=== PATIENT | female | born 1955 | race Two or more races ===

== ENCOUNTER 2020-03-19 09:50 | Outpatient (REF) | payer MEDICAID, SELFPAY ==
[2020-03-19 11:03] LABS: MANUAL DIFF FLAG NO
[2020-03-19 11:08] LABS: Basophils Percent Auto 0.7 % (0-2); Eosinophils Absolute Auto 0.1 X10*3/uL (0.0-0.4); Eosinophils Percent Auto 1.3 % (0-4); Hematocrit 45.9 % (37-47); Hemoglobin 14.6 g/dl (12.0-16.0); Imm Gran Abs Auto 0.02 X10*3/uL (0.00-0.03); Imm Gran Pct Auto 0.3 % (0.0-0.4); Lymphocytes Absolute Auto 1.3 X10*3/uL (1.2-4.9); Lymphocytes Percent Auto 21.2 % (20-40); Mean Corpuscular HGB Conc 31.8 g/dl (31.0-35.0); Mean Corpuscular Hemoglobin 28.6 pg (27.0-33.0); Mean Corpuscular Volume 89.8 fL (80-98); Mean Platelet Volume 10.1 fL (9.4-12.3); Monocytes Absolute Auto 0.4 X10*3/uL (0.1-1.2); Monocytes Percent Auto 6.5 % (2-11); Neutrophils Absolute Auto 4.2 X10*3/uL (2.0-8.3); Platelet Count 269 X10*3/uL (160-400); Red Blood Count 5.11 X10*6/uL (4.20-5.50); Red Cell Distribution Width 13.7 % (11.0-16.0)
[2020-03-19 11:14] LABS: Glucose Urine UA NEG (NEG); Leukocyte Esterase Urine NEG (NEG); Nitrite Urine NEG (NEG); Urine Blood NEG (NEG); Urine Ketones NEG (NEG); Urine Protein NEG (NEG-TRACE)
[2020-03-19 11:20] LABS: Appearance Urine CLEAR; Color Urine YELLOW
[2020-03-19 11:25] LABS: RBC Urine 0 /HPF (0); Squamous Epithelial Cell Urine 2+ /LPF; WBC Urine 0 /HPF (0-4)
[2020-03-19 11:26] LABS: Mucus Urine 2+ /LPF
[2020-03-19 12:35] LABS: Alanine Aminotransferase 30 U/L (0-31); Albumin Level 4.1 g/dL (3.5-5.0); Alkaline Phosphatase 124 U/L (39-117); Anion Gap 10 (12-20); Aspartate Amino Transferase 22 U/L (5-31); Bilirubin Total 0.3 mg/dL (0.0-1.0); Blood Urea Nitrogen 17 mg/dL (9-16); Carbon Dioxide 32 mmol/L (22-29); Chloride 105 mmol/L (96-108); Cholesterol 171 mg/dL; Estimated Glomerular Filt Rate > 60; Glucose Fasting 104 mg/dL (60-99); HDL Cholesterol 45 mg/dL; LDL Cholesterol Calculated 103 mg/dl; Potassium 4.6 mmol/l (3.3-5.1); Sodium 142 mmol/L (135-145); Total Protein 7.1 g/dL (6.5-8.0); Triglycerides 116 mg/dL
[2020-03-19 12:55] LABS: TSH reflex Free T4 2.23 mIU/mL (0.32-4.0); Vitamin D 25-OH Total 16.6 ng/mL (>30)
== END 2020-03-19 09:51 | disposition home or self-care (01) ==
LOC: HO.LAB 09:50
PROVIDERS: PCP Internal Medicine; Visit Provider Internal Medicine
DX: Z00.00 Encounter for general adult medical examination without abnormal findings (principal); I10 Essential (primary) hypertension; K21.9 Gastro-esophageal reflux disease without esophagitis; E66.9 Obesity, unspecified; E55.9 Vitamin D deficiency, unspecified
CPT/HCPCS: 36415; 80053; 80061; 81001; 82306; 84443; 85025

== ENCOUNTER 2020-07-17 08:36 | Day surgery (SDC) | payer MEDICAID, SELFPAY ==
[2020-07-13 09:20] VITALS: BMI 40.4
--- NOTE | 2020-07-16 07:54 | HO.ANESPROP2 ---
Documented by User: Yennifer Martins 07/16/20 07:55 HPI - Anesthesia Eval Consult details Narrative: 64yo F for Upper Endoscopy and Colonoscopy [facility] Active Problems Active Problems: All Active Problems (Updated 07/13/20 @ 09:20 by Chasity Gomez) Impaired glucose tolerance (Acute) Bipolar disorder (Acute) GERD (gastroesophageal reflux disease) (Acute) Tobacco abuse (Acute) Colon cancer screening (Acute) Tendon cysts (Acute) Lumbar degenerative disc disease (Acute) Hypertension (Acute) Vitamin D deficiency (Acute) Past Medical History Medical History Back pain Bipolar disorder GERD (gastroesophageal reflux disease) History of diverticulitis Hypertension Impaired glucose tolerance Lumbar degenerative disc disease Vitamin D deficiency Family History Family History (Updated 04/01/20 @ 10:49 by Naima Lange Pat) Father No problems noted. Mother No problems noted. Surgical History Surgical History H/O colonoscopy History of cholecystectomy History of esophagogastroduodenoscopy (EGD) History of tubal ligation Hx of cataract surgery Social History Social History Smoking Status: Current every day smoker Use of substances other than those prescribed or required for medical reasons: No Advance Directives: No Advance Directives Information Provided: Yes Meds Allergies Allergy/AdvReac Type Severity Reaction Status Date / Time No Known Allergies Allergy Verified 07/17/20 08:49 [No Known Allergies*] Home Medications Medication Instructions Recorded Confirmed Last Taken Type amlodipine 5 mg tablet 5 mg PO DAILY 04/27/20 07/13/20 07/17/20 08:00 History clonazepam 2 mg tablet 2 mg PO BEDTIME 04/27/20 07/13/20 Unknown History omeprazole 20 mg capsule,delayed 20 mg PO BID cap 04/27/20 07/13/20 Unknown History release trazodone 50 mg tablet 50 mg PO DAILY 04/27/20 07/13/20 Unknown History Exam Exam Date and Time: July 16, 2020 0754 Height,Weight and Vital Signs: Height 5 ft 1 in Weight 97.069 kg Assessment and Plan Assessment Anesthesia Assessment: Chart Reviewed Documented by User: Maliha Omalley 07/17/20 09:54 PMFSH Past Medical History Medical History Back pain Bipolar disorder GERD (gastroesophageal reflux disease) History of diverticulitis Hypertension Impaired glucose tolerance Lumbar degenerative disc disease Vitamin D deficiency Family History Family History (Updated 04/01/20 @ 10:49 by Naima Lange Pat) Father No problems noted. Mother No problems noted. Surgical History Surgical History H/O colonoscopy History of cholecystectomy History of esophagogastroduodenoscopy (EGD) History of tubal ligation Hx of cataract surgery Social History Social History Smoking Status: Current every day smoker Use of substances other than those prescribed or required for medical reasons: No Advance Directives: No Advance Directives Information Provided: Yes Meds Allergies Allergy/AdvReac Type Severity Reaction Status Date / Time No Known Allergies Allergy Verified 07/17/20 08:49 [No Known Allergies*] Home Medications Medication Instructions Recorded Confirmed Last Taken Type amlodipine 5 mg tablet 5 mg PO DAILY 04/27/20 07/13/20 07/17/20 08:00 History clonazepam 2 mg tablet 2 mg PO BEDTIME 04/27/20 07/13/20 Unknown History omeprazole 20 mg capsule,delayed 20 mg PO BID cap 04/27/20 07/13/20 Unknown History release trazodone 50 mg tablet 50 mg PO DAILY 04/27/20 07/13/20 Unknown History Exam Airway Mallampati Class: II TM Dist: >3cm Denture: Upper Loose/Missing/Broken Teeth: No Heart: RRR Lungs: CTA Assessment and Plan Final Anesthetic Review NPO: Yes ASA Class: II Final Preanesthetic Review: Meds/Allgs Chart Reviewed, Consent Obtained/Reviewed and Anes Risks/Benef Reviewed Patient Risk: Intermediate Procedure Risk: Intermediate Anesthetic Plan Anesthetic Plan: MAC: Disposition: Standard PACU
[2020-07-17 09:11] VITALS: BP 149/81; PULSE 78; RESP 18; TEMP 36.7; O2SAT 96
[2020-07-17] MEDS: Lactated Ringers 1,000 ML 100 ML IVCONT (09:39)
[2020-07-17 11:05] VITALS: BP 100/63; PULSE 84; RESP 18; TEMP 36.2; O2SAT 99
--- NOTE | 2020-07-17 11:06 | PM.OP ---
Brief Operative Note Date of Service: 07/17/20 Pre-op diagnosis: GERD, Screening Post-op diagnosis: other (Hiatal hernia, Gastritis, Diverticulosis) Procedure: EGD with biopsies, Colonoscopy to the cecum Surgeon: Schuyler Coker Anesthesia: MAC Estimated blood loss (mL): 4.0 Pathology: other (A. Gastric antrum B. EG Junction at 36cm) Condition: stable Disposition: PACU
[2020-07-17 11:20] VITALS: BP 108/70; PULSE 77; RESP 20; TEMP 36.2; O2SAT 99
--- NOTE | 2020-07-17 11:32 | OP_ITS ---
SURGEON: Schuyler Coker MD INDICATIONS: The patient presents for evaluation of gastroesophageal reflux, colorectal cancer screening, and family history of colon cancer. Full consent has been obtained from her for this, including risks of bleeding and perforation. PREOPERATIVE DIAGNOSIS: POSTOPERATIVE DIAGNOSIS: PROCEDURE PERFORMED: Esophagogastroduodenoscopy with biopsies, and colonoscopy to cecum. ESTIMATED BLOOD LOSS: COMPLICATIONS: ANESTHESIA: Monitored anesthesia care. ASSISTANTS: SPECIMENS: PREOPERATIVE DIAGNOSES: Gastroesophageal reflux, family history of colon cancer, colorectal cancer screening. POSTOPERATIVE DIAGNOSES: Gastroesophageal reflux, family history of colon cancer, colorectal cancer screening, small hiatal hernia, gastritis, diverticulosis, and internal hemorrhoids. DESCRIPTION OF PROCEDURE: The patient was placed in the left lateral decubitus position. The Olympus video gastroscope was passed in the posterior oropharynx and upper esophagus under direct vision. The scope was passed slowly into the distal esophagus. The gastroesophageal junction appeared at 36 cm. There was a very minimal irregularity consistent with reflux, but no evidence of any esophagitis nor Padilla's esophagus. The scope entered into the stomach. There was a small hiatal hernia. The scope was advanced to the pylorus and duodenum was cannulated to the descending portion. The duodenum including the bulb appeared normal without mass or ulceration. The scope was withdrawn back into the stomach. The gastric antrum and body had changes with a chronic gastritis with some edema and erythema, but no erosions or ulceration. There was good peristalsis. The scope was retroflexed visualizing the proximal stomach carefully, which appeared normal, without any sign of mass or ulceration. Scope was straightened. Biopsies were obtained from the gastric antrum. The scope was withdrawn back into the esophagus. Biopsies were obtained at the EG junction at 36 cm. Proximal to that, the esophageal mucosa appeared normal. The scope was withdrawn from the patient. She was turned around for colonoscopy. The digital rectal exam revealed no abnormalities. The Olympus video pediatric colonoscope was entered into the rectum and advanced easily to the cecum. Once in the cecum, I did identify normal-appearing cecal pouch with appendiceal orifice and a normal appearing ileocecal valve. The entire cecum and ileocecal valve appeared normal. The scope was slowly withdrawn assessing all mucosal surfaces carefully. Preparation was good throughout the colon, although there were some areas of liquid stool, which were difficult to remove. I did not visualize any sign of polyps, colitis, nor angiodysplasia. There was a moderate amount of sigmoid diverticulosis. In the rectum, scope was retroflexed visualizing internal hemorrhoids, but no other pathology. The rectal mucosa appeared normal. The scope was straightened out and withdrawn from the patient. She tolerated both procedures well and was returned to the recovery area in stable condition. IMPRESSION: 1. Small hiatal hernia, gastroesophageal reflux. 2. Gastritis. 3. Diverticulosis. 4. Internal hemorrhoids. PLAN: The results of the biopsy will be checked. I would recommend a repeat colonoscopy in 5 years for further screening given her family history of her father having of advanced colon cancer at age 70. She was advised to continue her current regimen of the omeprazole for her symptomatic reflux. If things are stable, she will see me on a p.r.n. basis. If Helicobacter pylori is present in the gastric biopsies, I would not necessarily treat that given no history of ulcer disease. MD ALISE Ordoñez/JENNIFER / [phone]
--- NOTE | 2020-07-17 11:58 | PC.NURSE ---
OK TO LEAVE PATIENT IN LOBBY WITH DAUGHTER WHILE AWAITING TRANSPORT PER [facility]. PT REQUESTED TO WAIT IN LOBBY
== END 2020-07-17 11:56 | disposition home or self-care (01) ==
PROVIDERS: PCP Internal Medicine; Visit Provider Internal Medicine
PROC: (CPT 45378; principal; 2020-07-17 09:50)
DX: Z12.11 Encounter for screening for malignant neoplasm of colon (principal); Z80.0 Family history of malignant neoplasm of digestive organs; K57.30 Diverticulosis of large intestine without perforation or abscess without bleeding; K64.8 Other hemorrhoids; K21.9 Gastro-esophageal reflux disease without esophagitis; K29.50 Unspecified chronic gastritis without bleeding; I10 Essential (primary) hypertension; R73.02 Impaired glucose tolerance (oral)
CPT/HCPCS: 45378; 43239; 88305; 88342

== ENCOUNTER → 2020-11-19 09:54 | Outpatient (REF) | payer MEDICAID, SELFPAY ==
--- NOTE | 2020-11-19 10:14 | ECG_ITS ---
Test Reason : PREOP Blood Pressure : / mmHG Vent. Rate : 079 BPM Atrial Rate : 079 BPM P-R Int : 156 ms QRS Dur : 078 ms QT Int : 376 ms P-R-T Axes : 054 008 084 degrees QTc Int : 431 ms Normal sinus rhythm Nonspecific T wave abnormality Abnormal ECG No previous ECGs available Referred By: Melisa Valerio Electronically Signed By:CLAIR BARCENAS MD
[2020-11-19 10:37] LABS: MANUAL DIFF FLAG NO
[2020-11-19 10:49] LABS: Basophils Percent Auto 0.7 % (0-2); Eosinophils Absolute Auto 0.1 X10*3/uL (0.0-0.4); Eosinophils Percent Auto 1.2 % (0-4); Hematocrit 45.8 % (37-47); Hemoglobin 15.1 g/dl (12.0-16.0); Imm Gran Abs Auto 0.01 X10*3/uL (0.00-0.03); Imm Gran Pct Auto 0.2 % (0.0-0.4); Lymphocytes Absolute Auto 1.4 X10*3/uL (1.2-4.9); Lymphocytes Percent Auto 24.4 % (20-40); Mean Corpuscular Hemoglobin 29.1 pg (27.0-33.0); Mean Corpuscular Volume 88.2 fL (80-98); Mean Platelet Volume 10.2 fL (9.4-12.3); Monocytes Absolute Auto 0.4 X10*3/uL (0.1-1.2); Monocytes Percent Auto 6.8 % (2-11); Neutrophils Absolute Auto 3.9 X10*3/uL (2.0-8.3); Neutrophils Percent Auto 66.7 % (45-73); Platelet Count 261 X10*3/uL (160-400); Red Blood Count 5.19 X10*6/uL (4.20-5.50); Red Cell Distribution Width 14.4 % (11.0-16.0); White Blood Count 5.9 X10*3/uL (4.8-10.8)
[2020-11-19 10:59] LABS: Anion Gap 12 (12-20); Blood Urea Nitrogen 14 mg/dL (9-16); Calcium 9.2 mg/dL (8.4-10.2); Carbon Dioxide 29 mmol/L (22-29); Chloride 106 mmol/L (96-108); Estimated Average Glucose 117 mg/dL; Estimated Glomerular Filt Rate > 60; Glucose Fasting 103 mg/dL (60-99); Hemoglobin A1c % 5.7 %; Potassium 4.5 mmol/L (3.3-5.1); Sodium 142 mmol/L (135-145)
== END ==
LOC: HO.CARD 09:54
PROVIDERS: PCP Internal Medicine; Visit Provider Internal Medicine
DX: Z01.818 Encounter for other preprocedural examination (principal)
CPT/HCPCS: 36415; 80048; 83036; 85025; 93005

== ENCOUNTER 2021-10-05 14:30 | Outpatient (REF) | payer MEDICARE, MEDICAID, SELFPAY ==
--- NOTE | ~2021-10-05 | XR_ITS ---
EXAMINATION: XR ANKLE, RIGHT CLINICAL INFORMATION: Pain. COMPARISON: None TECHNIQUE: AP, lateral, and mortise views of the right ankle. FINDINGS: No acute fracture or malalignment. The ankle mortise is maintained. Moderate multifocal degenerative osteoarthritis manifested by marginal osteophytes and joint space narrowing. No erosions. Calcaneus dorsal and plantar spurs. Nonspecific diffuse soft tissue swelling. XR/XR ankle RT min 3V IMPRESSION: No acute fracture or malalignment. Moderate multifocal degenerative osteoarthritis. Nonspecific diffuse soft tissue swelling.
== END 2021-10-05 14:31 | disposition home or self-care (01) ==
LOC: HO.XRAY 14:30
PROVIDERS: PCP Internal Medicine; Visit Provider Internal Medicine
DX: M25.571 Pain in right ankle and joints of right foot (principal)
CPT/HCPCS: 73610

== ENCOUNTER → 2021-12-30 10:04 | Outpatient (REF) | payer MEDICARE, MEDICAID, SELFPAY ==
--- NOTE | 2021-12-30 10:11 | ECG_ITS ---
Test Reason : PREPROC EXAM Blood Pressure : / mmHG Vent. Rate : 072 BPM Atrial Rate : 072 BPM P-R Int : 166 ms QRS Dur : 078 ms QT Int : 378 ms P-R-T Axes : 064 018 076 degrees QTc Int : 413 ms Normal sinus rhythm Low voltage QRS Nonspecific T wave abnormality Abnormal ECG When compared with ECG of 19-NOV-2020 10:18, No significant change was found Referred By: Jenifer Jarrett Electronically Signed By:TIRSO VALLEJO
[2021-12-30 10:38] LABS: INTERNATIONAL NORM RATIO 0.9 (0.9-1.1); Prothrombin Time 9.9 SEC (10.0-13.1)
[2021-12-30 10:46] LABS: Estimated Average Glucose 108 mg/dL; Hemoglobin A1c % 5.4 %
[2021-12-30 10:48] LABS: Hematocrit 46.1 % (37.0-47.0); Hemoglobin 15.1 g/dl (12.0-16.0); Mean Corpuscular HGB Conc 32.8 g/dl (31.0-35.0); Mean Corpuscular Hemoglobin 29.1 pg (27.0-33.0); Mean Corpuscular Volume 88.8 fL (80.0-98.0); Mean Platelet Volume 9.6 fL (9.4-12.3); Platelet Count 279 X10*3/uL (160-400); Red Blood Count 5.19 X10*6/uL (4.20-5.50); Red Cell Distribution Width 13.6 % (11.0-16.0); White Blood Count 6.7 X10*3/uL (4.8-10.8)
[2021-12-30 11:12] LABS: Alanine Aminotransferase 20 U/L (0-31); Albumin Level 4.1 g/dL (3.5-5.0); Alkaline Phosphatase 127 U/L (39-117); Anion Gap 13 (12-20); Aspartate Amino Transferase 16 U/L (5-31); Bilirubin Total 0.3 mg/dL (0.0-1.0); Blood Urea Nitrogen 12 mg/dL (9-16); Calcium 9.2 mg/dL (8.4-10.2); Carbon Dioxide 31 mmol/L (22-29); Chloride 105 mmol/L (96-108); Estimated Glomerular Filt Rate > 60; Glucose Random 114 mg/dL (60-115); Potassium 4.2 mmol/L (3.3-5.1); Sodium 145 mmol/L (135-145); Total Protein 7.2 g/dL (6.5-8.0)
[2021-12-30 11:23] LABS: TSH reflex Free T4 5.19 uIU/mL (0.32-4.0)
[2021-12-30 11:57] LABS: Free T4 (Free Thyroxine) 0.96 ng/dL (0.71-1.85)
== END ==
LOC: HO.CARD 10:04
PROVIDERS: PCP Internal Medicine; Visit Provider Nurse Practitioner Family
DX: Z01.818 Encounter for other preprocedural examination (principal)
CPT/HCPCS: 36415; 80053; 83036; 84439; 84443; 85027; 85610; 93005

== ENCOUNTER 2022-04-19 15:17 | Outpatient (REF) | payer MEDICARE, MEDICAID, SELFPAY ==
--- NOTE | ~2022-04-19 | US_ITS ---
EXAMINATION: US VENOUS ULTRASOUND WITH DOPPLER LOWER EXTREMITY, LEFT CLINICAL INFORMATION: Left lower leg pain. COMPARISON: None TECHNIQUE: Ultrasound of the deep veins is performed from the hip to the calf with compression sonography and color and pulse Doppler assessment. Spectral analysis with color-flow imaging is performed. FINDINGS: There is normal venous compression and respiratory variation and augmented flow. The visualized common femoral vein, superficial femoral vein, profunda femoral vein, popliteal vein, and the trifurcation region shows no evidence of deep venous thrombosis. Left popliteal cyst measuring 6.2 x 1.3 x 3.4 cm. Color Doppler showed no abnormal vascular flow. US/US venous duplex LE LT IMPRESSION: No evidence for deep venous thrombosis in the visualized veins of the left lower extremity. Left popliteal cyst as detailed above.
[2022-04-19 16:34] LABS: MANUAL DIFF FLAG NO
[2022-04-19 17:31] LABS: Basophils Absolute Auto 0.1 X10*3/uL (0.0-0.2); Basophils Percent Auto 0.7 % (0-2); Eosinophils Absolute Auto 0.1 X10*3/uL (0.0-0.4); Eosinophils Percent Auto 0.7 % (0-4); Hematocrit 46.2 % (37.0-47.0); Imm Gran Abs Auto 0.02 X10*3/uL (0.00-0.03); Imm Gran Pct Auto 0.2 % (0.0-0.4); Lymphocytes Absolute Auto 1.6 X10*3/uL (1.2-4.9); Lymphocytes Percent Auto 18.2 % (20-40); Mean Corpuscular HGB Conc 32.5 g/dl (31.0-35.0); Mean Corpuscular Hemoglobin 28.8 pg (27.0-33.0); Mean Corpuscular Volume 88.8 fL (80.0-98.0); Monocytes Absolute Auto 0.6 X10*3/uL (0.1-1.2); Monocytes Percent Auto 6.7 % (2-11); Neutrophils Absolute Auto 6.6 x10*3/uL (2.0-8.3); Neutrophils Percent Auto 73.5 % (45-73); Platelet Count 316 X10*3/uL (160-400); Red Cell Distribution Width 13.7 % (11.0-16.0)
[2022-04-19 18:07] LABS: Alanine Aminotransferase 35 U/L (0-31); Albumin Level 4.2 g/dL (3.5-5.0); Alkaline Phosphatase 149 U/L (39-117); Anion Gap 10 (12-20); Aspartate Amino Transferase 20 U/L (5-31); Bilirubin Total 0.3 mg/dL (0.0-1.0); Blood Urea Nitrogen 17 mg/dL (9-16); C Reactive Protein 0.71 mg/dL (< or = 0.50); Calcium 9.5 mg/dL (8.4-10.2); Carbon Dioxide 32 mmol/L (22-29); Chloride 107 mmol/L (96-108); Estimated Glomerular Filt Rate > 60; Glucose Random 102 mg/dL (60-115); Potassium 4.4 mmol/L (3.3-5.1); Sodium 145 mmol/L (135-145); Uric Acid 2.5 mg/dL (2.4-5.7)
[2022-04-19 18:12] LABS: Erythrocyte Sedimentation Rate 12 MM/HR (0-20)
== END 2022-04-19 15:18 | disposition home or self-care (01) ==
LOC: HO.US 15:17
PROVIDERS: PCP Internal Medicine; Visit Provider Internal Medicine
DX: M25.462 Effusion, left knee (principal); M25.562 Pain in left knee; M79.662 Pain in left lower leg; M79.89 Other specified soft tissue disorders
CPT/HCPCS: 36415; 73562; 80053; 84550; 85025; 85652; 86140; 93971

== ENCOUNTER → 2022-05-12 13:41 | Outpatient (BNVA) | payer MEDICARE, MEDICAID, SELFPAY | PROVIDERS: PCP Internal Medicine; Visit Provider Orthopaedic Surgery | DX: M17.12 Unilateral primary osteoarthritis, left knee (principal) | CPT/HCPCS: 20610; 99202; J1100 ==

== ENCOUNTER 2022-07-01 14:00 | Outpatient (RCR) | payer MEDICARE, MEDICAID, SELFPAY ==
--- NOTE | 2022-05-30 14:40 | MHC.PT.EP ---
[facility] [place] Office [place] Office [place] Office [address] [place] [address] [phone] F: [phone] F: [phone] F: [phone] F: [phone] Physical Therapy Plan of Care Date of Evaluation: Date of Surgery: Diagnosis: OA OF LEFT KNEE Assessment: 66 YO FEMALE REF TO PT FOR LEFT KNEE OA, SHE NOTES (+) LEFT KNEE AGARWAL'S CYST- SHE RESIDES ALONE IN A 2ND FLOOR APT, CURRENTLY AMB W/O ASST DEVICES- SHE IS LEGALLY BLIND. Pt HAS DECR AROM/PROM IN Lt KNEE (LACKS TERMINAL EXT); DECR STRENGTH IN LUMBOPELVIC/ PROX LEs, DECR SLS ANIA, (+) GENU VALGUS AND TIGHT LATERAL PATELLAE. FUNCTIONALLY, Pt HAS DIFFIC W DESC STAIRS-> ECCENTRIC , STANDING, INCR WALKING, SQUATTING, AND TRANSITIONAL MVMTS. Pt IS A GOOD PT CANDIDATE TO GUIDE HER IN ADDRESSING THE ABOVE FINDINGS, PAIN MGMT, AND MAXIMIZING FUNCTIONAL INDEPENDENCE. Frequency and Duration: The patient will be seen 2 x WK x 5 WKS Short Term Goals: *DECR Lt KNEE PAIN TO 2-3/10 *IMPROVE Lt KNEE AROM AND Lt PATELLAR MOBILITY *INITIATE CORE STAB PROGR/ PROX LEs EXER Improvement Coordinator Goals: *Pt DEMON IMPROVED STRENGTH , ESPEC ECCENTRIC IN LEFT LE/ LUMBOPELVIC-> EFFICIENT MECHANICS W STAIR MGMT, GAIT *Pt IMPROVE AROM Lt KNEE 0* EXTENSION *Pt INDEP W PROGRESSIVE HEP *INCR FLEXIB IN PSOAS/ CALF MM TO IMPROVE EFFICIENCY OF GAIT ON LEVEL AND STAIRS Treatment Plan: Modalities to reduce pain, spasms and effusion. Manual therapy to restore motion and function. Therapeutic exercise to improve strength and flexibility. Neuromuscular re-education for posture and balance. Therapeutic activities to return to functional activities of daily living. Electronically signed by: MARTÍN RUBIOPT Please sign and return to therapist. Thank you for your referral.
--- NOTE | 2022-07-22 10:21 | MHC.PT.DC ---
[facility] [place] Office [place] Office [place] Office [address] [place] [address] [facility] [phone] F: [phone] F: [phone] F: [phone] F: [phone] Physical Therapy Discharge Report Diagnosis: OA OF LEFT KNEE Date of Surgery: Date of Evaluation: 05/30/22 Date of Discharge: 07/22/22 Treatments to Date: 7 Cancellations to Date: 0 No Shows to Date: 4 Discharge Status: Improved Function Visit Non-compliance Discharge Summary: Pt DID ATTEND 7 APPTS IN WHICH TIME WE DEV A HEP AND ADDRESSED PAIN MGMT STRATEGIES WELL IMPROVE EFFICIENCY OF HER FUNCTIONAL MOBILITY. THE Pt DID NOT ATTEND THE LAST 4 SCHED APPTS AND, THEREFORE, A FINAL RE-ASSESSMENT WAS NOT ABLE TO BE COMPLETED. Electronically signed by: MARTÍN RUBIO,PT Please sign and return to therapist. Thank you for your referral.
== END 2022-07-22 10:22 | disposition home or self-care (01) ==
LOC: HO.PT 14:00
PROVIDERS: PCP Internal Medicine; Visit Provider Orthopaedic Surgery
DX: M17.12 Unilateral primary osteoarthritis, left knee (principal)
CPT/HCPCS: 97110; 97140; 97162

== ENCOUNTER 2022-12-02 13:01 | Outpatient (AMB) | payer MEDICARE, MEDICAID, SELFPAY ==
[2022-12-02 13:07] VITALS: BP 124/80; PULSE 93; O2SAT 98; BMI 41.0
--- NOTE | 2022-12-02 13:07 | MHC.PC.OV ---
Vital Signs 12/02/22 13:07 Height 5 ft 1 in Weight 217 lb BMI 41.0 BP 124/80 Blood Pressure Location Lt brachial Position Sitting Pulse 93 Pulse Source Pulse Oximeter Temp Source Skin Pulse Oximetry (%) 98 Oxygen Delivery Method Room Air Intake Visit Reasons: 11/27 not being able to speak correctly Intake Note: Patient is here to follow-up after a visit the emergency department at [facility] on 11/27/22 Follow Up Manager Required: No Allergies No Known Allergies [No Known Allergies*] Allergy (Verified 12/02/22 13:26) Medication List - Last Reconciled 12/02/22 by JANINE Zavala amlodipine 10 mg PO DAILY blood pressure test kit-large As directed cholecalciferol (vitamin D3) 1,250 mcg PO QWEEK clonazepam (Klonopin) 2 mg PO BEDTIME 90 days fluticasone propionate 50 mcg/actuation 2 sprays intranasal DAILY PRN 30 days gabapentin 800 mg PO TID loratadine 10 mg PO DAILY 90 days losartan 100 mg PO DAILY omeprazole 20 mg PO BID 90 days tizanidine 4 mg PO Q8H PRN tramadol 50 mg PO Q8H 90 days trazodone 100 mg (2 x 50 mg) PO DAILY 90 days Tobacco use date assessed: 12/02/22 Fall risk assessment: No Falls in past year Last assessed Fall Risk: 12/02/22 Dental Screening Dental Screen Date: 12/02/22 Did you have a dental visit in the last 12 months?: Yes Did you have a dental problem in the last 6 months where you did not have access to dental care?: No HPI [place] 11/27 not being able to speak correctly HPI Details Patient is a 67-year-old female who presents today to follow-up after [facility] Emergency Department visit 11/27/2022 due to difficulty speaking and headache. Patient of Dr. Orozco. Discharge diagnosis: Complicated migraine. 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 Presented for evaluation of acute onset headache as well as numbness of the left side of her posterior tongue/throat. Patient stated that headache is slightly worse than usual a but she does frequently have headaches which are attributed to that mass. Patient denies any recent falls. Denies any numbness or tingling of the upper/lower extremities. Stated that the left side of her face feels slightly at. Denies any weakness. Daughter stated that her face will not simply droop and does look slightly different than usual. Patient did have CT CTA imaging. Patient was treated with Reglan. CTA and CT head with no acute findings. Case was discussed with Neurology. Neurology stated that deficit are quiet mild and given some certainly over the diagnosis of acute CVA do not recommend tPA. Neurology stated this could be a complex migraine and recommend treatment. If patient gets better this state that she can be discharged home with Neurology follow-up, however if deficits remain day would recommend admission for MRI to further elucidate the cause of the headache and to evaluate for possible infarction. Labs were reassuring. Patient started feeling better her numbness have resolved. Speech improved, headache improving as well. Patient was discharged home and recommended to follow up with PCP and also to have MRI of the brain. Today, patient reports intermittent left-sided headache since 09/2022, she reports that she feels better in a dark room, denies sensitivity to light. Patient has an upcoming eye exam 03/2023. Denies any numbness or tingling, denies any speech changes. Reports that ache surgery is not helping with headache. She also did use ibuprofen with no much improvement. Reports left-sided headache, frontal lobe, behind her eye, left temporal area proximal to eye. Denies extremity weakness. In addition, patient reports right arm soft lump for the past 1 year which is an increase in in size, nontender - wants evaluation for this. Patient is a Liberian-speaking and Marlen was helping with interpretation. [facility] Medical History Allergic rhinitis Back pain Benign essential hypertension Bipolar affective disorder Bipolar disorder Generalized anxiety disorder GERD (gastroesophageal reflux disease) GERD without esophagitis History of diverticulitis Hypertension Impacted cerumen of both ears Impaired glucose tolerance Insomnia Lumbar degenerative disc disease Nasal congestion Obesity (BMI 30-39.9) Right lumbar radiculopathy Smoker Vitamin D deficiency Surgical History H/O colonoscopy History of cholecystectomy History of esophagogastroduodenoscopy (EGD) History of tubal ligation Hx of cataract surgery Family History Father Colon cancer Mother Primary cancer of bone marrow Sister Leukemia Social History Housing: Apartment Alcohol intake: never Patient Tobacco Use Status: Current everyday Tobacco user Tobacco use type: Cigarette Cigarettes Per Day: 7 e-Cigarette/Vaping Use: Never Used Second Hand Smoke Exposure: Yes service: No Current occupational status: unemployed Cognitive needs: No Hearing needs: No Vision needs: No Questionnaire Thrive Questionnaire Date Thrive assessed: 06/28/22 AUDIT C Alcohol Use Questionnaire (AUDIT-C) 1. How often do you have a drink containing alcohol?: Never 3. How often do you have six or more drinks on one occasion?: Never Total Score: 0 Score Reviewed/Action Taken: No ALEXANDER-7 AMB Questionnaire ALEXANDER-7 Date ALEXANDER - 7 assessed: 06/28/22 Source: Developed by Drs. Schuyler Abbott, Elena Villeda, Eric Espinal and colleagues, with an educational lm from [employer]. Review of Systems Const Denies body aches, Denies chills, Denies fever(s) and Reports headache(s) (Intermittent for the past 2 months) Eyes Denies change in vision ENT Denies dizziness, Denies otalgia, Reports headache(s) (Intermittent for the past 2 months), Denies nasal discharge, Denies sinus pain and Denies sore throat Card Denies chest pain, Denies edema, Denies lightheadedness and Denies dyspnea Resp Denies cough, Denies dyspnea and Denies wheezing GI Denies constipation, Denies diarrhea, Denies nausea and Denies vomiting Denies dysuria Musc Denies myalgias, Denies numbness and Denies tingling Skin/Breast Reports as per HPI, Denies lesions and Denies rash Neuro Denies dizziness, Reports headache(s) (Intermittent for the past 2 months), Denies numbness and Denies tingling Aller/Immun Denies wheezing Physical exam (Primary Care) Vital Signs: Last Vital Signs Pulse 93 12/02/22 13:07 BP 124/80 12/02/22 13:07 Pulse Ox 98 12/02/22 13:07 Oxygen Delivery Method Room Air 12/02/22 13:07 BMI result Body Mass Index 41.0 Tobacco/Smoking Status: Tobacco use Status Tobacco use date assessed 12/02/22 12/02/22 13:10 Patient Tobacco Use Status Current everyday Tobacco 12/02/22 13:10 Tobacco use type Cigarette 12/02/22 13:10 e-Cigarette/Vaping Use Never Used 12/02/22 13:10 Thrive Assessment: Date of Thrive Assessment Date Thrive assessed 06/28/22 12/02/22 13:10 Const General: cooperative and no acute distress Orientation/consciousness: patient oriented x3 HENMT Other: Left forehead with bulging area, nontender, skin is intact Head: Yes normocephalic and Yes atraumatic Ears: TM's normal bilaterally Face and sinus: Yes sinuses nontender Mouth: oropharynx normal and moist mucous membranes Throat: Yes posterior oropharynx normal Eyes Other: Right eye prosthesis; left eye with strabismus, able to focus, denies visual changes Neck Neck: Yes normal visual inspection, Yes full ROM and Yes no lymphadenopathy Resp Effort & Inspection: normal respiratory effort and able to speak in complete sentences Auscultation: clear to auscultation bilaterally, no crackles, no rales, no rhonchi and no wheezes Cardio Rate: regular rate Rhythm: regular rhythm Heart sounds: S1 normal heart sound present and S2 normal heart sound present GI Auscultation: normal bowel sounds Skin Full body images: 1. Right arm with slightly raised palpable soft area about 3-4cm, nontender, skin is intact Neuro Other: Shoulder shrugs normal Smile equal General: patient oriented x3 Gait exam (Neuro): Normal gait present Motor exam (neuro): 5/5 motor strength present throughout Extrem General: Yes full ROM and No edema Assessment and Plan Assessment & Plan (1) Skin lump of arm: Code(s): R22.30 - Localized swelling, mass and lump, unspecified upper limb Plan: Right arm with slightly raised palpable soft area about 3-4cm, nontender, skin is intact Will obtain ultrasound of this area, questioning possible lipoma (2) Complicated migraine: Code(s): G43.109 - Migraine with aura, not intractable, without status migrainosus Plan: Urgent referral to Neurology for an evaluation and treatment Will obtain head/brain MRI Trial sumatriptan p.r.n. Patient also can try [id number] Tylenol 650 mg every 6 hours as needed Signs and symptoms reviewed when to notify provider or go to the emergency department Keep appointment with PCP as scheduled or follow-up sooner as needed Orders: Orders MR head/brain wo con Today G43.109 - Migraine with aura, not intractable, without status migrainosus US extremity nonvascular tom Today R22.30 - Localized swelling, mass and lump, unspecified upper limb Referrals Neurology Referral G43.109 - Migraine with aura, not intractable, without status migrainosus Medications: New sumatriptan succinate take 1 tab at onset of headache; if no relief may repeat 1 tab after at least 2 hrs; max = 4 tabs/24 hr PO 9 tabs 0RF G43.109 - Migraine with aura, not intractable, without status migrainosus Coding Level of Care Code Est Pt Level 4 (89537) Diagnoses Skin lump of arm R22.30 Complicated migraine G43.109
== END 2022-12-02 13:54 | disposition home or self-care (01) ==
PROVIDERS: PCP Internal Medicine; Visit Provider Nurse Practitioner Family
DX: R22.30 Localized swelling, mass and lump, unspecified upper limb (principal); G43.109 Migraine with aura, not intractable, without status migrainosus
CPT/HCPCS: 99214

== ENCOUNTER 2022-12-12 13:53 | Outpatient (REF) | payer MEDICARE, MEDICAID, SELFPAY ==
--- NOTE | ~2022-12-12 | US_ITS ---
ULTRASOUND SOFT TISSUES DISTAL RIGHT FOREARM CLINICAL: Palpable lump of the distal right forearm. COMPARISON: None. TECHNIQUE: Using a linear transducer grayscale and color modalities, ultrasound examination is performed of the aortic concern in the lateral aspect of the distal right forearm. FINDINGS: The cutaneous, subcutaneous, muscular and fascial planes are unremarkable. No mass or fluid collection is seen. There is no lymphadenopathy. No foreign body is seen. US/US extremity nonvascular tom IMPRESSION: Unremarkable examination.
== END 2022-12-12 13:54 | disposition home or self-care (01) ==
LOC: HO.US 13:53
PROVIDERS: PCP Internal Medicine; Visit Provider Nurse Practitioner Family
DX: R22.30 Localized swelling, mass and lump, unspecified upper limb (principal)
CPT/HCPCS: 76882

== ENCOUNTER 2022-12-30 10:35 | Outpatient (AMB) | payer MEDICARE, MEDICAID, SELFPAY ==
--- NOTE | 2022-12-30 10:46 | MHC.OFFVIS ---
Intake Vital Signs 12/30/22 10:48 Height 5 ft 1 in Weight 218 lb BMI 41.2 BP 128/82 Blood Pressure Location Rt brachial Position Sitting Pulse 89 Pulse Source Pulse Oximeter Pulse Oximetry (%) 98 Oxygen Delivery Method Room Air Intake Visit Reasons: INP Migraine - Confirmed Intake Note: Patient presents for migraine headaches. Patient states I have a headache everyday Allergies No Known Allergies [No Known Allergies*] Allergy (Verified 12/30/22 10:49) Medication List - Last Reconciled 12/30/22 by JANINE Morgan amlodipine 10 mg PO DAILY blood pressure test kit-large As directed cholecalciferol (vitamin D3) 1,250 mcg PO QWEEK clonazepam (Klonopin) 2 mg PO BEDTIME 90 days fluticasone propionate 50 mcg/actuation 2 sprays intranasal DAILY PRN 30 days gabapentin 800 mg PO TID loratadine 10 mg PO DAILY 90 days losartan 100 mg PO DAILY omeprazole 20 mg PO BID 90 days sumatriptan succinate take 1 tab at onset of headache; if no relief may repeat 1 tab after at least 2 hrs; max = 4 tabs/24 hr PO tramadol 50 mg PO Q8H 90 days trazodone 100 mg (2 x 50 mg) PO DAILY 90 days HPI HPI Comments History of Present Illness Details Right- 67-yr-old female presents for new pt evaluation of headache. Pt has a PMH significant for right eye prosthetic, left eye congenital nystagmus, arthritis, depression, bipolar d/o, GERD, HTN, sleep difficulties- KEMAL not on PAP, Pt reports she has had migraine for about 35 years. She describes her migraine as right frontal/temporal sided pulsating pain. This is a/w seeing lights (before and during the attack), photophobia, phonophobia, nausea. She has not had an attack in the last 2 yrs. Then in August of 2022, she started having a new headache type. The new headache is in the left frontal, eye, ear and left head. It is a constant pain , with varying intensity mild-severe, always at night. This is a/w phonophobia, allodynia. Denies photophobia, vision changes, N/V, parethesias, usual focal weakness. One time- when headache was severe- she had difficulty speaking, her left tongue felt numb and droopy, left facial numbness, but she was thinking clearly. For this, she went to [facility] ER- head CT was normal, per pt. She was advised to stay for further testing, but declined. Takes ibuprofen- but does not help. She tried Sumatriptan 50mg x's 1- which helped. In the past she has tried Amitriptyline, nortriptyline, lamictal, cymbalta, depakote, nortriptyline. Of these cymbalta and amitriptyline were helpful- but she is not atking these as she is taking trazodone which helps her sleep. She also is concerned that her balance is poor- tends to list side to side and needs to take frequent rests, which she attributes to her chronic neckback pain, SOB, weakness. [facility] Medical History (Updated 12/30/22 @ 18:38 by JANINE Morgan) Allergic rhinitis Back pain Benign essential hypertension Bipolar affective disorder Bipolar disorder Generalized anxiety disorder GERD (gastroesophageal reflux disease) GERD without esophagitis History of diverticulitis Hypertension Impacted cerumen of both ears Impaired glucose tolerance Insomnia Lumbar degenerative disc disease Nasal congestion Obesity (BMI 30-39.9) Right lumbar radiculopathy Smoker Vitamin D deficiency Surgical History (Updated 12/30/22 @ 10:55 by FANTA Queen) H/O colonoscopy History of cholecystectomy History of esophagogastroduodenoscopy (EGD) History of eye removal History of tubal ligation Hx of cataract surgery Family History Father Colon cancer Mother Primary cancer of bone marrow Sister Leukemia Social History Housing: Apartment Alcohol intake: never Patient Tobacco Use Status: Current everyday Tobacco user Tobacco use type: Cigarette Cigarettes Per Day: 7 e-Cigarette/Vaping Use: Never Used Second Hand Smoke Exposure: Yes service: No Current occupational status: unemployed Cognitive needs: No Hearing needs: No Vision needs: No Review of Systems Const All systems reviewed & are unremarkable except as noted in HPI and below Physical Exam Vital Signs: Last Vital Signs Pulse 89 12/30/22 10:48 BP 128/82 12/30/22 10:48 Pulse Ox 98 12/30/22 10:48 Oxygen Delivery Method Room Air 12/30/22 10:48 BMI result Body Mass Index 41.2 Const General: cooperative and no acute distress Orientation/consciousness: oriented to person, oriented to place and oriented to time HEENT Other: left forehead- quarter size soft mass, tender to touch Resp Effort & Inspection: normal respiratory effort and able to speak in complete sentences Cardio Rate: regular rate Rhythm: regular rhythm Back/Spine/Pelvis Other: Bilateral posterior cervical tightness. Cervical ROM: limited Left Spurling: normal Right Spurling: normal. Neuro Other: Right eye prosthetic. Left eye- EOM intact, nystagmus, impaired vision. Mild left lower facial droop. Left lower facial decreased sensation compared to right. Tongue at midline Speech clear. MS 5/5 Slightly unsteady during turns. General: oriented to person, oriented to place and oriented to time Deep tendon reflexes (DTR's): Right triceps reflex intensity grade: 2+, Left triceps reflex intensity grade: 2+, Rt Biceps (C5, C6): 2+, Left biceps reflex intensity grade: 2+, Right brachioradialis reflex intensity grade: 2+, Left brachioradialis reflex intensity grade: 2+, Right patellar reflex intensity grade: 2+ and Left patellar reflex intensity grade: 2+ Coordination: [id number] test normal Romberg Test: Negative Psych Mental Status: mental status grossly normal Speech and movement: Clear speech present Affect: normal affect Attitude: cooperative Thought process: Normal thought process present Assessment & Plan Assessment & Plan (1) Migraine: Code(s): G43.909 - Migraine, unspecified, not intractable, without status migrainosus (2) Gait difficulty: Code(s): R26.9 - Unspecified abnormalities of gait and mobility (3) Risk for falls: Code(s): Z91.81 - History of falling Plan Pt is advised to undergo brain MRI to assess for central process d/t onset of new left sided headache, left lower facial weakness/hypoesthesia/speech changes. For acute migraine tx: Pt may continue prn Sumatriptan 50-100mg for now. For migraine prevention tx: Trial Nurtec ODT 75mg qod. Previous tx trials- Amitriptyline, nortriptyline, lamictal, cymbalta, depakote, nortriptyline. Tx contraindications: CGRP MaBs d/t severe decreased visual acuity, would avoid BBs as pt is already on Losartan 100mg and amlodipine 10mg qd. Would not resume TCA at this point as pt has good body pain control on Gabapentin 800mg tid and sleeps well on Trazodone 100mg qhs. Will initiate order for 4-wheeled seated rolling walker as pt is at risk for falling d/t gait imbalance, impaired visual acuity, decreased strength and endurance d/t arthritis, HTN, back pain, vertigo. Follow-up in 3 months or sooner prn. Medications: New walker Adult folding 4-wheeled rolling seated walker- use when walking 1 ea 0RF M25.50 - Pain in unspecified joint, M25.571 - Pain in right ankle and joints of right foot, M54.9 - Dorsalgia, unspecified, R26.9 - Unspecified abnormalities of gait and mobility, Z91.81 - History of falling sumatriptan succinate (0.5 - 1 x 100 mg) 50 - 100 mg orally at onset of headache, (may take with Ibuprofen) 30 days 12 tabs 6RF migraine headache walker Adult folding 4-wheeled rolling seated walker- use when walking 1 ea 0RF M25.50 - Pain in unspecified joint, M25.571 - Pain in right ankle and joints of right foot, M54.9 - Dorsalgia, unspecified, R26.9 - Unspecified abnormalities of gait and mobility, Z91.81 - History of falling rimegepant (Nurtec ODT) 75 mg PO Q OTHER DAY 30 days PRN 16 tabs 6RF migraine headache H26.9 - Unspecified cataract Discontinued sumatriptan succinate Discontinued Reason: Doctor's Order take 1 tab at onset of headache; if no relief may repeat 1 tab after at least 2 hrs; max = 4 tabs/24 hr PO 9 tabs 0RF G43.109 - Migraine with aura, not intractable, without status migrainosus Coding Level of Care Code New Pt Level 4 (86663) Diagnoses Migraine G43.909 Gait difficulty R26.9 Risk for falls Z91.81
[2022-12-30 10:48] VITALS: BP 128/82; PULSE 89; O2SAT 98; BMI 41.2
== END 2022-12-30 12:04 | disposition home or self-care (01) ==
PROVIDERS: PCP Internal Medicine; Visit Provider Nurse Practitioner Family
DX: G43.909 Migraine, unspecified, not intractable, without status migrainosus (principal); R26.9 Unspecified abnormalities of gait and mobility; Z91.81 History of falling
CPT/HCPCS: 99204

== ENCOUNTER → 2022-12-30 10:35 | Outpatient (BNVA) | payer MEDICARE, MEDICAID, SELFPAY | PROVIDERS: PCP Internal Medicine; Visit Provider Nurse Practitioner Family | DX: G43.909 Migraine, unspecified, not intractable, without status migrainosus (principal); R26.9 Unspecified abnormalities of gait and mobility; Z91.81 History of falling | CPT/HCPCS: 99202 ==

== ENCOUNTER 2023-01-13 10:14 | Outpatient (REF) | payer MEDICARE, MEDICAID, SELFPAY ==
[2023-01-13 10:32] LABS: MANUAL DIFF FLAG NO
[2023-01-13 11:04] LABS: Basophils Percent Auto 0.6 % (0-2); Eosinophils Absolute Auto 0.1 X10*3/uL (0.0-0.4); Eosinophils Percent Auto 2.1 % (0-4); Hemoglobin 15.1 g/dl (12.0-16.0); Imm Gran Abs Auto 0.01 X10*3/uL (0.00-0.03); Imm Gran Pct Auto 0.2 % (0.0-0.4); Lymphocytes Absolute Auto 1.4 X10*3/uL (1.2-4.9); Lymphocytes Percent Auto 21.2 % (20-40); Mean Corpuscular HGB Conc 32.8 g/dl (31.0-35.0); Mean Corpuscular Hemoglobin 29.6 pg (27.0-33.0); Mean Corpuscular Volume 90.2 fL (80.0-98.0); Mean Platelet Volume 10.3 fL (9.4-12.3); Monocytes Absolute Auto 0.5 X10*3/uL (0.1-1.2); Monocytes Percent Auto 7.4 % (2-11); Neutrophils Absolute Auto 4.5 x10*3/uL (2.0-8.3); Neutrophils Percent Auto 68.5 % (45-73); Platelet Count 276 X10*3/uL (160-400); Red Cell Distribution Width 14.3 % (11.0-16.0); White Blood Count 6.5 X10*3/uL (4.8-10.8)
[2023-01-13 11:53] LABS: Appearance Urine Clear; Color Urine Yellow; Glucose Urine UA Negative (Negative); Leukocyte Esterase Urine Negative (Negative); Nitrite Urine Negative (Negative); PH 7.5 (5.0-9.0); Urine Blood Negative (Negative); Urine Ketones Negative (Negative); Urine Protein Negative (Neg-Trace)
[2023-01-13 13:56] LABS: Alanine Aminotransferase 19 U/L (0-31); Alkaline Phosphatase 123 U/L (39-117); Anion Gap 10 (12-20); Aspartate Amino Transferase 15 U/L (5-31); Bilirubin Total 0.4 mg/dL (0.0-1.0); Blood Urea Nitrogen 11 mg/dL (9-16); Calcium 9.3 mg/dL (8.4-10.2); Carbon Dioxide 32 mmol/L (22-29); Chloride 107 mmol/L (96-108); Cholesterol 200 mg/dL (<200); Estimated Glomerular Filt Rate > 60; Glucose Fasting 102 mg/dL (60-99); HDL Cholesterol 50 mg/dL (>40); LDL Cholesterol Calculated 126 mg/dL (<100); Potassium 4.1 mmol/L (3.3-5.1); Sodium 145 mmol/L (135-145); Triglycerides 121 mg/dL (<150)
[2023-01-13 14:16] LABS: TSH reflex Free T4 3.79 uIU/mL (0.32-4.0); Vitamin D 25-OH Total 24.4 ng/mL (>30)
== END 2023-01-13 10:15 | disposition home or self-care (01) ==
LOC: HO.LAB 10:14
PROVIDERS: PCP Internal Medicine; Visit Provider Internal Medicine
DX: E78.00 Pure hypercholesterolemia, unspecified (principal); R30.0 Dysuria; E55.9 Vitamin D deficiency, unspecified; I10 Essential (primary) hypertension
CPT/HCPCS: 36415; 80053; 80061; 81003; 82306; 84443; 85025

== ENCOUNTER 2023-01-16 14:35 | Outpatient (AMB) | payer MEDICARE, MEDICAID, SELFPAY ==
--- NOTE | 2023-01-16 14:37 | MHC.PC.OV ---
Vital Signs 01/16/23 14:38 Height 5 ft 1 in Weight 221 lb 8 oz BMI 41.8 BP 124/82 Blood Pressure Location Lt brachial Position Sitting Pulse 93 Pulse Source Pulse Oximeter Pulse Oximetry (%) 95 Oxygen Delivery Method Room Air Intake Visit Reasons: HTN, GERD, lumbar DDD, OA, bipolar depression Irrigation Manager Required: No Accompanied by: Self / Same As Patient Allergies No Known Allergies [No Known Allergies*] Allergy (Verified 01/16/23 17:38) Medication List - Last Reconciled 01/16/23 by Ronal Orozco MD amlodipine 10 mg PO DAILY blood pressure test kit-large As directed cholecalciferol (vitamin D3) 1,250 mcg PO QWEEK clonazepam (Klonopin) 2 mg PO BEDTIME 90 days fluticasone propionate 50 mcg/actuation 2 sprays intranasal DAILY PRN 30 days gabapentin 800 mg PO TID loratadine 10 mg PO DAILY 90 days losartan 100 mg PO DAILY omeprazole 20 mg PO BID 90 days rimegepant (Nurtec ODT) 75 mg PO Q OTHER DAY PRN 30 days sumatriptan succinate 50 - 100 mg orally at onset of headache, (may take with Ibuprofen) 30 days tramadol 50 mg PO Q8H 90 days trazodone 100 mg (2 x 50 mg) PO DAILY 90 days walker Adult folding 4-wheeled rolling seated walker- use when walking Tobacco use date assessed: 01/16/23 Fall risk assessment: 2 + Falls in past year Last assessed Fall Risk: 01/16/23 Dental Screening Dental Screen Date: 01/16/23 Did you have a dental visit in the last 12 months?: Yes Did you have a dental problem in the last 6 months where you did not have access to dental care?: No Was dental information given to patient?: Patient has dentist HPI HTN, GERD, lumbar DDD, OA, bipolar depression HPI Details Patient comes in today for her follow up visit Recalls that she went to the ER at [facility] back at the end of October 2022 for increasing headaches and numbness of the left side of her tongue and throat area States that she went to the ER at the time due to concerns that she may be having a stroke based on her symptoms States that work ups done in the ER, including labs, head CT and a CT angiogram of the head and neck, all came out negative and CVA was ruled out Neurology was consulted as well and after observation and deliberation, it was determined that patient's symptoms are likely due to complex migraine and inconsistent with a CVA She has been advised to follow up with her PCP and with neurology KRISTA on an outpatient basis for further evaluation Patient was seen by neurology for consultation of her frequent headaches a couple of weeks ago - was started on Sumatriptan PRN for acute headaches and on Nurtec ODT 75 mg QOD for preventive Tx She was advised at the time to undergo a brain MRI for further evaluation and she is now scheduled to get the MRI done later this month on 01/27/2023 States that she continues to experience recurrent headaches She denies any chest pains, no increased SOB No nausea/vomiting, no abdominal pain No change in bowel habits noted Needs her Amlodipine Rx refilled She had some follow up labs done a few days ago - to discuss her results States that she would also like to get a referral to weight management but does not wish to have bariatric surgery done ON LICENSE OF [facility] Medical History (Updated 01/16/23 @ 18:17 by Ronal Orozco MD) Hyperlipidemia Morbid obesity with BMI of 40.0-44.9, adult Allergic rhinitis Insomnia Smoker Bipolar affective disorder Generalized anxiety disorder Right lumbar radiculopathy GERD without esophagitis Benign essential hypertension Impacted cerumen of both ears Nasal congestion Obesity (BMI 30-39.9) Impaired glucose tolerance History of diverticulitis Back pain Lumbar degenerative disc disease Hypertension GERD (gastroesophageal reflux disease) Bipolar disorder Vitamin D deficiency Surgical History History of eye removal Hx of cataract surgery H/O colonoscopy History of esophagogastroduodenoscopy (EGD) History of tubal ligation History of cholecystectomy Family History Father Colon cancer Mother Primary cancer of bone marrow Sister Leukemia Social History Housing: Apartment Alcohol intake: never Patient Tobacco Use Status: Current everyday Tobacco user Tobacco use type: Cigarette Cigarettes Per Day: 7 e-Cigarette/Vaping Use: Never Used Second Hand Smoke Exposure: Yes service: No Current occupational status: unemployed Cognitive needs: No Hearing needs: No Vision needs: No Questionnaire PHQ-9 Over the last 2 weeks, how often have you been bothered by any of the following problems? 1. Little interest or pleasure in doing things: not at all 2. Feeling down, depressed, or hopeless: not at all 3. Trouble falling or staying asleep, or sleeping too much: not at all 4. Feeling tired or having little energy: not at all 5. Poor appetite or overeating: more than half the days 6. Feeling bad about yourself - or that you are a failure or have let yourself or your family down: not at all 7. Trouble concentrating on things, such as reading the newspaper or watching television: not at all 8. Moving or speaking so slowly that other people could have noticed. Or the opposite - being so fidgety or restless that you have been moving around a lot more than usual: not at all 9. Thoughts that you would be better off or of hurting yourself in some way: not at all Total score: 2 Depression Screening Interpretation: Positive Depression Screening Follow-up: Declines treatment 19309 - PHQ-9 Billing: Yes Source: Developed by Drs. Schuyler Abbott, Elena Villeda, Eric Espinal and colleagues, with an educational lm from [employer]. Thrive Questionnaire Date Thrive assessed: 01/16/23 I am a: Patient What is your living situation today?: I have a steady place to live Within the past 12 months, did the food you bought not last and you didn't have the money to get more?: Never true Within the past 12 months, did you worry whether your food would run out before you got money to buy more?: Never true Do you have trouble paying for medicines?: No Do you have trouble getting transportation to medical appointments?: No Do you have trouble paying your heating and electricity bill?: No Do you have trouble taking care of your child, family member or friend?: No Do you have trouble with day-to-day activities such as bathing, preparing meals, shopping, managing finances, etc.?: No Are you currently unemployed and looking for a job?: No Are you interested in more education?: No Please select the resources that you would like help with: None Currently or been in a relationship where the following occur: no concerns reported AUDIT C Alcohol Use Questionnaire (AUDIT-C) 1. How often do you have a drink containing alcohol?: Never 3. How often do you have six or more drinks on one occasion?: Never Total Score: 0 Score Reviewed/Action Taken: Yes ALEXANDER-7 AMB Questionnaire ALEXANDER-7 Date ALEXANDER - 7 assessed: 01/16/23 Feeling nervous, anxious, or on edge: 0 = Not at all Not being able to stop or control worryin = Not at all Worrying too much about different things: 0 = Not at all Trouble relaxin = Not at all Being so restless that it is hard to sit still: 0 = Not at all Becoming easily annoyed or irritable: 0 = Not at all Feeling afraid as if something awful might happen: 0 = Not at all Total ALEXANDER-7 score (0-4 normal; 5-9 mild; 10-14 moderate; 15-21 severe): 0 Source: Developed by Drs. Schuyler Abbott, Elena Villeda, Eric Espinal and colleagues, with an educational lm from [employer]. Review of Systems Const Denies chills, Reports fatigue, Denies fever(s) and Reports headache(s) (recurrent/frequent) ENT Denies dysphagia, Denies dizziness, Denies otalgia, Reports headache(s) (recurrent/frequent), Denies neck pain, Denies odynophagia and Denies sore throat Card Denies chest pain, Denies rapid heart rate, Denies irregular heart rhythm, Denies palpitations and Denies dyspnea Resp Denies chest congestion, Reports cough (recurrent, mostly at night; coughs up thick whitish phlegm at times), Denies pain with cough, Denies dyspnea and Denies wheezing GI Denies abdominal pain, Denies change in bowel habits, Denies constipation, Denies dysphagia, Denies heartburn, Denies diarrhea, Denies nausea, Denies odynophagia and Denies vomiting Denies urinary frequency, Denies dysuria and Denies urinary urgency Musc Reports back pain (over the lower back - chronic), Reports arthralgias (multiple joints, including the left knee lately), Denies joint swelling and Denies neck pain Neuro Denies dizziness, Reports headache(s) (recurrent/frequent) and Denies paresthesias Psych Denies anxiety Endo Reports fatigue and Denies palpitations Pietro/Lymph Details: (+) swelling of the left leg Aller/Immun Reports seasonal rhinorrhea (increased lately) and Denies wheezing Physical exam (Primary Care) Vital Signs: Last Vital Signs Pulse 93 01/16/23 14:38 BP 124/82 01/16/23 14:38 Pulse Ox 95 01/16/23 14:38 Oxygen Delivery Method Room Air 01/16/23 14:38 BMI result Body Mass Index 41.8 Tobacco/Smoking Status: Tobacco use Status Tobacco use date assessed 01/16/23 01/16/23 14:47 Patient Tobacco Use Status Current everyday Tobacco 01/16/23 14:47 Tobacco use type Cigarette 01/16/23 14:47 e-Cigarette/Vaping Use Never Used 01/16/23 14:47 PHQ-9: PHQ-9 Score PHQ-9: Total score 2 01/16/23 15:31 Depression Screening Interpretation: Positive Depression Screening Follow-up: Declines treatment Thrive Assessment: Date of Thrive Assessment Date Thrive assessed 01/16/23 01/16/23 14:47 Currently or been in a relationship where the following occur: no concerns reported Const General: no acute distress and alert HENMT Ears: TM's normal bilaterally and EAC's normal Throat: Yes posterior oropharynx normal and Yes tonsils normal (no TP congestion) Neck Neck: Yes no lymphadenopathy and Yes supple Resp Auscultation: no rales, rhonchi (occasional) throughout, no wheezes and diminished lung sounds (slightly) bilateral Cardio Rate: regular rate Rhythm: regular rhythm Heart sounds: no murmurs GI Palpation (GI): Soft to palpation and nontender Auscultation: normal bowel sounds Back/Spine/Pelvis Thoracic/Lumbar Spine: lumbar spinal tenderness (chronic) Skin Rashes: no rashes Extrem General: Yes no clubbing, cyanosis or edema Left lower extremity: knee Details: tenderness Location: of the popliteal fossa, of the lateral joint line and of the pre-patellar area Results Reviewed Results Reviewed: Laboratory Tests 12/30/21 01/13/23 01/13/23 10:20 10:30 11:14 WBC 6.7 6.5 Hgb 15.1 15.1 Hct 46.1 46.0 Plt Count 279 276 Sodium 145 145 Potassium 4.2 4.1 Creatinine 0.71 0.73 Estimated GFR > 60 > 60 Random Glucose 114 Fasting Glucose 102 H Hemoglobin A1c % 5.4 Calcium 9.2 9.3 AST 16 15 ALT 20 19 Triglycerides 121 Cholesterol 200 H LDL Cholesterol, Calc 126 H HDL Cholesterol 50 25-OH Vitamin D Total 24.4 TSH 5.19 H 3.79 Free T4 0.96 Ur Specific Marshall 1.020 Urine Protein Negative Urine Glucose (UA) Negative Urine Blood Negative Assessment and Plan Assessment & Plan (1) Migraine: Code(s): G43.909 - Migraine, unspecified, not intractable, without status migrainosus Qualifiers: Migraine type: unspecified Status migrainosus presence: without status migrainosus Intractability: not intractable Qualified Code(s): G43.909 - Migraine, unspecified, not intractable, without status migrainosus Plan: Continue Sumatriptan 50 mg 1 to 2 tablets PRN and Nurtec ODT 75 mg QOD for headache prevention She is currently scheduled for a brain MRI on 01/27/2023 for further evaluation Follow up with neurology as scheduled (2) Benign essential hypertension: Code(s): I10 - Essential (primary) hypertension Plan: Reinforced low sodium diet - goal is systolic BP of at least 120 to 130 mm or less Continue Losartan 100 mg QD and Amlodipine 10 mg QD (3) Hyperlipidemia: Code(s): E78.5 - Hyperlipidemia, unspecified Qualifiers: Hyperlipidemia type: unspecified Qualified Code(s): E78.5 - Hyperlipidemia, unspecified Plan: Results of her labs done a few days ago reviewed and discussed with patient - cautioned that her cholesterol levels, especially her LDL cholesterol, have increased from a year ago Her total cholesterol is now at 200 mg/dl and LDL cholesterol is at 126 mg/dl Reinforced low cholesterol diet Will have her recheck her labs and fasting lipids in 4 months for follow up (4) Pain and swelling of left knee: Code(s): M25.562 - Pain in left knee; M25.462 - Effusion, left knee Plan: X-rays of the left knee done a few months ago revealed mild tricompartmental degenerative osteoarthritis changes States that her knee pain has been slowly improving with physical therapy Follow up with orthopedics as scheduled (5) Lumbar degenerative disc disease: Code(s): M51.36 - Other intervertebral disc degeneration, lumbar region Plan: Reinforced activity and weight lifting restrictions Continue Tramadol 50 mg TID PRN and Tizanidine 4 mg TID PRN (6) Osteoarthritis of right ankle: Code(s): M19.071 - Primary osteoarthritis, right ankle and foot Qualifiers: Osteoarthritis type: primary Qualified Code(s): M19.071 - Primary osteoarthritis, right ankle and foot Plan: X-rays of the right ankle done last year (09/2021) revealed (+) moderate multifocal degenerative osteoarthritis Suggest that she see podiatry if her ankle continues to bother her - patient will call for referral as needed (7) Allergic rhinitis: Code(s): J30.9 - Allergic rhinitis, unspecified Qualifiers: Allergic rhinitis seasonality: unspecified Allergic rhinitis trigger: unspecified Qualified Code(s): J30.9 - Allergic rhinitis, unspecified Plan: Continue Loratadine 10 mg QD PRN; will add Fluticasone 50 mcg nasal spray 2 sprays into each nostril QD PRN (8) GERD without esophagitis: Code(s): K21.9 - Gastro-esophageal reflux disease without esophagitis Plan: Dietary restrictions reinforced UGI series done in July 2018 revealed (+) mild esophageal dysmotility with mild reflux disease EGD in August 2018 revealed mild reflux disease with gastritis - recommend continue PPI Rx Continue Omeprazole 20 mg 2 capsules QD - patient reports (+) symptomatic relief with Omeprazole only when she takes 2 capsules QD and no improvement on the lower 20 mg daily dose Follow up with GI as scheduled (9) Insomnia: Code(s): G47.00 - Insomnia, unspecified Qualifiers: Insomnia type: unspecified Qualified Code(s): G47.00 - Insomnia, unspecified Plan: Sleep hygiene reinforced Continue Trazodone 100 mg Q HS PRN (10) Generalized anxiety disorder: Code(s): F41.1 - Generalized anxiety disorder Plan: Continue Clonazepam 2 mg Q HS PRN (11) Bipolar affective disorder: Code(s): F31.9 - Bipolar disorder, unspecified Qualifiers: Active/Remission status: currently active Current bipolar episode type: mixed Current episode severity: unspecified Qualified Code(s): F31.60 - Bipolar disorder, current episode mixed, unspecified Plan: Was on Perphenazine-Amitriptyline 4-25 mg QD in the past but Rx has been discontinued Follow up with psychiatry as scheduled (12) Smoker: Code(s): F17.200 - Nicotine dependence, unspecified, uncomplicated Plan: Counseled again on smoking cessation (13) Morbid obesity with BMI of 40.0-44.9, adult: Code(s): E66.01 - Morbid (severe) obesity due to excess calories; Z68.41 - Body mass index [BMI] 40.0-44.9, adult Plan: Reinforced diet/exercise as tolerated/lose weight Per request, will refer to weight management Plan Follow up in 4 months Orders: Orders Comprehensive [place]. Panel Fast 4 Months E78.00 - Pure hypercholesterolemia, unspecified Lipid Panel 4 Months E78.00 - Pure hypercholesterolemia, unspecified UA CC w/rflx Micro + Cult 4 Months R30.0 - Dysuria Complete Blood Count Auto Diff 4 Months I10 - Essential (primary) hypertension TSH reflex Free T4 4 Months E78.00 - Pure hypercholesterolemia, unspecified Vitamin D 25-OH Total 4 Months E55.9 - Vitamin D deficiency, unspecified Referrals Medical Weight Management Referral E66.9 - Obesity, unspecified Medications: Refilled amlodipine 10 mg PO DAILY 90 tabs 1RF I10 - Essential (primary) hypertension Coding Level of Care Code Est Pt Level 4 (91774) Diagnoses Migraine without status migrainosus, not intractable, unspecified migraine type G43.909 Migraine type: unspecified Status migrainosus presence: without status migrainosus Intractability: not intractable Benign essential hypertension I10 Hyperlipidemia, unspecified hyperlipidemia type E78.5 Hyperlipidemia type: unspecified Pain and swelling of left knee M25.562; M25.462 Lumbar degenerative disc disease M51.36 Primary osteoarthritis of right ankle M19.071 Osteoarthritis type: primary Allergic rhinitis, unspecified seasonality, unspecified trigger J30.9 Allergic rhinitis seasonality: unspecified Allergic rhinitis trigger: unspecified GERD without esophagitis K21.9 Insomnia, unspecified type G47.00 Insomnia type: unspecified Generalized anxiety disorder F41.1 Bipolar affective disorder, current episode mixed, current episode severity unspecified F31.60 Active/Remission status: currently active Current bipolar episode type: mixed Current episode severity: unspecified Smoker F17.200 Morbid obesity with BMI of 40.0-44.9, adult E66.01; Z68.41
[2023-01-16 14:38] VITALS: BP 124/82; PULSE 93; O2SAT 95; BMI 41.8
== END 2023-01-16 15:34 | disposition home or self-care (01) ==
PROVIDERS: PCP Internal Medicine; Visit Provider Internal Medicine
DX: I10 Essential (primary) hypertension (principal); E78.5 Hyperlipidemia, unspecified; M51.36 Other intervertebral disc degeneration, lumbar region; K21.9 Gastro-esophageal reflux disease without esophagitis; M19.071 Primary osteoarthritis, right ankle and foot; J30.9 Allergic rhinitis, unspecified; G47.00 Insomnia, unspecified; F41.1 Generalized anxiety disorder
CPT/HCPCS: 99214

== ENCOUNTER 2023-01-27 14:17 | Outpatient (REF) | payer MEDICARE, MEDICAID, SELFPAY ==
--- NOTE | ~2023-01-27 | MR_ITS ---
EXAMINATION: MR BRAIN WITHOUT CONTRAST CLINICAL INFORMATION: Migraine COMPARISON: None TECHNIQUE: Multiplanar multisequence MR imaging of the brain was obtained without intravenous contrast. FINDINGS: There is no acute infarct on diffusion-weighted imaging. There is no intracranial hemorrhage on iron-sensitive imaging. No extra-axial collection or mass effect/herniation. There are several scattered foci of nonspecific supratentorial white matter T2/FLAIR signal abnormality. No hydrocephalus. The ventricles are normal in morphology and size. The major flow voids at the skull base are preserved. The midline structures are normal. The cerebellar tonsils are normally positioned. The craniocervical junction is normal. Marrow signal is within normal limits. Small left frontal subgaleal scalp lipoma. Right globe prosthesis. No signal abnormality within the paranasal sinuses or within the mastoid air cells. MR/MR head/brain wo con IMPRESSION: 1. Several scattered foci of supratentorial white matter T2/FLAIR signal abnormality are nonspecific but can be seen in the setting of migraine and/or chronic microvascular ischemia. 2. Otherwise unremarkable noncontrast MRI of the brain.
== END 2023-01-27 14:18 | disposition home or self-care (01) ==
LOC: HO.MRI 14:17
PROVIDERS: PCP Internal Medicine; Visit Provider Nurse Practitioner Family
DX: G43.109 Migraine with aura, not intractable, without status migrainosus (principal)
CPT/HCPCS: 70551

== ENCOUNTER 2023-04-18 13:15 | Outpatient (AMB) | payer MEDICARE, MEDICAID, SELFPAY ==
[2023-04-18 13:16] VITALS: BP 132/78; PULSE 83; O2SAT 96; BMI 41.4
--- NOTE | 2023-04-18 13:16 | MHC.OFFVIS ---
Intake Vital Signs 04/18/23 13:16 Height 5 ft 1 in Weight 219 lb 4 oz BMI 41.4 BP 132/78 Blood Pressure Location Rt brachial Position Sitting Pulse 83 Pulse Source Pulse Oximeter Pulse Oximetry (%) 96 Oxygen Delivery Method Room Air Intake Visit Reasons: 4MMigraine - Confirmed Intake Note: Pt presents to the office today for a 4 month follow up for migraines. Pt states her migraines are still happening but she states the medication is helping a little. Allergies No Known Allergies [No Known Allergies*] Allergy (Verified 04/18/23 13:22) Medication List - Last Reconciled 04/18/23 by JANINE Morgan amlodipine 10 mg PO DAILY blood pressure test kit-large As directed cholecalciferol (vitamin D3) 1,250 mcg PO QWEEK clonazepam (Klonopin) 2 mg PO BEDTIME 90 days fluticasone propionate 50 mcg/actuation 2 sprays intranasal DAILY PRN 30 days gabapentin 800 mg PO TID loratadine 10 mg PO DAILY 90 days losartan 100 mg PO DAILY omeprazole 20 mg PO BID 90 days rimegepant (Nurtec ODT) 75 mg PO Q OTHER DAY PRN 30 days sumatriptan succinate 50 - 100 mg orally at onset of headache, (may take with Ibuprofen) 30 days trazodone 100 mg (2 x 50 mg) PO DAILY 90 days walker Adult folding 4-wheeled rolling seated walker- use when walking HPI HPI Comments History of Present Illness Details 67-yr-old female presents for f/u visit. Pt denies any significant interval medical changes. Pt reports she can still have frequent migraines, 3 days at a time, then a day or two w/o headache, then another 3 days. In Jan, she rarely had a headache. She has been taking Nurtec just as needed- has effect. She has been having neck pain and tightness. She has rec'd the walker- which is helping her walk better. 01/27/23, MR/MR head/brain wo con IMPRESSION: 1. Several scattered foci of supratentorial white matter T2/FLAIR signal abnormality are nonspecific but can be seen in the setting of migraine and/or chronic microvascular ischemia. 2. Otherwise unremarkable noncontrast MRI of the brain. PENDING SALE TO [facility] Medical History Hyperlipidemia Morbid obesity with BMI of 40.0-44.9, adult Allergic rhinitis Insomnia Smoker Bipolar affective disorder Generalized anxiety disorder Right lumbar radiculopathy GERD without esophagitis Benign essential hypertension Impacted cerumen of both ears Nasal congestion Obesity (BMI 30-39.9) Impaired glucose tolerance History of diverticulitis Back pain Lumbar degenerative disc disease Hypertension GERD (gastroesophageal reflux disease) Bipolar disorder Vitamin D deficiency Surgical History History of eye removal Hx of cataract surgery H/O colonoscopy History of esophagogastroduodenoscopy (EGD) History of tubal ligation History of cholecystectomy Family History Father Colon cancer Mother Primary cancer of bone marrow Sister Leukemia Social History (Updated 04/18/23 @ 13:24 by Cheryl Telles MA) Housing: Apartment Alcohol intake: never Patient Tobacco Use Status: Current everyday Tobacco user Tobacco use type: Cigarette Cigarettes Per Day: 8 e-Cigarette/Vaping Use: Never Used Second Hand Smoke Exposure: Yes service: No Current occupational status: unemployed Cognitive needs: No Hearing needs: No Vision needs: No Review of Systems Const All systems reviewed & are unremarkable except as noted in HPI and below Physical Exam Vital Signs: Last Vital Signs Pulse 83 04/18/23 13:16 BP 132/78 04/18/23 13:16 Pulse Ox 96 04/18/23 13:16 Oxygen Delivery Method Room Air 04/18/23 13:16 BMI result Body Mass Index 41.4 Const General: cooperative and no acute distress Orientation/consciousness: patient oriented x3 HEENT Head: Yes normocephalic Resp Effort & Inspection: normal respiratory effort and able to speak in complete sentences Neuro Other: Posterior cervical tightness and tenderness Steady gait w/ walker. General: patient oriented x3 and CN's II-XI intact bilaterally Cognition (Neuro): normal cognition Motor exam (neuro): 5/5 motor strength present throughout Psych Appearance: grossly normal Mental Status: mental status grossly normal Speech and movement: Normal speech and movement present Affect: normal affect Attitude: cooperative Thought process: Normal thought process present Thought content: Normal thought content present Insight: Good insight present (Psych) Judgement: Good judgement present (Psych) Assessment & Plan Assessment & Plan (1) Migraine: Code(s): G43.909 - Migraine, unspecified, not intractable, without status migrainosus Qualifiers: Migraine type: unspecified Status migrainosus presence: without status migrainosus Intractability: not intractable Qualified Code(s): G43.909 - Migraine, unspecified, not intractable, without status migrainosus (2) Cervicalgia: Code(s): M54.2 - Cervicalgia Plan Reviewed brain MRI report and images w/ pt and dtr- mild nonspecific scattered foci of supratentorial white matter T2/FLAIR signal abnormality. Discussed etiologies of these tiny foci of white matter changes- including HTN, smoking, and migraine. Pt states she plans to start quitting smoking- was given nicotine patches. Will check c-spine XR. ? For acute migraine tx: Pt may continue prn Sumatriptan 50-100mg for now. ? For migraine prevention tx: Try taking Nurtec ODT 75mg qod rather than prn- in hopes this is more effective. Previous tx trials- Amitriptyline, nortriptyline, lamictal, cymbalta, depakote, nortriptyline. Tx contraindications: CGRP MaBs d/t severe decreased visual acuity, would avoid BBs as pt is already on Losartan 100mg and amlodipine 10mg qd. Would not resume TCA at this point as pt has good body pain control on Gabapentin 800mg tid and sleeps well on Trazodone 100mg qhs. ? Continue to use 4-wheeled seated rolling walker as pt is at risk for falling d/t gait imbalance. ? Follow-up in 3 months or sooner prn. Orders: Orders XR cervical spine 4V 04/18/23 M54.2 - Cervicalgia XR cervical spine w flex/ext 04/18/23 M54.2 - Cervicalgia Coding Level of Care Code Est Pt Level 4 (55177) Diagnoses Migraine without status migrainosus, not intractable, unspecified migraine type G43.909 Migraine type: unspecified Status migrainosus presence: without status migrainosus Intractability: not intractable Cervicalgia M54.2
== END 2023-04-18 14:27 | disposition home or self-care (01) ==
PROVIDERS: PCP Internal Medicine; Visit Provider Nurse Practitioner Family
DX: G43.909 Migraine, unspecified, not intractable, without status migrainosus (principal); M54.2 Cervicalgia; R90.89 Other abnormal findings on diagnostic imaging of central nervous system; Z91.81 History of falling
CPT/HCPCS: 99214

== ENCOUNTER → 2023-04-18 13:15 | Outpatient (BNVA) | payer MEDICARE, MEDICAID, SELFPAY | PROVIDERS: PCP Internal Medicine; Visit Provider Nurse Practitioner Family | DX: G43.909 Migraine, unspecified, not intractable, without status migrainosus (principal); M54.2 Cervicalgia | CPT/HCPCS: 99212 ==

== ENCOUNTER 2023-08-02 12:26 | Outpatient (AMB) | payer MEDICARE, MEDICAID, SELFPAY ==
--- NOTE | 2023-08-02 12:48 | A.OFFPC_ITS ---
Vital Signs 08/02/23 12:49 Height 5 ft 1 in Weight 217 lb 4 oz BMI 41.0 BP 124/74 Blood Pressure Location Lt brachial Position Sitting Pulse 103 H Pulse Source Pulse Oximeter Pulse Oximetry (%) 93 Oxygen Delivery Method Room Air Intake Visit Reasons: PE Intake Note: Patient is here today for a physical. Operations Lead Required: No Administrative Job Titles: Not Required per policy Accompanied by: Self / Same As Patient Allergies No Known Allergies [No Known Allergies*] Allergy (Verified 10/27/23 14:32) Medication List - Last Reconciled 08/02/23 by Ronal Orozco MD amlodipine 10 mg PO DAILY blood pressure test kit-large As directed cholecalciferol (vitamin D3) 1,250 mcg PO QWEEK clonazepam (Klonopin) 2 mg PO BEDTIME 90 days fluticasone propionate 50 mcg/actuation 2 sprays intranasal DAILY PRN 30 days gabapentin 800 mg PO TID loratadine 10 mg PO DAILY 90 days losartan 100 mg PO DAILY pantoprazole 40 mg PO DAILY rimegepant (Nurtec ODT) 75 mg PO Q OTHER DAY PRN 30 days sumatriptan succinate 50 - 100 mg orally at onset of headache, (may take with Ibuprofen) 30 days trazodone 100 mg (2 x 50 mg) PO DAILY 90 days walker Adult folding 4-wheeled rolling seated walker- use when walking Tobacco use date assessed: 08/02/23 Fall risk assessment: No Falls in past year Last assessed Fall Risk: 08/02/23 Dental Screening Dental Screen Date: 08/02/23 Did you have a dental visit in the last 12 months?: Yes Did you have a dental problem in the last 6 months where you did not have access to dental care?: No Was dental information given to patient?: Patient has dentist HPI PE HPI Details Patient comes in today for her annual physical examination States that she presently feels okay She denies any headaches or dizziness Denies any chest pains, no SOB No nausea/vomiting, no abdominal pain No change in bowel habits noted Denies any acute urinary symptoms She has not been able to get her previously ordered follow up labs done yet She had her last colonoscopy done with Dr. Coker on 07/17/2020 - was advised to get a repeat colonoscopy in 5 years given her family history She has not had gynecology exam and pap smear done in years and now agrees to get this done Has not had a mammogram done in years and continues to decline getting one [facility] Medical History Hyperlipidemia Morbid obesity with BMI of 40.0-44.9, adult Allergic rhinitis Insomnia Smoker Bipolar affective disorder Generalized anxiety disorder Right lumbar radiculopathy GERD without esophagitis Benign essential hypertension Impacted cerumen of both ears Nasal congestion Obesity (BMI 30-39.9) Impaired glucose tolerance History of diverticulitis Back pain Lumbar degenerative disc disease Hypertension GERD (gastroesophageal reflux disease) Bipolar disorder Vitamin D deficiency Surgical History History of eye removal Hx of cataract surgery H/O colonoscopy History of esophagogastroduodenoscopy (EGD) History of tubal ligation History of cholecystectomy Family History Father Colon cancer Mother Primary cancer of bone marrow Sister Leukemia Social History Housing: Apartment Alcohol intake: never Patient Tobacco Use Status: Current everyday Tobacco user Tobacco use type: Cigarette Cigarette Packs Per Day: 0.5 Cigarettes Per Day: 10 e-Cigarette/Vaping Use: Never Used Second Hand Smoke Exposure: Yes service: No Current occupational status: unemployed Cognitive needs: No Hearing needs: No Vision needs: No Questionnaire PHQ-9 Over the last 2 weeks, how often have you been bothered by any of the following problems? 1. Little interest or pleasure in doing things: not at all 2. Feeling down, depressed, or hopeless: not at all 3. Trouble falling or staying asleep, or sleeping too much: not at all 4. Feeling tired or having little energy: not at all 5. Poor appetite or overeating: not at all 6. Feeling bad about yourself - or that you are a failure or have let yourself or your family down: not at all 7. Trouble concentrating on things, such as reading the newspaper or watching television: not at all 8. Moving or speaking so slowly that other people could have noticed. Or the opposite - being so fidgety or restless that you have been moving around a lot more than usual: not at all 9. Thoughts that you would be better off or of hurting yourself in some way: not at all Total score: 0 Depression Screening Interpretation: Negative Depression Screening Done: Yes [id number] - PHQ-9 Billing: Yes Source: Developed by Drs. Schuyler Abbott, Elena Villeda, Eric Espinal and colleagues, with an educational lm from [employer]. Thrive Questionnaire Date Thrive assessed: 08/02/23 I am a: Patient What is your living situation today?: I have a steady place to live Within the past 12 months, did the food you bought not last and you didn't have the money to get more?: Never true Within the past 12 months, did you worry whether your food would run out before you got money to buy more?: Never true Do you have trouble paying for medicines?: No Do you have trouble getting transportation to medical appointments?: No Do you have trouble paying your heating and electricity bill?: No Do you have trouble taking care of your child, family member or friend?: No Do you have trouble with day-to-day activities such as bathing, preparing meals, shopping, managing finances, etc.?: No Are you currently unemployed and looking for a job?: No Are you interested in more education?: No Currently or been in a relationship where the following occur: no concerns reported THRIVE Score: 0 AUDIT C Alcohol Use Questionnaire (AUDIT-C) 1. How often do you have a drink containing alcohol?: Never 3. How often do you have six or more drinks on one occasion?: Never Total Score: 0 Score Reviewed/Action Taken: Yes ALEXANDER-7 AMB Questionnaire ALEXANDER-7 Date ALEXANDER - 7 assessed: 08/02/23 Feeling nervous, anxious, or on edge: 0 = Not at all Not being able to stop or control worryin = Not at all Worrying too much about different things: 0 = Not at all Trouble relaxin = Not at all Being so restless that it is hard to sit still: 0 = Not at all Becoming easily annoyed or irritable: 0 = Not at all Feeling afraid as if something awful might happen: 0 = Not at all Total ALEXANDER-7 score (0-4 normal; 5-9 mild; 10-14 moderate; 15-21 severe): 0 Source: Developed by Drs. Schuyler Abbott, Elena Villeda, Eric Espinal and colleagues, with an educational lm from [employer]. Review of Systems Const Denies chills, Denies fatigue, Denies fever(s), Denies headache(s) and Denies malaise Eyes Denies blurry vision, Denies change in vision, Denies irritation and Denies itchy eyes ENT Denies dysphagia, Denies dizziness, Denies otalgia, Denies headache(s), Denies nasal congestion, Denies neck pain, Denies odynophagia, Denies sinus pain and Denies sore throat Card Denies chest pain, Denies rapid heart rate, Denies irregular heart rhythm, Denies palpitations and Denies dyspnea Resp Denies chest congestion, Denies cough, Denies dyspnea and Denies wheezing GI Denies abdominal pain, Denies bloating, Denies constipation, Denies dysphagia, Denies heartburn, Denies diarrhea, Denies nausea, Denies odynophagia and Denies vomiting Denies hematuria, Denies urinary frequency, Denies dysuria, Denies urinary incontinence and Denies urinary urgency Musc Denies back pain, Denies arthralgias, Denies joint swelling, Denies muscle weakness and Denies neck pain Skin/Breast Denies breast pain, Denies breast mass, Denies change in pigmentation, Denies lesions, Denies rash and Denies unusual bruising Neuro Denies dizziness, Denies headache(s) and Denies paresthesias Psych Denies anxiety and Denies depression Endo Denies fatigue and Denies palpitations Pietro/Lymph Denies easy bruising Aller/Immun Denies itchy eyes and Denies wheezing Physical exam (Primary Care) Vital Signs: Last Vital Signs Pulse 103 H 08/02/23 12:49 BP 124/74 08/02/23 12:49 Pulse Ox 93 08/02/23 12:49 Oxygen Delivery Method Room Air 08/02/23 12:49 BMI result Body Mass Index 41.0 Tobacco/Smoking Status: Tobacco use Status Tobacco use date assessed 08/02/23 08/02/23 12:59 Patient Tobacco Use Status Current everyday Tobacco 08/02/23 12:59 Tobacco use type Cigarette 08/02/23 12:59 e-Cigarette/Vaping Use Never Used 08/02/23 12:59 PHQ-9: PHQ-9 Score PHQ-9: Total score 0 08/02/23 13:35 Depression Screening Interpretation: Negative Thrive Assessment: Date of Thrive Assessment Date Thrive assessed 08/02/23 08/02/23 12:59 Currently or been in a relationship where the following occur: no concerns reported Const General: no acute distress, alert and awake Orientation/consciousness: patient oriented x3 HENMT Head: Yes normocephalic and Yes atraumatic Ears: external ears normal, TM's normal bilaterally and EAC's normal General nose exam: No nasal discharge present Face and sinus: Yes normal facial exam and Yes sinuses nontender Teeth and gingiva: dentition normal Throat: Yes posterior oropharynx normal and Yes tonsils normal (no TP congestion) Eyes Eyelids: Yes eyelids normal Conjunctivae: conjunctivae normal Pupils: Equal, round and reactive pupils present EOM: EOMs intact bilaterally Neck Neck: Yes no lymphadenopathy and Yes supple Thyroid: Thyroid normal Resp Auscultation: clear to auscultation bilaterally, no rales and no wheezes Cardio Rate: regular rate Rhythm: regular rhythm Heart sounds: no murmurs GI Palpation (GI): Soft to palpation, nontender and No hepatosplenomegaly present Auscultation: normal bowel sounds General: Yes no CVA tenderness Back/Spine/Pelvis Back: no CVA tenderness Thoracic/Lumbar Spine: thoracic and lumbar spine normal to inspection Skin Lesions: no lesions Rashes: no rashes Neuro General: patient oriented x3, moves all extremities, no focal motor deficits and CN's II-XI intact bilaterally Cranial nerves: Yes Equal, round and reactive pupils present Cognition (Neuro): normal cognition Gait exam (Neuro): Normal gait present Extrem General: Yes no clubbing, cyanosis or edema Results AMB Hemoglobin A1c AMB Hemoglobin A1c 5.7 % Last Edit by FANTA Sherman on 08/02/23 13:01 Results Reviewed Results Reviewed: Laboratory Last Values Hgb A1c (Clinic) 5.7 % (4.0-6.0) 08/02/23 13:00 Assessment and Plan Assessment & Plan (1) Annual physical exam: Code(s): Z00.00 - Encounter for general adult medical examination without abnormal findings Plan: Check labs KRISTA - previous lab orders have been updated and printed out for patient (2) Migraine: Code(s): G43.909 - Migraine, unspecified, not intractable, without status migrainosus Qualifiers: Intractability: not intractable Migraine type: unspecified Status migrainosus presence: without status migrainosus Qualified Code(s): G43.909 - Migraine, unspecified, not intractable, without status migrainosus Plan: Continue Sumatriptan 50 mg 1 to 2 tablets PRN and Nurtec ODT 75 mg QOD for headache prevention She had a brain MRI done on 01/27/2023, which came out mostly unremarkable - (+) several scattered foci of supratentorial white matter T2/FLAIR signal abnormality are nonspecific but can be seen in the setting of migraine and/or chronic microvascular ischemia. Otherwise, is an unremarkable noncontrast MRI of the brain. Follow up with neurology as scheduled (3) Benign essential hypertension: Code(s): I10 - Essential (primary) hypertension Plan: Reinforced low sodium diet - goal is systolic BP of at least 120 to 130 mm or less Continue Losartan 100 mg QD and Amlodipine 10 mg QD (4) Hyperlipidemia: Code(s): E78.5 - Hyperlipidemia, unspecified Qualifiers: Hyperlipidemia type: unspecified Qualified Code(s): E78.5 - Hyperlipidemia, unspecified Plan: She was not able to get her follow up labs done yet - will try to get them done KRISTA Reinforced low cholesterol diet (5) Impaired glucose tolerance: Code(s): R73.02 - Impaired glucose tolerance (oral) Plan: Her in-office HgbA1c done today is at 5.7% Reinforced low calorie/low carb diet; exercise as tolerated (6) Pain and swelling of left knee: Code(s): M25.562 - Pain in left knee; M25.462 - Effusion, left knee Plan: X-rays of the left knee done back in March 2022 revealed mild tricompartmental degenerative osteoarthritis changes States that her knee pain has improved with physical therapy last year Follow up with orthopedics as scheduled (7) Lumbar degenerative disc disease: Code(s): M51.36 - Other intervertebral disc degeneration, lumbar region Plan: Reinforced activity and weight lifting restrictions Continue Tramadol 50 mg TID PRN and Tizanidine 4 mg TID PRN (8) Osteoarthritis of right ankle: Code(s): M19.071 - Primary osteoarthritis, right ankle and foot Qualifiers: Osteoarthritis type: primary Qualified Code(s): M19.071 - Primary osteoarthritis, right ankle and foot Plan: X-rays of the right ankle done back in 09/2021 revealed (+) moderate multifocal degenerative osteoarthritis Have suggested that she see podiatry if her ankle continues to bother her - patient will call for referral when needed (9) Left elbow pain: Code(s): M25.522 - Pain in left elbow Plan: Will send her for x-rays of the left elbow for further evaluation Will also refer her to Orthopedics for further evaluation and management of her left elbow and wrist pain (10) Left wrist pain: Code(s): M25.532 - Pain in left wrist Plan: Will send her for left wrist x-rays for further evaluation (11) Allergic rhinitis: Code(s): J30.9 - Allergic rhinitis, unspecified Qualifiers: Allergic rhinitis seasonality: unspecified Allergic rhinitis trigger: unspecified Qualified Code(s): J30.9 - Allergic rhinitis, unspecified Plan: Continue Loratadine 10 mg QD PRN and Fluticasone 50 mcg nasal spray 2 sprays into each nostril QD PRN (12) GERD without esophagitis: Code(s): K21.9 - Gastro-esophageal reflux disease without esophagitis Plan: Dietary restrictions reinforced UGI series done in July 2018 revealed (+) mild esophageal dysmotility with mild reflux disease EGD in August 2018 revealed mild reflux disease with gastritis - recommend continue PPI Rx REPEAT EGD on 07/17/2020 revealed similar results - (+) small hiatal hernia with GERD and findings of gastritis Continue Pantoprazole 40 mg QD Follow up with GI as scheduled (13) Insomnia: Code(s): G47.00 - Insomnia, unspecified Qualifiers: Insomnia type: unspecified Qualified Code(s): G47.00 - Insomnia, unspecified Plan: Sleep hygiene reinforced Continue Trazodone 100 mg Q HS PRN (14) Generalized anxiety disorder: Code(s): F41.1 - Generalized anxiety disorder Plan: Continue Clonazepam 2 mg Q HS PRN (15) Bipolar affective disorder: Code(s): F31.9 - Bipolar disorder, unspecified Qualifiers: Active/Remission status: currently active Current bipolar episode type: mixed Current episode severity: unspecified Qualified Code(s): F31.60 - Bipolar disorder, current episode mixed, unspecified Plan: Was on Perphenazine-Amitriptyline 4-25 mg QD in the past but Rx has been discontinued Follow up with psychiatry as scheduled (16) Smoker: Code(s): F17.200 - Nicotine dependence, unspecified, uncomplicated Plan: Counseled again on smoking cessation (17) Morbid obesity with BMI of 40.0-44.9, adult: Code(s): E66.01 - Morbid (severe) obesity due to excess calories; Z68.41 - Body mass index [BMI] 40.0-44.9, adult Plan: Reinforced diet/exercise as tolerated/lose weight Per request, she has been referred to weight management at her last visit (18) Cervical cancer screening: Code(s): Z12.4 - Encounter for screening for malignant neoplasm of cervix Plan: Will refer her to gynecology for her annual pap smear and gynecology exam Plan Follow up in 4 months Orders: Orders AMB Hemoglobin A1c 08/02/23 R73.02 - Impaired glucose tolerance (oral) XR elbow LT min 3V 08/02/23 M25.522 - Pain in left elbow XR wrist LT 2V 08/02/23 M25.532 - Pain in left wrist Referrals SOLUTION ADVISOR Referral Z12.4 - Encounter for screening for malignant neoplasm of cervix Orthopedics Referral M25.522 - Pain in left elbow, M25.532 - Pain in left wrist Review Patient declined Mammogram: 08/02/23 Coding Level of Care Code Est Pt Prev Care >65y(41753) Diagnoses Annual physical exam Z00.00 Migraine without status migrainosus, not intractable, unspecified migraine type G43.909 Intractability: not intractable Migraine type: unspecified Status migrainosus presence: without status migrainosus Benign essential hypertension I10 Hyperlipidemia, unspecified hyperlipidemia type E78.5 Hyperlipidemia type: unspecified Impaired glucose tolerance R73.02 Pain and swelling of left knee M25.562; M25.462 Lumbar degenerative disc disease M51.36 Primary osteoarthritis of right ankle M19.071 Osteoarthritis type: primary Left elbow pain M25.522 Left wrist pain M25.532 Allergic rhinitis, unspecified seasonality, unspecified trigger J30.9 Allergic rhinitis seasonality: unspecified Allergic rhinitis trigger: unspecified GERD without esophagitis K21.9 Insomnia, unspecified type G47.00 Insomnia type: unspecified Generalized anxiety disorder F41.1 Bipolar affective disorder, current episode mixed, current episode severity unspecified F31.60 Active/Remission status: currently active Current bipolar episode type: mixed Current episode severity: unspecified Smoker F17.200 Morbid obesity with BMI of 40.0-44.9, adult E66.01; Z68.41 Cervical cancer screening Z12.4
[2023-08-02 12:49] VITALS: BP 124/74; PULSE 103; O2SAT 93; BMI 41.0
== END 2023-08-02 13:41 | disposition home or self-care (01) ==
PROVIDERS: PCP Internal Medicine; Visit Provider Internal Medicine
DX: R73.02 Impaired glucose tolerance (oral) (principal)
CPT/HCPCS: 83036; 99397

== ENCOUNTER 2023-08-29 09:01 | Outpatient (REF) | payer MEDICARE, SELFPAY ==
--- NOTE | ~2023-08-29 | XR_ITS ---
EXAMINATION: XR ELBOW, LEFT CLINICAL INFORMATION: Pain in unspecified elbow. COMPARISON: None available. TECHNIQUE: AP, lateral, and oblique views of the left elbow. FINDINGS: No significant joint effusion. Advanced degenerative changes with abundant hypertrophic spurring at the elbow joint. Small calcification in the soft tissues along the dorsal aspect of the distal shaft of the humerus of indeterminate age and etiology. XR/XR elbow LT min 3V IMPRESSION: 1. Advanced degenerative changes with abundant hypertrophic spurring at the elbow joint. 2. Small calcification in the soft tissues along the dorsal aspect of the distal shaft of the humerus of indeterminate age and etiology. Recommend follow-up imaging in 10-14 days if fracture is suspected.
== END 2023-08-29 09:02 | disposition home or self-care (01) ==
LOC: HO.HOSX 09:01
PROVIDERS: Visit Provider Physician Assistant
DX: M77.12 Lateral epicondylitis, left elbow (principal)
CPT/HCPCS: 73080; 99212

== ENCOUNTER 2023-08-29 12:41 | Outpatient (AMB) | payer MEDICARE, MEDICAID, SELFPAY ==
--- NOTE | 2023-08-29 12:51 | MHC.OFFVIS ---
Vital Signs 08/29/23 13:15 Height 5 ft 1 in Weight 215 lb BMI 40.6 Intake Visit Reasons: New problem left elbow Intake Note: Paty is a 67 year old left hand dominant female who presents today for a evaluation of her left elbow pain. Patient reports pulling sensation for about 2 months, pain is usually 4 on 1-10 pain scale. Patient shares that her left shoulder pain has improved but the right shoulder is of most concern. Digital Strategy Specialist Required: Yes Digital Strategy Specialist Language: Senior Statistician Name: Janel [id number] Information Interpreted: clinical only Accompanied by: Self / Same As Patient Allergies No Known Allergies [No Known Allergies*] Allergy (Verified 08/29/23 12:51) HPI HPI New problem left elbow : Details: 67-year-old female, who is Turkmen speaking, presents in the office today for an evaluation of left elbow pain. Patient reports slightly improved pain in the left elbow for the past 4 days. While in the office today the patient reports a pulling sensation for the past 2 months. She reports her pain as a 4/10. She states she has difficulty with ROM when trying to extend the elbow straight out. Patient reports left shoulder pain that has improved. Patient report right shoulder pain that is her biggest concern. Patient report erythema on the left hand. [facility] Medical History Hyperlipidemia Morbid obesity with BMI of 40.0-44.9, adult Allergic rhinitis Insomnia Smoker Bipolar affective disorder Generalized anxiety disorder Right lumbar radiculopathy GERD without esophagitis Benign essential hypertension Impacted cerumen of both ears Nasal congestion Obesity (BMI 30-39.9) Impaired glucose tolerance History of diverticulitis Back pain Lumbar degenerative disc disease Hypertension GERD (gastroesophageal reflux disease) Bipolar disorder Vitamin D deficiency Surgical History History of eye removal Hx of cataract surgery H/O colonoscopy History of esophagogastroduodenoscopy (EGD) History of tubal ligation History of cholecystectomy Family History Father Colon cancer Mother Primary cancer of bone marrow Sister Leukemia Social History Housing: Apartment Alcohol intake: never Patient Tobacco Use Status: Current everyday Tobacco user Tobacco use type: Cigarette Cigarette Packs Per Day: 0.5 Cigarettes Per Day: 10 e-Cigarette/Vaping Use: Never Used Second Hand Smoke Exposure: Yes service: No Current occupational status: unemployed Cognitive needs: No Hearing needs: No Vision needs: No Review of Systems Const All systems reviewed & are unremarkable except as noted in HPI and below Physical Exam Vital Signs: BMI result Body Mass Index 40.6 Const General: cooperative and no acute distress Orientation/consciousness: patient oriented x3 Resp Effort & Inspection: normal respiratory effort and able to speak in complete sentences Cardio Peripheral pulses: Peripheral pulses 2+ throughout Skin General skin exam: no rashes or lesions noted Neuro General: patient oriented x3 Extrem Other: Left elbow: Normal to inspection. No ecchymosis, erythema, or edema. No tenderness to palpation over the olecranon. No tenderness to the medial epicondyle. Tenderness to palpation lateral epicondyle. Positive pain on the lateral epicondyle with resisted wrist extension. NVI. Left hand: Noted erythema. Assessment & Plan Assessment & Plan (1) Left tennis elbow: Code(s): M77.12 - Lateral epicondylitis, left elbow Category: Medical Plan Ms. Madi Greene is a 67-year-old female, who is Turkmen speaking, presents in the office today for an evaluation of left elbow pain. Patient reports slightly improved pain in the left elbow for the past 4 days. While in the office today the patient reports a pulling sensation for the past 2 months. She reports her pain as a 4/10. She states she has difficulty with ROM when trying to extend the elbow straight out. Patient reports left shoulder pain that has improved. Patient report right shoulder pain that is her biggest concern. Patient report erythema on the left hand. Discussed the use of a tennis elbow brace. Information was given to the patient today for her to purchase OTC. Offered the patient occupational therapy, she would like to defer at this time. Follow up for the left elbow will be PRN, or sooner if needed. The office will look at the schedule about getting her September appointment moved sooner for her to be evaluated for bilateral shoulder pain. X-rays of the left elbow which were obtained while in the office today and were reviewed by me, Zena Crouch PA-C, revealed no acute fracture or dislocation. Orders: Orders XR elbow LT min 3V Today M25.529 - Pain in unspecified elbow Patient Instructions: Scribed by Jessica Mason medical records coder, for Zena Crouch PA-C on 08/29/2023 at 12:42 pm, EST. Coding Level of Care Code Est Pt Level 3 (96653) Diagnoses Left tennis elbow M77.12
[2023-08-29 13:15] VITALS: BMI 40.6
== END 2023-08-29 13:56 | disposition home or self-care (01) ==
PROVIDERS: PCP Internal Medicine; Visit Provider Physician Assistant
DX: M77.12 Lateral epicondylitis, left elbow (principal)
CPT/HCPCS: 99213

== ENCOUNTER 2023-09-12 12:39 | Emergency (ER) | payer MEDICARE, OTHER, SELFPAY ==
--- NOTE | ~2023-09-12 | XR_ITS ---
EXAMINATION: XR SHOULDER, RIGHT CLINICAL INFORMATION: Right shoulder. COMPARISON: None available. TECHNIQUE: Three views of the right shoulder. FINDINGS: There is moderate to severe acromioclavicular osteoarthritis. Mild glenohumeral osteoarthritis. No fracture. Alignment is anatomic. Soft tissues are normal with no abnormal calcifications. Degenerative disc disease present in the thoracic spine. XR/XR shoulder RT min 2V IMPRESSION: Moderate to severe acromioclavicular and mild glenohumeral osteoarthritis.
--- NOTE | ~2023-09-12 | XR_ITS ---
EXAMINATION: XR HAND/WRIST, RIGHT CLINICAL INFORMATION: Hand pain COMPARISON: None TECHNIQUE: PA, lateral, oblique, and scaphoid views of the right hand and wrist. FINDINGS: Bones are osteopenic. No acute fracture or malalignment identified. There is mild osteoarthritis at the first CMC joint with a prominent osteophyte at the palmar margin of the first metacarpal base. Additional mild osteoarthritis of the radiocarpal joint. Mild multifocal osteoarthritis is noted in the interphalangeal joints with marginal osteophytes. No erosions. XR/XR hand wrist RT IMPRESSION: 1. No acute fracture or malalignment. 2. Mild multifocal osteoarthritis in the right hand and wrist.
--- NOTE | ~2023-09-12 | US_ITS ---
EXAMINATION: US VENOUS ULTRASOUND WITH DOPPLER LOWER EXTREMITY, LEFT CLINICAL INFORMATION: Pain and swelling. COMPARISON: None available. TECHNIQUE: Ultrasound of the deep veins is performed from the hip to the calf with compression sonography and color and pulse Doppler assessment. Spectral analysis with color-flow imaging is performed. FINDINGS: There is normal venous compression and respiratory variation and augmented flow. The visualized common femoral vein, superficial femoral vein, profunda femoral vein, popliteal vein, and the trifurcation region shows no evidence of deep venous thrombosis. There is a 3.4 x 1.5 x 1.5 cm left popliteal cyst If the patient's symptoms persist, followup ultrasound in 5 days 7 days might be of value to exclude proximal propagation from a non-visualized calf vein. US/US venous duplex LE IMPRESSION: No DVT demonstrated in the left lower extremity. There is a 3.4 x 1.5 x 1.5 cm left popliteal cyst.
[2023-09-12 13:21] VITALS: BP 140/95; PULSE 97; RESP 18; TEMP 36.6; O2SAT 98; BMI 39.9
--- NOTE | 2023-09-12 13:28 | ED_ITS ---
HPI - Extremity Problem General Chief complaint: Extremity Injury, Upper Stated complaint: L Arm Hand Pain No Injury Time Seen by Provider: 09/12/23 16:24 Related Data Previous Rx's ?Medication ?Instructions ?Recorded cholecalciferol (vitamin D3) 1,250 1,250 mcg PO QWEEK #4 caps 04/27/20 mcg (50,000 unit) capsule trazodone 50 mg tablet 100 mg (2 x 50 mg) PO DAILY 90 03/16/21 days #180 tabs blood pressure test kit-large #1 ea 05/19/21 clonazepam 2 mg tablet (Klonopin) 2 mg PO BEDTIME 90 days #90 tabs 10/15/21 fluticasone propionate 50 2 spray intranasal DAILY PRN 04/19/22 mcg/actuation nasal allergy symptoms 30 days #16 grams spray,suspension loratadine 10 mg tablet 10 mg PO DAILY 90 days #90 tabs 10/11/22 sumatriptan succinate 100 mg tablet 50 - 100 mg (0.5 - 1 x 100 mg) PO 12/30/22 .COMPLEX PRN migraine headache 30 days #12 tabs walker #1 ea 12/30/22 rimegepant 75 mg disintegrating 75 mg PO Q OTHER DAY PRN migraine 01/04/23 tablet (Nurtec ODT) headache 30 days #16 tabs losartan 100 mg tablet 100 mg PO DAILY #90 tabs 01/10/23 amlodipine 10 mg tablet 10 mg PO DAILY #90 tabs 07/04/23 pantoprazole 40 mg tablet,delayed 40 mg PO DAILY #30 tabs 07/07/23 release gabapentin 800 mg tablet 800 mg PO TID #270 tabs 08/31/23 naproxen 375 mg tablet 375 mg PO BID PRN pain #14 tabs 09/12/23 Allergies Allergy/AdvReac Type Severity Reaction Status Date / Time No Known Allergies Allergy Verified 09/12/23 13:27 [No Known Allergies*] FORMERLY [facility], [facility] Past Medical History Medical History Hyperlipidemia Morbid obesity with BMI of 40.0-44.9, adult Allergic rhinitis Insomnia Smoker Bipolar affective disorder Generalized anxiety disorder Right lumbar radiculopathy GERD without esophagitis Benign essential hypertension Impacted cerumen of both ears Nasal congestion Obesity (BMI 30-39.9) Impaired glucose tolerance History of diverticulitis Back pain Lumbar degenerative disc disease Hypertension GERD (gastroesophageal reflux disease) Bipolar disorder Vitamin D deficiency Surgical History History of eye removal Hx of cataract surgery H/O colonoscopy History of esophagogastroduodenoscopy (EGD) History of tubal ligation History of cholecystectomy Family History Family History Father Colon cancer Mother Primary cancer of bone marrow Sister Leukemia Social History Social History Housing: Apartment Alcohol intake: never Patient Tobacco Use Status: Current everyday Tobacco user Tobacco use type: Cigarette Cigarette Packs Per Day: 0.5 Cigarettes Per Day: 10 e-Cigarette/Vaping Use: Never Used Second Hand Smoke Exposure: Yes Advance Directives: No Advance Directives Information Provided: No Do you have a plan to hurt others: No Plan service: No Current occupational status: unemployed Cognitive needs: No Hearing needs: No Vision needs: No Physical Exam 2 Vital Signs: Vital Signs: Last Vital Signs Temp 98.3 F 09/12/23 19:05 Pulse 71 09/12/23 19:05 Resp 20 09/12/23 19:05 BP 118/77 09/12/23 19:05 Pulse Ox 95 09/12/23 19:05 O2 Del Method Room Air 09/12/23 19:05 BMI result Body Mass Index 39.9 Course Course Course Narrative: RME: 68-year-old female presents ED for right shoulder and right hand pain that is worse with movement. Patient denies any trauma. Patient states tingling from right shoulder going down right hand. Patient denies any swelling of extremity. Patient denies any neck pain. Triage done by DANAY Tucker Medical Decision Making Medical Decision Making MDM Narrative: -my interpretation of ultrasound of left lower extremity: No DVT -my interpretation of labs, BNP within normal limits, no obvious abnormality hematology and chemistry. -I discussed with the patient that she needs to follow-up with her primary care physician or go to Rheumatology as she may need more specific lab work done, patient likely has a rheumatologic process given the description of her symptoms. -at this time, patient has no erythema or warmth in her joints, septic joint is not suspected Differential Diagnosis Differential Diagnoses: The differential diagnosis associated with the presentation includes (Rheumatoid arthritis, SLE, pseudogout) Lab Data MDM Lab Attestation statement: I reviewed the patient's lab results. 09/12/23 18:04 09/12/23 18:04 Labs: Lab Results 09/12/23 Range/Units 18:04 WBC 6.1 (4.8-10.8) X10*3/uL RBC 5.16 (4.20-5.50) X10*6/uL Hgb 15.2 (12.0-16.0) g/dl Hct 45.3 (37.0-47.0) % MCV 87.8 (80.0-98.0) fL MCH 29.5 (27.0-33.0) pg MCHC 33.6 (31.0-35.0) g/dl RDW 13.9 (11.0-16.0) % Plt Count 253 (160-400) X10*3/uL MPV 9.8 (9.4-12.3) fL Immature Gran % (Auto) 0.2 (0.0-0.4) % Neut % (Auto) 67.6 (45-73) % Lymph % (Auto) 24.2 (20-40) % Crosby % (Auto) 6.0 (2-11) % Eos % (Auto) 1.5 (0-4) % Baso % (Auto) 0.5 (0-2) % Lymph # (Auto) 1.5 (1.2-4.9) X10*3/uL Crosby # (Auto) 0.4 (0.1-1.2) X10*3/uL Eos # (Auto) 0.1 (0.0-0.4) X10*3/uL Baso # (Auto) 0.0 (0.0-0.2) X10*3/uL Abs Immat Gran (auto) 0.01 (0.00-0.03) X10*3/uL Absolute Neuts (auto) 4.1 (2.0-8.3) x10*3/uL Absolute Nucleated RBC 0.000 (0.0-0.012) X10*3/uL Nucleated RBC % (auto) 0.0 (0.0-0.2) /100WBC Smear Tech's Comments VERIFIED ESR 9 (0-20) MM/HR Sodium 143 (135-145) mmol/L Potassium 3.8 (3.3-5.1) mmol/L Chloride 107 (96-108) mmol/L Carbon Dioxide 27 (22-29) mmol/L Anion Gap 13 (12-20) BUN 12 (9-16) mg/dL Creatinine 0.67 (0.5-1.4) mg/dL Estim Creat Clear Calc 89.6 Estimated GFR > 60 Random Glucose 147 H (60-115) mg/dL Calcium 9.3 (8.4-10.2) mg/dL Total Bilirubin 0.4 (0.0-1.0) mg/dL Direct Bilirubin 0.2 (0.0-0.5) mg/dL AST 16 (5-31) U/L ALT 20 (0-31) U/L Alkaline Phosphatase 122 H (39-117) U/L C-Reactive Protein 0.55 H (< or = 0.50) mg/dL B-Natriuretic Peptide < 10 (<100) pg/mL Total Protein 7.0 (6.5-8.0) g/dL Albumin 3.9 (3.5-5.0) g/dL Independent Interpretation I performed an independent interpretation of an: Plain X-Ray and Ultrasound Radiology Impression Discussion of test interpretation with radiology: I have reviewed the radiologist's reading. Radiologist Impression: FINDINGS: There is normal venous compression and respiratory variation and augmented flow. The visualized common femoral vein, superficial femoral vein, profunda femoral vein, popliteal vein, and the trifurcation region shows no evidence of deep venous thrombosis. There is a 3.4 x 1.5 x 1.5 cm left popliteal cyst If the patient's symptoms persist, followup ultrasound in 5 days 7 days might be of value to exclude proximal propagation from a non-visualized calf vein. US/US venous duplex LE LT IMPRESSION: No DVT demonstrated in the left lower extremity. There is a 3.4 x 1.5 x 1.5 cm left popliteal cyst. There is moderate to severe acromioclavicular osteoarthritis. Mild glenohumeral osteoarthritis. No fracture. Alignment is anatomic. Soft tissues are normal with no abnormal calcifications. Degenerative disc disease present in the thoracic spine. XR/XR shoulder RT min 2V IMPRESSION: Moderate to severe acromioclavicular and mild glenohumeral osteoarthritis. Discharge Plan Discharge Clinical Impression: Arthritis Patient Disposition: Home, Self-Care Instructions: Osteoarthritis (ED) Additional Instructions: Please follow-up with your primary care physician tomorrow. If you have any worsening or new symptoms, please return to the emergency room or call 911 Prescriptions: New naproxen 375 mg tablet 375 mg PO BID PRN (Reason: pain) Qty: 14 0RF No Action trazodone 50 mg tablet 100 mg PO DAILY 90 Days Qty: 180 1RF clonazepam [Klonopin] 2 mg tablet 2 mg PO BEDTIME 90 Days Qty: 90 0RF Rx Instructions: administer 30 minutes before bedtime loratadine 10 mg tablet 10 mg PO DAILY 90 Days Qty: 90 3RF Nurtec ODT 75 mg tablet,disintegrating 75 mg PO Q OTHER DAY PRN (Reason: migraine headache) 30 Days Qty: 16 6RF losartan 100 mg tablet 100 mg PO DAILY Qty: 90 2RF amlodipine 10 mg tablet 10 mg PO DAILY Qty: 90 0RF pantoprazole 40 mg tablet,delayed release (DR/EC) 40 mg PO DAILY Qty: 30 3RF Rx Instructions: stop Omeprazole gabapentin 800 mg tablet 800 mg PO TID Qty: 270 1RF cholecalciferol (vitamin D3) 1,250 mcg (50,000 unit) capsule 1,250 mcg PO QWEEK Qty: 4 5RF (DME) blood pressure test kit-large Kit See Rx Instructions .Route Qty: 1 0RF Rx Instructions: As directed fluticasone propionate 50 mcg/actuation spray,suspension 2 spray intranasal DAILY PRN (Reason: allergy symptoms) 30 Days Qty: 16 5RF Rx Instructions: administer into each nostril sumatriptan succinate 100 mg tablet 50 - 100 mg PO .COMPLEX PRN (Reason: migraine headache) 30 Days Qty: 12 6RF Rx Instructions: 50 - 100 mg orally at onset of headache, (may take with Ibuprofen) (DME) walker Misc See Rx Instructions .Route Qty: 1 0RF Rx Instructions: Adult folding 4-wheeled rolling seated walker- use when walking Referrals: Rock Lange MD [Physician] - 09/13/23 Interventions: ED Discharge Assessment Last Done: 09/12/23 19:05 Discharge Date/Time: 09/12/23 19:06 Print Language: Albanian
[2023-09-12 13:39] VITALS: BP 140/70; PULSE 70; O2SAT 95
--- NOTE | 2023-09-12 16:26 | ECG_ITS ---
Test Reason : r arm pain Blood Pressure : / mmHG Vent. Rate : 075 BPM Atrial Rate : 075 BPM P-R Int : 162 ms QRS Dur : 070 ms QT Int : 422 ms P-R-T Axes : 052 011 077 degrees QTc Int : 471 ms Normal sinus rhythm Low voltage QRS Nonspecific ST and T wave abnormality Abnormal ECG When compared with ECG of 30-DEC-2021 10:07, QT has lengthened Referred By: Ana Bustos Electronically Signed By:CLAIR BARCENAS MD
--- NOTE | 2023-09-12 16:49 | ED.EXTPRO ---
HPI - Extremity Problem General Chief complaint: Extremity Injury, Upper Stated complaint: L Arm Hand Pain No Injury Time Seen by Provider: 09/12/23 16:24 Source: patient Mode of arrival: ambulatory Limitations: no limitations History of Present Illness HPI Narrative: Patient comes to the emergency room complaining of intermittent right shoulder pain and right wrist pain. Patient states it hurts more with moving the arm. Patient denies any trauma. Also, patient states that when she given, she noticed that her left ankle was fine and now it hurts and it is swollen. Patient denies any chest pain or shortness of breath. Denies any trauma. Patient states that throughout the last few months, patient has had intermittent pain, swelling, warmth sensation of her joints, especially around the wrists and ankles.. Related Data Previous Rx's ?Medication ?Instructions ?Recorded cholecalciferol (vitamin D3) 1,250 1,250 mcg PO QWEEK #4 caps 04/27/20 mcg (50,000 unit) capsule trazodone 50 mg tablet 100 mg (2 x 50 mg) PO DAILY 90 03/16/21 days #180 tabs blood pressure test kit-large #1 ea 05/19/21 clonazepam 2 mg tablet (Klonopin) 2 mg PO BEDTIME 90 days #90 tabs 10/15/21 fluticasone propionate 50 2 spray intranasal DAILY PRN 04/19/22 mcg/actuation nasal allergy symptoms 30 days #16 grams spray,suspension loratadine 10 mg tablet 10 mg PO DAILY 90 days #90 tabs 10/11/22 sumatriptan succinate 100 mg tablet 50 - 100 mg (0.5 - 1 x 100 mg) PO 12/30/22 .COMPLEX PRN migraine headache 30 days #12 tabs walker #1 ea 12/30/22 rimegepant 75 mg disintegrating 75 mg PO Q OTHER DAY PRN migraine 01/04/23 tablet (Nurtec ODT) headache 30 days #16 tabs losartan 100 mg tablet 100 mg PO DAILY #90 tabs 01/10/23 amlodipine 10 mg tablet 10 mg PO DAILY #90 tabs 07/04/23 pantoprazole 40 mg tablet,delayed 40 mg PO DAILY #30 tabs 07/07/23 release gabapentin 800 mg tablet 800 mg PO TID #270 tabs 08/31/23 Allergies Allergy/AdvReac Type Severity Reaction Status Date / Time No Known Allergies Allergy Verified 09/12/23 13:27 [No Known Allergies*] Review of Systems Review of Systems: Constitutional : No Weight loss, No Fever, No Chills, No Night Sweats, No Fatigue, No Malaise ENT/Mouth : No Hearing loss, No Ear Pain, No Nasal Congestion, No Sinus Pain, No Hoarseness, No sore throat, No Rhinorrhea, No Swallowing Difficulty Eyes: No Eye Pain, No Swelling, No Redness, No Foreign Body, No Discharge, No Vision Changes Cardiovascular : No Chest Pain, No SOB, No Dyspnea on Exertion, No Orthopnea, No Edema, No Palpitations Respiratory : No Cough, No Sputum, No Wheezing, No Smoke Exposure, No Dyspnea Gastrointestinal : No Nausea, No Vomiting, No Diarrhea, No Constipation, No abdominal Pain, No Hematochezia, No Melena Genitourinary : no irregular bleeding, No Dysuria, No Urinary Frequency, No Hematuria, No Urinary Incontinence, No Urgency, No Flank Pain, No Urinary Flow Changes, No Hesitancy Musculoskeletal : Biting of multiple joint pain, swelling, intermittent pain calm, No Myalgias, No Joint Swelling Skin : No Skin Lesions, No rash Neuro : No Weakness, No Numbness, No Paresthesias, No Loss of Consciousness, No Dizziness, No Headache Psych : No Anxiety/Panic, No Depression, No SI/HI/AH/VH, No Social Issues, Heme/Lymph: No Bruising, No Bleeding,No Lymphadenopathy Endocrine : No Polyuria, No Polydipsia, No Temperature Intolerance PMFSH Past Medical History Medical History Hyperlipidemia Morbid obesity with BMI of 40.0-44.9, adult Allergic rhinitis Insomnia Smoker Bipolar affective disorder Generalized anxiety disorder Right lumbar radiculopathy GERD without esophagitis Benign essential hypertension Impacted cerumen of both ears Nasal congestion Obesity (BMI 30-39.9) Impaired glucose tolerance History of diverticulitis Back pain Lumbar degenerative disc disease Hypertension GERD (gastroesophageal reflux disease) Bipolar disorder Vitamin D deficiency Surgical History History of eye removal Hx of cataract surgery H/O colonoscopy History of esophagogastroduodenoscopy (EGD) History of tubal ligation History of cholecystectomy Family History Family History Father Colon cancer Mother Primary cancer of bone marrow Sister Leukemia Social History Social History Housing: Apartment Alcohol intake: never Patient Tobacco Use Status: Current everyday Tobacco user Tobacco use type: Cigarette Cigarette Packs Per Day: 0.5 Cigarettes Per Day: 10 e-Cigarette/Vaping Use: Never Used Second Hand Smoke Exposure: Yes service: No Current occupational status: unemployed Cognitive needs: No Hearing needs: No Vision needs: No Physical Exam Vital Signs: Vital Signs: Last Vital Signs Temp 98 F 09/12/23 13:21 Pulse 97 09/12/23 13:21 Resp 18 09/12/23 13:21 BP 140/95 H 09/12/23 13:21 Pulse Ox 98 09/12/23 13:21 O2 Del Method Room Air 09/12/23 13:21 BMI result Body Mass Index 39.9 Const: Other: Appearance: Alert. Oriented X3. No acute distress. Eyes: Pupils equal, round and reactive to light. ENT: Pharynx normal. Neck: Normal inspection. Neck supple. No lymph nodes noted. No crepitus CVS: Normal heart rate and rhythm. Pulses normal. Normal S1 and S2 Respiratory: No respiratory distress. Breath sounds normal. No Wheezing. No rales Abdomen: Soft and nontender. No rigidity. No distention. Skin: Skin warm and dry. Normal skin color. Normal skin turgor. Extremities: Ankle swelling in the left lower extremity. Patient able to flex extend and move with normal range of motion all joints. Neuro: Oriented X 3. No motor deficit. No sensory deficit. Moving all extremities. No slurred speech. CN 2 through 12 grossly intact Psych: calm, cooperative, normal affect Course Course Course Narrative: -all of patient's labs pending Medical Decision Making Medical Decision Making MDM Narrative: -my interpretation of the chest of the shoulder and the hand are within normal limits, normal alignment. -I discussed with the patient that given her symptoms for, patient should be evaluated by a assistant golf professional. Patient agrees with plan. -ultrasound of the left lower extremity pending Discharge Plan Discharge Prescriptions: No Action trazodone 50 mg tablet 100 mg PO DAILY 90 Days Qty: 180 1RF clonazepam [Klonopin] 2 mg tablet 2 mg PO BEDTIME 90 Days Qty: 90 0RF Rx Instructions: administer 30 minutes before bedtime loratadine 10 mg tablet 10 mg PO DAILY 90 Days Qty: 90 3RF Nurtec ODT 75 mg tablet,disintegrating 75 mg PO Q OTHER DAY PRN (Reason: migraine headache) 30 Days Qty: 16 6RF losartan 100 mg tablet 100 mg PO DAILY Qty: 90 2RF amlodipine 10 mg tablet 10 mg PO DAILY Qty: 90 0RF pantoprazole 40 mg tablet,delayed release (DR/EC) 40 mg PO DAILY Qty: 30 3RF Rx Instructions: stop Omeprazole gabapentin 800 mg tablet 800 mg PO TID Qty: 270 1RF cholecalciferol (vitamin D3) 1,250 mcg (50,000 unit) capsule 1,250 mcg PO QWEEK Qty: 4 5RF (DME) blood pressure test kit-large Kit See Rx Instructions .Route Qty: 1 0RF Rx Instructions: As directed fluticasone propionate 50 mcg/actuation spray,suspension 2 spray intranasal DAILY PRN (Reason: allergy symptoms) 30 Days Qty: 16 5RF Rx Instructions: administer into each nostril sumatriptan succinate 100 mg tablet 50 - 100 mg PO .COMPLEX PRN (Reason: migraine headache) 30 Days Qty: 12 6RF Rx Instructions: 50 - 100 mg orally at onset of headache, (may take with Ibuprofen) (DME) walker Misc See Rx Instructions .Route Qty: 1 0RF Rx Instructions: Adult folding 4-wheeled rolling seated walker- use when walking Print Language: Citizen Of [place]
[2023-09-12 18:21] LABS: Basophils Percent Auto 0.5 % (0-2); Eosinophils Absolute Auto 0.1 X10*3/uL (0.0-0.4); Eosinophils Percent Auto 1.5 % (0-4); Hematocrit 45.3 % (37.0-47.0); Hemoglobin 15.2 g/dl (12.0-16.0); Imm Gran Abs Auto 0.01 X10*3/uL (0.00-0.03); Imm Gran Pct Auto 0.2 % (0.0-0.4); Lymphocytes Absolute Auto 1.5 X10*3/uL (1.2-4.9); Lymphocytes Percent Auto 24.2 % (20-40); MANUAL DIFF FLAG SCAN; Mean Corpuscular HGB Conc 33.6 g/dl (31.0-35.0); Mean Corpuscular Hemoglobin 29.5 pg (27.0-33.0); Mean Corpuscular Volume 87.8 fL (80.0-98.0); Mean Platelet Volume 9.8 fL (9.4-12.3); Monocytes Absolute Auto 0.4 X10*3/uL (0.1-1.2); Neutrophils Absolute Auto 4.1 x10*3/uL (2.0-8.3); Neutrophils Percent Auto 67.6 % (45-73); PLT CLUMP 1; Red Blood Count 5.16 X10*6/uL (4.20-5.50); Red Cell Distribution Width 13.9 % (11.0-16.0); SCAN SMEAR FLAG 1
[2023-09-12 18:24] LABS: Alanine Aminotransferase 20 U/L (0-31); Albumin Level 3.9 g/dL (3.5-5.0); Alkaline Phosphatase 122 U/L (39-117); Anion Gap 13 (12-20); Aspartate Amino Transferase 16 U/L (5-31); Bilirubin Direct 0.2 mg/dL (0.0-0.5); Bilirubin Total 0.4 mg/dL (0.0-1.0); Blood Urea Nitrogen 12 mg/dL (9-16); C Reactive Protein 0.55 mg/dL (< or = 0.50); Calcium 9.3 mg/dL (8.4-10.2); Carbon Dioxide 27 mmol/L (22-29); Chloride 107 mmol/L (96-108); Creatinine Clr Calc Pharmacy 89.6; Estimated Glomerular Filt Rate > 60; Glucose Random 147 mg/dL (60-115); Potassium 3.8 mmol/L (3.3-5.1); Sodium 143 mmol/L (135-145)
[2023-09-12 18:30] LABS: B Type Natriuretic Peptide < 10 pg/mL (<100)
[2023-09-12 18:55] LABS: Platelet Count 253 X10*3/uL (160-400); SLIDE REVIEW VERIFIED; White Blood Count 6.1 X10*3/uL (4.8-10.8)
--- NOTE | 2023-09-12 19:03 | PC.NURSE ---
This RN was not primary nurse, this RN reviewed discharge paper work with pt, pt verbalized understanding. No sob or chest pain, pt given snacks at discharge per request no sign of distress.
[2023-09-12 19:05] VITALS: BP 118/77; PULSE 71; RESP 20; TEMP 36.8; O2SAT 95
[2023-09-12 19:09] LABS: Erythrocyte Sedimentation Rate 9 MM/HR (0-20)
== END 2023-09-12 19:06 | disposition home or self-care (01) ==
PROVIDERS: Emergency Provider Emergency Medicine; PCP Internal Medicine
DX: M19.90 Unspecified osteoarthritis, unspecified site (principal); M79.641 Pain in right hand; M79.662 Pain in left lower leg; M25.511 Pain in right shoulder; M25.531 Pain in right wrist; I10 Essential (primary) hypertension; Z79.899 Other long term (current) drug therapy
CPT/HCPCS: 36415; 73030; 73110; 73130; 80048; 80076; 83880; 85025; 85652; 86140; 93005; 93971; 99283; 99284

== ENCOUNTER → 2023-09-12 16:26 | Outpatient (BNV) | payer MEDICARE, SELFPAY | PROVIDERS: Emergency Provider Emergency Medicine; PCP Internal Medicine; Visit Provider Internal Medicine Cardiovascular Disease | DX: R94.31 Abnormal electrocardiogram [ECG] [EKG] (principal) | CPT/HCPCS: 93010 ==

== ENCOUNTER 2023-10-27 13:56 | Outpatient (AMB) | payer MEDICARE, SELFPAY ==
--- NOTE | 2023-10-27 14:03 | A.OFFVIS_ITS ---
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 She is doing well with no concerns. Attempting to eat a healthy diet, and stays active when possible due to back pain. Currently not sexually active. Denies any vaginal dryness or irritation. STI testing offered; she accepts. Last pap smear; age 46. Last mammogram; not up to dates, has declined. Colonoscopy is UTD. Denies any family history of breast, ovarian or colon cancer. [facility] Medical History Hyperlipidemia Morbid obesity with BMI of 40.0-44.9, adult Allergic rhinitis Insomnia Smoker Bipolar affective disorder Generalized anxiety disorder Right lumbar radiculopathy GERD without esophagitis Benign essential hypertension Impacted cerumen of both ears Nasal congestion Obesity (BMI 30-39.9) Impaired glucose tolerance History of diverticulitis Back pain Lumbar degenerative disc disease Hypertension GERD (gastroesophageal reflux disease) Bipolar disorder Vitamin D deficiency Surgical History History of eye removal Hx of cataract surgery H/O colonoscopy History of esophagogastroduodenoscopy (EGD) History of tubal ligation History of cholecystectomy Family History Father Colon cancer Mother Primary cancer of bone marrow Sister Leukemia Social History Housing: Apartment Alcohol intake: never Patient Tobacco Use Status: Current everyday Tobacco user Tobacco use type: Cigarette Cigarette Packs Per Day: 0.5 Cigarettes Per Day: 10 e-Cigarette/Vaping Use: Never Used Second Hand Smoke Exposure: Yes service: No Current occupational status: unemployed Cognitive needs: No Hearing needs: No Vision needs: No Review of Systems Const All systems reviewed & are unremarkable except as noted in HPI and below Reports as per HPI Eyes Reports no additional complaints ENT Reports no additional complaints Card Reports no additional complaints Resp Reports no additional complaints GI Reports as per HPI and Reports no additional complaints Reports as per HPI Musc Reports no additional complaints Skin/Breast Reports as per HPI Neuro Reports no additional complaints Psych Reports no additional complaints Endo Reports no additional complaints Pietro/Lymph Reports no additional complaints Aller/Immun Reports no additional complaints Physical Exam Vital Signs: Last Vital Signs BP 118/80 10/27/23 14:32 BMI result Body Mass Index 41.0 Const General: cooperative, healthy appearing, no acute distress, well developed and alert Orientation/consciousness: patient oriented x3 HEENT Head: Yes normal to inspection Eyes General: appearance normal, both eyes and all related structures Neck Neck: Yes normal visual inspection Thyroid: Thyroid normal Chest Chest palpation & inspection: normal inspection of the chest and other (no puckering, dimpling, peau de orange, retraction, discharge, masses) Breast/axilla inspection: normal inspection of the breasts Breast/axilla palpation: normal palpation of the breasts Resp Effort & Inspection: normal respiratory effort GI Inspection: Yes normal to inspection and Yes obesity Palpation (GI): Soft to palpation Rectal Exam - Female: deferred General: Yes bladder normal to palpation External Female Exam: normal external appearance and normal appearance of the urethra Speculum Exam - Vagina: normal appearance of the vagina, normal palpation, normal vaginal discharge and vagina atrophic Speculum Exam - Cervix: normal appearance of the cervix, normal palpation and Other cervical findings present (Atrophic bled very slightly with Pap) Bimanual exam- vagina & uterus: normal bimanual exam, normal palpation, uterine size normal, bladder normal to palpation, normal palpation and non-tender Bimanual Exam- Adnexa, other: no masses Skin General skin exam: no rashes or lesions noted Rashes: no rashes Neuro General: patient oriented x3 Cognition (Neuro): normal cognition Extrem General: Yes normal to inspection Psych Attitude: cooperative Thought process: Normal thought process present Assessment & Plan Assessment & Plan (1) Encounter for well woman exam with routine gynecological exam: Code(s): Z01.419 - Encounter for gynecological examination (general) (routine) without abnormal findings Category: Medical Plan: Discussed: Current recommendations for pap smears per ASCCP guidelines. Breast awareness, periodic self breast exams and yearly mammogram counseled regarding early detection with screening-declines. She reports she might think about it for next year. Maintain a healthy lifestyle, well balanced diet including Calcium 1,200 mg and Vitamin D 600 IU daily, and routine exercise. Contact the office with any postmenopausal bleeding. Patient verbalizes understanding and agrees to the plan of care. She was given opportunity to ask questions and all questions were answered to the best of my ability. 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 This note is constructed using voice recognition software. While every effort has been made to ensure accuracy, decision support analyst errors may have been included. Coding Level of Care Code New Pt Prev Care >65yr (06937) Diagnoses Encounter for well woman exam with routine gynecological exam Z01.419
[2023-10-27 14:32] VITALS: BP 118/80; BMI 41.0
== END 2023-10-27 15:42 | disposition home or self-care (01) ==
PROVIDERS: PCP Internal Medicine; Visit Provider Advanced Practice Midwife
DX: Z01.419 Encounter for gynecological examination (general) (routine) without abnormal findings (principal)
CPT/HCPCS: 99387; 99397

== ENCOUNTER 2023-10-27 13:56 | Outpatient (REF) | payer MEDICARE, OTHER, SELFPAY ==
[2023-10-27 17:49] LABS: Bacterial Vaginosis PCR NEGATIVE (Negative); Candida Group PCR NOT DETECTED (Not Detect); Candida glab krusei PCR NOT DETECTED (Not Detect); Trichomonas vaginalis PCR NOT DETECTED (Not Detect)
[2023-10-27 17:57] LABS: CT PCR NOT DETECTED (Not Detect.); NG PCR NOT DETECTED (Not Detect.)
[2023-10-30 23:04] LABS: HPV mRNA E6/E7 Not Detected (Not Detected)
== END 2023-10-27 13:57 | disposition home or self-care (01) ==
LOC: HO.LNP 13:56
PROVIDERS: PCP Internal Medicine; Visit Provider Advanced Practice Midwife
DX: Z01.419 Encounter for gynecological examination (general) (routine) without abnormal findings (principal); Z11.51 Encounter for screening for human papillomavirus (HPV); Z20.2 Contact with and (suspected) exposure to infections with a predominantly sexual mode of transmission
CPT/HCPCS: 0352U; 87491; 87591; 87624; 88175

== ENCOUNTER 2023-11-17 13:13 | Outpatient (AMB) | payer MEDICARE, MEDICAID, SELFPAY ==
[2023-11-17 13:15] VITALS: BP 124/82; PULSE 96; O2SAT 97; BMI 40.6
--- NOTE | 2023-11-17 13:15 | A.OFFVIS_ITS ---
Vital Signs 11/17/23 13:15 Height 5 ft 2 in Weight 222 lb BMI 40.6 BP 124/82 Blood Pressure Location Rt brachial Position Sitting Pulse 96 Pulse Source Pulse Oximeter Pulse Oximetry (%) 97 Oxygen Delivery Method Room Air Intake Visit Reasons: 3 mo f/u - Migraine-CONF Intake Note: Patient presents for 3 month follow up migraines.Patient presents for follow up doing rreally good since june. Allergies No Known Allergies [No Known Allergies*] Allergy (Verified 11/17/23 13:18) Medication List - Last Reconciled 11/17/23 by JANINE Morgan amlodipine 10 mg PO DAILY blood pressure test kit-large As directed cholecalciferol (vitamin D3) 1,250 mcg PO QWEEK clonazepam (Klonopin) 2 mg PO BEDTIME 90 days duloxetine 60 mg PO DAILY fluticasone propionate 50 mcg/actuation 2 sprays intranasal DAILY PRN 30 days gabapentin 800 mg PO TID loratadine 10 mg PO DAILY 90 days losartan 100 mg PO DAILY pantoprazole 40 mg PO DAILY rimegepant (Nurtec ODT) 75 mg PO Q OTHER DAY PRN 30 days sumatriptan succinate 50 - 100 mg orally at onset of headache, (may take with Ibuprofen) 30 days trazodone 100 mg (2 x 50 mg) PO DAILY 90 days walker Adult folding 4-wheeled rolling seated walker- use when walking HPI Comments Details: 68-yr-old female presents for f/u visit. Pt denies any significant interval medical changes. 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 Patient states she has not had any recent headaches. She does have Nurtec and sumatriptan, which she states does help when she needs to take them. Overall, her body pains are better on gabapentin. However she can have neck pain and shoulder pain. She thinks this may be due in part to heavy enlarged breasts. She forgot to do the C-spine x-ray after the last visit. She is concerned that she is not at sharp as before. Finds that she has to search for words more in both [place] and [place]. She does have a history of sleep apnea. She is not currently using any CPAP type device. She continues to have snoring, gasping, daytime sleepiness. [facility] Medical History Hyperlipidemia Morbid obesity with BMI of 40.0-44.9, adult Allergic rhinitis Insomnia Smoker Bipolar affective disorder Generalized anxiety disorder Right lumbar radiculopathy GERD without esophagitis Benign essential hypertension Impacted cerumen of both ears Nasal congestion Obesity (BMI 30-39.9) Impaired glucose tolerance History of diverticulitis Back pain Lumbar degenerative disc disease Hypertension GERD (gastroesophageal reflux disease) Bipolar disorder Vitamin D deficiency Surgical History History of eye removal Hx of cataract surgery H/O colonoscopy History of esophagogastroduodenoscopy (EGD) History of tubal ligation History of cholecystectomy Family History Father Colon cancer Mother Primary cancer of bone marrow Sister Leukemia Social History Housing: Apartment Alcohol intake: never Patient Tobacco Use Status: Current everyday Tobacco user Tobacco use type: Cigarette Cigarette Packs Per Day: 0.5 Cigarettes Per Day: 10 e-Cigarette/Vaping Use: Never Used Second Hand Smoke Exposure: Yes service: No Current occupational status: unemployed Cognitive needs: No Hearing needs: No Vision needs: No Physical Exam Vital Signs: Last Vital Signs Pulse 96 11/17/23 13:15 BP 124/82 11/17/23 13:15 Pulse Ox 97 11/17/23 13:15 Oxygen Delivery Method Room Air 11/17/23 13:15 BMI result Body Mass Index 40.6 Const General: cooperative and no acute distress Orientation/consciousness: patient oriented x3 Resp Effort & Inspection: normal respiratory effort and able to speak in complete sentences Neuro Other: Impaired vision. Dysconjugate gaze. Bilateral posterior cervical tightness and tenderness. General: patient oriented x3 Cognition (Neuro): normal cognition Gait exam (Neuro): Assistive device used (Walker) Psych Appearance: grossly normal Mental Status: mental status grossly normal Speech and movement: Normal speech and movement present Affect: normal affect Attitude: cooperative Assessment & Plan Assessment & Plan (1) KEMAL (obstructive sleep apnea): Code(s): G47.33 - Obstructive sleep apnea (adult) (pediatric) Category: Medical (2) Sleep difficulties: Code(s): G47.9 - Sleep disorder, unspecified Category: Medical Plan Check c-spine XR. In-lab sleep study to assess status of sleep apnea. ? For acute migraine tx: Pt may continue prn Sumatriptan 50-100mg for now. ? For migraine prevention tx: Nurtec ODT 75mg qod rather than prn- in hopes this is more effective. Previous tx trials- Amitriptyline, nortriptyline, lamictal, cymbalta, depakote, nortriptyline. Tx contraindications: CGRP MaBs d/t severe decreased visual acuity, would avoid BBs as pt is already on Losartan 100mg and amlodipine 10mg qd. Would not resume TCA at this point as pt has good body pain control on Gabapentin 800mg tid and sleeps well on Trazodone 100mg qhs. ? Continue to use 4-wheeled seated rolling walker as pt is at risk for falling d/t gait imbalance. ? Follow-up in 3-6 months or sooner prn. Orders: Orders RT PSG in-lab sleep study Today E66.01 - Morbid (severe) obesity due to excess calories, G47.33 - Obstructive sleep apnea (adult) (pediatric), G47.9 - Sleep disorder, unspecified, Z68.41 - Body mass index [BMI] 40.0-44.9, adult Coding Level of Care Code Est Pt Level 4 (74306) Diagnoses KEMAL (obstructive sleep apnea) G47.33 Sleep difficulties G47.9 [place] Sleepiness Scale Questions Sitting and reading: moderate chance of dozing Watching TV: moderate chance of dozing Sitting inactive in a theater, movie etc.: moderate chance of dozing As a passenger in a car for an hour without break: would never doze Lying down in the afternoon when circumstances permit: moderate chance of dozing Sitting and talking to someone: would never doze Sitting quietly after lunch without alcohol: moderate chance of dozing In a car, while stopped for a few minutes in the traffic: would never doze ESS < 10: normal, ESS > 12: pathologic: 10
== END 2023-11-17 14:11 | disposition home or self-care (01) ==
PROVIDERS: PCP Internal Medicine; Visit Provider Nurse Practitioner Family
DX: G47.33 Obstructive sleep apnea (adult) (pediatric) (principal); G47.9 Sleep disorder, unspecified
CPT/HCPCS: 99214

== ENCOUNTER → 2023-11-17 13:13 | Outpatient (BNVA) | payer MEDICARE, MEDICAID, SELFPAY | PROVIDERS: PCP Internal Medicine; Visit Provider Nurse Practitioner Family | DX: G47.33 Obstructive sleep apnea (adult) (pediatric) (principal); G47.9 Sleep disorder, unspecified | CPT/HCPCS: 99212 ==

== ENCOUNTER 2023-12-01 09:09 | Outpatient (REF) | payer MEDICARE, SELFPAY ==
[2023-12-01 09:35] LABS: MANUAL DIFF FLAG NO
[2023-12-01 10:01] LABS: Basophils Absolute Auto 0.1 X10*3/uL (0.0-0.2); Basophils Percent Auto 0.8 % (0-2); Eosinophils Absolute Auto 0.1 X10*3/uL (0.0-0.4); Eosinophils Percent Auto 1.7 % (0-4); Hematocrit 45.7 % (37.0-47.0); Hemoglobin 15.2 g/dl (12.0-16.0); Imm Gran Abs Auto 0.01 X10*3/uL (0.00-0.03); Imm Gran Pct Auto 0.2 % (0.0-0.4); Lymphocytes Absolute Auto 1.5 X10*3/uL (1.2-4.9); Lymphocytes Percent Auto 22.7 % (20-40); Mean Corpuscular HGB Conc 33.3 g/dl (31.0-35.0); Mean Corpuscular Hemoglobin 29.5 pg (27.0-33.0); Mean Corpuscular Volume 88.6 fL (80.0-98.0); Monocytes Absolute Auto 0.5 X10*3/uL (0.1-1.2); Monocytes Percent Auto 7.5 % (2-11); Neutrophils Absolute Auto 4.4 x10*3/uL (2.0-8.3); Neutrophils Percent Auto 67.1 % (45-73); Platelet Count 256 X10*3/uL (160-400); Red Blood Count 5.16 X10*6/uL (4.20-5.50); Red Cell Distribution Width 13.9 % (11.0-16.0); White Blood Count 6.6 X10*3/uL (4.8-10.8)
[2023-12-01 10:53] LABS: Alanine Aminotransferase 23 U/L (0-31); Alkaline Phosphatase 124 U/L (39-117); Anion Gap 10 (12-20); Aspartate Amino Transferase 17 U/L (5-31); Bilirubin Total 0.3 mg/dL (0.0-1.0); Blood Urea Nitrogen 15 mg/dL (9-16); Calcium 9.7 mg/dL (8.4-10.2); Carbon Dioxide 29 mmol/L (22-29); Chloride 108 mmol/L (96-108); Cholesterol 182 mg/dL (<200); Estimated Glomerular Filt Rate > 60; Glucose Fasting 114 mg/dL (60-99); HDL Cholesterol 50 mg/dL (>40); LDL Cholesterol Calculated 110 mg/dL (<100); Potassium 4.2 mmol/L (3.3-5.1); Sodium 143 mmol/L (135-145); TSH reflex Free T4 4.16 uIU/mL (0.32-4.0); Total Protein 7.2 g/dL (6.5-8.0); Triglycerides 112 mg/dL (<150); Vitamin D 25-OH Total 26.3 ng/mL (>30)
[2023-12-01 11:05] LABS: Appearance Urine Clear; Color Urine Yellow; Glucose Urine UA Negative (Negative); Leukocyte Esterase Urine Negative (Negative); Nitrite Urine Negative (Negative); Specific Gravity - Urine 1.025 (1.005-1.025); Urine Blood Negative (Negative); Urine Ketones Negative (Negative); Urine Protein Negative (Neg-Trace)
== END 2023-12-01 09:10 | disposition home or self-care (01) ==
LOC: HO.XRAY 09:09
PROVIDERS: Absent Provider Internal Medicine; PCP Internal Medicine; Visit Provider Nurse Practitioner Family
DX: I10 Essential (primary) hypertension (principal); E78.00 Pure hypercholesterolemia, unspecified; R30.0 Dysuria; E55.9 Vitamin D deficiency, unspecified
CPT/HCPCS: 36415; 80053; 80061; 81003; 82306; 84439; 84443; 85025

== ENCOUNTER 2023-12-06 12:51 | Outpatient (AMB) | payer MEDICARE, MEDICAID, SELFPAY ==
[2023-12-06 13:11] VITALS: BP 112/76; PULSE 96; O2SAT 92; BMI 40.2
--- NOTE | 2023-12-06 13:11 | A.OFFPC_ITS ---
Vital Signs 12/06/23 13:11 Height 5 ft 2 in Weight 220 lb BMI 40.2 BP 112/76 Blood Pressure Location Lt brachial Position Sitting Pulse 96 Pulse Source Pulse Oximeter Pulse Oximetry (%) 92 Oxygen Delivery Method Room Air Intake Visit Reasons: 4mof\u Allergies No Known Allergies [No Known Allergies*] Allergy (Verified 12/06/23 14:03) Medication List - Last Reconciled 12/06/23 by Ronal Orozco MD amlodipine 10 mg PO DAILY blood pressure test kit-large As directed cholecalciferol (vitamin D3) 1,250 mcg PO QWEEK clonazepam (Klonopin) 2 mg PO BEDTIME 90 days duloxetine 60 mg PO DAILY fluticasone propionate 50 mcg/actuation 2 sprays intranasal DAILY PRN 30 days gabapentin 800 mg PO TID loratadine 10 mg PO DAILY 90 days losartan 100 mg PO DAILY pantoprazole 40 mg PO DAILY rimegepant (Nurtec ODT) 75 mg PO Q OTHER DAY PRN 30 days sumatriptan succinate 50 - 100 mg orally at onset of headache, (may take with Ibuprofen) 30 days trazodone 100 mg (2 x 50 mg) PO DAILY 90 days walker Adult folding 4-wheeled rolling seated walker- use when walking Tobacco use date assessed: 08/02/23 Fall risk assessment: No Falls in past year Last assessed Fall Risk: 12/06/23 Dental Screening Dental Screen Date: 08/02/23 HPI 4mof\u HPI Details Patient comes in today for her follow-up visit States that she has been experiencing increased pain over the back of her neck lately Has also noticed a lump or swelling over the back of her neck were it feels sore and is wondering if this needs to be checked out and removed if possible Patient also continues to experience recurrent joint pains and is requesting for a referral to Rheumatology for management States that she feels okay otherwise She denies any headaches or dizziness Denies any chest pains, no increased shortness of breath No nausea/ vomiting, no abdominal pain No change in bowel habits noted adds that she recurrent dry skin over several fingers of her hands States that she has been using Cetaphil lotion on her hands regularly for a while now with no significant improvement of her symptoms Needs a gabapentin Rx refilled She had her follow-up labs done a few days ago - to discuss her results [facility] Medical History Hyperlipidemia Morbid obesity with BMI of 40.0-44.9, adult Allergic rhinitis Insomnia Smoker Bipolar affective disorder Generalized anxiety disorder Right lumbar radiculopathy GERD without esophagitis Benign essential hypertension Impacted cerumen of both ears Nasal congestion Obesity (BMI 30-39.9) Impaired glucose tolerance History of diverticulitis Back pain Lumbar degenerative disc disease Hypertension GERD (gastroesophageal reflux disease) Bipolar disorder Vitamin D deficiency Surgical History History of eye removal Hx of cataract surgery H/O colonoscopy History of esophagogastroduodenoscopy (EGD) History of tubal ligation History of cholecystectomy Family History Father Colon cancer Mother Primary cancer of bone marrow Sister Leukemia Social History Housing: Apartment Alcohol intake: never Patient Tobacco Use Status: Current everyday Tobacco user Tobacco use type: Cigarette Cigarette Packs Per Day: 0.5 Cigarettes Per Day: 10 e-Cigarette/Vaping Use: Never Used Second Hand Smoke Exposure: Yes service: No Current occupational status: unemployed Cognitive needs: No Hearing needs: No Vision needs: No Questionnaire PHQ-9 Over the last 2 weeks, how often have you been bothered by any of the following problems? 1. Little interest or pleasure in doing things: not at all 2. Feeling down, depressed, or hopeless: several days 3. Trouble falling or staying asleep, or sleeping too much: nearly every day 4. Feeling tired or having little energy: nearly every day 5. Poor appetite or overeating: several days 6. Feeling bad about yourself - or that you are a failure or have let yourself or your family down: not at all 7. Trouble concentrating on things, such as reading the newspaper or watching television: several days 8. Moving or speaking so slowly that other people could have noticed. Or the opposite - being so fidgety or restless that you have been moving around a lot more than usual: not at all 9. Thoughts that you would be better off or of hurting yourself in some way: not at all Total score: 9 Depression Screening Interpretation: Positive Depression Screening Follow-up: Existing condition and In treatment Depression Screening Done: Yes 25168 - PHQ-9 Billing: Yes Source: Developed by Drs. Schuyler Abbott, Elena Villeda, Eric Espinal and colleagues, with an educational lm from [employer]. Thrive Questionnaire Date Thrive assessed: 08/02/23 AUDIT C Alcohol Use Questionnaire (AUDIT-C) 1. How often do you have a drink containing alcohol?: Never 3. How often do you have six or more drinks on one occasion?: Never Total Score: 0 Score Reviewed/Action Taken: Yes ALEXANDER-7 AMB Questionnaire ALEXANDER-7 Date ALEXANDER - 7 assessed: 12/06/23 Feeling nervous, anxious, or on edge: 1 = Several days Not being able to stop or control worryin = Several days Worrying too much about different things: 1 = Several days Trouble relaxin = Several days Being so restless that it is hard to sit still: 0 = Not at all Becoming easily annoyed or irritable: 0 = Not at all Feeling afraid as if something awful might happen: 1 = Several days Total ALEXANDER-7 score (0-4 normal; 5-9 mild; 10-14 moderate; 15-21 severe): 5 Source: Developed by Drs. Schuyler Abbott, Elena Villeda, Eric Espinal and colleagues, with an educational lm from [employer]. Review of Systems Const Denies chills, Denies fatigue, Denies fever(s) and Denies headache(s) ENT Denies dysphagia, Denies dizziness, Denies otalgia, Denies headache(s), Reports neck pain, Denies odynophagia and Denies sore throat Card Denies chest pain, Denies irregular heart rhythm, Denies palpitations and Denies dyspnea Resp Denies chest congestion, Denies cough, Denies dyspnea and Denies wheezing GI Denies abdominal pain, Denies constipation, Denies dysphagia, Denies heartburn, Denies diarrhea, Denies nausea, Denies odynophagia and Denies vomiting Denies urinary frequency, Denies dysuria, Denies urinary incontinence and Denies urinary urgency Musc Reports back pain (recurrent), Denies arthralgias and Reports neck pain Skin/Breast Reports dry skin (mostly over a few fingers on both hands) and Denies rash Neuro Denies dizziness, Denies headache(s) and Denies paresthesias Psych Denies anxiety and Denies depression Endo Denies fatigue and Denies palpitations Pietro/Lymph Denies easy bruising Aller/Immun Denies wheezing Physical exam (Primary Care) Vital Signs: Last Vital Signs Pulse 96 12/06/23 13:11 BP 112/76 12/06/23 13:11 Pulse Ox 92 12/06/23 13:11 Oxygen Delivery Method Room Air 12/06/23 13:11 BMI result Body Mass Index 40.2 Tobacco/Smoking Status: Tobacco use Status Tobacco use date assessed 08/02/23 12/06/23 13:13 Patient Tobacco Use Status Current everyday Tobacco 12/06/23 13:13 Tobacco use type Cigarette 12/06/23 13:13 e-Cigarette/Vaping Use Never Used 12/06/23 13:13 PHQ-9: PHQ-9 Score PHQ-9: Total score 9 12/06/23 14:10 Depression Screening Interpretation: Positive Depression Screening Follow-up: Existing condition and In treatment Thrive Assessment: Date of Thrive Assessment Date Thrive assessed 08/02/23 12/06/23 13:13 Const General: no acute distress and alert HENMT Ears: TM's normal bilaterally and EAC's normal Throat: Yes posterior oropharynx normal and Yes tonsils normal (no TP congestion) Neck Neck: Yes no lymphadenopathy and Yes tender Thyroid: Thyroid normal Resp Auscultation: clear to auscultation bilaterally, no rales and no wheezes Cardio Rate: regular rate Rhythm: regular rhythm Heart sounds: no murmurs GI Palpation (GI): Soft to palpation and nontender Auscultation: normal bowel sounds General: Yes no CVA tenderness Back/Spine/Pelvis Back: no CVA tenderness Cervical Spine: Cervical spine tenderness (especially over the lower cervical spine, with a prominent bulge noted) Thoracic/Lumbar Spine: lumbar spinal tenderness Skin General skin exam: dry skin (noted over a few fingers on both hands) Rashes: no rashes Extrem General: Yes no clubbing, cyanosis or edema Results Reviewed Results Reviewed: Laboratory Tests 12/01/23 12/01/23 09:30 09:34 WBC 6.6 Hgb 15.2 Hct 45.7 Plt Count 256 Sodium 143 Potassium 4.2 Creatinine 0.70 Estimated GFR > 60 Fasting Glucose 114 H Calcium 9.7 AST 17 ALT 23 Triglycerides 112 Cholesterol 182 LDL Cholesterol, Calc 110 H HDL Cholesterol 50 25-OH Vitamin D Total 26.3 L TSH 4.16 H Free T4 0.90 Ur Specific Jerome 1.025 Urine Protein Negative Urine Glucose (UA) Negative Urine Blood Negative Urine Nitrite Negative Ur Leukocyte Esterase Negative Assessment and Plan Assessment & Plan (1) Cervicalgia: Code(s): M54.2 - Cervicalgia Plan: Will send patient for cervical spine and upper thoracic spine x-rays for further evaluation Will also refer her to Physical therapy for further evaluation and management (2) Migraine: Code(s): G43.909 - Migraine, unspecified, not intractable, without status migrainosus Qualifiers: Intractability: not intractable Migraine type: unspecified Status migrainosus presence: without status migrainosus Qualified Code(s): G43.909 - Migraine, unspecified, not intractable, without status migrainosus Plan: Continue Sumatriptan 50 mg 1 to 2 tablets PRN and Nurtec ODT 75 mg QOD for headache prevention She had a brain MRI done on 01/27/2023, which came out mostly unremarkable - (+) several scattered foci of supratentorial white matter T2/FLAIR signal abnormality are nonspecific but can be seen in the setting of migraine and/or chronic microvascular ischemia. Otherwise, is an unremarkable noncontrast MRI of the brain. Follow up with neurology as scheduled (3) Benign essential hypertension: Code(s): I10 - Essential (primary) hypertension Plan: Reinforced low sodium diet - goal is systolic BP of at least 120 to 130 mm or less Continue Losartan 100 mg QD and Amlodipine 10 mg QD (4) Hyperlipidemia: Code(s): E78.5 - Hyperlipidemia, unspecified Qualifiers: Hyperlipidemia type: unspecified Qualified Code(s): E78.5 - Hyperlipidemia, unspecified Plan: Results of her labs done a few days ago reviewed and discussed with patient Reinforced low cholesterol diet Will recheck her labs and fasting lipids in 4 months for follow-up (5) Impaired glucose tolerance: Code(s): R73.02 - Impaired glucose tolerance (oral) Plan: Her in-office HgbA1c was normal at 5.7% when previously checked Reinforced low calorie/low carb diet; exercise as tolerated (6) Lumbar degenerative disc disease: Code(s): M51.36 - Other intervertebral disc degeneration, lumbar region Plan: Reinforced activity and weight lifting restrictions Continue Tramadol 50 mg TID PRN and Tizanidine 4 mg TID PRN Continue Gabapentin 800 mg TID - Rx refilled Per request, will refer her to rheumatology for further evaluation and management of her arthralgias (7) Osteoarthritis of right ankle: Code(s): M19.071 - Primary osteoarthritis, right ankle and foot Qualifiers: Osteoarthritis type: primary Qualified Code(s): M19.071 - Primary osteoarthritis, right ankle and foot Plan: X-rays of the right ankle done back in 09/2021 revealed (+) moderate multifocal degenerative osteoarthritis Have suggested that she see podiatry if her ankle continues to bother her - patient will call for referral when needed (8) Allergic rhinitis: Code(s): J30.9 - Allergic rhinitis, unspecified Qualifiers: Allergic rhinitis seasonality: unspecified Allergic rhinitis trigger: unspecified Qualified Code(s): J30.9 - Allergic rhinitis, unspecified Plan: Continue Loratadine 10 mg QD PRN and Fluticasone 50 mcg nasal spray 2 sprays into each nostril QD PRN (9) GERD without esophagitis: Code(s): K21.9 - Gastro-esophageal reflux disease without esophagitis Plan: Dietary restrictions reinforced UGI series done in July 2018 revealed (+) mild esophageal dysmotility with mild reflux disease EGD in August 2018 revealed mild reflux disease with gastritis - recommend continue PPI Rx REPEAT EGD on 07/17/2020 revealed similar results - (+) small hiatal hernia with GERD and findings of gastritis Continue Pantoprazole 40 mg QD Follow up with GI as scheduled (10) Dry skin dermatitis: Code(s): L85.3 - Xerosis cutis Plan: Mostly involvingna few fingers on both hands She has been using OTC Cetaphil lotion unsuccessfully Will start her on Lac-Hydrin 12% cream BID PRN (11) Insomnia: Code(s): G47.00 - Insomnia, unspecified Qualifiers: Insomnia type: unspecified Qualified Code(s): G47.00 - Insomnia, unspecified Plan: Sleep hygiene reinforced Continue Trazodone 100 mg Q HS PRN (12) Generalized anxiety disorder: Code(s): F41.1 - Generalized anxiety disorder Plan: Continue Clonazepam 2 mg Q HS PRN (13) Bipolar affective disorder: Code(s): F31.9 - Bipolar disorder, unspecified Qualifiers: Active/Remission status: currently active Current bipolar episode type: mixed Current episode severity: unspecified Qualified Code(s): F31.60 - Bipolar disorder, current episode mixed, unspecified Plan: Was on Perphenazine-Amitriptyline 4-25 mg QD in the past but Rx has been discontinued Follow up with psychiatry as scheduled (14) Smoker: Code(s): F17.200 - Nicotine dependence, unspecified, uncomplicated Plan: Counseled again on smoking cessation (15) Morbid obesity with BMI of 40.0-44.9, adult: Code(s): E66.01 - Morbid (severe) obesity due to excess calories; Z68.41 - Body mass index [BMI] 40.0-44.9, adult Plan: Reinforced diet/exercise as tolerated/lose weight Per request, she has been referred to weight management at a previous visit Plan Follow up in 4 months Orders: Orders PT Evaluation and Treatment 12/06/23 M54.2 - Cervicalgia Complete Blood Count Auto Diff 4 Months D64.9 - Anemia, unspecified Lipid Panel 4 Months E78.00 - Pure hypercholesterolemia, unspecified TSH reflex Free T4 4 Months E78.00 - Pure hypercholesterolemia, unspecified XR cervical spine 3V 12/06/23 M54.2 - Cervicalgia XR thoracic spine 3V 12/06/23 M54.9 - Dorsalgia, unspecified Comprehensive [place]. Panel Fast 4 Months E78.00 - Pure hypercholesterolemia, unspecified UA CC w/rflx Micro + Cult 4 Months R30.0 - Dysuria Referrals Rheumatology Referral M25.50 - Pain in unspecified joint Medications: New ammonium lactate 12% 1 appl topical BID PRN 385 grams 0RF dry skin Refilled gabapentin 800 mg PO TID 270 tabs 1RF Coding Level of Care Code Est Pt Level 4 (41625) Complex EM visit Add On G2211 Diagnoses Cervicalgia M54.2 Migraine without status migrainosus, not intractable, unspecified migraine type G43.909 Intractability: not intractable Migraine type: unspecified Status migrainosus presence: without status migrainosus Benign essential hypertension I10 Hyperlipidemia, unspecified hyperlipidemia type E78.5 Hyperlipidemia type: unspecified Impaired glucose tolerance R73.02 Lumbar degenerative disc disease M51.36 Primary osteoarthritis of right ankle M19.071 Osteoarthritis type: primary Allergic rhinitis, unspecified seasonality, unspecified trigger J30.9 Allergic rhinitis seasonality: unspecified Allergic rhinitis trigger: unspecified GERD without esophagitis K21.9 Dry skin dermatitis L85.3 Insomnia, unspecified type G47.00 Insomnia type: unspecified Generalized anxiety disorder F41.1 Bipolar affective disorder, current episode mixed, current episode severity unspecified F31.60 Active/Remission status: currently active Current bipolar episode type: mixed Current episode severity: unspecified Smoker F17.200 Morbid obesity with BMI of 40.0-44.9, adult E66.01; Z68.41
== END 2023-12-06 14:14 | disposition home or self-care (01) ==
PROVIDERS: PCP Internal Medicine; Visit Provider Internal Medicine
DX: M54.2 Cervicalgia (principal); G43.909 Migraine, unspecified, not intractable, without status migrainosus; I10 Essential (primary) hypertension; E78.5 Hyperlipidemia, unspecified; R73.02 Impaired glucose tolerance (oral); M51.36 Other intervertebral disc degeneration, lumbar region; M19.071 Primary osteoarthritis, right ankle and foot; J30.9 Allergic rhinitis, unspecified; K21.9 Gastro-esophageal reflux disease without esophagitis; L85.3 Xerosis cutis; G47.00 Insomnia, unspecified; F41.1 Generalized anxiety disorder
CPT/HCPCS: 99214; G2211

== ENCOUNTER → 2023-12-14 03:50 | Outpatient (BNV) | payer MEDICARE, SELFPAY | PROVIDERS: Visit Provider Psychiatry & Neurology Neurology | DX: G47.33 Obstructive sleep apnea (adult) (pediatric) (principal); E66.01 Morbid (severe) obesity due to excess calories; Z68.41 Body mass index [BMI] 40.0-44.9, adult; G47.9 Sleep disorder, unspecified | CPT/HCPCS: 95810 ==

== ENCOUNTER → 2023-12-14 20:30 | Outpatient (REF) | payer MEDICARE, OTHER, SELFPAY | LOC: HO.SL 20:30 | PROVIDERS: Visit Provider Nurse Practitioner Family | DX: G47.33 Obstructive sleep apnea (adult) (pediatric) (principal); E66.01 Morbid (severe) obesity due to excess calories; Z68.41 Body mass index [BMI] 40.0-44.9, adult | CPT/HCPCS: 95810 ==

== ENCOUNTER 2024-04-10 08:57 | Outpatient (REF) | payer MEDICARE, OTHER, SELFPAY ==
[2024-04-10 09:21] LABS: MANUAL DIFF FLAG NO
[2024-04-10 10:09] LABS: Basophils Absolute Auto 0.1 X10*3/uL (0.0-0.2); Basophils Percent Auto 0.7 % (0-2); Eosinophils Absolute Auto 0.1 X10*3/uL (0.0-0.4); Eosinophils Percent Auto 1.7 % (0-4); Hematocrit 46.6 % (37.0-47.0); Hemoglobin 15.2 g/dl (12.0-16.0); Imm Gran Abs Auto 0.02 X10*3/uL (0.00-0.03); Imm Gran Pct Auto 0.3 % (0.0-0.4); Lymphocytes Absolute Auto 1.5 X10*3/uL (1.2-4.9); Mean Corpuscular HGB Conc 32.6 g/dl (31.0-35.0); Mean Corpuscular Hemoglobin 29.3 pg (27.0-33.0); Mean Corpuscular Volume 89.8 fL (80.0-98.0); Mean Platelet Volume 10.1 fL (9.4-12.3); Monocytes Absolute Auto 0.5 X10*3/uL (0.1-1.2); Monocytes Percent Auto 7.6 % (2-11); Neutrophils Absolute Auto 4.8 x10*3/uL (2.0-8.3); Neutrophils Percent Auto 68.7 % (45-73); Platelet Count 256 X10*3/uL (160-400); Red Blood Count 5.19 X10*6/uL (4.20-5.50); Red Cell Distribution Width 13.8 % (11.0-16.0)
[2024-04-10 10:16] LABS: Appearance Urine Clear; Color Urine Yellow; Glucose Urine UA Negative (Negative); Leukocyte Esterase Urine Small (1+) (Negative); Nitrite Urine Negative (Negative); PH 5.5 (5.0-9.0); Specific Gravity - Urine 1.025 (1.005-1.025); UMIC TRIGGER UACC YES; Urine Blood Negative (Negative); Urine Ketones Trace mg/dL (Negative); Urine Protein Negative (Neg-Trace)
[2024-04-10 10:19] LABS: Bacteria Urine Trace (None Seen); Hyaline Casts Urine 0-2 /LPF (0-2); RBC Urine 0-2 /HPF (0-2); UACC Culture Trigger YES
[2024-04-10 10:51] LABS: Alanine Aminotransferase 25 U/L (0-31); Alkaline Phosphatase 120 U/L (39-117); Anion Gap 11 (12-20); Aspartate Amino Transferase 20 U/L (5-31); Bilirubin Total 0.4 mg/dL (0.0-1.0); Blood Urea Nitrogen 12 mg/dL (9-16); Calcium 9.7 mg/dL (8.4-10.2); Carbon Dioxide 31 mmol/L (22-29); Chloride 107 mmol/L (96-108); Cholesterol 171 mg/dL (<200); Estimated Glomerular Filt Rate > 60; Glucose Fasting 108 mg/dL (60-99); HDL Cholesterol 48 mg/dL (>40); LDL Cholesterol Calculated 105 mg/dL (<100); Potassium 4.2 mmol/L (3.3-5.1); Sodium 145 mmol/L (135-145); Total Protein 7.3 g/dL (6.5-8.0); Triglycerides 93 mg/dL (<150)
[2024-04-10 11:08] LABS: TSH reflex Free T4 3.52 uIU/mL (0.32-4.0)
== END 2024-04-10 08:58 | disposition home or self-care (01) ==
LOC: HO.LAB 08:57
PROVIDERS: PCP Internal Medicine; Visit Provider Internal Medicine
DX: D64.9 Anemia, unspecified (principal); E78.00 Pure hypercholesterolemia, unspecified; R30.0 Dysuria
CPT/HCPCS: 36415; 80053; 80061; 81001; 84443; 85025; 87086

== ENCOUNTER 2024-04-26 12:15 | Outpatient (AMB) | payer MEDICARE, MEDICAID, SELFPAY ==
[2024-04-26 12:35] VITALS: BP 120/74; PULSE 92; TEMP 36.7; O2SAT 93; BMI 39.4
--- NOTE | 2024-04-26 12:35 | A.OFFPC_ITS ---
Vital Signs 04/26/24 12:35 Height 5 ft 2 in Weight 215 lb 6.266 oz BMI 39.4 BP 120/74 Blood Pressure Location Lt brachial Position Sitting Pulse 92 Pulse Source Pulse Oximeter Temp 98.1 F Temp Source Oral Pulse Oximetry (%) 93 Oxygen Delivery Method Room Air Intake Visit Reasons: 3 month f/u Sign Language Instructor Required: Yes Sign Language Instructor Name: Jesus:[id number] Accompanied by: Self / Same As Patient Allergies No Known Allergies [No Known Allergies*] Allergy (Verified 04/26/24 14:20) Medication List - Last Reconciled 04/26/24 by JESÚS Cardoso amlodipine 10 mg PO DAILY ammonium lactate 12% 1 appl topical BID PRN blood pressure test kit-large As directed capsaicin 0.1% (Arthritis Pain Relief (capsaicin)) 1 appl topical BID cholecalciferol (vitamin D3) 1,250 mcg PO QWEEK clonazepam (Klonopin) 2 mg PO BEDTIME 90 days duloxetine 60 mg PO DAILY fluticasone propionate 50 mcg/actuation 2 sprays intranasal DAILY PRN 30 days gabapentin 800 mg PO TID loratadine 10 mg PO DAILY 90 days losartan 100 mg PO DAILY meloxicam 7.5 mg PO DAILY mupirocin 2% 1 appl topical BID 14 days pantoprazole 40 mg PO DAILY rimegepant (Nurtec ODT) 75 mg PO Q OTHER DAY PRN 30 days sumatriptan succinate 50 - 100 mg orally at onset of headache, (may take with Ibuprofen) 30 days trazodone 100 mg (2 x 50 mg) PO DAILY 90 days walker Adult folding 4-wheeled rolling seated walker- use when walking Tobacco use date assessed: 04/26/24 Fall risk assessment: 2 + Falls in past year Last assessed Fall Risk: 04/26/24 Dental Screening Dental Screen Date: 04/26/24 Did you have a dental visit in the last 12 months?: No Did you have a dental problem in the last 6 months where you did not have access to dental care?: No Was dental information given to patient?: No HPI 3 month f/u HPI Details The patient is a 68-year-old female primarily Georgian-speaking, inte [employer] service used. She has significant past medical history of disc degeneration of the lumbar region, GERD, xerosis cutis, cervicalgia. The patient is presenting today for a follow-up appointment. She reports that her main concerns today is her right shoulder pain in her lower back pain. She denies any recent injuries that could be contributing. The patient verbalize that she has not had any migraine in a while so she stopped taking his Nurtec. Her neck also felt much better after doing PT. The patient verbalized that she would like PT for right shoulder but would not do PT for lower back because that is not going to work. She believes that her symptoms are too far gone for PT to help her lower back. She is requesting another MRI for lower back. She believes her condition has worsened. She verbalized pain radiating to both hips and anterior thighs. She denies numbness or tingling in her legs, denies changes in bowel and bladder. The patient report that her right shoulder pain keeps her up at night. She is able to raise both arms with pain as she rates at 7-8/10. [facility] Medical History Hyperlipidemia Morbid obesity with BMI of 40.0-44.9, adult Allergic rhinitis Insomnia Smoker Bipolar affective disorder Generalized anxiety disorder Right lumbar radiculopathy GERD without esophagitis Benign essential hypertension Impacted cerumen of both ears Nasal congestion Obesity (BMI 30-39.9) Impaired glucose tolerance History of diverticulitis Back pain Lumbar degenerative disc disease Hypertension GERD (gastroesophageal reflux disease) Bipolar disorder Vitamin D deficiency Surgical History History of eye removal Hx of cataract surgery H/O colonoscopy History of esophagogastroduodenoscopy (EGD) History of tubal ligation History of cholecystectomy Family History Father Colon cancer Mother Primary cancer of bone marrow Sister Leukemia Social History Housing: Apartment Alcohol intake: never Patient Tobacco Use Status: Current everyday Tobacco user Tobacco use type: Cigarette Cigarette Packs Per Day: 0.5 Cigarettes Per Day: 10 e-Cigarette/Vaping Use: Never Used Second Hand Smoke Exposure: Yes service: No Current occupational status: unemployed Cognitive needs: No Hearing needs: No Vision needs: No Questionnaire PHQ-9 Over the last 2 weeks, how often have you been bothered by any of the following problems? 1. Little interest or pleasure in doing things: not at all 2. Feeling down, depressed, or hopeless: several days 3. Trouble falling or staying asleep, or sleeping too much: nearly every day 4. Feeling tired or having little energy: nearly every day 5. Poor appetite or overeating: several days 6. Feeling bad about yourself - or that you are a failure or have let yourself or your family down: not at all 7. Trouble concentrating on things, such as reading the newspaper or watching television: several days 8. Moving or speaking so slowly that other people could have noticed. Or the opposite - being so fidgety or restless that you have been moving around a lot more than usual: not at all 9. Thoughts that you would be better off or of hurting yourself in some way: not at all Total score: 9 Depression Screening Interpretation: Positive Depression Screening Follow-up: Existing condition and In treatment Depression Screening Done: Yes 70057 - PHQ-9 Billing: Yes Source: Developed by Drs. Schuyler Abbott, Elena Villeda, Eric Espinal and colleagues, with an educational lm from [employer]. Thrive Questionnaire Date Thrive assessed: 04/26/24 I am a: Patient What is your living situation today?: I have a steady place to live Within the past 12 months, did the food you bought not last and you didn't have the money to get more?: Never true Within the past 12 months, did you worry whether your food would run out before you got money to buy more?: Never true Do you have trouble paying for medicines?: No Do you have trouble getting transportation to medical appointments?: No Do you have trouble paying your heating and electricity bill?: No Do you have trouble taking care of your child, family member or friend?: No Do you have trouble with day-to-day activities such as bathing, preparing meals, shopping, managing finances, etc.?: No Are you currently unemployed and looking for a job?: No Are you interested in more education?: No Please select the resources that you would like help with: None Currently or been in a relationship where the following occur: No concerns re ported THRIVE Score: 0 AUDIT C Alcohol Use Questionnaire (AUDIT-C) 1. How often do you have a drink containing alcohol?: Never 3. How often do you have six or more drinks on one occasion?: Never Total Score: 0 Score Reviewed/Action Taken: Yes ALEXANDER-7 AMB Questionnaire ALEXANDER-7 Date ALEXANDER - 7 assessed: 04/26/24 Feeling nervous, anxious, or on edge: 1 = Several days Not being able to stop or control worryin = Several days Worrying too much about different things: 1 = Several days Trouble relaxin = Several days Being so restless that it is hard to sit still: 0 = Not at all Becoming easily annoyed or irritable: 0 = Not at all Feeling afraid as if something awful might happen: 1 = Several days Total ALEXANDER-7 score (0-4 normal; 5-9 mild; 10-14 moderate; 15-21 severe): 5 Source: Developed by Drs. Schuyler Abbott, Elena Villeda, Eric Espinal and colleagues, with an educational lm from [employer]. ALEXANDER-7 Assessment Billing ALEXANDER-7 Assessment Tool: ALEXANDER-7 Assessment 76309 Review of Systems Const Details: Const Denies chills, Denies fatigue, Denies fever(s), Denies headache(s) and Denies weakness ENT Denies dizziness and Denies headache(s) Card Denies chest pain, Denies lightheadedness, Denies dyspnea and Denies other (Palpitations) Resp Denies cough, Denies dyspnea, Denies wheezing and Denies other ( shortness of breath) GI Denies abdominal pain, Denies melena, Denies hematochezia, Denies change in bowel habits, Denies dyspepsia and Denies nausea Denies hematuria and Denies dysuria Musc Denies abnormal gait, reports recurrent back pain radiating to hips and thighs affecting her walking-she uses a cane to balance. Reports ongoing right shoulder pain keeping her up at night, Denies numbness and Denies tingling, denies symptoms of cauda equina. Skin/Breast Reports cut to right thumb Neuro Denies abnormal gait, Denies dizziness, Denies headache(s), Denies memory loss, Denies numbness, Denies Sensory deficit (Neuro), Denies tingling and Denies weakness Psych reports anxiety, reports depression, Denies memory loss Endo Denies cold intolerance, Denies fatigue, Denies heat intolerance, Denies polydipsia and Denies polyuria Aller/Immun Denies wheezing Physical exam (Primary Care) Vital Signs: Last Vital Signs Temp 98.1 F 04/26/24 12:35 Pulse 92 04/26/24 12:35 BP 120/74 04/26/24 12:35 Pulse Ox 93 04/26/24 12:35 Oxygen Delivery Method Room Air 04/26/24 12:35 BMI result Body Mass Index 39.4 Tobacco/Smoking Status: Tobacco use Status Tobacco use date assessed 04/26/24 04/26/24 12:42 Patient Tobacco Use Status Current everyday Tobacco 04/26/24 12:42 Tobacco use type Cigarette 04/26/24 12:42 e-Cigarette/Vaping Use Never Used 04/26/24 12:42 PHQ-9: PHQ-9 Score PHQ-9: Total score 9 04/26/24 13:47 Depression Screening Interpretation: Positive Depression Screening Follow-up: Existing condition and In treatment Thrive Assessment: Date of Thrive Assessment Date Thrive assessed 04/26/24 04/26/24 12:42 Currently or been in a relationship where the following occur: No concerns reported Const Other: General: no acute distress and well developed Nutritional Appearance: well nourished Orientation/consciousness: patient oriented x3 HENMT Head: Yes normocephalic and Yes atraumatic Eyes General: appearance normal, both eyes and all related structures Pupils: Equal, round and reactive pupils present EOM: EOMs intact bilaterally Resp Effort & Inspection: normal respiratory effort Auscultation: clear to auscultation bilaterally Cardio Rate: regular rate Rhythm: regular rhythm Heart sounds: S1 normal heart sound present, S2 normal heart sound present, no gallops, no murmurs and no rubs GI Palpation (GI): No Abdominal aortic bruit present, Soft to palpation, nontender, No hepatosplenomegaly present and No Rebound tenderness present Auscultation: normal bowel sounds General: Yes no CVA tenderness Back/Spine/Pelvis Back: no CVA tenderness Cervical Spine: cervical ROM normal and No Cervical spine tenderness Right shoulder:positive cross body adduction test, mild pain with empty can test in right shoulder. Positive ROM in both arms, raised both arms to about 170 degrees with mild-moderate pain. no erythema, edema or crepitus noted to bilateral shoulders. Thoracic/Lumbar Spine:Stiffness/pain with thoraco-lumbar ROM, stiffness in bilateral lower back with leg raise to 30 Degrees (wouldn't raise legs higher) No thoracic spinal tenderness and No lumbar spinal tenderness, Lower back with pain with standing and sitting, pain feels better with laying. Extrem General: Yes normal to inspection, No edema and No calf tenderness Skin General: warm and dry. Normal skin color. Normal skin turgor Lesions: no lesions Rashes: no rashes Trauma: cut to right thumb volar pulp Nails: normal Neuro General: patient oriented x3, gait normal and no focal neuro deficit Cognition (Neuro): normal cognition Gait exam (Neuro): cane to balance Sensory Exam: No Sensory deficit (Neuro) Psych Appearance: grossly normal Affect: normal affect Attitude: cooperative Thought process: Normal thought process present Results Reviewed Results Reviewed: Laboratory Tests 04/10/24 09:20 WBC 7.0 RBC 5.19 Hgb 15.2 Hct 46.6 Plt Count 256 Sodium 145 Potassium 4.2 Chloride 107 BUN 12 Creatinine 0.73 Fasting Glucose 108 H Calcium 9.7 AST 20 ALT 25 Alkaline Phosphatase 120 H Triglycerides 93 Cholesterol 171 LDL Cholesterol, Calc 105 H HDL Cholesterol 48 TSH 3.52 Urine Color Yellow Urine Appearance Clear Urine pH 5.5 Urine Glucose (UA) Negative Urine Ketones Trace Urine Blood Negative Ur Leukocyte Esterase Small (1+) H Coding Level of Care Code Est Pt Level 4 (22229) Diagnoses Osteoarthritis of acromioclavicular joint M19.019 Cut of skin of right thumb S61.011A Migraine without status migrainosus, not intractable, unspecified migraine type G43.909 Intractability: not intractable Migraine type: unspecified Status migrainosus presence: without status migrainosus Benign essential hypertension I10 Vitamin D deficiency E55.9 Degeneration of intervertebral disc of lumbar region with discogenic back pain and lower extremity pain M51.362 Disc-related pain type: discogenic back pain and lower extremity pain Gastroesophageal reflux disease without esophagitis K21.9 Esophagitis presence: without esophagitis Hyperlipidemia, unspecified hyperlipidemia type E78.5 Hyperlipidemia type: unspecified Cervicalgia M54.2 Allergic rhinitis, unspecified seasonality, unspecified trigger J30.9 Allergic rhinitis seasonality: unspecified Allergic rhinitis trigger: unspecified Dry skin dermatitis L85.3 Insomnia, unspecified type G47.00 Insomnia type: unspecified Generalized anxiety disorder F41.1 Bipolar affective disorder, remission status unspecified F31.9 Active/Remission status: remission status unspecified Smoker F17.200 Morbid obesity with BMI of 40.0-44.9, adult E66.01; Z68.41 Additional Codes ALEXANDER-7 Assessment Billing - ALEXANDER-7 Assessment Tool: ALEXANDER-7 Assessment 92578 ([id number]) PHQ-9 - 36173 - PHQ-9 Billing: Yes ([id number]) Assessment & Plan Assessment & Plan (1) Osteoarthritis of acromioclavicular joint: Code(s): M19.019 - Primary osteoarthritis, unspecified shoulder Category: Medical Plan: The patient had right shoulder x-ray on 09/12/23: That showed [id number] acromioclavicular and mild glenohumeral osteoarthritis. Patient reports that pain is keeping her up at night. On exam positive cross- body adduction test, mild pain with the empty can test, no erythema or crepitus. Meloxicam 7.5 mg daily and capsaicin topical p.r.n. ordered Patient was referred to PT and orthopedics to see if she is a candidate for injections. (2) Cut of skin of right thumb: Code(s): S61.011A - Laceration without foreign body of right thumb without damage to nail, initial encounter Category: Medical Plan: Small cut to the volar region of right thumb Mupirocin ointment ordered Patient has a three-month follow-up for chronic condition but encouraged to follow-up sooner if the cut not healing or worsens. (3) Migraine: Code(s): G43.909 - Migraine, unspecified, not intractable, without status migrainosus Category: Medical Qualifiers: Intractability: not intractable Migraine type: unspecified Status migrainosus presence: without status migrainosus Qualified Code(s): G43.909 - Migraine, unspecified, not intractable, without status migrainosus Plan: She had a brain MRI done on 01/27/2023, which came out mostly unremarkable - (+) several scattered foci of supratentorial white matter T2/FLAIR signal abnormality are nonspecific but can be seen in the setting of migraine and/or chronic microvascular ischemia. Otherwise, is an unremarkable noncontrast MRI of the brain. Patient reports that this has been stable. She reports that she stopped taking her Nurtec and has been fine. Continue sumatriptan p.r.n. and follow-up neurology as scheduled (4) Benign essential hypertension: Code(s): I10 - Essential (primary) hypertension Category: Medical Plan: Blood pressure within goal in office. Continue losartan 100 mg q.d. and amlodipine 10 mg q.d. Reinforced DASH diet Follow up in 3 months (5) Vitamin D deficiency: Code(s): E55.9 - Vitamin D deficiency, unspecified Category: Medical Plan: Reports that she forgets to take her vitamin-D tab. Patient was reminded that her vitamin-D was low on her last lab values Reports that she is out of the medication. The medication was refilled and the patient was encouraged to start taking medication again. (6) Lumbar degenerative disc disease: Code(s): M51.36 - Other intervertebral disc degeneration, lumbar region Category: Medical Qualifiers: Disc-related pain type: discogenic back pain and lower extremity pain Qualified Code(s): M51.362 - Other intervertebral disc degeneration, lumbar region with discogenic back pain and lower extremity pain Plan: The patient is still complains of lower back pain. Reports that the pain radiates to her hips and anterior thighs. Reports that she had an MRI about 6 years ago and it showed that she had some degenerative changes in her lumbar spine. She feels that these changes are getting worse and would like a repeat MRI. MRI of the lumbar spine ordered Continue gabapentin 800 mg t.i.d. Follow-up in 3 months. (7) GERD (gastroesophageal reflux disease): Code(s): K21.9 - Gastro-esophageal reflux disease without esophagitis Category: Medical Qualifiers: Esophagitis presence: without esophagitis Qualified Code(s): K21.9 - Gastro-esophageal reflux disease without esophagitis Plan: Reinforced dietary restrictions Refilled pantoprazole 40 mg daily (8) Hyperlipidemia: Code(s): E78.5 - Hyperlipidemia, unspecified Category: Medical Qualifiers: Hyperlipidemia type: unspecified Qualified Code(s): E78.5 - Hyperlipidemia, unspecified Plan: LDL slightly elevated at 105 mg/dL Reinforced low-cholesterol diet/activity as tolerated (9) Cervicalgia: Code(s): M54.2 - Cervicalgia Category: Medical Plan: Patient reports that this has been stable after receiving PT (10) Allergic rhinitis: Code(s): J30.9 - Allergic rhinitis, unspecified Category: Medical Qualifiers: Allergic rhinitis seasonality: unspecified Allergic rhinitis trigger: unspecified Qualified Code(s): J30.9 - Allergic rhinitis, unspecified Plan: Continue fluticasone propionate 50 mcg/actuation 2 sprays intranasally Loratadine 10 mg refilled (11) Dry skin dermatitis: Code(s): L85.3 - Xerosis cutis Category: Medical Plan: Patient report that her Lac-Hydrin 12% cream works better in the summertime It is not as effective in the winter time but she does not want to change it at this time. The patient was educated that proper hydration and intermittently applying lotion can assist as well (12) Insomnia: Code(s): G47.00 - Insomnia, unspecified Category: Medical Qualifiers: Insomnia type: unspecified Qualified Code(s): G47.00 - Insomnia, unspecified Plan: Continue on Trazodone 100mg at HS Reinforced sleep hygiene (13) Generalized anxiety disorder: Code(s): F41.1 - Generalized anxiety disorder Category: Medical Plan: Continuing clonazepam 2 mg q.h.s. p.r.n. in follow up with Psychiatry as scheduled (14) Bipolar disorder: Code(s): F31.9 - Bipolar disorder, unspecified Category: Medical Qualifiers: Active/Remission status: remission status unspecified Qualified Code(s): F31.9 - Bipolar disorder, unspecified Plan: Reports that her mood is okay sometime up sometime down. Follow up with Psychiatry as scheduled (15) Smoker: Code(s): F17.200 - Nicotine dependence, unspecified, uncomplicated Category: Social Hx Plan: Smoking cessation encouraged (16) Morbid obesity with BMI of 40.0-44.9, adult: Code(s): E66.01 - Morbid (severe) obesity due to excess calories; Z68.41 - Body mass index [BMI] 40.0-44.9, adult Category: Medical Plan: Report to the patient that she has gained 5 pounds since her last visit. Diet/exercise discussed in detail Encouraged to exercise as tolerated Healthy eating discussed. Encouraged to eat fruits/vegetables, protein-fish /baked chicken, and to avoid salty/fried foods, sweets, caffeine and carbohydrates. Encouraged to increase water intake 6-8 glasses a day Plan Patient to follow up in 3 months or sooner for any concerns. Orders: Orders PT Evaluation and Treatment 04/26/24 M19.019 - Primary osteoarthritis, unspecified shoulder MR lumbar spine wo con 04/26/24 M51.36 - Other intervertebral disc degeneration, lumbar region Referrals Orthopedics Referral M19.019 - Primary osteoarthritis, unspecified shoulder Medications: New meloxicam 7.5 mg PO DAILY 30 tabs 3RF mupirocin 2% 1 appl topical BID 14 days 15 grams 0RF S61.011A - Laceration without foreign body of right thumb without damage to nail, initial encounter capsaicin 0.1% (Arthritis Pain Relief (capsaicin)) do not wash area for at least 30 min after application 1 appl topical BID 42.5 grams 3RF M19.019 - Primary osteoarthritis, unspecified shoulder Refilled amlodipine 10 mg PO DAILY 90 tabs 0RF I10 - Essential (primary) hypertension cholecalciferol (vitamin D3) 1,250 mcg PO QWEEK 4 caps 5RF E55.9 - Vitamin D deficiency, unspecified fluticasone propionate 50 mcg/actuation administer into each nostril 2 sprays intranasal DAILY 30 days PRN 16 grams 5RF allergy symptoms pantoprazole stop Omeprazole 40 mg PO DAILY 30 tabs 3RF loratadine 10 mg PO DAILY 90 days 90 tabs 3RF R09.81 - Nasal congestion
== END 2024-04-26 13:51 | disposition home or self-care (01) ==
PROVIDERS: PCP Internal Medicine
DX: M19.011 Primary osteoarthritis, right shoulder (principal); F31.9 Bipolar disorder, unspecified; E66.01 Morbid (severe) obesity due to excess calories; Z68.41 Body mass index [BMI] 40.0-44.9, adult; S61.011A Laceration without foreign body of right thumb without damage to nail, initial encounter; G43.909 Migraine, unspecified, not intractable, without status migrainosus; I10 Essential (primary) hypertension; E55.9 Vitamin D deficiency, unspecified; M51.362 Other intervertebral disc degeneration, lumbar region with discogenic back pain and lower extremity pain; K21.9 Gastro-esophageal reflux disease without esophagitis; E78.5 Hyperlipidemia, unspecified; M54.2 Cervicalgia

== ENCOUNTER → 2024-04-26 12:15 | Outpatient (BNVA) | payer MEDICARE, MEDICAID, SELFPAY | PROVIDERS: PCP Internal Medicine | DX: I10 Essential (primary) hypertension (principal); S61.011D Laceration without foreign body of right thumb without damage to nail, subsequent encounter; G43.909 Migraine, unspecified, not intractable, without status migrainosus; E55.9 Vitamin D deficiency, unspecified; M51.362 Other intervertebral disc degeneration, lumbar region with discogenic back pain and lower extremity pain; K21.9 Gastro-esophageal reflux disease without esophagitis; E78.5 Hyperlipidemia, unspecified; M54.2 Cervicalgia; J30.9 Allergic rhinitis, unspecified; L85.3 Xerosis cutis; F41.1 Generalized anxiety disorder; F31.9 Bipolar disorder, unspecified; E66.01 Morbid (severe) obesity due to excess calories; Z68.41 Body mass index [BMI] 40.0-44.9, adult; F17.200 Nicotine dependence, unspecified, uncomplicated; Z71.3 Dietary counseling and surveillance; Z71.6 Tobacco abuse counseling | CPT/HCPCS: 96127; 99212 ==

== ENCOUNTER → 2024-06-11 13:29 | Outpatient (BNV) | payer MEDICARE, MEDICAID, SELFPAY | PROVIDERS: PCP Internal Medicine; Visit Provider Radiology Diagnostic Radiology | DX: M47.816 Spondylosis without myelopathy or radiculopathy, lumbar region (principal); M48.07 Spinal stenosis, lumbosacral region | CPT/HCPCS: 72148 ==

== ENCOUNTER 2024-06-11 13:38 | Outpatient (REF) | payer MEDICARE, MEDICAID, SELFPAY | END 2024-06-11 13:39 | disposition home or self-care (01) | LOC: HO.MRI 13:38 | PROVIDERS: PCP Internal Medicine | DX: M51.360 Other intervertebral disc degeneration, lumbar region with discogenic back pain only (principal) | CPT/HCPCS: 72148 ==

== ENCOUNTER 2024-06-14 10:41 | Outpatient (AMB) | payer MEDICARE, MEDICAID, SELFPAY ==
--- NOTE | 2024-06-14 10:50 | MHC.OFFVIS ---
Vital Signs 06/14/24 10:59 Height 5 ft 2 in Weight 214 lb BMI 39.1 BP 130/100 H Blood Pressure Location Lt brachial Position Sitting Pulse 108 H Pulse Source Pulse Oximeter Pulse Oximetry (%) 96 Oxygen Delivery Method Room Air Intake Visit Reasons: Follow up Manager Lsw Required: No Accompanied by: Self / Same As Patient Allergies No Known Allergies [No Known Allergies*] Allergy (Verified 06/14/24 11:00) HPI Comments Details: 68-yr-old female presents for f/u visit of headache and follow-up of sleep study. Pt denies any significant interval medical changes. 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 Patient states she has not had any recent headaches. She does have Nurtec and sumatriptan, which she states does help when she needs to take them. Overall, her body pains are better on gabapentin. However she has been having neck and back pain. She states that if she is on the ground, she needs to now use her arms and legs to push herself up off ground. She recently underwent L-spine MRI which showed multilevel lumbar central canal stenosis and neuroforaminal stenosis. Her PCP has referred her for neurosurgical consult. In-lab sleep study was conducted as patient was concerned that she was not as cognitively sharp as before, whether she was speaking in Jamaican or Yi. 12/14/2023 in-lab PSG do not show any evidence of sleep apnea however did show nocturnal hypoxemia with AHI 3.5 per hour, no REM sleep was achieved, average SpO2 92 % with O2 nadeen 76% and SpO2 under 88% for 28 minutes of sleep study time, there was moderate to loud snoring, average heart rate 80.5 beats per minute with highest heart rate 103 beats per minute. Periodic limb movement of sleep 1.5 per hour with PLMS arousal index 0.3 per hour. Patient denies history of asthma or COPD or frequent bronchitis. She does endorse dyspnea/shortness of breath with walking, even with a walker. [facility] Medical History Hyperlipidemia Morbid obesity with BMI of 40.0-44.9, adult Allergic rhinitis Insomnia Smoker Bipolar affective disorder Generalized anxiety disorder Right lumbar radiculopathy GERD without esophagitis Benign essential hypertension Impacted cerumen of both ears Nasal congestion Obesity (BMI 30-39.9) Impaired glucose tolerance History of diverticulitis Back pain Lumbar degenerative disc disease Hypertension GERD (gastroesophageal reflux disease) Bipolar disorder Vitamin D deficiency Surgical History History of eye removal Hx of cataract surgery H/O colonoscopy History of esophagogastroduodenoscopy (EGD) History of tubal ligation History of cholecystectomy Family History Father Colon cancer Mother Primary cancer of bone marrow Sister Leukemia Social History Housing: Apartment Alcohol intake: never Patient Tobacco Use Status: Current everyday Tobacco user Tobacco use type: Cigarette Cigarette Packs Per Day: 0.5 Cigarettes Per Day: 10 e-Cigarette/Vaping Use: Never Used Second Hand Smoke Exposure: Yes service: No Current occupational status: unemployed Cognitive needs: No Hearing needs: No Vision needs: No Physical Exam Vital Signs: Last Vital Signs Pulse 108 H 06/14/24 10:59 BP 130/100 H 06/14/24 10:59 Pulse Ox 96 06/14/24 10:59 Oxygen Delivery Method Room Air 06/14/24 10:59 BMI result Body Mass Index 39.1 Const General: cooperative and no acute distress Orientation/consciousness: patient oriented x3 Resp Effort & Inspection: normal respiratory effort and able to speak in complete sentences Neuro Other: Right eye- resting in closed position Bilateral lower extremity hip flexion MS 5/5 Patient moves legs easily, crosses 1 leg over the other without difficulty. General: patient oriented x3 Cognition (Neuro): normal cognition Gait exam (Neuro): Assistive device used (Walker) Psych Appearance: grossly normal Mental Status: mental status grossly normal Speech and movement: Normal speech and movement present Affect: normal affect Attitude: cooperative Assessment & Plan Assessment & Plan (1) Nocturnal hypoxemia: Code(s): G47.34 - Idiopathic sleep related nonobstructive alveolar hypoventilation Category: Medical (2) KEMAL (obstructive sleep apnea): Code(s): G47.33 - Obstructive sleep apnea (adult) (pediatric) Category: Medical (3) Sleep difficulties: Code(s): G47.9 - Sleep disorder, unspecified Category: Medical Plan Patient never completed c-spine XR. Reviewed in-lab sleep study- no evidence of sleep apnea or periodic limb movements of sleep. However there is evidence for nocturnal hypoxemia. Patient does endorse shortness of breath on activity. Thus we will request Pulmonary consult. Reviewed recent lumbar spine MRI, patient declined to review images with provider. Patient advised to have neurosurgical consult as scheduled. Continue to use for the wheeled seated rolling walker. She would likely benefit from PT, however would defer to Neurosurgery at this point. ? For acute migraine tx: Pt may continue prn Sumatriptan 50-100mg for now. ? For migraine prevention tx: Patient may continue to hold Nurtec ODT 75mg qod rather than prn- in hopes this is more effective. Previous tx trials- Amitriptyline, nortriptyline, lamictal, cymbalta, depakote, nortriptyline. Tx contraindications: CGRP MaBs d/t severe decreased visual acuity, would avoid BBs as pt is already on Losartan 100mg and amlodipine 10mg qd. Would not resume TCA at this point as pt has good body pain control on Gabapentin 800mg tid and sleeps well on Trazodone 100mg qhs. ? Follow-up in 3-6 months or sooner prn. Orders: Referrals Pulmonology Referral G47.34 - Idiopathic sleep related nonobstructive alveolar hypoventilation Coding Level of Care Code Est Pt Level 4 (60956) Diagnoses Nocturnal hypoxemia G47.34 KEMAL (obstructive sleep apnea) G47.33 Sleep difficulties G47.9
[2024-06-14 10:59] VITALS: BP 130/100; PULSE 108; O2SAT 96; BMI 39.1
== END 2024-06-14 11:47 | disposition home or self-care (01) ==
PROVIDERS: PCP Internal Medicine; Visit Provider Nurse Practitioner Family
DX: G47.34 Idiopathic sleep related nonobstructive alveolar hypoventilation (principal); G47.33 Obstructive sleep apnea (adult) (pediatric); G47.9 Sleep disorder, unspecified
CPT/HCPCS: 99214

== ENCOUNTER → 2024-06-14 10:41 | Outpatient (BNVA) | payer MEDICARE, MEDICAID, SELFPAY | PROVIDERS: PCP Internal Medicine; Visit Provider Nurse Practitioner Family | DX: G47.34 Idiopathic sleep related nonobstructive alveolar hypoventilation (principal); G47.33 Obstructive sleep apnea (adult) (pediatric) | CPT/HCPCS: 99212 ==

== ENCOUNTER 2024-06-21 13:42 | Outpatient (AMB) | payer MEDICARE, MEDICAID, SELFPAY ==
--- OUTSIDE RECORDS SUMMARY | 2024-06-21 14:09 | XMS_ITS ---
Author Organization [facility] Address [address] [place] [address] Care Team Providers Care Equipment Monitor Phototypesetting Name Role Phone Ernesto BAILEY, Ronal Primary Care Provider Unava Schuyler Ruiz Unavailable [phone] REASON FOR VISIT Patient presents today for abdominal pain Encounters Encounter Location Date Provider Diagnosis [facility] [address] [place] [address] 06/06/2024 Schuyler Coker PLAN OF TREATMENT Next Appt Details Provider Name:Schuyler Coker , 10/02/2024 04:00:00 PM, [address], [address], [place], [address],
--- OUTSIDE RECORDS SUMMARY | 2024-06-21 14:09 | XMS_ITS | Patient Health Record ---
Author Organization [facility] Address [address] [place] [address] Care Team Providers Care Range Rider Name Role Phone Ronal Orozco MD Primary Care Provider Schuyler Molina [phone] REASON FOR REFERRAL No Information MEDICATIONS Medication SIG (Take, Route, Frequency, Duration) Notes Start Date End Date Status traMADol HCl 50 MG (Schedule IV Drug) T OME JALYN TABLETA POR V?A ORAL EMETERIO VECES AL D?A NEEDED FOR BACK PAIN Oral for 30 Active clonazePAM 2 MG (Schedule IV Drug) T OME JALYN TABLETA TODOS LOS D? AL ACOSTARSE Oral for 30 Active amLODIPine Besylate 5 MG TOME JALYN TABLET A TODOS LOS D? Oral for 90 Active Losartan Potassium 100 MG TOME JALYN TABLE TA TODOS LOS D? Oral for 30 Active Dicyclomine HCl 10 MG 1 or 2 capsules Or ally Every 6 hours for abdominal discomfort/cramps for 30 day(s) 07/16/2023 Active Omeprazole 20 MG 1 Orally Once a day for 30 days Active traZODone HCl 50 MG TAKE 1-2 TABLET BY M OUTH AT BEDTIME NEEDED FOR SLEEP Oral for 15 Active Escitalopram Oxalate 10 MG TOME JALYN TABL ETA TODOS LOS D? EN LA MA?KEITH Oral for 90 Active Seddaimgqf-NNAC-Pbuofvuv 50-325-40 MG TAKE 1 TABLET 2 TO 3 TIMES A DAY ONLY NEEDED FOR INCREASED HEADACHES Oral for 30 Active Gabapentin 800 MG TOME JALYN TABLETA LORE S VECES AL D?A Oral for 90 Active Montelukast Sodium 10 MG TOME JALYN TABLET A POR V?A ORAL TODOS LOS D? Oral for 15 Active Zolpidem Tartrate 10 MG (Schedule IV Raul g) TOME JALYN TABLETA POR V?A ORAL AL ACOSTARSE CUANDO SEA NECESARIO Oral for 30 Active IMMUNIZATIONS Vaccine Route Administration Date Status Comme nts Influenza Unknown 03/07/2018 Administered Influenza Unknown 06/26/2020 Refused SOCIAL HISTORY Tobacco Use: Social History Observation Description Date Details (start date - stop date) Current Smoker NA - NA Sex Assigned At : Social History Observation Description Sex Assigned At Unknown Tobacco Use/Smoking Question Answer Notes Patient is a current smoker How often do you smoke cigarettes? every day How many cigarettes a day do you smoke? 6-10 How soon after you wake up d o you smoke your first cigarette? 6-30 minutes Are you interested in quitting? Thinking about q uitting Alcohol Screen Question Answer Notes Did you have a drink containing alcohol in the p ast year? No Points 0 Interpretation Negative PROBLEMS Problem Type ICD Code Onset Dates Problem Status W/U Status Risk SNOMED Code Notes Problem Encounter for screening for malignant neoplasm of colon (Z12.11) Active confirmed 725153376 Problem Pre-procedural examination (Z01.818) Active confirmed [id number] Problem Gastroesophageal reflux disease, esophagitis presence not specified (K21.9) Active confirmed Gastroesop hageal reflux disease (887872765) Problem Family history of colon cancer in father (Z80.0) Active confirmed Family histor y of malignant neoplasm of gastrointestinal tract (298469861) Problem Epigastric abdominal pain (R10.13) Active confirmed Epigastric pain (73878200) Encounters Encounter Location Date Provider Diagnosis [facility] [address] [place] [address] 10/11/2023 Schuyler Coker [facility] [address] [place] [address] 02/07/2024 Schuyler Coker [facility] [address] [place] [address] 06/06/2024 Schuyler Coker [facility] [address] [place] [address] 07/03/2023 Schuyler Coker [facility] [address] [place] [address] 10/10/2023 Schuyler Coker [facility] [address] [place] [address] 02/07/2024 Schuyler Coker [facility] [address] [place] [address] 06/06/2024 Schuyler Coker PLAN OF TREATMENT Future Test Test Name Order Date UPPER GI ENDOSCOPY 07/25/2018 UPPER GI ENDOSCOPY 06/26/2020 COLONOSCOPY 06/26/2020 Next Appt Details Provider Name:Schuyler Coker , 10/02/2024 04:00:00 PM, [address], [address], [place], [address], Insurance Providers Payer Name Payer Address Payer Phone Subscriber Number Group Number Insured Name Patient Relationship to Insured Coverage Start Date Coverage End Date [employer] Medicare Advantage Plan [address] [address] [place] [address] [id number] KELLI LEWIS Self - patient is the insured MEDICAL (GENERAL) HISTORY Medical History History ICD Code Denies CT,DM,CVA,Lung disease,renal dise ase Legally blind Depression HTN Diverticulitis x 3 episodes. Describes a colonoscopy in [place] in approx. 2014 that showed diverticulosis, but was otherwise neg. for polyps Depression Back pain GERD--EGD 08/2018 with a smal l HH, mild gastritis, no H.pylori, no Padilla's nor esophagitis Surgical History Surgery Date(Month/Year) Eye surgery--congenital cataracts [facility] BTL
--- OUTSIDE RECORDS SUMMARY | 2024-06-21 14:09 | XMS_ITS ---
Author Organization [facility] Address [address] [place] [address] Care Team Providers Care Car Hostler Name Role Phone Ernesto BAILEY, Ronal Primary Care Provider Unava Schuyler Ruiz Unavailable [phone] REASON FOR VISIT cancel appt Encounters Encounter Location Date Provider Diagnosis [facility] [address] [place] [address] 06/06/2024 Schuyler Coker PLAN OF TREATMENT Next Appt Details Provider Name:Schuyler Coker , 10/02/2024 04:00:00 PM, [address], [address], [place], [address],
--- OUTSIDE RECORDS SUMMARY | 2024-06-21 14:09 | XMS_ITS ---
Author Organization [facility] Address [address] [place] [address] Care Team Providers Care Audio Visual Design Engineer Name Role Phone Ernesto BAILEY, Ronal Primary Care Provider Unava Schuyler Ruiz Unavailable [phone] REASON FOR VISIT Patient presents today for abdominal discomfort Encounters Encounter Location Date Provider Diagnosis [facility] [address] [place] [address] 02/07/2024 Schuyler Coker PLAN OF TREATMENT Next Appt Details Provider Name:Schuyler Coker , 10/02/2024 04:00:00 PM, [address], [address], [place], [address],
--- NOTE | 2024-06-21 14:37 | HO.SPINEOV ---
Vital Signs 06/21/24 15:00 Height 5 ft 2 in Weight 212 lb BMI 38.8 Intake Visit Reasons: spinal stenosis, lumbar region Intake Note: Ms. Madi Greene is here today c/o Neck and back pain that radiates down the legs. Funeral Home Manager Required: Yes Funeral Home Manager Name: Tablet Allergies No Known Allergies [No Known Allergies*] Allergy (Verified 06/21/24 15:00) Physical Exam Vital Signs: BMI result Body Mass Index 38.8 Assessment & Plan Assessment & Plan (1) Thoracic back pain: Code(s): M54.6 - Pain in thoracic spine Category: Medical Plan Dear Isaiah, Thank you for referring Mrs Barraza to our office today. This visit was done with the assistance of my director medical writing Graciela. This is a very nice 68-year-old woman who presents to the office today for evaluation of back pain. She has had longstanding issues with her low back and degenerative disc, but more recently she has developed over the last year more pain in the middle of her thoracic spine. Currently, she tells me that the pain is so bad that she can hardly stand and walk. It is also affecting her balance. She has had to start using a walker. Denies any shooting pains down the legs, tingling numbness or incontinence. The primary symptom has been mid back pain with walking. To this point, she has done no dedicated conservative treatment for the pain. Mostly she has been trying to do things like medications including Neurontin and duloxetine and occasional wnsn-dhf-xthzczk anti-inflammatories or Tylenol. The pain generally does not affect her at night. It is generally when she is up walking around. PMH: History of sleep apnea, hypertension, hiatal hernia, anxiety, depression, right eye prosthesis, wrist pain, elbow pain, high cholesterol osteoarthritis of the knees vertigo Social hx: She does not drink alcohol or use any recreational drugs but to she does smoke 8-10 cigarettes a day Medications: Amlodipine, potassium, pantoprazole, Neurontin, duloxetine, Klonopin, trazodone, meloxicam, losartan, loratadine, vitamin D3 Allergies: None Physical exam: She is slow to stand up, she does have tenderness to palpation in the midthoracic spine. She has a very hard time walking in the hallways without a walker to support her. She is very unsteady with tandem gait walking, Romberg is borderline positive. Strength is grossly full, reflexes normal no clonus Imaging review: There is a lumbar MRI showing degenerative disc disease with Modic type 3 endplate changes at L5-S1 with severe disc collapse [id number]. Impression: 68-year-old female presents with midthoracic pain of unknown etiology. She has had chronic low back pain through the years which I think would be explained by her L5-S1 degenerative disc but this pain does not localize to that area. It is more in the mid to upper thoracic area. She does have some unsteadiness with her gait and borderline positive Romberg test. I would like to order thoracic MRI to investigate this little further and I will see her back in the office once it is completed. Thank you for allowing us to care for your patient. The total time spent with this visit with this patient was 45 minutes reviewing history, physical exam, lumbar imaging review, and implementation of treatment plan or further diagnostic testing Adolfo Paul MD,PhD [facility] Orders: Orders MR thoracic spine wo con Today M54.6 - Pain in thoracic spine Coding Level of Care Code New Pt Level 4 (72203) Diagnoses Thoracic back pain M54.6
[2024-06-21 15:00] VITALS: BMI 38.8
== END 2024-06-21 16:06 | disposition home or self-care (01) ==
PROVIDERS: PCP Internal Medicine; Referring Provider Internal Medicine; Visit Provider Physician Assistant
DX: M54.6 Pain in thoracic spine (principal)
CPT/HCPCS: 99204

== ENCOUNTER → 2024-06-21 13:42 | Outpatient (BNVA) | payer MEDICARE, MEDICAID, SELFPAY | PROVIDERS: PCP Internal Medicine; Referring Provider Internal Medicine; Visit Provider Physician Assistant | DX: M54.6 Pain in thoracic spine (principal) | CPT/HCPCS: 99202 ==

== ENCOUNTER 2024-07-09 14:49 | Outpatient (AMB) | payer MEDICARE, MEDICAID, SELFPAY ==
[2024-07-09 15:20] VITALS: BP 128/74; PULSE 104; O2SAT 94; BMI 39.0
--- NOTE | 2024-07-09 15:20 | MHC.OFFVIS ---
Vital Signs 07/09/24 15:20 Height 5 ft 2 in Weight 213 lb BMI 39.0 BP 128/74 Blood Pressure Location Rt brachial Position Sitting Pulse 104 H Pulse Oximetry (%) 94 Oxygen Delivery Method Room Air Intake Visit Reasons: Abnormal Sleep Study Branch Specialist: Branch Specialist offered & declined Accompanied by: Self / Same As Patient Allergies No Known Allergies [No Known Allergies*] Allergy (Verified 07/09/24 15:27) Medication List - Last Reconciled 07/09/24 by Naz Machado LPN amlodipine 10 mg PO DAILY blood pressure test kit-large As directed cholecalciferol (vitamin D3) 1,250 mcg PO QWEEK clonazepam (Klonopin) 2 mg PO BEDTIME 90 days duloxetine 60 mg PO DAILY fluticasone propionate 50 mcg/actuation 2 sprays intranasal DAILY PRN 30 days gabapentin 800 mg PO TID loratadine 10 mg PO DAILY 90 days losartan 100 mg PO DAILY meloxicam 7.5 mg PO DAILY pantoprazole 40 mg PO DAILY trazodone 100 mg (2 x 50 mg) PO DAILY 90 days walker Adult folding 4-wheeled rolling seated walker- use when walking HPI HPI Abnormal Sleep Study: Details: Paty is a pleasant 68 year old female, current smoker with 25 pack year history with underlying GERD, HTN, Bipolar, and HLD. She was referred by sleep medicine after in lab PSG revealed nocturnal hypoxemia. There was no evidence of sleep apnea however did show nocturnal hypoxemia with AHI 3.5 per hour, no REM sleep was achieved, average SpO2 92 % with O2 nadeen 76% and SpO2 under 88% for 28 minutes of sleep study time. During the study 1L of supplemental oxygen was placed with resolution of hypoxemia. She denies prior h/o asthma/COPD. She smokes 1/2 ppd x 50+ years, not interested in smoking cessation at this time. She denies prior chest imaging. She endorses wheezing, mostly at night, dyspnea with exertion and dry cough which she attributes to post nasal drip. She endorses seasonal allergies, no recent allergy testing. She reports dyspnea and chest tightness can be triggered by exposures to chemicals, such as cleaning products. She denies occupational exposures. She reports daughter with asthma, otherwise no pertinent family history. [facility] Medical History Hyperlipidemia Morbid obesity with BMI of 40.0-44.9, adult Allergic rhinitis Insomnia Smoker Bipolar affective disorder Generalized anxiety disorder Right lumbar radiculopathy GERD without esophagitis Benign essential hypertension Impacted cerumen of both ears Nasal congestion Obesity (BMI 30-39.9) Impaired glucose tolerance History of diverticulitis Back pain Lumbar degenerative disc disease Hypertension GERD (gastroesophageal reflux disease) Bipolar disorder Vitamin D deficiency Surgical History History of eye removal Hx of cataract surgery H/O colonoscopy History of esophagogastroduodenoscopy (EGD) History of tubal ligation History of cholecystectomy Family History Father Colon cancer Mother Primary cancer of bone marrow Sister Leukemia Social History Housing: Apartment Alcohol intake: never Patient Tobacco Use Status: Current everyday Tobacco user Tobacco use type: Cigarette Cigarette Packs Per Day: 0.5 Cigarettes Per Day: 10 e-Cigarette/Vaping Use: Never Used Second Hand Smoke Exposure: Yes service: No Current occupational status: unemployed Cognitive needs: No Hearing needs: No Vision needs: No Review of Systems Const Denies chills, Denies excessive sweating, Denies fever(s), Denies headache(s) and Denies night sweats Eyes Denies dry eyes, Denies irritation and Denies itchy eyes ENT Reports Normal hearing present, Denies headache(s), Denies nasal congestion, Denies nasal discharge and Denies sore throat Card Denies chest pain, Denies chest pain at rest, Denies chest pain with activity, Denies claudication, Denies leg edema, Denies orthopnea and Denies paroxysmal nocturnal dyspnea Resp Denies chest congestion, Denies excessive phlegm production, Denies pain on inspiration, Denies pain with cough and Denies stridor Musc Denies myalgias Neuro Reports Normal hearing present and Denies headache(s) Endo Denies excessive sweating Pietro/Lymph Denies lymphadenopathy Aller/Immun Denies itchy eyes and Denies seasonal rhinorrhea Physical Exam Vital Signs: Last Vital Signs Pulse 104 H 07/09/24 15:20 BP 128/74 07/09/24 15:20 Pulse Ox 94 07/09/24 15:20 Oxygen Delivery Method Room Air 07/09/24 15:20 BMI result Body Mass Index 39.0 Const General: cooperative, healthy appearing, comfortable, no acute distress, well developed and alert Nutritional Appearance: obese Orientation/consciousness: patient oriented x3 Limitations: ambulation with walker HEENT Head: Yes normal to inspection, Yes normocephalic and Yes atraumatic Ears: hearing grossly normal bilaterally and external ears normal Eyes Eyelids: Yes eyelids normal Sclerae: sclerae normal EOM: Nystagmus present (left eye) Neck Neck: Yes normal visual inspection and Yes no lymphadenopathy Lymphatic: no lymphadenopathy noted Chest Chest palpation & inspection: normal inspection of the chest Resp Effort & Inspection: normal respiratory effort, able to speak in complete sentences, no audible wheezes, no cough, no stridor, not tachypneic, no tripod positioning and no use of accessory muscles Auscultation: diminished lung sounds Cardio Jugular venous distension: no JVD Rate: regular rate Rhythm: regular rhythm Skin Other: warm, dry General skin exam: no rashes or lesions noted Neuro General: patient oriented x3 Cranial nerves: Yes Normal hearing present and Yes Nystagmus present (left eye) Cognition (Neuro): normal cognition Gait exam (Neuro): Normal gait present Extrem General: Yes normal to inspection, Yes capillary refill normal, Yes no clubbing, cyanosis or edema and Yes no pedal edema Psych Appearance: grossly normal and well kempt Speech and movement: Normal speech and movement present and Clear speech present Affect: normal affect Attitude: cooperative Thought process: Normal thought process present Thought content: Normal thought content present Insight: Good insight present (Psych) Judgement: Good judgement present (Psych) Assessment & Plan Assessment & Plan (1) Nocturnal hypoxemia: Code(s): G47.34 - Idiopathic sleep related nonobstructive alveolar hypoventilation Category: Medical (2) Dyspnea on exertion: Code(s): R06.09 - Other forms of dyspnea Category: Medical (3) Environmental allergies: Code(s): Z91.09 - Other allergy status, other than to drugs and biological substances Category: Medical (4) Nicotine dependence, cigarettes, uncomplicated: Code(s): F17.210 - Nicotine dependence, cigarettes, uncomplicated Category: Medical Plan Paty presents for pulmonary evaluation after recent in lab PSG revealed mild nocturnal hypoxemia, requiring 1L supplemental oxygen. Discussed sending 1L supplemental oxygen for NOC however patient declined at this time. Will send for PFT to assess for obstructive or restrictive defect and RAST to assess for an allergic component. Will also send for chest CT given smoking history and new onset nocturnal hypoxemia. Smoking cessation reviewed, patient not interested at this time. All questions were answered and patient is in agreement of plan. Will follow up in 8-10 weeks to review results or sooner if needed. Orders: Orders Resp Allergy Profile Region I Today Z91.09 - Other allergy status, other than to drugs and biological substances PFT pulmonary function test Today R06.09 - Other forms of dyspnea CT chest wo IV con Today F17.210 - Nicotine dependence, cigarettes, uncomplicated, G47.34 - Idiopathic sleep related nonobstructive alveolar hypoventilation Immunoglobulin E Today Z91.09 - Other allergy status, other than to drugs and biological substances Complete Blood Count Auto Diff Today Z91.09 - Other allergy status, other than to drugs and biological substances Coding Level of Care Code New Pt Level 4 (07678) Diagnoses Nocturnal hypoxemia G47.34 Dyspnea on exertion R06.09 Environmental allergies Z91.09 Nicotine dependence, cigarettes, uncomplicated F17.210
--- OUTSIDE RECORDS SUMMARY | 2024-07-09 18:10 | XMS_ITS ---
Author Organization [facility] Address [address] [place] [address] Care Team Providers Care Feather Curling Machine Operator Name Role Phone Ernesto BAILEY, Ronal Primary Care Provider Schuyler Molina [phone] REASON FOR VISIT Patient presents today for abdominal discomfort Encounters Encounter Location Date Provider Diagnosis [facility] [address] [place] [address] 02/07/2024 Schuyler Coker Plan Of Treatment Next Appt Details Provider Name:Schuyler Coker , 10/02/2024 04:00:00 PM, [address], [address], [place], [address], Progress Notes * KELLI LEWIS GDOB:[birth year] (68 yo F)Acc No.[id number]:02/07/2024 Progress Notes Patient:?KELLI LEWIS Provider:?Schuyler Coker MD :1955???Age:68 Y???Sex:Female D ate:02/07/2024 Address:[address] [place] [address], , [facility] Pcp:Ronal Orozco MD Subjective: * Chief Complaints: * ???1. Patient presents today for abdominal discomfort. * Medical History:? Objective: * Vitals:? Assessment: Plan: * Treatment: * * The named appointment provid er may or may not be the originator of this progress note, and it is not deemed complete until electronically signed by the appointment provider. Sign off status: Pending * Provider:?Schuyler Coker MD Date:? 024 Generated for Tessa arreguin/Inocencio/Te on:?07/09/2024 06:10 PM EDT
--- OUTSIDE RECORDS SUMMARY | 2024-07-09 18:10 | XMS_ITS ---
Author Organization [facility] Address [address] [place] [address] Care Team Providers Care Certified Midwife Name Role Phone Ernesto BAILEY, Ronal Primary Care Provider Schuyler Molina [phone] REASON FOR VISIT Patient presents today for abdominal pain Encounters Encounter Location Date Provider Diagnosis [facility] [address] [facility] [address] [place] [address] 06/06/2024 Schuyler Coker Plan Of Treatment Next Appt Details Provider Name:Schuyler Coker , 10/02/2024 04:00:00 PM, [address], [address], [place], [address], Progress Notes * KELLI LEWIS GDOB:[birth year] (68 yo F)Acc No.[id number]:06/06/2024 Progress Notes Patient:?KELLI LEWIS Provider:?Schuyler Coker MD :1955???Age:68 Y???Sex:Female D ate:06/06/2024 Address:[address] [place] [address], , [facility] Pcp:Ronal Orozco MD Subjective: * Chief Complaints: * ???1. Patient presents today for abdominal pain. * Medical History:? Objective: * Vitals:? Assessment: Plan: * Treatment: * * The named appointment provid er may or may not be the originator of this progress note, and it is not deemed complete until electronically signed by the appointment provider. Sign off status: Pending * Provider:?Schuyler Coker MD Date:? 025 Generated for Tessa arreguin/Inocencio/Te on:?07/09/2024 06:10 PM EDT
--- OUTSIDE RECORDS SUMMARY | 2024-07-09 18:10 | XMS_ITS | Patient Health Record ---
Author Organization [facility] Address [address] [place] [address] Care Team Providers Care Jitterbug Operator Name Role Phone Ronal Orozco MD Primary Care Provider Schuyler Molina [phone] Reason For Referral No Information Medications Medication SIG (Take, Route, Frequency, Duration) Notes [...] EN LA MA?KEITH Oral for 90 Active Mtfnumeyzb-NJPQ-Anizlfec 50-325-40 MG TAKE 1 TABLET 2 TO [...] CUANDO SEA NECESARIO Oral for 30 Active Immunizations Vaccine Route Administration Date Status Comme nts Influenza Unknown 03/07/2018 Administered Influenza Unknown 06/26/2020 Refused Social History Tobacco Use: Social History Observation Description Date Details (start date - stop date) Current Smoker NA - NA Tobacco Use/Smoking Question Answer Notes Patient is [...] ast year? No Points 0 Interpretation Negative Section Notes: Nonsmoker; no sig alcohol Smoker approx 6 cigs QD; no sig alcohol Problems Problem Type SNOMED Code ICD Code Onset Dates Problem Status W/U Status Risk Notes Problem Epigastric pain (61391960) Epigastric abdominal pain (R10.13) Active confirmed Problem 828734561 Encounter for screening for malignant neoplasm of colon (Z12.11) Active confirmed Problem Gastroesophageal reflux disease (337595534) Gastroesophageal reflux disease, esophagitis presence not specified (K21.9) Active confirmed Problem 230213279071387 Pre-procedural examination (Z01.818) Active confirmed Problem Family history of malignant neoplasm of gastrointestinal tract (524507408) Family history of colon cancer in father (Z80.0) Active confirmed Encounters Encounter Location Date Provider Diagnosis [facility] [address] [place] [address] 10/10/2023 Schuyler Coker [facility] [address] [place] [address] 02/07/2024 Schuyler Coker [facility] [address] [place] [address] 06/06/2024 Schuyler Coker Plan Of Treatment Future Test Test Name Order Date UPPER GI ENDOSCOPY 07/25/2018 UPPER GI ENDOSCOPY 06/26/2020 COLONOSCOPY 06/26/2020 Next Appt Details Provider Name:Schuyler Coker , 10/02/2024 04:00:00 PM, [address] [facility], [address], [place], [address], Insurance Providers Payer Name Payer Address Payer Phone Subscriber Number Group Number Insured Name Patient Relationship to Insured Coverage Start Date Coverage End Date [facility] Medicare Advantage Plan [address] [address] [place] [address] [id number] KELLI LEWIS Self - patient is the insured Medical (General) History Medical History History ICD Code Denies [place],DM,CVA,Lung disease,renal dise ase Legally blind Depression HTN Diverticulitis x 3 episodes. Describes a colonoscopy in [place] in approx. 2014 that showed diverticulosis, but was otherwise neg. for polyps Depression Back pain GERD--EGD 08/2018 with a smal l HH, mild gastritis, no H.pylori, no Padilla's nor esophagitis Surgical History Surgery Date(Month/Year) Eye surgery--congenital cataracts [facility] BTL
--- OUTSIDE RECORDS SUMMARY | 2024-07-09 18:11 | XMS_ITS ---
Author Organization [facility] Address [address] [place] [address] Care Team Providers Care Frame Maker Name Role Phone Ernesto BAILEY, Ronal Primary Care Provider Schuyler Molina Unavailable [phone] REASON FOR VISIT cancel appt Encounters Encounter Location Date Provider Diagnosis [facility] [address] [place] [address] 06/06/2024 Schuyler Coker Plan Of Treatment Next Appt Details Provider Name:Schuyler Coker , 10/02/2024 04:00:00 PM, [address], [address], [place], [address], Progress Notes * KELLI LEWIS GDOB:[birth year] (68 yo F)Acc No.[id number]:06/06/2024 Patient:?KELLI LEWIS :1955???Age:68 Y???Sex:Female Address:[address] [place] [address], , [place], [address] * true * Date:? Generated for Printi ng/Faandrewg/eTransmitting on:?07/09/2024 06:10 PM EDT
== END 2024-07-09 15:49 | disposition home or self-care (01) ==
LOC: HO.HPSW 14:50
PROVIDERS: PCP Internal Medicine; Referring Provider Nurse Practitioner Family; Visit Provider Nurse Practitioner Family
DX: G47.34 Idiopathic sleep related nonobstructive alveolar hypoventilation (principal); R06.09 Other forms of dyspnea; Z91.09 Other allergy status, other than to drugs and biological substances; F17.210 Nicotine dependence, cigarettes, uncomplicated
CPT/HCPCS: 99204

== ENCOUNTER 2024-07-09 15:54 | Outpatient (REF) | payer MEDICARE, MEDICAID, SELFPAY ==
[2024-07-09 18:28] LABS: MANUAL DIFF FLAG NO
[2024-07-09 18:39] LABS: Basophils Absolute Auto 0.1 X10*3/uL (0.0-0.2); Basophils Percent Auto 0.9 % (0-2); Eosinophils Absolute Auto 0.1 X10*3/uL (0.0-0.4); Eosinophils Percent Auto 1.5 % (0-4); Hematocrit 45.3 % (37.0-47.0); Imm Gran Abs Auto 0.01 X10*3/uL (0.00-0.03); Imm Gran Pct Auto 0.2 % (0.0-0.4); Lymphocytes Absolute Auto 1.7 X10*3/uL (1.2-4.9); Lymphocytes Percent Auto 25.6 % (20-40); Mean Corpuscular HGB Conc 33.1 g/dl (31.0-35.0); Mean Corpuscular Hemoglobin 29.5 pg (27.0-33.0); Mean Platelet Volume 10.8 fL (9.4-12.3); Monocytes Absolute Auto 0.5 X10*3/uL (0.1-1.2); Monocytes Percent Auto 8.3 % (2-11); Neutrophils Absolute Auto 4.1 x10*3/uL (2.0-8.3); Neutrophils Percent Auto 63.5 % (45-73); Platelet Count 260 X10*3/uL (160-400); Red Blood Count 5.09 X10*6/uL (4.20-5.50); Red Cell Distribution Width 14.1 % (11.0-16.0); White Blood Count 6.5 X10*3/uL (4.8-10.8)
[2024-07-10 22:57] LABS: Class Alternaria alternata 0; Class Aspergillus fumigatus 0; Class Bermuda Grass 0; Class Birch 0; Class Cat Dander 0; Class Cladosporium herbarum 0; Class Cockroach 0; Class Common Ragweed 0; Class Cottonwood 0; Class Derm. pterony 0; Class Dermatophagoides farinae 0; Class Dog Dander 0; Class Elm 0; Class Maple Box Elder 0; Class Mountain Cedar 0; Class Mouse Urine Protein 0; Class Mugwort 0; Class Oak 0; Class Penicillium crysogenum 0; Class Rough Pigweed 0; Class Sheep Sorrel 0; Class Sycamore 0; Class Timothy Grass 0; Class Walnut Tree 0; Class White Ash 0; Class White Mulberry 0; D001 IgE D pteronyssinus <0.10 kU/L; D002 - IgE D farinae <0.10 kU/L; E001 - IgE Cat Dander <0.10 kU/L; E005 - IgE Dog Dander <0.10 kU/L; E072-IgE Mouse Urine <0.10 kU/L; G002 IgE Bermuda Grass <0.10 kU/L; G006 - IgE Timothy Grass <0.10 kU/L; I006-IgE Cockroach, German <0.10 kU/L; Immunoglobulin E 129 kU/L (<OR=114); M001 IgE Penicillium chrysogen <0.10 kU/L; M002 - IgE Cladosporium herbar <0.10 kU/L; M003 - IgE Aspergillus fumigat <0.10 kU/L; M006 - IgE Alternaria alternat <0.10 kU/L; T001 IgE Maple/Box Elder <0.10 kU/L; T003 IgE Common Silver Birch <0.10 kU/L; T006 - IgE Cedar, Mountain <0.10 kU/L; T007 - IgE Oak, White <0.10 kU/L; T008 IgE Elm, American <0.10 kU/L; T010 - IgE Walnut <0.10 kU/L; T011 - IgE Maple Leaf Sycamore <0.10 kU/L; T014 - IgE Cottonwood <0.10 kU/L; T015 - IgE Ash, White <0.10 kU/L; T070 - IgE White Mulberry <0.10 kU/L; W001 - IgE Ragweed, Short <0.10 kU/L; W006 - IgE Mugwort <0.10 kU/L; W014 IgE Pigweed, Common <0.10 kU/L; W018 IgE Sheep Sorrel <0.10 kU/L
== END 2024-07-09 15:55 | disposition home or self-care (01) ==
LOC: HO.WFDLDS 15:54
PROVIDERS: Visit Provider Nurse Practitioner Family
DX: G47.34 Idiopathic sleep related nonobstructive alveolar hypoventilation (principal); Z91.09 Other allergy status, other than to drugs and biological substances; R06.09 Other forms of dyspnea; F17.210 Nicotine dependence, cigarettes, uncomplicated
CPT/HCPCS: 36415; 82785; 85025; 86003; 99202

== ENCOUNTER 2024-07-12 17:51 | Outpatient (REF) | payer MEDICARE, MEDICAID, SELFPAY ==
--- NOTE | ~2024-07-12 | MR_ITS ---
CLINICAL HISTORY: M54.6 - Pain in thoracic spine MR thoracic spine without gadolinium Comparison: MR/[place]/SR - MR LUMBAR SPINE WO CON - 06/11/24 13:56 EST Findings: Normal alignment. No acute fracture or pathologic bone lesion. Thoracic cord normal size and signal. Multilevel disc desiccation without disc bulge. Bridging anterior osteophytes from T8 through T11. No significant spinal canal or foraminal stenoses. Paraspinous musculature intact. IMPRESSION: No acute findings. This document has been electronically signed by: Kristine Chou MD on 07/15/2024 18:13:59
--- OUTSIDE RECORDS SUMMARY | 2024-07-12 17:56 | XMS_ITS ---
Author Organization [facility] Address [address] [place] [address] Care Team Providers Care After School Tutor Name Role Phone Ernesto BAILEY, Ronal Primary Care Provider Schuyler Molina Unavailable [phone] REASON FOR VISIT cancel appt Encounters Encounter Location Date Provider Diagnosis [facility] [address] [place] [address] 06/06/2024 Schuyler Coker Plan Of Treatment Next Appt Details Provider Name:Schuyler Coker , 10/02/2024 04:00:00 PM, [address], [address], [place], [address], Progress Notes * KELLI LEWIS GDOB:[birth year] (68 yo F)Acc No.[id number]:06/06/2024 Patient:?KELLI LEWIS :1955???Age:68 Y???Sex:Female Address:[address] [place] [address], , [place], [address] * true * Date:? Generated for Printi ng/Faandrewg/eTransmitting on:?07/12/2024 05:56 PM EDT
--- OUTSIDE RECORDS SUMMARY | 2024-07-12 17:56 | XMS_ITS | Patient Health Record ---
Author Organization [facility] Address [address] [place] [address] Care Team Providers Care Plastic Eye Technician Name Role Phone Ronal Orozco MD Primary Care Provider Schuyler Molina [phone] Reason For Referral No Information Medications Medication [...] EN LA MA?KEITH Oral for 90 Active Xycyjfaiev-IHYD-Hsznnkof 50-325-40 MG TAKE 1 TABLET 2 TO [...] W/U Status Risk Notes Problem Epigastric pain (80178943) Epigastric abdominal pain (R10.13) Active confirmed Problem 687459106 Encounter for screening for malignant neoplasm of colon (Z12.11) Active confirmed Problem Gastroesophageal reflux disease (466951235) Gastroesophageal reflux disease, esophagitis presence not specified (K21.9) Active confirmed Problem 967043540810730 Pre-procedural examination (Z01.818) Active confirmed Problem Family history of malignant neoplasm of gastrointestinal tract (997115872) Family history of colon cancer in father (Z80.0) Active confirmed Encounters Encounter Location Date Provider Diagnosis [facility] [address] [place] [address] 10/10/2023 Schuyler Coker [facility] [address] [place] [address] 02/07/2024 Schuyler Coker [facility] [address] [place] [address] 06/06/2024 Schuyler Coker Plan Of Treatment Future Test Test Name Order Date UPPER GI ENDOSCOPY 07/25/2018 UPPER GI ENDOSCOPY 06/26/2020 COLONOSCOPY 06/26/2020 Next Appt Details Provider Name:Schuyler Coker , 10/02/2024 04:00:00 PM, [address] [facility], [address], [place], [address], Insurance Providers Payer Name Payer Address Payer Phone Subscriber Number Group Number Insured Name Patient Relationship to Insured Coverage Start Date Coverage End Date [facility] Medicare Advantage Plan [address] [address] [place] [address] [id number] KELLI LEWIS Self - patient is the insured Medical (General) History Medical History History ICD Code Denies [place],DM,CVA,Lung disease,renal dise ase Legally blind Depression HTN Diverticulitis x 3 episodes. Describes a colonoscopy in [place] in approx. 2014 that showed diverticulosis, but was otherwise neg. for polyps Depression Back pain GERD--EGD 08/2018 with a smal l HH, mild gastritis, no H.pylori, no Padilla's nor esophagitis Surgical History Surgery Date(Month/Year) Eye surgery--congenital cataracts [facility] BTL
--- OUTSIDE RECORDS SUMMARY | 2024-07-12 17:56 | XMS_ITS ---
Author Organization [facility] Address [address] [place] [address] Care Team Providers Care Oracle Hyperion Consultant Name Role Phone Ernesto BAILEY, Ronal Primary Care Provider Schuyler Molina [phone] REASON FOR VISIT Patient presents today for abdominal pain Encounters Encounter Location Date Provider Diagnosis [facility] [address] [facility] [address] [place] [address] 06/06/2024 Schuyler Coker Plan Of Treatment Next Appt Details Provider Name:Schuyler Coker , 10/02/2024 04:00:00 PM, [address], [address], [place], [address], Progress Notes * KELLI LEWIS GDOB:[birth year] (68 yo F)Acc No.[id number]:06/06/2024 Progress Notes Patient:?KELLI LEWIS Provider:?Schuyler Coker MD :1955???Age:68 Y???Sex:Female D ate:06/06/2024 Address:[address] [place] [address], , [id number] Pcp:Ronal Orozco MD Subjective: * Chief Complaints: [...] MD Date:? 025 Generated for Tessa arreguin/Inocencio/Te on:?07/12/2024 05:56 PM EDT
== END 2024-07-12 17:52 | disposition home or self-care (01) ==
LOC: HO.MRI 17:51
PROVIDERS: PCP Internal Medicine; Visit Provider Physician Assistant
DX: M54.6 Pain in thoracic spine (principal)
CPT/HCPCS: 72146

== ENCOUNTER → 2024-07-12 18:00 | Outpatient (BNV) | payer MEDICARE, MEDICAID, SELFPAY | PROVIDERS: PCP Internal Medicine; Visit Provider Radiology Diagnostic Radiology | DX: M54.6 Pain in thoracic spine (principal) | CPT/HCPCS: 72146 ==

== ENCOUNTER 2024-07-17 15:07 | Outpatient (RCR) | payer MEDICARE, OTHER, SELFPAY ==
--- NOTE | 2024-06-27 14:57 | MHC.PT.EP ---
[facility] [place] Office [place] Office [place] Office [address] [place] [address] [phone] F: [phone] F: [phone] F: [phone] F: [phone] Physical Therapy Plan of Care Date of Evaluation: 06/27/24 Date of Surgery: N/A Diagnosis: primary osteoarthritis of right shoulder (RL) Assessment: pt is a 68 y/o female presenting to physical therapy w/ referring diagnosis of primary osteoarthritis of right shoulder. Patient's xray demonstrated moderate-severe AC joint arthritis which is part of lump she can appreciate to anterior shoulder region. She has very poor habitual posturing of her upper body causing anterior and superior translation of humeral head. Impairments include pain, decreased range of motion, decreased strength, impaired functional mobility, impaired postural awareness, and altered ambulation mechanics. pt is a fair candidate for skilled PT due to age, potential remediation of impairments, typical disease/condition progression and prognosis, comorbidities, and motivation. pt would benefit from skilled PT intervention to provide a tailored strengthening and stretching exercise program, functional training, gait training, postural re-training, neuromuscular re-education, modalities as needed for pain, equipment safety demonstration. Frequency and Duration: The patient will be seen 2x/wk for 4 wks Short Term Goals: pt will be I w/ HEP to promote self-management of condition. pt will demo proper sitting posture w/ lumbar roll to promote neutral spine and shoulder position for seated ADLs. Making Machine Catcher Goals: pt will improve R shoulder flexion by at least 15* to promote ease in overhead reaching for meal prep. pt will improve R elbow flexion and shoulder flexion strength by at least 1 MMT grade to promote ease in lifting (ie her purse). Treatment Plan: Modalities to reduce pain, spasms and effusion. Manual therapy to restore motion and function. Therapeutic exercise to improve strength and flexibility. Neuromuscular re-education for posture and balance. Therapeutic activities to return to functional activities of daily living. Electronically signed by: Maria C Shi PT, DPT Please sign and return to therapist. Thank you for your referral.
--- NOTE | 2024-08-08 11:30 | MHC.PT.DC ---
[facility] [place] Office [place] Office [place] Office [address] [facility] [phone] F: [phone] F: [phone] F: [phone] F: [phone] Physical Therapy Discharge Report Diagnosis: primary osteoarthritis of right shoulder (RL) Date of Surgery: N/A Date of Evaluation: 06/27/24 Date of Discharge: 08/08/24 Treatments to Date: 5 Cancellations to Date: 1 No Shows to Date: 4 Discharge Status: Visit Non-compliance Discharge Summary: The patient overall endorsed she is feeling better. She mentioned her biggest challenge is finding a comfortable way to sleep at night and opening jars. I feel the opening jars is also related to deficits with her R hand/fingers. I mentioned to her she may benefit from an OT referral. She continues to have difficulty with shoulder positioning to engage scapula for proper support. She continues to favor a forward and internally rotated position. Unfortunately, she no showed her last scheduled appointments. She is discharged at this time. Electronically signed by: Maria C Shi PT, DPT Please sign and return to therapist. Thank you for your referral.
== END 2024-08-08 11:34 | disposition home or self-care (01) ==
LOC: HO.PT 15:07
PROVIDERS: PCP Internal Medicine; Visit Provider Internal Medicine
DX: M19.011 Primary osteoarthritis, right shoulder (principal)
CPT/HCPCS: 97110; 97112; 97162; 97530

== ENCOUNTER 2024-07-25 14:41 | Outpatient (AMB) | payer MEDICARE, MEDICAID, SELFPAY ==
[2024-07-25 14:49] VITALS: BP 114/82; PULSE 93; RESP 18; TEMP 36.7; O2SAT 95; BMI 38.6
--- NOTE | 2024-07-25 14:49 | MHC.PC.OV ---
Vital Signs 07/25/24 14:49 Height 5 ft 2 in Weight 211 lb BMI 38.6 BP 114/82 Blood Pressure Location Lt brachial Position Sitting Respiration 18 Pulse 93 Pulse Source Pulse Oximeter Temp 98.1 F Temp Source Oral Pulse Oximetry (%) 95 Oxygen Delivery Method Room Air Intake Visit Reasons: kemal/htn/gerd/right shoulder pain Printing Press Operator Required: No Printing Press Operator Name: Jesus:[id number] Accompanied by: Self / Same As Patient Allergies No Known Allergies [No Known Allergies*] Allergy (Verified 07/25/24 15:18) Medication List - Last Reconciled 07/25/24 by JESÚS Cardoso amlodipine 10 mg PO DAILY blood pressure test kit-large As directed cholecalciferol (vitamin D3) 1,250 mcg PO QWEEK clonazepam 1 mg PO BID PRN duloxetine 60 mg PO DAILY fluticasone propionate 50 mcg/actuation 2 sprays intranasal DAILY PRN 30 days gabapentin 800 mg PO TID loratadine 10 mg PO DAILY 90 days losartan 100 mg PO DAILY pantoprazole 40 mg PO DAILY trazodone 200 mg PO BEDTIME PRN walker Adult folding 4-wheeled rolling seated walker- use when walking Tobacco use date assessed: 07/25/24 Fall risk assessment: No Falls in past year Last assessed Fall Risk: 07/25/24 Dental Screening Dental Screen Date: 07/25/24 Did you have a dental visit in the last 12 months?: No Did you have a dental problem in the last 6 months where you did not have access to dental care?: No Was dental information given to patient?: Yes HPI kemal/htn/gerd/right shoulder pain HPI Details The patient reports that she is doing PT on her right shoulder with some relief but she is still has pain Reports however that her pain is worse in her upper back/thoracic area Patient had a lumbar MRI done that showed bilateral neural foramina stenosis at L5-S1 on a multifactorial basis encroaching the existing nerve roots of L5. For this the patient was referred to Neuro spine for evaluation Patient reports that she was seen by neuro spine Center and they ordered an MRI of her thoracic spine The patient reports that she wants to lose weight but she does not want to do surgery; she would like to lose weight quickly Patient reports that she is interested in a weight program Patient reports that she wheezes and he gets tired at night. Reports that she did a sleep study and was recommended by pulmonology to use oxygen at nighttime but she refused. Stating she does not think that she needs it The patient denies shortness of breath and chest pain. Denies heart palpitation and dizziness She denies abdominal pain or changes in bowel habits [facility] Medical History Hyperlipidemia Morbid obesity with BMI of 40.0-44.9, adult Allergic rhinitis Insomnia Smoker Bipolar affective disorder Generalized anxiety disorder Right lumbar radiculopathy GERD without esophagitis Benign essential hypertension Impacted cerumen of both ears Nasal congestion Obesity (BMI 30-39.9) Impaired glucose tolerance History of diverticulitis Back pain Lumbar degenerative disc disease Hypertension GERD (gastroesophageal reflux disease) Bipolar disorder Vitamin D deficiency Surgical History History of eye removal Hx of cataract surgery H/O colonoscopy History of esophagogastroduodenoscopy (EGD) History of tubal ligation History of cholecystectomy Family History Father Colon cancer Mother Primary cancer of bone marrow Sister Leukemia Social History Housing: Apartment Alcohol intake: never Patient Tobacco Use Status: Current everyday Tobacco user Tobacco use type: Cigarette Cigarettes Per Day: 8 e-Cigarette/Vaping Use: Never Used Second Hand Smoke Exposure: Yes service: No Current occupational status: unemployed Cognitive needs: No Hearing needs: No Vision needs: No Questionnaire Thrive Questionnaire Date Thrive assessed: 04/26/24 I am a: Patient What is your living situation today?: I have a steady place to live Within the past 12 months, did the food you bought not last and you didn't have the money to get more?: Never true Within the past 12 months, did you worry whether your food would run out before you got money to buy more?: Never true Do you have trouble paying for medicines?: No Do you have trouble getting transportation to medical appointments?: No Do you have trouble paying your heating and electricity bill?: No Do you have trouble taking care of your child, family member or friend?: No Do you have trouble with day-to-day activities such as bathing, preparing meals, shopping, managing finances, etc.?: No Are you currently unemployed and looking for a job?: No Are you interested in more education?: No Please select the resources that you would like help with: None Currently or been in a relationship where the following occur: No concerns reported THRIVE Score: 0 AUDIT C Alcohol Use Questionnaire (AUDIT-C) 1. How often do you have a drink containing alcohol?: Never 3. How often do you have six or more drinks on one occasion?: Never Total Score: 0 Score Reviewed/Action Taken: Yes Review of Systems Const Denies headache(s) and Reports other (Tired easily) Eyes Denies loss of vision ENT Denies vertigo, Denies dizziness, Denies headache(s), Reports neck pain and Denies sore throat Card Denies chest pain, Denies leg edema, Denies lightheadedness and Reports dyspnea on exertion Resp Denies cough, Denies hemoptysis, Reports dyspnea on exertion and Reports wheezing GI Denies abdominal pain, Denies melena, Denies constipation, Denies diarrhea and Denies vomiting Denies urinary frequency, Denies dysuria and Denies urinary urgency Musc Reports back pain, Reports arthralgias (Right shoulder), Denies joint swelling, Reports neck pain, Denies numbness and Denies tingling Neuro Denies Abnormal speech present, Denies vertigo, Denies dizziness, Denies headache(s), Denies loss of vision, Denies numbness and Denies tingling Aller/Immun Reports wheezing Physical exam (Primary Care) Vital Signs: Last Vital Signs Temp 98.1 F 07/25/24 14:49 Pulse 93 07/25/24 14:49 Resp 18 07/25/24 14:49 BP 114/82 07/25/24 14:49 Pulse Ox 95 07/25/24 14:49 Oxygen Delivery Method Room Air 07/25/24 14:49 BMI result Body Mass Index 38.6 Tobacco/Smoking Status: Tobacco use Status Tobacco use date assessed 07/25/24 07/25/24 15:05 Patient Tobacco Use Status Current everyday Tobacco 07/25/24 15:05 Tobacco use type Cigarette 07/25/24 15:05 e-Cigarette/Vaping Use Never Used 07/25/24 15:05 Thrive Assessment: Date of Thrive Assessment Date Thrive assessed 04/26/24 07/25/24 15:05 Currently or been in a relationship where the following occur: No concerns reported Const General: healthy appearing, no acute distress, alert and awake Nutritional Appearance: well nourished Orientation/consciousness: oriented to person, oriented to place and oriented to time HENMT Ears: external ears normal General nose exam: Normal external nose present Eyes Conjunctivae: conjunctivae normal Sclerae: sclerae normal Pupils: Equal, round and reactive pupils present Neck Neck: Yes no lymphadenopathy and Yes no JVD Thyroid: Thyroid normal Carotids: no bruits Resp Effort & Inspection: normal respiratory effort and not tachypneic Auscultation: no crackles, no rales, no rhonchi and no wheezes Cardio Rate: regular rate Rhythm: regular rhythm Heart sounds: no murmurs and normal S1 and S2 GI Palpation (GI): Soft to palpation and nontender Auscultation: normal bowel sounds Back/Spine/Pelvis Cervical Spine: Cervical spine tenderness Thoracic/Lumbar Spine: thoracic spinal tenderness and No lumbar spinal tenderness Skin General skin exam: no rashes or lesions noted and dry skin Neuro General: oriented to person, oriented to place and oriented to time Cranial nerves: Yes Equal, round and reactive pupils present Speech: No Abnormal speech present Gait exam (Neuro): Normal gait present Motor exam (neuro): no tremor noted Extrem Right upper extremity: full ROM and shoulder/upper arm Details: tenderness; no swelling Left upper extremity: full ROM Right lower extremity: full ROM; no edema Left lower extremity: full ROM; no edema Psych Mental Status: mental status grossly normal Speech and movement: Normal speech and movement present Affect: normal affect Attitude: cooperative Thought process: Normal thought process present Results Reviewed Results Reviewed: Laboratory Tests 07/09/24 15:55 WBC 6.5 RBC 5.09 Hgb 15.0 Hct 45.3 MCV 89.0 MCH 29.5 Plt Count 260 Coding Level of Care Code Est Pt Level 4 (35606) Diagnoses Midline thoracic back pain, unspecified chronicity M54.6 Chronicity: unspecified Back pain laterality: midline Osteoarthritis of acromioclavicular joint M19.019 KEMAL (obstructive sleep apnea) G47.33 Cervicalgia M54.2 Allergic rhinitis, unspecified seasonality, unspecified trigger J30.9 Allergic rhinitis trigger: unspecified Allergic rhinitis seasonality: unspecified Elevated TSH R79.89 Insomnia, unspecified type G47.00 Insomnia type: unspecified Bipolar affective disorder, current episode mixed, current episode severity unspecified F31.60 Active/Remission status: currently active Current bipolar episode type: mixed Current episode severity: unspecified Generalized anxiety disorder F41.1 GERD without esophagitis K21.9 Recurrent headache R51.9 Benign essential hypertension I10 Vitamin D deficiency E55.9 Class 2 severe obesity due to excess calories with serious comorbidity and body mass index (BMI) of 37.0 to 37.9 in adult E66.01; Z68.37 Obesity type: due to excess calories Obesity classification: adult class 2 (BMI 35 - 39.9) Serious obesity comorbidity presence: with serious comorbidity Body mass index: BMI 37.0-37.9 Smoker F17.200 Time Spent (min) 41 Assessment & Plan Assessment & Plan (1) Thoracic back pain: Code(s): M54.6 - Pain in thoracic spine Category: Medical Qualifiers: Chronicity: unspecified Back pain laterality: midline Qualified Code(s): M54.6 - Pain in thoracic spine Plan: Patient was ordered cervical and thoracic x-ray which she has not completed as yet. However, after being evaluated by neuro spine she was ordered a Thoracic MRI. (2) Osteoarthritis of acromioclavicular joint: Code(s): M19.019 - Primary osteoarthritis, unspecified shoulder Category: Medical Plan: Right shoulder pain. The patient is currently in physical therapy for this; reports that it is helping some but she is still has the pain. Continue physical therapy, continue gabapentin 800 mg t.i.d., duloxetine 60 mg daily. May use warm or cold compress alternatively (3) KEMAL (obstructive sleep apnea): Code(s): G47.33 - Obstructive sleep apnea (adult) (pediatric) Category: Medical Plan: Sleep study shows no signs of apnea. The patient was referred to pulmonology due to complaints of dyspnea with exertion Patient reports that she was evaluated by pulmonology. We will recommend that she wears oxygen at night but the patient refused. Per patient she does not think that she needs it. Patient continues to complain of being tired easily (4) Cervicalgia: Code(s): M54.2 - Cervicalgia Category: Medical Plan: The patient has been referred to PT by Dr. Orozco. It does not appear that the patient has been seen for this. She is also being evaluated by neuro spine. Continues gabapentin 800 mg t.i.d. continue duloxetine 60 mg daily (5) Allergic rhinitis: Code(s): J30.9 - Allergic rhinitis, unspecified Category: Medical Qualifiers: Allergic rhinitis trigger: unspecified Allergic rhinitis seasonality: unspecified Qualified Code(s): J30.9 - Allergic rhinitis, unspecified Plan: Limit exposure to allergens Air purifiers and dust filters Air conditioner in house, especially where sleeping Continue fluticasone propionate 50 mcg/actuation and loratadine 10 mg daily (6) Elevated TSH: Code(s): R79.89 - Other specified abnormal findings of blood chemistry Category: Medical Plan: No recent labs to compare. TSH was 3.52 the last time it was checked. Encourage patient to get her labs done as soon as possible (7) Insomnia: Code(s): G47.00 - Insomnia, unspecified Category: Medical Qualifiers: Insomnia type: unspecified Qualified Code(s): G47.00 - Insomnia, unspecified Plan: Reinforced sleep hygiene Continue trazodone 200 mg p.o. bedtime p.r.n. (8) Bipolar affective disorder: Code(s): F31.9 - Bipolar disorder, unspecified Category: Medical Qualifiers: Active/Remission status: currently active Current bipolar episode type: mixed Current episode severity: unspecified Qualified Code(s): F31.60 - Bipolar disorder, current episode mixed, unspecified Plan: The patient is currently not on any treatment for this. Denies SI/HI. Follow up with Psychiatry as scheduled (9) Generalized anxiety disorder: Code(s): F41.1 - Generalized anxiety disorder Category: Medical Plan: Encouraged CBT Continue clonazepam 1 mg b.i.d. p.r.n. (10) GERD without esophagitis: Code(s): K21.9 - Gastro-esophageal reflux disease without esophagitis Category: Medical Plan: Do not eat meals or drink carbonated beverages within 3 hr of bedtime Decrease the amount of fried, fatty, and spicy foods to decrease gastric acid production Raise the head of the bed using 4 to 6-inch blocks, especially if nocturnal symptoms are present Lose weight if indicated; avoid tight-fitting clothing, especially around the waist Avoid foods that relax the Lower esophageal sphincter (chocolate, peppermint, high-fat foods etc.,) Continue pantoprazole 40 mg daily (11) Recurrent headache: Code(s): R51.9 - Headache, unspecified Category: Medical Plan: The patient was on Sumatriptan 50 mg 1 to 2 tablets PRN and Nurtec ODT 75 mg QOD for headache prevention Nurtec ODT was held due to contraindication with decreased vision acuity. Sumatriptan may be used as needed. However this is not on the patient med list either. Avoid triggers, maintain adequate hydration Follow up with Neurology as scheduled (12) Benign essential hypertension: Code(s): I10 - Essential (primary) hypertension Category: Medical Plan: Blood pressure within goal Reinforced low-sodium diet Continue amlodipine 10 mg daily, losartan 100 mg daily (13) Vitamin D deficiency: Code(s): E55.9 - Vitamin D deficiency, unspecified Category: Medical Plan: Continue cholecalciferol 1250 mcg q.week (14) Obese: Code(s): E66.9 - Obesity, unspecified Category: Medical Qualifiers: Obesity type: due to excess calories Obesity classification: adult class 2 (BMI 35 - 39.9) Serious obesity comorbidity presence: with serious comorbidity Body mass index: BMI 37.0-37.9 Qualified Code(s): E66.01 - Morbid (severe) obesity due to excess calories; Z68.37 - Body mass index [BMI] 37.0-37.9, adult Plan: Reinforced low-calorie diet and activity as tolerated (15) Smoker: Code(s): F17.200 - Nicotine dependence, unspecified, uncomplicated Category: Social Hx Plan: Smoking cessation Plan Patient to follow up in 4 months Orders: Orders Comprehensive [place]. Panel Fast 4 Months F17.210 - Nicotine dependence, cigarettes, uncomplicated, R06.09 - Other forms of dyspnea, G47.34 - Idiopathic sleep related nonobstructive alveolar hypoventilation, G47.9 - Sleep disorder, unspecified, G47.33 - Obstructive sleep apnea (adult) (pediatric), E66.01 - Morbid (severe) obesity due to excess calories, Z68.41 - Body mass index [BMI] 40.0-44.9, adult, E78.5 - Hyperlipidemia, unspecified, G43.909 - Migraine, unspecified, not intractable, without status migrainosus, F31.60 - Bipolar disorder, current episode mixed, unspecified, F41.1 - Generalized anxiety disorder, K21.9 - Gastro-esophageal reflux disease without esophagitis Complete Blood Count Auto Diff 4 Months F17.210 - Nicotine dependence, cigarettes, uncomplicated, R06.09 - Other forms of dyspnea, G47.34 - Idiopathic sleep related nonobstructive alveolar hypoventilation, G47.9 - Sleep disorder, unspecified, G47.33 - Obstructive sleep apnea (adult) (pediatric), E66.01 - Morbid (severe) obesity due to excess calories, Z68.41 - Body mass index [BMI] 40.0-44.9, adult, E78.5 - Hyperlipidemia, unspecified, G43.909 - Migraine, unspecified, not intractable, without status migrainosus, F31.60 - Bipolar disorder, current episode mixed, unspecified, F41.1 - Generalized anxiety disorder, K21.9 - Gastro-esophageal reflux disease without esophagitis Lipid Panel 4 Months F17.210 - Nicotine dependence, cigarettes, uncomplicated, R06.09 - Other forms of dyspnea, G47.34 - Idiopathic sleep related nonobstructive alveolar hypoventilation, G47.9 - Sleep disorder, unspecified, G47.33 - Obstructive sleep apnea (adult) (pediatric), E66.01 - Morbid (severe) obesity due to excess calories, Z68.41 - Body mass index [BMI] 40.0-44.9, adult, E78.5 - Hyperlipidemia, unspecified, G43.909 - Migraine, unspecified, not intractable, without status migrainosus, F31.60 - Bipolar disorder, current episode mixed, unspecified, F41.1 - Generalized anxiety disorder, K21.9 - Gastro-esophageal reflux disease without esophagitis TSH reflex Free T4 4 Months F17.210 - Nicotine dependence, cigarettes, uncomplicated, R06.09 - Other forms of dyspnea, G47.34 - Idiopathic sleep related nonobstructive alveolar hypoventilation, G47.9 - Sleep disorder, unspecified, G47.33 - Obstructive sleep apnea (adult) (pediatric), E66.01 - Morbid (severe) obesity due to excess calories, Z68.41 - Body mass index [BMI] 40.0-44.9, adult, E78.5 - Hyperlipidemia, unspecified, G43.909 - Migraine, unspecified, not intractable, without status migrainosus, F31.60 - Bipolar disorder, current episode mixed, unspecified, F41.1 - Generalized anxiety disorder, K21.9 - Gastro-esophageal reflux disease without esophagitis UA CC w/rflx Micro + Cult 4 Months F17.210 - Nicotine dependence, cigarettes, uncomplicated, R06.09 - Other forms of dyspnea, G47.34 - Idiopathic sleep related nonobstructive alveolar hypoventilation, G47.9 - Sleep disorder, unspecified, G47.33 - Obstructive sleep apnea (adult) (pediatric), E66.01 - Morbid (severe) obesity due to excess calories, Z68.41 - Body mass index [BMI] 40.0-44.9, adult, E78.5 - Hyperlipidemia, unspecified, G43.909 - Migraine, unspecified, not intractable, without status migrainosus, F31.60 - Bipolar disorder, current episode mixed, unspecified, F41.1 - Generalized anxiety disorder, K21.9 - Gastro-esophageal reflux disease without esophagitis Vitamin D 25-OH Total 4 Months F17.210 - Nicotine dependence, cigarettes, uncomplicated, R06.09 - Other forms of dyspnea, G47.34 - Idiopathic sleep related nonobstructive alveolar hypoventilation, G47.9 - Sleep disorder, unspecified, G47.33 - Obstructive sleep apnea (adult) (pediatric), E66.01 - Morbid (severe) obesity due to excess calories, Z68.41 - Body mass index [BMI] 40.0-44.9, adult, E78.5 - Hyperlipidemia, unspecified, G43.909 - Migraine, unspecified, not intractable, without status migrainosus, F31.60 - Bipolar disorder, current episode mixed, unspecified, F41.1 - Generalized anxiety disorder, K21.9 - Gastro-esophageal reflux disease without esophagitis Glucose Fasting 4 Months F17.210 - Nicotine dependence, cigarettes, uncomplicated, R06.09 - Other forms of dyspnea, G47.34 - Idiopathic sleep related nonobstructive alveolar hypoventilation, G47.9 - Sleep disorder, unspecified, G47.33 - Obstructive sleep apnea (adult) (pediatric), E66.01 - Morbid (severe) obesity due to excess calories, Z68.41 - Body mass index [BMI] 40.0-44.9, adult, E78.5 - Hyperlipidemia, unspecified, G43.909 - Migraine, unspecified, not intractable, without status migrainosus, F31.60 - Bipolar disorder, current episode mixed, unspecified, F41.1 - Generalized anxiety disorder, K21.9 - Gastro-esophageal reflux disease without esophagitis Medications: Refilled amlodipine 10 mg PO DAILY 90 tabs 0RF I10 - Essential (primary) hypertension
== END 2024-07-25 15:49 | disposition home or self-care (01) ==
LOC: HO.HMCH 14:42
PROVIDERS: PCP Internal Medicine
DX: M54.6 Pain in thoracic spine (principal); F31.60 Bipolar disorder, current episode mixed, unspecified; E66.01 Morbid (severe) obesity due to excess calories; Z68.37 Body mass index [BMI] 37.0-37.9, adult; M19.019 Primary osteoarthritis, unspecified shoulder; G47.33 Obstructive sleep apnea (adult) (pediatric); M54.2 Cervicalgia; J30.9 Allergic rhinitis, unspecified; R79.89 Other specified abnormal findings of blood chemistry; G47.00 Insomnia, unspecified; F41.1 Generalized anxiety disorder; K21.9 Gastro-esophageal reflux disease without esophagitis

== ENCOUNTER → 2024-07-25 14:41 | Outpatient (BNVA) | payer MEDICARE, MEDICAID, SELFPAY | PROVIDERS: PCP Internal Medicine | DX: M54.6 Pain in thoracic spine (principal); M19.011 Primary osteoarthritis, right shoulder; G47.33 Obstructive sleep apnea (adult) (pediatric); M54.2 Cervicalgia; J30.9 Allergic rhinitis, unspecified; R79.89 Other specified abnormal findings of blood chemistry; G47.00 Insomnia, unspecified; F31.60 Bipolar disorder, current episode mixed, unspecified; F41.1 Generalized anxiety disorder; K21.9 Gastro-esophageal reflux disease without esophagitis; R51.9 Headache, unspecified; I10 Essential (primary) hypertension; E55.9 Vitamin D deficiency, unspecified; E66.01 Morbid (severe) obesity due to excess calories; F17.210 Nicotine dependence, cigarettes, uncomplicated; Z68.38 Body mass index [BMI] 38.0-38.9, adult | CPT/HCPCS: 99212 ==

== ENCOUNTER 2024-08-09 15:02 | Outpatient (REF) | payer MEDICARE, MEDICAID, SELFPAY ==
--- OUTSIDE RECORDS SUMMARY | 2024-08-09 15:06 | XMS_ITS ---
Author Organization [facility] Address [address] [place] [address] Care Team Providers Care Lei Seller Name Role Phone Ernesto BAILEY, Ronal Primary Care Provider Schuyler Molina [phone] REASON FOR VISIT Patient presents today for abdominal discomfort Encounters Encounter Location Date Provider Diagnosis [facility] [address] [place] [address] 02/07/2024 Schuyler Coker Plan Of Treatment Next Appt Details Provider Name:Schuyler Coker , 10/02/2024 04:00:00 PM, [address], [address], [place], [address], Progress Notes * KELLI LEWIS GDOB:[birth year] (68 yo F)Acc No.[id number]:02/07/2024 Progress Notes Patient:?KELLI LEWIS Provider:?Schuyler Coker MD :1955???Age:68 Y???Sex:Female D ate:02/07/2024 Address:[address] [place] [address], , [id number] Pcp:Ronal Orozco MD Subjective: * Chief Complaints: [...] MD Date:? 024 Generated for Tessa arreguin/Inocencio/Te on:?08/09/2024 03:05 PM EDT
--- OUTSIDE RECORDS SUMMARY | 2024-08-09 15:06 | XMS_ITS ---
Author Organization [facility] Address [address] [place] [address] Care Team Providers Care Infrastructure Consultant Name Role Phone Ernesto BAILEY, Ronal Primary Care Provider Schuyler Molina Unavailable [phone] REASON FOR VISIT cancel appt Encounters Encounter Location Date Provider Diagnosis [facility] [address] [place] [address] 06/06/2024 Schuyler Coker Plan Of Treatment Next Appt Details Provider Name:Schuyler Coker , 10/02/2024 04:00:00 PM, [address], [address], [place], [address], Progress Notes * KELLI LEWIS GDOB:[birth year] (68 yo F)Acc No.[id number]:06/06/2024 Patient:?KELLI LEWIS :1955???Age:68 Y???Sex:Female Address:[address] [place] [address], , [place], [address] * true * Date:? Generated for Printi ng/Faandrewg/eTransmitting on:?08/09/2024 03:06 PM EDT
--- OUTSIDE RECORDS SUMMARY | 2024-08-09 15:06 | XMS_ITS | Patient Health Record ---
Author Organization [facility] Address [address] [place] [address] Care Team Providers Care Quantitative Equity Head Name Role Phone Ronal Orozco MD Primary Care Provider Schuyler Molina [phone] Reason For Referral No Information Medications Medication [...] EN LA MA?KEITH Oral for 90 Active Bajgfvlozh-EPUR-Jxvmakhk 50-325-40 MG TAKE 1 TABLET 2 TO [...] W/U Status Risk Notes Problem Epigastric pain (21681338) Epigastric abdominal pain (R10.13) Active confirmed Problem 331527650 Encounter for screening for malignant neoplasm of colon (Z12.11) Active confirmed Problem Gastroesophageal reflux disease (367681567) Gastroesophageal reflux disease, esophagitis presence not specified (K21.9) Active confirmed Problem [id number] Pre-procedural examination (Z01.818) Active confirmed Problem Family history of malignant neoplasm of gastrointestinal tract (865089385) Family history of colon cancer in father (Z80.0) Active confirmed Encounters Encounter Location Date Provider Diagnosis [facility] [address] [place] [address] 10/10/2023 Schuyler Coker [facility] [address] [place] [address] 02/07/2024 Schuyler Coker [facility] [address] [place] [address] 06/06/2024 Schuyler Coker Plan Of Treatment Future Test Test Name Order Date UPPER GI ENDOSCOPY 07/25/2018 UPPER GI ENDOSCOPY 06/26/2020 COLONOSCOPY 06/26/2020 Next Appt Details Provider Name:Schuyler Coker , 10/02/2024 04:00:00 PM, [address] [facility], [address], [place], [address], Insurance Providers Payer Name Payer Address Payer Phone Subscriber Number Group Number Insured Name Patient Relationship to Insured Coverage Start Date Coverage End Date [facility] Medicare Advantage Plan [address] [address] [place] [address] [phone] [id number] KELLI LEWIS Self - patient is the insured Medical (General) History Medical History History ICD Code Denies GA,DM,CVA,Lung disease,renal dise ase Legally blind Depression HTN Diverticulitis x 3 episodes. Describes a colonoscopy in [place] in approx. 2014 that showed diverticulosis, but was otherwise neg. for polyps Depression Back pain GERD--EGD 08/2018 with a smal l HH, mild gastritis, no H.pylori, no Padilla's nor esophagitis Surgical History Surgery Date(Month/Year) Eye surgery--congenital cataracts [facility] BTL
--- OUTSIDE RECORDS SUMMARY | 2024-08-09 15:06 | XMS_ITS ---
Author Organization [facility] Address [address] [place] [address] Care Team Providers Care Construction Code Administrator Name Role Phone Ernesto BAILEY, Ronal Primary Care Provider Schuyler Molina [phone] REASON FOR VISIT Patient presents today for abdominal pain Encounters Encounter Location Date Provider Diagnosis [facility] [address] [facility] [address] [place] [address] 06/06/2024 Schuyler Coker Plan Of Treatment Next Appt Details Provider Name:Schuyler Coker , 10/02/2024 04:00:00 PM, [address], [address], [place], [address], Progress Notes * KELLI LEWIS GDOB:[birth year] (68 yo F)Acc No.[id number]:06/06/2024 Progress Notes Patient:?KELLI LEWIS Provider:?Schuyler Ckoer MD :1955???Age:68 Y???Sex:Female D ate:06/06/2024 Address:[address] [place] [address], , [facility] Pcp:Ronal Orozco MD Subjective: * Chief Complaints: [...] MD Date:? 025 Generated for Tessa arreguin/Inocencio/Te on:?08/09/2024 03:05 PM EDT
--- NOTE | 2024-08-09 15:07 | PFT_ITS ---
Flows: FEV1: 66 % of predicted at 1.40 L FVC: 79 % of predicted at 2.13 L FEV1/FVC: 66 % Bronchodilator response: Present Volumes: Total lung capacity: 78 % of predicted at 3.66 L Residual volume: 86 % of predicted at 1.52 L Slow vital capacity: 74 % of predicted at 2.14 L Expiratory reserve volume: 55 % of predicted at 0.38 L Diffusion capacity: Normal Impression: Combined moderate obstructive and restrictive ventilatory defects with positive bronchodilator response. Decreased expiratory reserve volume suggests extrathoracic restriction likely secondary to abdominal obesity. MTDD
[2024-08-09 15:51] VITALS: PULSE 86; O2SAT 96
== END 2024-08-09 15:03 | disposition home or self-care (01) ==
LOC: HO.RESP 15:02
PROVIDERS: PCP Internal Medicine; Visit Provider Nurse Practitioner Family
DX: R06.09 Other forms of dyspnea (principal)
CPT/HCPCS: 94010; 94640; 94727; 94729

== ENCOUNTER → 2024-08-09 15:07 | Outpatient (BNV) | payer MEDICARE, MEDICAID, SELFPAY | PROVIDERS: PCP Internal Medicine; Visit Provider Internal Medicine Pulmonary Disease | DX: R06.09 Other forms of dyspnea (principal) | CPT/HCPCS: 94060; 94727; 94729 ==

== ENCOUNTER 2024-08-23 13:12 | Outpatient (REF) | payer MEDICARE, MEDICAID, SELFPAY ==
--- NOTE | ~2024-08-23 | CT_ITS ---
CLINICAL HISTORY: F17.210 - Nicotine dependence, cigarettes, uncomplicated CT chest without contrast Comparison: None Findings: No mediastinal mass or lymphadenopathy. Unremarkable heart and vasculature. Solid pulmonary nodule measuring 4 mm (right upper lobe series 4, image 56). Subsegmental atelectasis versus linear scarring in the lingula. Mild emphysema. No pneumothorax or pleural effusion. No acute osseous or soft tissue abnormality. No acute pathology in the imaged portion of the upper abdomen. Pancreatic lipomatosis. Status post cholecystectomy. Impression: No acute findings. 4 mm nodule in the right upper lobe. 5 mm or smaller nodules need no follow-up in low risk, and [address] follow-up is optional in high risk patients. This document has been electronically signed by: Nora Rivera MD on 08/26/2024 17:14:53
== END 2024-08-23 13:13 | disposition home or self-care (01) ==
LOC: HO.CT 13:12
PROVIDERS: PCP Internal Medicine; Visit Provider Nurse Practitioner Family
DX: G47.34 Idiopathic sleep related nonobstructive alveolar hypoventilation (principal); F17.210 Nicotine dependence, cigarettes, uncomplicated
CPT/HCPCS: 71250

== ENCOUNTER → 2024-08-23 13:16 | Outpatient (BNV) | payer MEDICARE, MEDICAID, SELFPAY | PROVIDERS: PCP Internal Medicine; Visit Provider Radiology Diagnostic Radiology | DX: R91.1 Solitary pulmonary nodule (principal) | CPT/HCPCS: 71250 ==

== ENCOUNTER 2024-09-04 10:36 | Outpatient (AMB) | payer MEDICARE, MEDICAID, SELFPAY ==
--- NOTE | 2024-09-04 10:40 | MHC.OFFVIS ---
Vital Signs 09/04/24 10:42 Height 5 ft 2 in Weight 209 lb 4 oz BMI 38.3 BP 120/70 Blood Pressure Location Rt brachial Position Sitting Pulse 99 Pulse Source Pulse Oximeter Pulse Oximetry (%) 93 Oxygen Delivery Method Room Air Intake Visit Reasons: Dyspnea on exertion Allergies No Known Allergies [No Known Allergies*] Allergy (Verified 09/04/24 10:47) HPI HPI Dyspnea on exertion: Details: Paty is a pleasant 68 year old female, current smoker with 25 pack year history with underlying GERD, HTN, Bipolar, and HLD. At the last visit, we had discussed nocturnal supplemental oxygen as prior in lab PSG revealed nocturnal hypoxemia average SpO2 92 % with O2 nadeen 76% and SpO2 under 88% for 28 minutes of sleep study time. During the study 1L of supplemental oxygen was placed with resolution of hypoxemia. She previously declined however agreeable today. She continues to smoke 1/2 ppd, not interested in smoking cessation at this time. She continues to report wheezing, mostly at night, dyspnea with exertion and dry cough which she attributes to post nasal drip. Today she presents to review PFT results. [facility] Medical History Hyperlipidemia Morbid obesity with BMI of 40.0-44.9, adult Allergic rhinitis Insomnia Smoker Bipolar affective disorder Generalized anxiety disorder Right lumbar radiculopathy GERD without esophagitis Benign essential hypertension Impacted cerumen of both ears Nasal congestion Obesity (BMI 30-39.9) Impaired glucose tolerance History of diverticulitis Back pain Lumbar degenerative disc disease Hypertension GERD (gastroesophageal reflux disease) Bipolar disorder Vitamin D deficiency Surgical History History of eye removal Hx of cataract surgery H/O colonoscopy History of esophagogastroduodenoscopy (EGD) History of tubal ligation History of cholecystectomy Family History Father Colon cancer Mother Primary cancer of bone marrow Sister Leukemia Social History Housing: Apartment Alcohol intake: never Patient Tobacco Use Status: Current everyday Tobacco user Tobacco use type: Cigarette Cigarettes Per Day: 8 e-Cigarette/Vaping Use: Never Used Second Hand Smoke Exposure: Yes service: No Current occupational status: unemployed Cognitive needs: No Hearing needs: No Vision needs: No Review of Systems Const Denies chills, Denies excessive sweating, Denies fever(s), Denies headache(s) and Denies night sweats Eyes Denies dry eyes, Denies irritation and Denies itchy eyes ENT Reports Normal hearing present, Denies headache(s), Denies nasal congestion, Denies nasal discharge and Denies sore throat Card Denies chest pain, Denies chest pain at rest, Denies chest pain with activity, Denies claudication, Denies leg edema, Denies orthopnea and Denies paroxysmal nocturnal dyspnea Resp Denies chest congestion, Denies excessive phlegm production, Denies pain on inspiration, Denies pain with cough and Denies stridor Musc Denies myalgias Neuro Reports Normal hearing present and Denies headache(s) Endo Denies excessive sweating Pietro/Lymph Denies lymphadenopathy Aller/Immun Denies itchy eyes and Denies seasonal rhinorrhea Physical Exam Vital Signs: Last Vital Signs Pulse 99 09/04/24 10:42 BP 120/70 09/04/24 10:42 Pulse Ox 93 09/04/24 10:42 Oxygen Delivery Method Room Air 09/04/24 10:42 BMI result Body Mass Index 38.3 Const General: cooperative, healthy appearing, comfortable, no acute distress, well developed and alert Nutritional Appearance: obese Orientation/consciousness: patient oriented x3 Limitations: ambulation with walker HEENT Head: Yes normal to inspection, Yes normocephalic and Yes atraumatic Ears: hearing grossly normal bilaterally and external ears normal Eyes Eyelids: Yes eyelids normal Sclerae: sclerae normal EOM: Nystagmus present (left eye) Neck Neck: Yes normal visual inspection and Yes no lymphadenopathy Lymphatic: no lymphadenopathy noted Chest Chest palpation & inspection: normal inspection of the chest Resp Effort & Inspection: normal respiratory effort, able to speak in complete sentences, no audible wheezes, no cough, no stridor, not tachypneic, no tripod positioning and no use of accessory muscles Auscultation: diminished lung sounds Cardio Jugular venous distension: no JVD Rate: regular rate Rhythm: regular rhythm Skin Other: warm, dry General skin exam: no rashes or lesions noted Neuro General: patient oriented x3 Cranial nerves: Yes Normal hearing present and Yes Nystagmus present (left eye) Cognition (Neuro): normal cognition Gait exam (Neuro): Normal gait present Extrem General: Yes normal to inspection, Yes capillary refill normal, Yes no clubbing, cyanosis or edema and Yes no pedal edema Psych Appearance: grossly normal and well kempt Speech and movement: Normal speech and movement present and Clear speech present Affect: normal affect Attitude: cooperative Thought process: Normal thought process present Thought content: Normal thought content present Insight: Good insight present (Psych) Judgement: Good judgement present (Psych) Results Reviewed Results Reviewed: [address] [address] [address] Scan Report Signed Patient: Paty Montgomery MR#: [id number] : 1955 Acct:[id number] Age/Sex: 68 / F ADM Date: 08/23/24 Loc: HO.CT Attending Dr: Ana Spivey NP Ordering Physician: Ana Spivey NP Date of Service: 08/23/24 Procedure(s): CT chest wo IV con Accession Number(s): [id number] cc: Ronal Orozco MD; Ana Spivey NP~ Report Number: [id number]: Total DLP = 192.00 mGy-cm CLINICAL HISTORY: F17.210 - Nicotine dependence, cigarettes, uncomplicated CT chest without contrast Comparison: None Findings: No mediastinal mass or lymphadenopathy. Unremarkable heart and vasculature. Solid pulmonary nodule measuring 4 mm (right upper lobe series 4, image 56). Subsegmental atelectasis versus linear scarring in the lingula. Mild emphysema. No pneumothorax or pleural effusion. No acute osseous or soft tissue abnormality. No acute pathology in the imaged portion of the upper abdomen. Pancreatic lipomatosis. Status post cholecystectomy. Impression: No acute findings. 4 mm nodule in the right upper lobe. 5 mm or smaller nodules need no follow-up in low risk, and [address] follow-up is optional in high risk patients. This document has been electronically signed by: Nora Rivera MD on 08/26/2024 17:14:53 Dictated By: Nora Tucker MD Signed By: <Electronically signed by Nora Tucker MD in OV> 04/1714 DD/ 13 TD/TT: 08/26/241713 Neurology Stroke Physician: Assessment & Plan Assessment & Plan (1) Asthma: Code(s): J45.909 - Unspecified asthma, uncomplicated Category: Medical (2) Nocturnal hypoxemia: Code(s): G47.34 - Idiopathic sleep related nonobstructive alveolar hypoventilation Category: Medical (3) Dyspnea on exertion: Code(s): R06.09 - Other forms of dyspnea Category: Medical (4) Nicotine dependence, cigarettes, uncomplicated: Code(s): F17.210 - Nicotine dependence, cigarettes, uncomplicated Category: Medical (5) Pulmonary nodule: Code(s): R91.1 - Solitary pulmonary nodule Category: Medical Plan Reviewed PFT which revealed Combined moderate obstructive and restrictive ventilatory defects with positive bronchodilator response. Decreased expiratory reserve volume suggests extrathoracic restriction likely secondary to abdominal obesity. Will empirically trial Breo. Discussed importance of good oral hygien to prevent thrush. Discussed sending 1L supplemental oxygen for NOC which she is agreeable to. Reviewed chest CT which revealed 4mm pulmonary nodule of RUL, will repeat in one year to assess stability. Smoking cessation reviewed, patient not interested at this time. All questions were answered and patient is in agreement of plan. Will follow up in 6-8 weeks or sooner if needed. Orders: Orders CT chest wo IV con 11 Months R91.1 - Solitary pulmonary nodule Medications: New fluticasone furoate-vilanterol 100-25 mcg/dose (Breo Ellipta) 1 inh inhalation DAILY 60 ea 4RF Coding Level of Care Code Est Pt Level 4 (23805) Diagnoses Asthma J45.909 Nocturnal hypoxemia G47.34 Dyspnea on exertion R06.09 Nicotine dependence, cigarettes, uncomplicated F17.210 Pulmonary nodule R91.1
[2024-09-04 10:42] VITALS: BP 120/70; PULSE 99; O2SAT 93; BMI 38.3
--- OUTSIDE RECORDS SUMMARY | 2024-09-04 11:53 | XMS_ITS ---
Author Organization [facility] Address [address] [place] [address] Care Team Providers Care Grinder Set Up Operator Centerless Name Role Phone Ernesto BAILEY, Ronal Primary Care Provider Schuyler Molina [phone] REASON FOR VISIT Patient presents today for abdominal discomfort Encounters Encounter Location Date Provider Diagnosis [facility] [address] [facility] [address] [place] [address] 02/07/2024 Schuyler Coker Plan Of Treatment Next Appt Details Provider Name:Schuyler Coker , 10/02/2024 04:00:00 PM, [address], [address], [place], [address], Progress Notes * KELLI LEWIS GDOB:[birth year] (68 yo F)Acc No.[id number]:02/07/2024 Progress Notes Patient:?KELLI LEWIS Provider:?Schuyler Coker MD :1955???Age:68 Y???Sex:Female D ate:02/07/2024 Address:[address] [place] [address], , [facility] Pcp:Ronal Orozco MD Subjective: * Chief Complaints: [...] Coker MD Date:? 024 Generated for Tessa arreguin/Inocencio/Heleneitting on:?09/04/2024 11:53 AM EDT
--- OUTSIDE RECORDS SUMMARY | 2024-09-04 11:53 | XMS_ITS ---
Author Organization [facility] Address [address] [place] [address] Care Team Providers Care Pharmacovigilance Specialist Name Role Phone Ernesto BAILEY, Ronal Primary Care Provider Schuyler Molina Unavailable [phone] REASON FOR VISIT cancel appt Encounters Encounter Location Date Provider Diagnosis [facility] [address] [place] [address] 06/06/2024 Schuyler Coker Plan Of Treatment Next Appt Details Provider Name:Schuyler Coker , 10/02/2024 04:00:00 PM, [address], [address], [place], [address], Progress Notes * KELLI LEWIS GDOB:[birth year] (68 yo F)Acc No.[id number]:06/06/2024 Patient:?KELLI LEWIS :1955???Age:68 Y???Sex:Female Address:[address] [place] [address], , [place], [address] * true * Date:? Generated for Printi ng/Faandrewg/eTransmitting on:?09/04/2024 11:53 AM EDT
--- OUTSIDE RECORDS SUMMARY | 2024-09-04 11:53 | XMS_ITS | Patient Health Record ---
Author Organization [facility] Address [address] [place] [address] Care Team Providers Care Architecture Department Chair Name Role Phone Ronal Orozco MD Primary Care Provider Schuyler Molina [phone] Reason For Referral No Information Medications Medication [...] EN LA MA?KEITH Oral for 90 Active Jukpgunjqm-XDIM-Msyuntvp 50-325-40 MG TAKE 1 TABLET 2 TO [...] W/U Status Risk Notes Problem Epigastric pain (46887359) Epigastric abdominal pain (R10.13) Active confirmed Problem 506014843 Encounter for screening for malignant neoplasm of colon (Z12.11) Active confirmed Problem Gastroesophageal reflux disease (127170772) Gastroesophageal reflux disease, esophagitis presence not specified (K21.9) Active confirmed Problem 616751897586652 Pre-procedural examination (Z01.818) Active confirmed Problem Family history of malignant neoplasm of gastrointestinal tract (872236033) Family history of colon cancer in father (Z80.0) Active confirmed Encounters Encounter Location Date Provider Diagnosis [facility] [address] [place] [address] 10/10/2023 Schuyler Coker [facility] [address] [place] [address] 02/07/2024 Schuyler Coker [facility] [address] [place] [address] 06/06/2024 Schuyler Coker Plan Of Treatment Future Test Test Name Order Date UPPER GI ENDOSCOPY 07/25/2018 UPPER GI ENDOSCOPY 06/26/2020 COLONOSCOPY 06/26/2020 Next Appt Details Provider Name:Schuyler Coker , 10/02/2024 04:00:00 PM, [address] [facility], [address], [place], [address], Insurance Providers Payer Name Payer Address Payer Phone Subscriber Number Group Number Insured Name Patient Relationship to Insured Coverage Start Date Coverage End Date [facility] Medicare Advantage Plan [address] [address] [place] [address] [id number] KELLI LEWIS Self - patient is the insured Medical (General) History Medical History History ICD Code Denies ME,DM,CVA,Lung disease,renal dise ase Legally blind Depression HTN Diverticulitis x 3 episodes. Describes a colonoscopy in [place] in approx. 2014 that showed diverticulosis, but was otherwise neg. for polyps Depression Back pain GERD--EGD 08/2018 with a smal l HH, mild gastritis, no H.pylori, no Padilla's nor esophagitis Surgical History Surgery Date(Month/Year) Eye surgery--congenital cataracts [facility] BTL
--- OUTSIDE RECORDS SUMMARY | 2024-09-04 11:53 | XMS_ITS ---
Author Organization [facility] Address [address] [place] [address] Care Team Providers Care Manager Money Name Role Phone Ernesto BAILEY, Ronal Primary Care Provider Schuyler Molina [phone] REASON FOR VISIT Patient presents today for abdominal pain Encounters Encounter Location Date Provider Diagnosis [facility] [address] [facility] [address] [place] [address] 06/06/2024 Schuyler Coker Plan Of Treatment Next Appt Details Provider Name:Schuyler Coker , 10/02/2024 04:00:00 PM, [address], [address], [place], [address], Progress Notes * KELLI LEWIS GDOB:[birth year] (68 yo F)Acc No.[id number]:06/06/2024 Progress Notes Patient:?KELLI LEWIS Provider:?Schuyler Coker MD :1955???Age:68 Y???Sex:Female D ate:06/06/2024 Address:[address] [place] [address], , [id number] Pcp:Ronal Orozco MD Subjective: * Chief Complaints: [...] Coker MD Date:? 025 Generated for Tessa arreguin/Inocencio/Heleneitting on:?09/04/2024 11:53 AM EDT
== END 2024-09-04 11:06 | disposition home or self-care (01) ==
LOC: HO.HPSW 10:36
PROVIDERS: PCP Internal Medicine; Visit Provider Nurse Practitioner Family
DX: J45.909 Unspecified asthma, uncomplicated (principal); G47.34 Idiopathic sleep related nonobstructive alveolar hypoventilation; R06.09 Other forms of dyspnea; F17.210 Nicotine dependence, cigarettes, uncomplicated; R91.1 Solitary pulmonary nodule
CPT/HCPCS: 99214

== ENCOUNTER → 2024-09-04 10:36 | Outpatient (BNVA) | payer MEDICARE, MEDICAID, SELFPAY | PROVIDERS: PCP Internal Medicine; Visit Provider Nurse Practitioner Family | DX: J45.909 Unspecified asthma, uncomplicated (principal); G47.34 Idiopathic sleep related nonobstructive alveolar hypoventilation; R06.09 Other forms of dyspnea; R91.1 Solitary pulmonary nodule; F17.210 Nicotine dependence, cigarettes, uncomplicated | CPT/HCPCS: 99212 ==

== ENCOUNTER 2024-11-25 17:47 | Outpatient (REF) | payer MEDICARE, MEDICAID, SELFPAY ==
--- OUTSIDE RECORDS SUMMARY | 2024-02-07 10:40 | XMS_ITS ---
Author Organization [facility] Address [address] [place] [phone] Care Team Providers Care Sales And Marketing Administrator Name Role Phone Ronal Orozco MD Primary Care Provider UnaSchuyler Weber [facility] [phone] REASON FOR VISIT Patient presents today for abdominal discomfort Encounters Encounter Location Date Provider Diagnosis [facility] [address] [place] [phone] 02/07/2024 Schuyler Coker Plan Of Treatment Next Appt Details Provider Name:Schuyler Coker , 12/09/2024 02:40:00 PM, [address] [place] [address], [phone], Progress Notes * DEBBIE GASTELUMKELLINayla LADOB:1955 (69 yo F)Acc No.[id number]:02/07/2024 Progress Notes Patient: KELLI OJEDA Provider: Filiberto Coker MD :1955 A ge:68 Y S ex:Female Date:02/07/2024 Address:[address] [place] [address] Pcp:Ronal Orozco MD Subjective: * Chief Complaints: [...] 1 Generated for Tessa arreguin/Inocencio/Te on: 0 11/25/2024 05:50 PM EDT
--- NOTE | ~2024-11-25 | MR_ITS ---
EXAMINATION: MR CERVICAL SPINE WITHOUT CONTRAST CLINICAL INFORMATION: Spinal stenosis/myelopathy. Upper extremity pain COMPARISON: None available. TECHNIQUE: MRI of the cervical spine was obtained using routine sequences without contrast. FINDINGS: Craniocervical junction is intact. No bone marrow STIR signal abnormality. Disc desiccation, decreased intervertebral disc height, marginal osteophyte formation C5-6 and to a lesser extent C4-5: C3-4 and C6-7 levels. Normal alignment. Cervical spinal cord signal is normal. Borderline position of the cerebellar tonsils. Questionable focal 3 mm CSF equivalent signal in the mid brain no fully included in the [id number]. C2-3: Right-sided disc osteophyte compresses formation. No cord compression. No neuroforamina stenosis. C3-4: Broad-based disc osteophyte complex formation. No cord compression. No neuroforamina stenosis. C4-5: Broad-based disc osteophyte compresses formation. No cord compression. No neuroforamina stenosis. C5-6: Broad-based disc osteophyte compresses formation. Reduced AP diameter of the thecal sac. Bilateral neuroforamina narrowing right greater than left. No cord compression. C6-7: Central disc osteophyte compresses formation abutting the spinal cord. No cord compression. No neuroforamina stenosis. Bilateral perineural cysts. C7-T1: Broad-based disc osteophyte compresses formation. No cord compression. No neuroforamina stenosis. No prevertebral compartment hematoma, mass or fluid collection. Flow-void signal within the main vessels is normal. Codominant vertebral arteries. Retropharyngeal trajectory of the carotic arteries. MR/MR cervical spine wo con IMPRESSION: Multilevel cervical spondylosis C3 C7 pronounced at C5-6, C6-7 without cord compression, cord edema and or myelopathy. Bilateral neuroforamina narrowing at C5-6 on a degenerative basis. Electronically signed by: Rodolfo Templeton MD 11/26/2024 07:13 AM EDT
== END 2024-11-25 17:48 | disposition home or self-care (01) ==
LOC: HO.MRI 17:47
PROVIDERS: PCP Internal Medicine; Visit Provider Nurse Practitioner Family
DX: R26.81 Unsteadiness on feet (principal); M54.6 Pain in thoracic spine
CPT/HCPCS: 72141

== ENCOUNTER → 2024-11-25 18:00 | Outpatient (BNV) | payer MEDICARE, MEDICAID, SELFPAY | PROVIDERS: PCP Internal Medicine; Visit Provider Radiology Diagnostic Radiology | DX: M47.812 Spondylosis without myelopathy or radiculopathy, cervical region (principal) | CPT/HCPCS: 72141 ==

== ENCOUNTER 2024-11-26 13:47 | Outpatient (AMB) | payer MEDICARE, MEDICAID, SELFPAY ==
--- OUTSIDE RECORDS SUMMARY | 2024-02-07 10:40 | XMS_ITS ---
Author Organization [facility] Address [address] [place] [phone] Care Team Providers Care Architectural Wood Model Maker Name Role Phone Ronal Orozco MD Primary Care Provider UnaSchuyler Weber [facility] [phone] REASON FOR VISIT Patient presents today for abdominal discomfort Encounters Encounter Location Date Provider Diagnosis [facility] [address] [place] [phone] 02/07/2024 Schuyler Coker Plan Of Treatment Next Appt Details Provider Name:Schuyler Coker , 12/09/2024 02:40:00 PM, [address] [place] [address], [phone], Progress Notes * DEBBIE GASTELUMKELLINayla LADOB:1955 (69 yo F)Acc No.[id number]:02/07/2024 Progress Notes Patient: KELLI OJEDA Provider: Filiberto Coker MD :1955 A ge:68 Y S ex:Female Date:02/07/2024 Address:[address] [place] [address] Pcp:Ronal Orozco MD Subjective: * Chief Complaints: * 1 . Patient presents today for abdominal discomfort. * Medical History: Objective: * Vitals: Assessment: Plan: * Treatment: * * The named appointment provid er may or may not be the originator of this progress note, and it is not deemed complete until electronically signed by the appointment provider. Sign off status: Pending * Provider: Filiberto Coker MD Date: 1 Generated for Tessa arreguin/Inocencio/Te on: 0 11/26/2024 02:32 PM EDT
[2024-11-26 13:49] VITALS: BP 104/68; PULSE 81; O2SAT 94; BMI 37.7
--- NOTE | 2024-11-26 13:49 | MHC.OFFVIS ---
Vital Signs 11/26/24 13:49 Height 5 ft 2 in Weight 206 lb 4 oz BMI 37.7 BP 104/68 Blood Pressure Location Rt brachial Position Sitting Pulse 81 Pulse Source Pulse Oximeter Pulse Oximetry (%) 94 Oxygen Delivery Method Room Air Intake Visit Reasons: Dyspnea on exertion Allergies No Known Allergies (No Known Allergies*) Allergy (Verified 11/26/24 13:54) HPI HPI Dyspnea on exertion: Details: Paty is a pleasant 69 year old female, current smoker with 25 pack year history with underlying GERD, HTN, Bipolar, and HLD. At the last visit, PFT revealed findings suggestive of asthma and started on Breo. She reports improvements in dyspnea and cough during the day however dry cough persists at night. Initially she attributed to post nasal drip however may be related to poorly controlled asthma. She does not have an albuterol MDI. She was started on 1L nocturnal supplemental oxygen as prior in lab PSG revealed nocturnal hypoxemia average SpO2 92 % with O2 nadeen 76% and SpO2 under 88% for 28 minutes of sleep study time. Unfortunately, she can not tolerate supplemental oxygen and is declining further treatment despite risks of hypoxemia. She continues to smoke 1/2 ppd, not interested in smoking cessation at this time. [facility] Medical History Hyperlipidemia Morbid obesity with BMI of 40.0-44.9, adult Allergic rhinitis Insomnia Smoker Bipolar affective disorder Generalized anxiety disorder Right lumbar radiculopathy GERD without esophagitis Benign essential hypertension Impacted cerumen of both ears Nasal congestion Obesity (BMI 30-39.9) Impaired glucose tolerance History of diverticulitis Back pain Lumbar degenerative disc disease Hypertension GERD (gastroesophageal reflux disease) Bipolar disorder Vitamin D deficiency Surgical History History of eye removal Hx of cataract surgery H/O colonoscopy History of esophagogastroduodenoscopy (EGD) History of tubal ligation History of cholecystectomy Family History Father Colon cancer Mother Primary cancer of bone marrow Sister Leukemia Social History (Updated 11/26/24 @ 13:54 by Corazon Lan [facility]) Housing: Apartment Alcohol intake: never Patient Tobacco Use Status: Current everyday Tobacco user Tobacco use type: Cigarette Cigarettes Per Day: 7 e-Cigarette/Vaping Use: Never Used Second Hand Smoke Exposure: Yes service: No Current occupational status: unemployed Cognitive needs: No Hearing needs: No Vision needs: No Review of Systems Const Denies chills, Denies excessive sweating, Denies fever(s), Denies headache(s) and Denies night sweats Eyes Denies dry eyes, Denies irritation and Denies itchy eyes ENT Reports Normal hearing present, Denies headache(s), Denies nasal congestion, Denies nasal discharge and Denies sore throat Card Denies chest pain, Denies chest pain at rest, Denies chest pain with activity, Denies claudication, Denies leg edema, Denies orthopnea and Denies paroxysmal nocturnal dyspnea Resp Denies chest congestion, Denies excessive phlegm production, Denies pain on inspiration, Denies pain with cough and Denies stridor Musc Denies myalgias Neuro Reports Normal hearing present and Denies headache(s) Endo Denies excessive sweating Pietro/Lymph Denies lymphadenopathy Aller/Immun Denies itchy eyes and Denies seasonal rhinorrhea Physical Exam Vital Signs: Last Vital Signs Pulse 81 11/26/24 13:49 BP 104/68 11/26/24 13:49 Pulse Ox 94 11/26/24 13:49 Oxygen Delivery Method Room Air 11/26/24 13:49 BMI result Body Mass Index 37.7 Const General: cooperative, healthy appearing, comfortable, no acute distress, well developed and alert Nutritional Appearance: obese Orientation/consciousness: patient oriented x3 Limitations: ambulation with walker HEENT Head: Yes normal to inspection, Yes normocephalic and Yes atraumatic Ears: hearing grossly normal bilaterally and external ears normal Eyes Eyelids: Yes eyelids normal Sclerae: sclerae normal EOM: Nystagmus present (left eye) Neck Neck: Yes normal visual inspection and Yes no lymphadenopathy Lymphatic: no lymphadenopathy noted Chest Chest palpation & inspection: normal inspection of the chest Resp Effort & Inspection: normal respiratory effort, able to speak in complete sentences, no audible wheezes, no cough, no stridor, not tachypneic, no tripod positioning and no use of accessory muscles Auscultation: diminished lung sounds Cardio Jugular venous distension: no JVD Rate: regular rate Rhythm: regular rhythm Skin Other: warm, dry General skin exam: no rashes or lesions noted Neuro General: patient oriented x3 Cranial nerves: Yes Normal hearing present and Yes Nystagmus present (left eye) Cognition (Neuro): normal cognition Gait exam (Neuro): Normal gait present Extrem General: Yes normal to inspection, Yes capillary refill normal, Yes no clubbing, cyanosis or edema and Yes no pedal edema Psych Appearance: grossly normal and well kempt Speech and movement: Normal speech and movement present and Clear speech present Affect: normal affect Attitude: cooperative Thought process: Normal thought process present Thought content: Normal thought content present Insight: Good insight present (Psych) Judgement: Good judgement present (Psych) Assessment & Plan Assessment & Plan (1) Asthma: Code(s): J45.909 - Unspecified asthma, uncomplicated Category: Medical (2) Nocturnal hypoxemia: Code(s): G47.34 - Idiopathic sleep related nonobstructive alveolar hypoventilation Category: Medical (3) Nicotine dependence, cigarettes, uncomplicated: Code(s): F17.210 - Nicotine dependence, cigarettes, uncomplicated Category: Medical (4) Pulmonary nodule: Code(s): R91.1 - Solitary pulmonary nodule Category: Medical Plan Patient reports overall improvements since initiating Breo, advised to continue and will send albuterol MDI PRN. May need to consider increasing Breo. Discussed necessity of 1L supplemental oxygen for NOC however she states the concentrator is significantly effecting her ability to sleep and is declining further treatment despite risks associated with hypoxia. Will send d/c letter to [facility]. Prior chest CT 07/2024 revealed 4mm pulmonary nodule of RUL, order placed to repeat in one year to assess stability. Smoking cessation reviewed, patient not interested at this time. All questions were answered and patient is in agreement of plan. Will follow up in 8-10 weeks or sooner if needed. Medications: New albuterol sulfate 90 mcg/actuation 2 puffs inhalation Q4-6H PRN 1 ea 3RF shortness of breath or wheezing J45.909 - Unspecified asthma, uncomplicated Coding Level of Care Code Est Pt Level 4 (23862) Diagnoses Asthma J45.909 Nocturnal hypoxemia G47.34 Nicotine dependence, cigarettes, uncomplicated F17.210 Pulmonary nodule R91.1
--- OUTSIDE RECORDS SUMMARY | 2024-11-26 14:32 | XMS_ITS | Clinical Summary ---
Author Organization [facility] Address [address] [address] Phone Care Team Providers Care Desulphurizer Operator Name Role Phone Ronal Orozco MD Primary Care Provider [phone] Allergies No known active allergies Medications traMADol [...] this topic Medical Devices Implanted Type Area Cell Phone Repair Technician Device Identifier Shelf Expiration Date Model / Serial / Lot Conformer Yoandy Medium - [id number] Implanted:Qty: 1 on 01/11/2022 by Frederic Franco MD at [facility] Right: Eye [employer] 02/28/2025 [id number] / / [id number] Implant Globe Yoandy 22mm - [id number] Implanted:Qty: 1 on 01/11/2022 by Frederic Franco MD at [facility] Right: Eye [employer] [id number] / / Procedures Procedure Name Priority Date/Time Associated Diagnosis Comments BASIC METABOLIC PANEL STAT 11/27/2022 1:06 PM EDT from Last 3 Months or Most Recently Relevant to Health Maintenance Results * (ABNORMAL) Basic metabolic panel (11/27/2022 1:06 PM EDT) SODIUM 140 133 - 146 mmol/L [facility] CHLORIDE 104 96 - 108 mmol/L [facility] POTASSIUM 4.6 3.3 - 5.1 mmol/L [facility] CO2 28 21 - 35 mmol/L [facility] BUN 11 6 - 19 mg/dL [facility] CREATININE 0.60 0.5 - 1.5 mg/dL [facility] GLUCOSE 104(H) 70 - 99 mg/dL [facility] CALCIUM 8.5 8.4 - 10.3 mg/dL [facility] EGFR 99 >59 mL/min/1.7 3m2 [facility] Comment:Estimated glomerular filtration rate calculated using the CKD-EPI refit equation. ANION GAP 13 10 - 20 mmol/L [facility] Blood 11/27/2022 1:06 PM EDT 11/27/2022 1:12 PM EDT us Farhad Norris DO LAB BLOOD ORDERABLES Final Re sult [facility] [address] [place] [address] from Last 3 Months or Most Recently Relevant to Health Maintenance Insurance [address] [place] [address] MEDICARE PART A & B [facility] MEDICARE REPLACEMENT [address] SAFETY NET FULL [address] [place] [address] MEDICARE PART A & B [facility] MEDICARE REPLACEMENT HEALTH SAFETY NET FULL [address] [place] [address] MEDICARE PART A & B [facility] MEDICARE REPLACEMENT [facility] SAFETY NET FULL HEALTH SAFETY NET FULL [facility] FULL MEDICARE PART A & B Member Subscriber Plan / Payer (Ef fective 2021-Present) Name:Paty Barraza Member ID:[id number] Relation to Subscriber:Self Name:Paty Barraza Subscriber ID:[id number] Payer ID:[id number] Group ID:Not on file Type:Medicare Address: [facility] [address] [place] [address] [facility] MEDICARE REPLACEMENT HEALTH SAFETY NET FULL [address] [place] [id number] [facility] SAFETY NET FULL MEDICARE PART A & B [facility] MEDICARE REPLACEMENT [facility] FULL [address] [place] [address] MEDICARE PART A & B [facility] MEDICARE REPLACEMENT HEALTH SAFETY NET FULL [address] [place] [address] MEDICARE PART A & B [facility] MEDICARE REPLACEMENT [address] NET FULL [facility] Care Teams Desulphurizer Operator Relationship Specialty Start Date End Date Ronal Orozco MD [address] [place] [address] [place] [address] PCP - General Internal Medicine 12/15/21 Additional Source Comments The information contained in this document represents components of the legal health record. It is not the complete legal health record.[facility]
== END 2024-11-26 14:12 | disposition home or self-care (01) ==
LOC: HO.HPSW 13:47
PROVIDERS: PCP Internal Medicine; Visit Provider Nurse Practitioner Family
DX: J45.909 Unspecified asthma, uncomplicated (principal); G47.34 Idiopathic sleep related nonobstructive alveolar hypoventilation; F17.210 Nicotine dependence, cigarettes, uncomplicated; R91.1 Solitary pulmonary nodule
CPT/HCPCS: 99214

== ENCOUNTER → 2024-11-26 13:47 | Outpatient (BNVA) | payer MEDICARE, MEDICAID, SELFPAY | PROVIDERS: PCP Internal Medicine; Visit Provider Nurse Practitioner Family | DX: G47.34 Idiopathic sleep related nonobstructive alveolar hypoventilation (principal); J45.909 Unspecified asthma, uncomplicated; R91.1 Solitary pulmonary nodule; F17.210 Nicotine dependence, cigarettes, uncomplicated | CPT/HCPCS: 99212 ==

== ENCOUNTER 2024-12-12 14:08 | Outpatient (AMB) | payer MEDICARE, MEDICAID, SELFPAY ==
--- OUTSIDE RECORDS SUMMARY | 2024-12-09 09:40 | XMS_ITS ---
Author Organization [facility] Address [address] [place] [address] Care Team Providers Care Corporate Tax Manager Name Role Phone Ronal Orozco MD Primary Care Provider UnaSchuyler [facility] [phone] REASON FOR VISIT reflux barretts esophagus/fm hx of colon cancer Encounters Encounter Location Date Provider Diagnosis [facility] [place] [address] [place] [phone] 12/09/2024 Schuyler Coker Plan Of Treatment Next Appt Details Provider Name:Schuyler Coker , 12/25/2024 11:30:00 AM, [address] [place] [address], [id number], Progress Notes * KELLI BANERJEE LADOB:1955 (69 yo F)Acc No.[id number]:12/09/2024 EGD and COL/MAC Patient: S FANTA KELLI GASTELUM Provider: Filiberto Coker MD :1955 A ge:69 Y S ex:Female Date:12/09/2024 Address:[address] [place] [address] Pcp:Ronal Orozco MD Subjective: * Chief Complaints: * 1 . Reflux barretts esophagus/fm hx of colon cancer. * Medical History: Objective: * Vitals: Assessment: Plan: * Treatment: * * The named appointment provid er may or may not be the originator of this progress note, and it is not deemed complete until electronically signed by the appointment provider. Sign off status: Pending * Provider: Filiberto Coker MD Date: 12/09/2024 Generated for Tessa arreguin/Inocencio/Te on: 12/12/2024 02:57 PM EDT
[2024-12-12 14:10] VITALS: BP 110/80; PULSE 87; O2SAT 93; BMI 37.7
--- NOTE | 2024-12-12 14:10 | A.OFFVIS_ITS ---
Vital Signs 12/12/24 14:10 Height 5 ft 2 in Weight 206 lb BMI 37.7 BP 110/80 Blood Pressure Location Rt brachial Position Sitting Pulse 87 Pulse Source Pulse Oximeter Pulse Oximetry (%) 93 Oxygen Delivery Method Room Air Intake Visit Reasons: 6 mnts f/u appt Intake Note: Patient present follow up Migraine. Pulm seen 07/09 Glass Cutting Machine Operator Required: No Accompanied by: Self / Same As Patient Allergies No Known Allergies (No Known Allergies*) Allergy (Verified 12/12/24 14:24) Medication List - Last Reconciled 12/12/24 by JANINE Morgan albuterol sulfate 90 mcg/actuation 2 puffs inhalation Q4-6H PRN amlodipine 10 mg PO DAILY blood pressure test kit-large As directed clonazepam 1 mg PO BID PRN duloxetine 60 mg PO DAILY fluticasone furoate-vilanterol 100-25 mcg/dose (Breo Ellipta) 1 inh inhalation DAILY fluticasone propionate 50 mcg/actuation 2 sprays intranasal DAILY PRN 30 days gabapentin 800 mg PO TID loratadine 10 mg PO DAILY 90 days losartan 100 mg PO DAILY magnesium glycinate 400 mg (4 x 100 mg magnesium) PO BEDTIME 90 days pantoprazole 40 mg PO DAILY trazodone 200 mg PO BEDTIME PRN walker Adult folding 4-wheeled rolling seated walker- use when walking HPI Comments Details: 69-yr-old female presents for f/u visit of headache and follow-up of sleep study. Pt denies any significant interval medical changes. However, pt states she is worried about her unintentional weight loss as her father had colon CA, though notes taht she is scheduled for f/u endo/colonoscopy later this month through [facility]. Pt has established care w/ pulmonology. Patient was started on Breo and albuterol inhaler for asthma treatment. Patient was started on supplemental O2 1 L/min for nocturnal hypoxemia, however patient declined to continue using it as the concentrate her was interfering with her sleep. Chest CT did show a 4 mm pulmonary nodule in the RUL- pulmonary plans to do a repeat scan in 1 year. In the meantime, they will follow her closely. Patient states she has not had any recent headaches. She does have Nurtec and sumatriptan, which she states does help when she needs to take them. Still has moments of forgetting what she is about to day or forgetting the word she wants to see in German or Persian. Patient reports 2 weeks ago, she started not sleeping as well even when very tired, due to frequent arousals d/t nocturia, and waking up with back, arms, legs chest, or whole body pain. Denies recent infection or injury. She had recent c-spine MRI, ordered by [facility], which showed Multilevel cervical spondylosis C3 C7 pronounced at C5-6, C6-7 without cord compression, cord edema and or myelopathy. Bilateral neuroforamina narrowing at C5-6 on a degenerative basis. * Bedtime is between 1-2am * Wake-up time is 8am * Denies daytime naps- as this can make it harder to sleep * At times, may doze off unintentionally * Takes gabapentin 800mg tid and clonazepam bid and trazodone 200mg qhs. * denies leg cramps, muscle spasms- but states sometimes in her toes * denies constipation However she has been having neck and back pain. She states that if she is on the ground, she needs to now use her arms and legs to push herself up off ground. She recently underwent L-spine MRI which showed multilevel lumbar central canal stenosis and neuroforaminal stenosis. Her PCP has referred her for neurosurgical consult. 12/14/2023 in-lab PSG do not show any evidence of sleep apnea however did show nocturnal hypoxemia with AHI 3.5 per hour, no REM sleep was achieved, average SpO2 92 % with O2 nadeen 76% and SpO2 under 88% for 28 minutes of sleep study time, there was moderate to loud snoring, average heart rate 80.5 beats per minute with highest heart rate 103 beats per minute. Periodic limb movement of sleep 1.5 per hour with PLMS arousal index 0.3 per hour. [facility] Medical History (Updated 12/05/24 @ 15:15 by Chasity Gomez RN) Legally blind Nocturnal hypoxemia Hyperlipidemia Allergic rhinitis Insomnia Smoker Bipolar affective disorder Generalized anxiety disorder Right lumbar radiculopathy GERD without esophagitis Benign essential hypertension Nasal congestion Obesity (BMI 30-39.9) Impaired glucose tolerance History of diverticulitis Back pain Lumbar degenerative disc disease Hypertension Vitamin D deficiency Surgical History History of eye removal Hx of cataract surgery H/O colonoscopy History of esophagogastroduodenoscopy (EGD) History of tubal ligation History of cholecystectomy Family History Father Colon cancer Mother Primary cancer of bone marrow Sister Leukemia Social History Housing: Apartment Alcohol intake: never Patient Tobacco Use Status: Current everyday Tobacco user Tobacco use type: Cigarette Cigarettes Per Day: 7 e-Cigarette/Vaping Use: Never Used Second Hand Smoke Exposure: Yes service: No Current occupational status: unemployed Cognitive needs: No Hearing needs: No Vision needs: No Physical Exam Vital Signs: Last Vital Signs Pulse 87 12/12/24 14:10 BP 110/80 12/12/24 14:10 Pulse Ox 93 12/12/24 14:10 Oxygen Delivery Method Room Air 12/12/24 14:10 BMI result Body Mass Index 37.7 Const General: cooperative and no acute distress Orientation/consciousness: patient oriented x3 Resp Effort & Inspection: normal respiratory effort and able to speak in complete sentences Neuro Other: Right eye- resting in closed position Bilateral lower extremity hip flexion MS 5/5 Patient stands up easily, moves legs easily, crosses 1 leg over the other without difficulty. General: patient oriented x3 Cognition (Neuro): normal cognition Gait exam (Neuro): Assistive device used (Walker) Psych Appearance: grossly normal Mental Status: mental status grossly normal Speech and movement: Normal speech and movement present Affect: normal affect Attitude: cooperative Assessment & Plan Assessment & Plan (1) Nocturnal hypoxemia: Code(s): G47.34 - Idiopathic sleep related nonobstructive alveolar hypoventilation Category: Medical (2) KEMAL (obstructive sleep apnea): Code(s): G47.33 - Obstructive sleep apnea (adult) (pediatric) Category: Medical (3) Sleep difficulties: Code(s): G47.9 - Sleep disorder, unspecified Category: Medical Plan For patient's concern of weight loss: Patient is already scheduled for EGD/colonoscopy at the end of this month through [facility]. If weight loss persists, encouraged to follow-up with her PCP. For generalized body pain: Start magnesium glycinate 400 mg daily at bedtime Continue gabapentin 100 mg 3 times a day Reviewed recent C-spine MRI which were consistent with multilevel degenerative changes and mild central canal stenosis. Follow-up with [facility] as scheduled. Patient encouraged to engage in regular physical activity, such as water exercises through the local [facility], if her community relations police lieutenant agrees. Continue to use for the wheeled seated rolling walker. For cognitive and sleep difficulties: Follow-up with pulmonology to optimize asthma symptoms. If sleep and cognitive difficulties worsen, consider revisiting home supplemental O2, as previously recommended by pulmonology. ? For acute migraine tx: Pt may continue prn Sumatriptan 50-100mg for now. ? For migraine prevention tx: Patient may continue to hold Nurtec ODT 75mg qod- as she has not had any recent migraine attacks. Previous tx trials- Amitriptyline, nortriptyline, lamictal, cymbalta, depakote, nortriptyline. Tx contraindications: would avoid BBs as pt is already on Losartan 100mg and amlodipine 10mg qd. Future considerations: TCA ? Follow-up in 6 months or sooner prn. Medications: New magnesium glycinate 400 mg (4 x 100 mg magnesium) PO BEDTIME 360 caps 3RF 90 days Coding Level of Care Code Est Pt Level 4 (26352) Diagnoses Nocturnal hypoxemia G47.34 KEMAL (obstructive sleep apnea) G47.33 Sleep difficulties G47.9
--- OUTSIDE RECORDS SUMMARY | 2024-12-12 14:58 | XMS_ITS | Clinical Summary ---
Author Organization [facility] Address [address] [address] Phone Care Team Providers Care Horses Or Mules Teamster Name Role Phone Ronal Orozco MD Primary Care Provider [phone] Allergies No known active allergies Medications traMADol [...] Date Smoking Tobacco: Every Day Cigarettes 0.5 41 Started: 12/20/1983 Smokeless Tobacco: Never Tobacco Cessation:Ready [...] this topic Medical Devices Implanted Type Area Apron Cleaner Device Identifier Shelf Expiration Date Model / Serial / Lot Conformer Yoandy Medium - [id number] Implanted:Qty: 1 on 01/11/2022 by Frederic Franco MD at [facility] Right: Eye [employer] 02/28/2025 [id number] / / [id number] Implant Globe Yoandy 22mm - [id number] Implanted:Qty: 1 on 01/11/2022 by Frederic Franco MD at [facility] Right: Eye [employer] [id number] / / Procedures Procedure Name Priority Date/Time Associated Diagnosis Comments BASIC METABOLIC PANEL STAT 11/27/2022 1:06 PM EDT from Last 3 Months or Most Recently Relevant to Health Maintenance Results * (ABNORMAL) Basic metabolic panel (11/27/2022 1:06 PM EDT) SODIUM 140 133 - 146 mmol/L [facility] CHLORIDE 104 96 - 108 mmol/L [facility] POTASSIUM 4.6 3.3 - 5.1 mmol/L [facility] CO2 28 21 - 35 mmol/L [facility] BUN 11 6 - 19 mg/dL [facility] CREATININE 0.60 0.5 - 1.5 mg/dL [facility] GLUCOSE 104(H) 70 - 99 mg/dL [facility] CALCIUM 8.5 8.4 - 10.3 mg/dL [facility] EGFR 99 >59 mL/min/1.7 3m2 [facility] Comment:Estimated glomerular filtration rate calculated using the CKD-EPI refit equation. ANION GAP 13 10 - 20 mmol/L [facility] Blood 11/27/2022 1:06 PM EDT 11/27/2022 1:12 PM EDT us Farhad Norris DO LAB BLOOD ORDERABLES Final Re sult [facility] [address] [place] [address] from Last 3 Months or Most Recently Relevant to Health Maintenance Insurance [address] [place] [address] MEDICARE PART A & B [facility] MEDICARE REPLACEMENT [address] SAFETY NET F[address] [place] [address] MEDICARE PART A & B [facility] MEDICARE REPLACEMENT HEALTH SAFETY NET FULL [address] [place] [address] MEDICARE PART A & B [facility] MEDICARE REPLACEMENT [facility] SAFETY NET FULL HEALTH SAFETY NET FULL [facility] FULL MEDICARE PART [place] & [place] [id number] [facility] MEDICARE REPLACEMENT HEALTH SAFETY NET FULL [address] [place] [address] [facility] SAFETY NET FULL MEDICARE PART A & B [facility] MEDICARE REPLACEMENT [facility] FULL [address] [place] [address] MEDICARE PART A & B [facility] MEDICARE REPLACEMENT [place] [id number] HEALTH SAFETY NET FULL [address] [place] [address] MEDICARE PART A & B [facility] MEDICARE REPLACEMENT [place] [id number] [facility]ALTH [facility]AFETY NET [facility]ULL [facility] Care Teams Horses Or Mules Teamster Relationship Specialty Start Date End Date Ronal Orozco MD [address] [place] [address] Dr [place], [place] [address] PCP - General Internal Medicine 12/15/21 Additional Source Comments The information contained in this document represents components of the legal health record. It is not the complete legal health record.[facility]
== END 2024-12-12 15:21 | disposition home or self-care (01) ==
LOC: HO.HSMS 14:08
PROVIDERS: PCP Internal Medicine; Visit Provider Nurse Practitioner Family
DX: G47.34 Idiopathic sleep related nonobstructive alveolar hypoventilation (principal); G47.33 Obstructive sleep apnea (adult) (pediatric); G47.9 Sleep disorder, unspecified
CPT/HCPCS: 99214

== ENCOUNTER → 2024-12-12 14:08 | Outpatient (BNVA) | payer MEDICARE, MEDICAID, SELFPAY | PROVIDERS: PCP Internal Medicine; Visit Provider Nurse Practitioner Family | DX: G47.34 Idiopathic sleep related nonobstructive alveolar hypoventilation (principal); G47.33 Obstructive sleep apnea (adult) (pediatric); G47.9 Sleep disorder, unspecified | CPT/HCPCS: 99212 ==

== ENCOUNTER 2024-12-25 08:20 | Day surgery (SDC) | payer MEDICARE, MEDICAID, SELFPAY ==
--- OUTSIDE RECORDS SUMMARY | 2024-02-07 10:40 | XMS_ITS ---
Author Organization [facility] Address [address] [phone] Care Team Providers Care Maid Housekeeper Name Role Phone Ronal Orozco MD Primary Care Provider UnaSchuyler Weber [facility] [phone] REASON FOR VISIT Patient presents today for abdominal discomfort Encounters Encounter Location Date Provider Diagnosis [facility] [address] [phone] 02/07/2024 Schuyler Coker Plan Of Treatment Next Appt Details Provider Name:Schuyler Coker , 12/09/2024 02:40:00 PM, [address] [place] [address], [phone], Progress Notes * DEBBIE GASTELUMKELLI JUNO LADOB:1955 (69 yo F)Acc No.[id number]:02/07/2024 Progress Notes Patient: KELLI OJEDA Provider: Filiberto Coker MD :1955 A ge:68 Y S ex:Female Date:02/07/2024 Address:[address] [place] [address] Pcp:Ronal Orozco MD Subjective: * Chief Complaints: [...] 1 Generated for Tessa arreguin/Inocencio/Te on: 0 11/19/2024 04:04 PM EDT
--- OUTSIDE RECORDS SUMMARY | 2024-11-19 16:04 | XMS_ITS | Clinical Summary ---
Author Organization [facility] Address [address] [address] Phone Care Team Providers Care Air Analyst Name Role Phone Ronal Orozco MD Primary Care Provider [phone] Allergies No known active allergies Medications traMADol (ULTRAM) 50 mg tablet Take 1 tablet (50 mg total) by mouth every 6 (six) hours as needed for pain (specific location in comments). 15 tablet 8 Active Additional Information Patient not taking.Reported on 01/11/2022 traZODone (DESYREL) 100 MG tablet TOME JALYN O DOS TABLETAS POR V A ORAL AL ACOSTARSE NEEEDED 2 Active montelukast (SINGULAIR) 10 mg tablet Active losartan (COZAAR) 100 MG tablet TOME JALYN TABLETA TODOS LOS D? Active gabapentin (NEURONTIN) 800 MG tablet Take 800 mg by mouth 3 (three) times a day. 2 Active escitalopram oxalate (LEXAPRO) 10 MG tablet TOME JALYN TABLETA TODOS LOS D? EN LA MA?KEITH Active DULoxetine (CYMBALTA) 60 MG capsule TOME JALYN C PSULA TODOS LOS D EN LA MA KEITH 2 Active clonazePAM (KLONOPIN) 2 MG tablet (Schedule IV Drug) TOME JALYN TABLETA TODOS LOS D? AL ACOSTARSE Active butalbital-acet aminophen-caffe ine (FIORICET, ESGIC) 50-325-40 mg per tablet TAKE 1 TABLET 2 TO 3 TIMES A DAY ONLY NEEDED FOR INCREASED HEADACHES Active amLODIPine (NORVASC) 5 MG tablet TOME JALYN TABLETA TODOS LOS D? Active loratadine (CLARITIN) 10 mg tablet TOME JALYN TABLETA POR V A ORAL TODOS LOS D 2 Active oxyCODONE 5 MG immediate release tablet Take 1 tablet (5 mg total) by mouth every 4 (four) hours as needed for moderate pain or 4-6 (on a general 0-10 scale) (FOR POST-OP PAIN). Partial fill ok 18 tablet 2 Active Additional Information Patient not taking.Reported on 03/29/2023 neomycin-polymy andrew B-dexamethasone (MAXITROL) 3.5 mg/g-10,000 unit/g-0.1 % Oint Place 0.5 inches into the right eye 4 (four) times a day. 3.5 g 1 2 Active Additional Information Patient not taking.Reported on 03/29/2023 SUMAtriptan (IMITREX) 100 MG tablet Take by mouth. PRN 3 Active NURTEC ODT 75 mg tablet DISSOLVE 1 TABLET ON THE TONGUE EVERY OTHER DAY NEEDED FOR MIGRAINE HEADACHE 3 Active pantoprazole (PROTONIX) 40 MG tablet TAKE 1 TABLET BY MOUTH DAILY. STOP OMEPRAZOLE 4 Active zolpidem (AMBIEN) 10 mg tablet (Schedule IV Drug) TOME JALYN TABLETA POR V?A ORAL AL ACOSTARSE CUANDO SEA NECESARIO Oral for 30 Active ammonium lactate (AMLACTIN) 12 % cream APPLY TOPICALLY TO THE AFFECTED AREA TWICE DAILY NEEDED FOR DRY SKIN 4 Active erythromycin (ROMYCIN) ophthalmic ointment Place 0.5 inches into the right eye 3 (three) times a day. 7 g 1 4 Active Social History Tobacco Use Types Packs/Day Years Used Date Smoking Tobacco: Every Day Cigarettes 0.5 40.9 Started: 12/20/1983 Smokeless Tobacco: Never Tobacco Cessation:Ready to Q uit: Not Asked; Counseling Given: Not Answered Alcohol Use Standard Drinks/Week Comments No 0 (1 standard drink = 0.6 oz pur e alcohol) Education Answer Date Recorded Are you interested in more education? Not on josé e 08/26/2022 Are you concerned about learning? Not on file 08/26/2022 No 08/26/2022 No 08/26/2022 Digital Access Answer Date Recorded No 09/24/2022 No 09/24/2022 Reliable internet access at home? Not on file 09/24/2022 Device with a working camera? Not on file Intimate Partner Violence Answer Date R ecorded Are you denied basic needs s uch as food, clothing, or medical care? No 11/27/2022 In the past 12 months have y ou been in a relationship with a person who hurts, threatens, or tries to control you? No 11/27/2022 Are you denied basic needs s uch as food, clothing, or medical care? No 11/27/2022 In the past 12 months have y ou been in a relationship with a person who hurts, threatens, or tries to control you? No 11/27/2022 Comments No Sex and Gender Information Value Date Recorded Sex Assigned at Female 01/02/2018 1:16 AM EDT Legal Sex Female 12:57 AM EDT Gender Identity Female 01/02/2018 1:16 AM EDT Sexual Orientation Straight 01/02/2018 1: 16 AM EDT Last Filed Vital Signs Vital Sign Reading Time Taken Comments Blood Pressure 118/64 12/26/2023 3:00 PM EDT Pulse 77 12/26/2023 3:00 PM EDT Temperature 36.2 C (97.1 F) 12/26/2023 2:36 PM EDT Respiratory Rate 16 12/26/2023 3:00 PM EDT Oxygen Saturation 96% 12/26/2023 3:00 PM EDT Inhaled Oxygen Concentration - - Weight 99.8 kg (220 lb) 12/26/2023 1:35 PM EDT Height 157.5 cm (5' 2 ) 12/26/2023 1:35 PM EDT Body Mass Index 40.24 12/26/2023 1:35 PM EDT Plan of Treatment Health Maintenance Due Date Last Done Comments Adult Td,Tdap Booster 1956 LIPID PANEL 1956 DEPRESSION SCREENING 1968 HEPATITIS C SCREENING 1974 PNEUMOCOCCAL VACCINES (50+ years) (1 of 2 - PCV) 09/06/1975 MAMMOGRAM 1996 COLOGUARD 2001 COLONOSCOPY 2001 COLORECTAL CANCER SCREENING 2001 FIT TEST 2001 FOBT 2001 SIGMOIDOSCOPY 2001 VIRTUAL COLONOSCOPY 2001 LUNG CANCER SCREENING (LDCT Only) 2006 ZOSTER VACCINES (1 of 2) 2006 RSV VACCINE (1 - Risk 60-74 years 1-dose series) 2016 OSTEOPOROSIS SCREENING INITI AL (ONE-TIME) 2021 CREATININE LEVEL 11/28/2023 11/27/2022 POTASSIUM LEVEL 11/28/2023 11/27/2022 COVID-19 VACCINE (3 - 2023-2 5 season) 2023 08/24/2020, 07/27/2020 SMOKING Hx and SMOKELESS TOBACCO SCREENING 01/02/2025 01/03/2024 SCREENING FOR DIABETES 11/27/2025 11/27/2022 HEPATITIS A VACCINES Aged Out No long er eligible based on patient's age to complete this topic HIB VACCINES Aged Out No longer eligi ble based on patient's age to complete this topic MENINGOCOCCAL VACCINES (ACWY) Aged Out No longer eligible based on patient's age to complete this topic MENINGOCOCCAL VACCINES (B) Aged Out N o longer eligible based on patient's age to complete this topic Medical Devices Implanted Type Area Desktop Support Engineer Device Identifier Shelf Expiration Date Model / Serial / Lot Conformer Yoandy Medium - [id number] Implanted:Qty: 1 on 01/11/2022 by Frederic Franco MD at [facility] Right: Eye [employer] 02/28/2025 [id number] / / [id number] Implant Globe Yoandy 22mm - [id number] Implanted:Qty: 1 on 01/11/2022 by Frederic Franco MD at [facility] Right: Eye [employer] [id number] / / Procedures Procedure Name Priority Date/Time Associated Diagnosis Comments BASIC METABOLIC PANEL STAT 11/27/2022 1:06 PM EDT from Last 3 Months or Most Recently Relevant to Health Maintenance Results * (ABNORMAL) Basic metabolic panel (11/27/2022 1:06 PM EDT) SODIUM 140 133 - 146 mmol/L [facility] CHLORIDE 104 96 - 108 mmol/L [facility] POTASSIUM 4.6 3.3 - 5.1 mmol/L [facility] CO2 28 21 - 35 mmol/L [facility] BUN 11 6 - 19 mg/dL [facility] CREATININE 0.60 0.5 - 1.5 mg/dL [facility] GLUCOSE 104(H) 70 - 99 mg/dL [facility] CALCIUM 8.5 8.4 - 10.3 mg/dL [facility] EGFR 99 >59 mL/min/1.7 3m2 [facility] Comment:Estimated glomerular filtration rate calculated using the CKD-EPI refit equation. ANION GAP 13 10 - 20 mmol/L [facility] Blood 11/27/2022 1:06 PM EDT 11/27/2022 1:12 PM EDT us Farhad Norris DO LAB BLOOD ORDERABLES Final Re sult [facility] [address] [place] [address] from Last 3 Months or Most Recently Relevant to Health Maintenance Insurance [address] [place] [address] MEDICARE PART A & B [facility] MEDICARE REPLACEMENT [address] SAFETY NET FULL [address] [place] [address] MEDICARE PART A & B Member Subscriber Plan / Payer (Ef fective 2021-Present) Name:Naomy Barrazalian Member ID:[id number] Relation to Subscriber:Self Name:Naomy Barrazalian Subscriber ID:[id number] Payer ID:[id number] Group ID:Not on file Type:Medicare Address: [employer] [facility] [address] [facility] [place] [address] [facility] MEDICARE REPLACEMENT HEALTH SAFETY NET FULL [address] [place] [address] MEDICARE PART A & B [facility] MEDICARE REPLACEMENT [facility] SAFETY NET FULL HEALTH SAFETY NET FULL [facility] FULL MEDICARE PART A & B Member Subscriber Plan / Payer (Ef fective 2021-Present) Name:Paty Barraza Member ID:[id number] Relation to Subscriber:Self Name:Paty Barraza Subscriber ID:[id number] Payer ID:[id number] Group ID:Not on file Type:Medicare Address: [facility] [address] [place] [address] [facility] MEDICARE REPLACEMENT HEALTH SAFETY NET FULL [address] [place] [id number] [facility] SAFETY NET FULL MEDICARE PART A & B [facility] MEDICARE REPLACEMENT [facility] [address] [place] [address] MEDICARE PART A & B [facility] MEDICARE REPLACEMENT HEALTH SAFETY NET [address] [place] [address] MEDICARE PART A & B Member Subscriber Plan / Payer (Ef fective 2021-Present) Name:Paty Barraza Member ID:[id number] Relation to Subscriber:Self Name:Paty Barraza Subscriber ID:[id number] Payer ID:[id number] Group ID:Not on file Type:Medicare Address: [employer] [facility] [address] [place] [address] [facility] MEDICARE REPLACEMENT [address] [facility] [place] [facility] Care Teams Air Analyst Relationship Specialty Start Date End Date Ronal Orozco MD [address] [place] [address] [place] [address] PCP - General Internal Medicine 12/15/21 Additional Source Comments The information contained in this document represents components of the legal health record. It is not the complete legal health record.[facility]
[2024-12-05 15:13] VITALS: BMI 37.6
--- NOTE | 2024-12-06 09:16 | HO.ANESPROP2 ---
HPI - Anesthesia Eval Consult details Narrative: 69yo F for Upper Endoscopy and Colonoscopy, 12/25/24 Nocturnal hypoxia: sleep study recommended supplemental O2 @ 1-2L QHS, but pt does not tolerate. PMFSH Active Problems Active Problems: All Active Problems Pulmonary nodule (Acute) Asthma (Acute) Nicotine dependence, cigarettes, uncomplicated (Acute) Dyspnea on exertion (Acute) Environmental allergies (Acute) Thoracic back pain (Acute) Nocturnal hypoxemia (Acute) Neuroforaminal stenosis of lumbosacral spine (Acute) Primary osteoarthritis of right shoulder (Acute) Osteoarthritis of acromioclavicular joint (Acute) Cut of skin of right thumb (Acute) Dry skin dermatitis (Acute) Sleep difficulties (Acute) KEMAL (obstructive sleep apnea) (Acute) Cervical cancer screening (Acute) Encounter for well woman exam with routine gynecological exam (Acute) Left tennis elbow (Acute) Left wrist pain (Acute) Left elbow pain (Acute) Cervicalgia (Acute) Morbid obesity with BMI of 40.0-44.9, adult (Acute) Migraine (Acute) Risk for falls (Acute) Gait difficulty (Acute) Skin lump of arm (Acute) Complicated migraine (Acute) Osteoarthritis of right ankle (Acute) Cough (Acute) Primary osteoarthritis of left knee (Acute) Pain and swelling of left knee (Acute) Swelling of left lower extremity (Acute) Pain in left lower leg (Acute) Encounter for screening mammogram for malignant neoplasm of breast (Acute) Encounter for screening mammogram for malignant neoplasm of breast (Acute) Breast cancer screening (Acute) Back pain (Acute) Annual physical exam (Acute) Cataract (Acute) Elevated TSH (Acute) Preoperative clearance (Acute) Arthralgia (Acute) Right ankle pain (Acute) Recurrent vertigo (Acute) Recurrent headache (Acute) Obese (Acute) Lipoma of arm (Acute) Preop exam for internal medicine (Acute) Breast cancer screening by mammogram (Acute) Tendon cysts (Acute) Tobacco abuse (Acute) GERD (gastroesophageal reflux disease) (Acute) Bipolar disorder (Acute) Hyperlipidemia (Acute) Allergic rhinitis (Acute) Insomnia (Acute) Smoker (Acute) Bipolar affective disorder (Acute) Generalized anxiety disorder (Acute) Right lumbar radiculopathy (Acute) GERD without esophagitis (Acute) Benign essential hypertension (Acute) Obesity (BMI 30-39.9) (Acute) Impaired glucose tolerance (Acute) Lumbar degenerative disc disease (Acute) Hypertension (Acute) Vitamin D deficiency (Acute) Past Medical History Medical History Legally blind Nocturnal hypoxemia Hyperlipidemia Allergic rhinitis Insomnia Smoker Bipolar affective disorder Generalized anxiety disorder Right lumbar radiculopathy GERD without esophagitis Benign essential hypertension Nasal congestion Obesity (BMI 30-39.9) Impaired glucose tolerance History of diverticulitis Back pain Lumbar degenerative disc disease Hypertension Vitamin D deficiency Family History Family History Father Colon cancer Mother Primary cancer of bone marrow Sister Leukemia Surgical History Surgical History History of eye removal Hx of cataract surgery H/O colonoscopy History of esophagogastroduodenoscopy (EGD) History of tubal ligation History of cholecystectomy Social History Social History Housing: Apartment Are you a primary physician assistant primary care to a significant other at home: No Do you presently have visiting nurse or other home services: No Alcohol intake: never Patient Tobacco Use Status: Current everyday Tobacco user Tobacco use type: Cigarette Cigarettes Per Day: 7 e-Cigarette/Vaping Use: Never Used Second Hand Smoke Exposure: No Use of substances other than those prescribed or required for medical reasons: No Have you been hit, kicked, punched, or otherwise hurt by someone within the past year? If so, by whom?: No Are you DNR?: No Advance Directives: No Advance Directives Information Provided: Yes Advance Directives on File: No Patient : No : No Poor oral hygiene: No service: No Current occupational status: unemployed Cognitive needs: No Hearing needs: No Vision needs: No Meds Allergies Allergy/AdvReac Type Severity Reaction Status Date / Time No Known Allergies (No Known Allergy Verified 12/12/24 14:24 Allergies*) Home Medications ?Medication ?Instructions ?Recorded ?Confirmed ?Last Taken ?Type duloxetine 60 mg capsule,delayed 60 mg PO DAILY 10/27/23 12/12/24 Unknown History release clonazepam 1 mg tablet 1 mg PO BID PRN Anxiety 07/25/24 12/12/24 Unknown History trazodone 100 mg tablet 200 mg PO BEDTIME PRN Insomnia 07/25/24 12/12/24 Unknown History Exam Height,Weight and Vital Signs: Height 5 ft 2.5 in Weight 94.801 kg Assessment and Plan Assessment Anesthesia Assessment: Chart Reviewed
[2024-12-25 09:03] VITALS: BP 136/75; PULSE 80; RESP 18; TEMP 36.3; O2SAT 95
--- NOTE | 2024-12-25 09:08 | HO.ANESPROP2 ---
[facility] Active Problems Active Problems: All Active Problems (Updated 12/05/24 @ 15:15 by Chasity Gomez RN) Pulmonary nodule (Acute) Asthma (Acute) Nicotine dependence, cigarettes, uncomplicated (Acute) Dyspnea on exertion (Acute) Environmental allergies (Acute) Thoracic back pain (Acute) Nocturnal hypoxemia (Acute) Neuroforaminal stenosis of lumbosacral spine (Acute) Primary osteoarthritis of right shoulder (Acute) Osteoarthritis of acromioclavicular joint (Acute) Cut of skin of right thumb (Acute) Dry skin dermatitis (Acute) Sleep difficulties (Acute) KEMAL (obstructive sleep apnea) (Acute) Cervical cancer screening (Acute) Encounter for well woman exam with routine gynecological exam (Acute) Left tennis elbow (Acute) Left wrist pain (Acute) Left elbow pain (Acute) Cervicalgia (Acute) Morbid obesity with BMI of 40.0-44.9, adult (Acute) Migraine (Acute) Risk for falls (Acute) Gait difficulty (Acute) Skin lump of arm (Acute) Complicated migraine (Acute) Osteoarthritis of right ankle (Acute) Cough (Acute) Primary osteoarthritis of left knee (Acute) Pain and swelling of left knee (Acute) Swelling of left lower extremity (Acute) Pain in left lower leg (Acute) Encounter for screening mammogram for malignant neoplasm of breast (Acute) Encounter for screening mammogram for malignant neoplasm of breast (Acute) Breast cancer screening (Acute) Back pain (Acute) Annual physical exam (Acute) Cataract (Acute) Elevated TSH (Acute) Preoperative clearance (Acute) Arthralgia (Acute) Right ankle pain (Acute) Recurrent vertigo (Acute) Recurrent headache (Acute) Obese (Acute) Lipoma of arm (Acute) Preop exam for internal medicine (Acute) Breast cancer screening by mammogram (Acute) Tendon cysts (Acute) Tobacco abuse (Acute) GERD (gastroesophageal reflux disease) (Acute) Bipolar disorder (Acute) Hyperlipidemia (Acute) Allergic rhinitis (Acute) Insomnia (Acute) Smoker (Acute) Bipolar affective disorder (Acute) Generalized anxiety disorder (Acute) Right lumbar radiculopathy (Acute) GERD without esophagitis (Acute) Benign essential hypertension (Acute) Obesity (BMI 30-39.9) (Acute) Impaired glucose tolerance (Acute) Lumbar degenerative disc disease (Acute) Hypertension (Acute) Vitamin D deficiency (Acute) Past Medical History Medical History Legally blind Nocturnal hypoxemia Hyperlipidemia Allergic rhinitis Insomnia Smoker Bipolar affective disorder Generalized anxiety disorder Right lumbar radiculopathy GERD without esophagitis Benign essential hypertension Nasal congestion Obesity (BMI 30-39.9) Impaired glucose tolerance History of diverticulitis Back pain Lumbar degenerative disc disease Hypertension Vitamin D deficiency Functional capacity: independent ambulation Patient : No Family History Family History Father Colon cancer Mother Primary cancer of bone marrow Sister Leukemia Family history of problems with anesthesia: No Surgical History Surgical History History of eye removal Hx of cataract surgery H/O colonoscopy History of esophagogastroduodenoscopy (EGD) History of tubal ligation History of cholecystectomy History of Problems with Anesthesia: No Social History Social History Housing: Apartment Are you a primary critical care clinical nurse specialist to a significant other at home: No Do you presently have visiting nurse or other home services: No Alcohol intake: never Patient Tobacco Use Status: Current everyday Tobacco user Tobacco use type: Cigarette Cigarettes Per Day: 7 e-Cigarette/Vaping Use: Never Used Second Hand Smoke Exposure: No Use of substances other than those prescribed or required for medical reasons: No Have you been hit, kicked, punched, or otherwise hurt by someone within the past year? If so, by whom?: No Are you DNR?: No Advance Directives: No Advance Directives Information Provided: Yes Advance Directives on File: No Patient : No : No Poor oral hygiene: No service: No Current occupational status: unemployed Cognitive needs: No Hearing needs: No Vision needs: No Meds Allergies Allergy/AdvReac Type Severity Reaction Status Date / Time No Known Allergies (No Known Allergy Verified 12/12/24 14:24 Allergies*) Active Medications: Current Medications Albuterol Sulfate (Albuterol Sulfate (0.083%) 2.5 Mg/3 Ml Vial.Neb) 2.5 mg INHALE ONCE PRN PRN Reason: Shortness of Breath/Wheezing Lactated Ringer's (Lr) 1,000 mls @ 100 mls/hr IVCONT .Q10H SARAH BETH Sodium Biphosphate/Sodium Phosphate (Sodium Phosphate,Kittitas-Dibasic 133 Ml Enema) 133 ml OH ONCE PRN PRN Reason: Poor Colonoscopy Prep Results Home Medications ?Medication ?Instructions ?Recorded ?Confirmed ?Last Taken ?Type duloxetine 60 mg capsule,delayed 60 mg PO DAILY 10/27/23 12/12/24 Unknown History release clonazepam 1 mg tablet 1 mg PO BID PRN Anxiety 07/25/24 12/12/24 Unknown History trazodone 100 mg tablet 200 mg PO BEDTIME PRN Insomnia 07/25/24 12/12/24 Unknown History Exam Height,Weight and Vital Signs: Height 5 ft 2.5 in Weight 94.801 kg Last Vital Signs Temp 97.4 F 12/25/24 09:03 Pulse 80 12/25/24 09:03 Resp 18 12/25/24 09:03 BP 136/75 12/25/24 09:03 Pulse Ox 95 12/25/24 09:03 O2 Del Method Room Air 12/25/24 09:03 Airway Mallampati Class: III TM Dist: >3cm Neck ROM: Full Heart: RRR Lungs: CTA Assessment and Plan Assessment Anesthesia Assessment: Anesthesia Plan Discussed Final Anesthetic Review Family History of Problems with Anesthesia: No History of Problems with Anesthesia: No NPO: Yes ASA Class: III Final Preanesthetic Review: Meds/Allgs Chart Reviewed, Consent Obtained/Reviewed and Anes Risks/Benef Reviewed Patient Risk: Intermediate Procedure Risk: Intermediate Anesthetic Plan Anesthetic Plan: MAC: Disposition: Standard PACU
[2024-12-25] MEDS: Lactated Ringers 1,000 ML 100 ML IVCONT (09:30)
[2024-12-25 11:26] VITALS: BP 113/63; PULSE 83; RESP 16; TEMP 36.3; O2SAT 96
--- NOTE | 2024-12-25 11:36 | P.BOP_ITS ---
Brief Operative Note Date of Service: 12/25/24 Pre-op diagnosis: GERD, Screening Post-op diagnosis: other (Hiatal hernia, Colon polyp) Procedure: EGD with biopsies, Colonoscopy to the cecum with hot snare polypectomy x 1. Surgeon: Schuyler Coker MD Anesthesia: MAC Was an Transportation Consultant used for this Procedure?: No Estimated blood loss (mL): 2.0 Pathology: other (A. EG Junction at 38cm B. Gastric antrum C. Gastric polyps D. Ascending colon polyp) Condition: stable Disposition: PACU
[2024-12-25 11:41] VITALS: BP 116/61; PULSE 67; RESP 16; O2SAT 96
[2024-12-25 11:55] VITALS: BP 121/63; PULSE 61; RESP 16; TEMP 36.3; O2SAT 95
--- NOTE | 2024-12-25 12:20 | OP_ITS ---
DATE OF SERVICE: 12/25/2024 SURGEON: Schuyler Coker MD INDICATIONS: The patient presents for evaluation of gastroesophageal reflux, colorectal cancer screening and family history of colon cancer. Full consent has been obtained from her for this, including risks of bleeding and perforation. PREOPERATIVE DIAGNOSIS: POSTOPERATIVE DIAGNOSIS: PROCEDURE PERFORMED: Esophagogastroduodenoscopy with biopsies, and colonoscopy to the cecum with hot snare polypectomy. ESTIMATED BLOOD LOSS: COMPLICATIONS: ANESTHESIA: Monitored anesthesia care. ASSISTANTS: SPECIMENS: PREOPERATIVE DIAGNOSES: Gastroesophageal reflux, colorectal cancer screening, family history of colon cancer. POSTOPERATIVE DIAGNOSES: Gastroesophageal reflux, colorectal cancer screening, family history of colon cancer, small hiatal hernia, small gastric polyps, gastritis, colon polyp, diverticulosis, and internal hemorrhoids. DESCRIPTION OF PROCEDURE: The patient was placed in the left lateral decubitus position. The Olympus video gastroscope was passed in the posterior oropharynx and upper esophagus under direct vision. The scope was passed slowly to the distal esophagus. The gastroesophageal junction appeared at 38 cm. There was some slight irregularity consistent with reflux but no evidence of any esophagitis, Padilla esophagus, esophageal stricture, nor ulceration. The scope entered the stomach. There was a small hiatal hernia. The scope was advanced to pylorus and the duodenum was cannulated at the descending portion. The duodenum including the bulb appeared normal without mass or ulceration. The scope was withdrawn back to the stomach. The gastric antrum had some areas of erythema and edema, but no erosions or ulceration. There was good peristalsis. Biopsies were obtained from the gastric antrum. The scope was retroflexed visualizing the proximal stomach carefully, which appeared normal, without any mass or ulceration, other than several hyperplastic appearing gastric polyps. Two of these were biopsied. The scope was straightened and withdrawn back to the esophagus. Biopsies were obtained at the EG junction at 38 cm. Proximal to this, the esophageal mucosa appeared normal. There was no evidence of any esophageal rings nor other mucosal abnormalities. The scope was withdrawn from the patient. She was turned around for the colonoscopy The digital rectal exam revealed no abnormalities. The Olympus video pediatric colonoscope was entered into the rectum and advanced to the cecum. Advancement was somewhat difficult due to the presence of some stool. However, once in the cecum, after a lot of irrigation and suctioning, I did obtain a good visualization of the cecum including the appendiceal orifice, which appeared normal. The ileocecal valve appeared normal. The scope was slowly withdrawn assessing all mucosal surfaces carefully. For the most part, preparation was good throughout the colon but there was still some areas of liquid and/or solid stool, which had to be irrigated and suctioned as best as possible. In the proximal ascending colon was an approximately 10-12 mm grossly adenomatous polyp, which was removed by hot snare polypectomy and recovered by suction. The polypectomy site appeared clean, without any sign of residual polyp nor bleeding. I did not visualize any other polyps, colitis, nor angiodysplasia. There was a moderate amount of sigmoid diverticulosis. In the rectum, scope was retroflexed visualizing internal hemorrhoids, but no other pathology. The rectal mucosa appeared normal. Scope was straightened and withdrawn from the patient. She tolerated both procedures well and was returned to the recovery area in stable condition. IMPRESSION: 1. Colon polyp. 2. Diverticulosis. 3. Internal hemorrhoids. 4. Mild gastritis. 5. Small hyperplastic appearing gastric polyps. 6. Small hiatal hernia. PLAN: The results of biopsies will be checked. She was advised not to use any aspirin or NSAIDs for 1 week. Given her family history and today's findings, as well as a little bit of a limited prep, I would recommend a repeat colonoscopy in 3 years. She was advised not to use any aspirin and NSAIDs for 1 week. She will continue her current regimen of pantoprazole for her reflux. She does report that her dysphagia is quite infrequent and I suspect this is more related to esophageal spasm. She will see me otherwise on a p.r.n. basis. MD ALISE Ordoñez/JENNIFER / [phone] JACLYN
== END 2024-12-25 13:00 | disposition home or self-care (01) ==
PROVIDERS: PCP Internal Medicine; Visit Provider Internal Medicine
PROC: (CPT 45385; principal; 2024-12-25 09:30)
DX: Z12.11 Encounter for screening for malignant neoplasm of colon (principal); D12.2 Benign neoplasm of ascending colon; K57.30 Diverticulosis of large intestine without perforation or abscess without bleeding; K64.8 Other hemorrhoids; Z80.0 Family history of malignant neoplasm of digestive organs; K21.9 Gastro-esophageal reflux disease without esophagitis; K31.7 Polyp of stomach and duodenum; K29.60 Other gastritis without bleeding; K44.9 Diaphragmatic hernia without obstruction or gangrene; I10 Essential (primary) hypertension; J45.909 Unspecified asthma, uncomplicated; Z79.899 Other long term (current) drug therapy
CPT/HCPCS: 45385; 43239; 88305; 88313; 88342; J2003; J2704

== ENCOUNTER 2025-01-08 08:47 | Outpatient (REF) | payer MEDICARE, MEDICAID, SELFPAY ==
--- OUTSIDE RECORDS SUMMARY | 2024-06-06 07:00 | XMS_ITS ---
Author Organization [facility] Address [address] [place] [phone] Care Team Providers Care Hat Presser Name Role Phone Ronal Orozco MD Primary Care Provider Schuyler Molina [phone] REASON FOR VISIT Patient presents today for abdominal pain Encounters Encounter Location Date Provider Diagnosis [facility] [address] [place] [phone] 06/06/2024 Schuyler Coker Plan Of Treatment No Information Progress Notes * KELLI BANERJEE LADOB:1955 (69 yo F)Acc No.[id number]:06/06/2024 Progress Notes Patient: KELLI OJEDA Provider: Filiberto Coker MD :1955 A ge:68 Y S ex:Female Date:06/06/2024 Address:[address] [place], [place] [id number] Pcp:Ronal Orozco MD Subjective: * Chief Complaints: * 1 . Patient presents today for abdominal pain. * Medical History: Objective: * Vitals: Assessment: Plan: * Treatment: * * The named appointment provid er may or may not be the originator of this progress note, and it is not deemed complete until electronically signed by the appointment provider. Sign off status: Pending * Provider: Filiberto Coker MD Date: 0 06/06/2024 Generated for Tessa arreguin/Inocencio/Heleneitting on: 0 01/08/2025 10:16 AM EDT
--- OUTSIDE RECORDS SUMMARY | 2024-12-09 09:40 | XMS_ITS ---
Author Organization [facility] Address [address] [place] [address] Care Team Providers Care Flatbed Truck Driver Name Role Phone Ronal Orozco MD Primary Care Provider Schuyler Molina [phone] REASON FOR VISIT reflux barretts esophagus/fm hx of colon cancer Encounters Encounter Location Date Provider Diagnosis [facility] [place] [address] [place] [phone] 12/09/2024 Schuyler Coker Plan Of Treatment No Information Progress Notes * KELLI BANERJEE LADOB:1955 (69 yo F)Acc No.[id number]:12/09/2024 EGD and COL/MAC Patient: KELIL OJEDA Provider: Filiberto Coker MD :1955 A ge:69 Y S ex:Female Date:12/09/2024 Address:[address] [place] [address] Pcp:Ronal Orozco MD Subjective: * Chief Complaints: [...] 12/09/2024 Generated for Tessa arreguin/Inocencio/Heleneitting on: 0 01/08/2025 10:16 AM EDT
--- OUTSIDE RECORDS SUMMARY | 2024-12-25 06:30 | XMS_ITS ---
Author Organization [facility] Address [address] [place] [address] Care Team Providers Care Head Still Operator Name Role Phone Ronal Orozco MD Primary Care Provider Schuyler Molina [phone] REASON FOR VISIT gerd,dysphagia,screening,fam hx colon cancer Encounters Encounter Location Date Provider Diagnosis [facility] [address] [place] [phone] 12/25/2024 Schuyler Coker Plan Of Treatment No Information Progress Notes * KELLI BANERJEE LADOB:1955 (69 yo F)Acc No.[id number]:12/25/2024 EGD and COL/MAC Patient: KELLI OJEDA Provider: Filiberto Coker MD :1955 A ge:69 Y S ex:Female Date:12/25/2024 Address:[address] [place] [address] Pcp:Ronal Orozco MD Subjective: * Chief Complaints: [...] 12/25/2024 Generated for Tessa arreguin/Inocencio/Heleneitting on: 0 01/08/2025 10:16 AM EDT
[2025-01-08 09:18] LABS: MANUAL DIFF FLAG NO
--- OUTSIDE RECORDS SUMMARY | 2025-01-08 10:16 | XMS_ITS | Encounter Summary ---
Author Organization [facility] Address [address] [facility] [address] [place] [address] Phone Care Team Providers Care Retail Project Merchandiser Name Role Phone Ronal Orozco MD Primary Care Provider [phone] [phone] Encounter Details Date Type Department Care Team (Late st Contact Info) Description 11/27/2022 Procedure Pass [facility], Ct Scan - [facility] [address] [place] [address] Social History Tobacco Use Types Packs/Day Years Used Date Smoking Tobacco: Every Day Cigarettes Smokeless Tobacco: Never Alcohol Use Standard Drinks/Week Comments No 0 [...] Orientation Straight 01/02/2018 1: 16 AM EDT documented as of this encounter Plan of Treatment Not on file documented as of this encounter Visit Diagnoses Not on filedocumented in this encounter Care Teams Retail Project Merchandiser Relationship Specialty Start Date End Date Ronal Orozco MD [address] [place] [address] [facility] [place] [address] PCP - General Internal Medicine 12/15/21 documented as of this encounter Additional Source Comments The information contained in this document represents components of the legal health record. It is not the complete legal health record.[facility]
--- OUTSIDE RECORDS SUMMARY | 2025-01-08 10:16 | XMS_ITS | Encounter Summary ---
Author Organization [facility] Address [address] [facility] [address] [place] [address] Phone Care Team Providers Care Bookbinder Chief Name Role Phone Ronal Orozco MD Primary Care Provider [phone] Reason for Visit * Reason Onset Date Comments returning call 12/27/2022 Encounter Details Date Type Department Care Team ([facility] st Contact Info) Description 12/27/[address] [place] [address] Frederic Franco MD [address] [place] [address] [place] [address] [email or web address] [email or web address] THE [facility] returning call Social History Tobacco Use Types Packs/Day Years [...] on filedocumented in this encounter Care Teams Bookbinder Chief Relationship Specialty Start Date End Date Ronal Orozco MD [address] [place] [address] [place] [address] PCP - General Internal Medicine 12/15/21 documented as of this encounter Additional Source Comments The information contained in this document represents components of the legal health record. It is not the complete legal health record.[facility]
--- OUTSIDE RECORDS SUMMARY | 2025-01-08 10:16 | XMS_ITS | Encounter Summary ---
Author Organization [facility] Address [address] [place] [address] Phone Care Team Providers Care Community Support Specialist Name Role Phone Ronal Orozco MD Primary Care Provider [phone] Encounter Details Date Type Department Care Team (Late st Contact Info) Description 01/11/2022 Procedure Pass [facility] [address] [place] [address] Social History Tobacco Use Types Packs/Day Years Used Date Smoking Tobacco: Every Day Cigarettes Smokeless Tobacco: Never Alcohol Use Standard Drinks/Week Comments No 0 (1 standard drink = 0.6 oz pur e alcohol) Comments No Sex and Gender Information Value [...] on filedocumented in this encounter Care Teams Community Support Specialist Relationship Specialty Start Date End Date Ronal Orozco MD [address] [place] [address] [place] [address] PCP - General Internal Medicine 12/15/21 documented as of this encounter Additional Source Comments The information contained in this document represents components of the legal health record. It is not the complete legal health record.[facility]
--- OUTSIDE RECORDS SUMMARY | 2025-01-08 10:16 | XMS_ITS | Encounter Summary ---
Author Organization [facility] Address [address] [facility] [address] [place] [address] Phone Care Team Providers Care Vamper Name Role Phone Ronal Orozco MD Primary Care Provider [phone] [phone] Encounter Details Date Type Department Care Team (Late st Contact Info) Description 12/26/2023 Procedure Pass [facility] [address] [place] [address] Social History Tobacco Use Types Packs/Day Years Used Date Smoking Tobacco: Every Day Cigarettes 0.5 41.1 Started: 12/20/1983 Smokeless Tobacco: Never Alcohol Use Standard Drinks/Week [...] on filedocumented in this encounter Care Teams Vamper Relationship Specialty Start Date End Date Ronal Orozco MD [address] [place] [address] [place] [address] PCP - General Internal Medicine 12/15/21 documented as of this encounter Additional Source Comments The information contained in this document represents components of the legal health record. It is not the complete legal health record.[facility]
--- OUTSIDE RECORDS SUMMARY | 2025-01-08 10:16 | XMS_ITS | Encounter Summary ---
Author Organization [facility] Address [address] [facility] [address] [place] [address] Phone Care Team Providers Care Skiing Instructor Name Role Phone Ronal Orozco MD Primary Care Provider [phone] Encounter Details Date Type Department Care Team (Late st Contact Info) Description 11/27/2022 Procedure Pass [facility], Ct Scan - [facility] [address] [place] [address] Social History Tobacco Use Types Packs/Day Years [...] on filedocumented in this encounter Care Teams Skiing Instructor Relationship Specialty Start Date End Date Ronal Orozco MD [address] [place] [address] Dr [facility] [place] [address] PCP - General Internal Medicine 12/15/21 documented as of this encounter Additional Source Comments The information contained in this document represents components of the legal health record. It is not the complete legal health record.[facility]
--- OUTSIDE RECORDS SUMMARY | 2025-01-08 10:16 | XMS_ITS | Clinical Summary ---
Author Organization [facility] Address [address] [address] Phone Care Team Providers Care It Project Lead Name Role Phone Ronal Orozco MD Primary Care Provider [phone] Allergies No known active allergies Medications traMADol [...] 0.5 41.1 Started: 12/20/1983 Smokeless Tobacco: Never Tobacco Cessation:Ready [...] 1955 LIPID PANEL 1956 DEPRESSION SCREENING 1968 SMOKING Hx and SMOKELESS TOBACCO SCREENING 1969 HEPATITIS C SCREENING 1974 PNEUMOCOCCAL VACCINES (50+ years) (1 of 2 - PCV) 09/06/1975 MAMMOGRAM 1996 COLOGUARD 2001 COLONOSCOPY 2001 COLORECTAL CANCER SCREENING 2001 FIT TEST 2001 FOBT 2001 SIGMOIDOSCOPY 2001 VIRTUAL COLONOSCOPY 2001 ZOSTER VACCINES (1 of 2) 2006 RSV VACCINE (1 - Risk 60-74 years 1-dose series) 2016 OSTEOPOROSIS SCREENING INITI AL (ONE-TIME) 2021 CREATININE LEVEL 11/28/2023 11/27/2022 POTASSIUM LEVEL 11/28/2023 11/27/2022 INFLUENZA VACCINE (#1) 2024 01/24/2018 COVID-19 VACCINE (3 - 2024-2 6 season) 2024 08/24/2020, 07/27/2020 SCREENING FOR DIABETES 11/27/2025 11/27/2022 HEPATITIS A [...] this topic Medical Devices Implanted Type Area Director Stage Device Identifier Shelf Expiration Date Model / Serial / Lot Conformer Kristie Medium - [id number] Implanted:Qty: 1 on 01/11/2022 by Frederic Franco MD at [facility] Right: Eye [employer] 02/28/2025 [id number] / / [id number] Implant Globe Kristie 22mm - [id number] Implanted:Qty: 1 on 01/11/2022 by Frederic Franco MD at [facility] Right: Eye [employer] [id number] / / Procedures Procedure Name Priority Date/Time Associated Diagnosis Comments BASIC METABOLIC PANEL STAT 11/27/2022 1:06 PM EDT from Last 3 Months or Most Recently Relevant to Health Maintenance Results * (ABNORMAL) Basic metabolic panel (11/27/2022 1:06 PM EDT) SODIUM 140 133 - 146 mmol/L [facility] CHLORIDE 104 96 - 108 mmol/L [facility] POTASSIUM 4.6 3.3 - 5.1 mmol/L [facility] CO2 28 21 - 35 mmol/L [facility] BUN 11 6 - 19 mg/dL [facility] CREATININE 0.60 0.5 - 1.5 mg/dL [facility] GLUCOSE 104(H) 70 - 99 mg/dL [facility] CALCIUM 8.5 8.4 - 10.3 mg/dL [facility] EGFR 99 >59 mL/min/1.7 3m2 [facility] Comment:Estimated glomerular filtration rate calculated using the CKD-EPI refit equation. ANION GAP 13 10 - 20 mmol/L [facility] Blood 11/27/2022 1:06 PM EDT 11/27/2022 1:12 PM EDT us Farhad Norris DO LAB BLOOD ORDERABLES Final Re sult [facility] [address] [place], [place] [id number] from Last 3 Months or Most Recently Relevant to Health Maintenance Insurance [address] [place] [address] MEDICARE PART A & B [facility] MEDICARE REPLACEMENT [address] SAFETY NET [address] [place] [address] MEDICARE PART A & B [facility] MEDICARE REPLACEMENT [place] [id number] HEALTH SAFETY NET [address] [place] [address] MEDICARE PART A & B [facility] MEDICARE REPLACEMENT [facility] SAFETY NET FULL HEALTH SAFETY NET FULL [facility] FULL MEDICARE PART A & [place] [id number] [facility] MEDICARE REPLACEMENT HEALTH SAFETY NET FULL [address] [place] [address] [facility] SAFETY NET FULL MEDICARE PART A & B [facility] [place] [address] [facility] [address] [place] [address] MEDICARE PART A & B [facility] MEDICARE REPLACEMENT HEALTH SAFETY NET [address]ULL [address] [place] [address] MEDICARE PART A & B [facility] MEDICARE REPLACEMENT [place] [id number] HEALTH SAFETY NET FULL [facility] Care Teams It Project Lead Relationship Specialty Start Date End Date Ronal Orozco MD [address] [place] [address] Dr [place], [place] [address] PCP - General Internal Medicine 12/15/21 Additional Source Comments The information contained in this document represents components of the legal health record. It is not the complete legal health record.[facility]
--- OUTSIDE RECORDS SUMMARY | 2025-01-08 10:16 | XMS_ITS | Patient Health Record ---
Author Organization [facility] Address [address] [place] [address] Care Team Providers Care Jira Developer Name Role Phone Ernesto BAILEY, Ronal Primary Care Provider Schuyler Molina [phone] Allergies No Known Allergies Results Component Value Reference Range Notes Pathology (Not yet reviewed by provider) Interpretation: Performing Lab:[facility], [address] [place] [phone] Notes/Report: Reason For Referral No Information Medications Medication SIG (Take, Route, Frequency, Duration) Notes Start Date End Date Status Losartan Potassium 100 MG TOME JALYN TABLE TA TODOS LOS D? Oral for 30 Active amLODIPine Besylate 5 MG TOME JALYN TABLET A TODOS LOS D? Oral for 90 Active Dulcolax (colon prep) 5 MG take 2 at 3:0 0 p.m and 7:00p.m. Orally two tablets twice a day for one day for 1 days 12/23/2024 Active traZODone HCl 50 MG TAKE 1-2 TABLET BY M OUTH AT BEDTIME NEEDED FOR SLEEP Oral for 15 Active Dulcolax 5 MG 2 tablets 2 days bef ore the colonoscopy Orally Once 2 days before the colonoscopy for 1 days 12/24/2024 Active clonazePAM 2 MG (Schedule IV Drug) T OME JALYN TABLETA TODOS LOS D? AL ACOSTARSE Oral for 30 Active Breo Ellipta Active Gabapentin 800 MG TOME JALYN TABLETA LORE S VECES AL D?A Oral for 90 Active MiraLax (colon prep) 17 GM/SCOOP 1 238Gm bottle mixed with 64 ounces of Gatorade or Crystal Light orally begin at 5:00 p.m. the day before the procedure for 1 days 12/23/2024 Active Pantoprazole Sodium 40 MG 1 tablet 1/2 t o 1 hour before morning meal Orally Once a day Active Immunizations Vaccine Route Administration Date Status Comme nts Influenza Unknown 03/07/2018 Administered Influenza Unknown 06/26/2020 Refused Social History Tobacco Use: Social History Observation Description Date Details (start date - stop date) Current Smoker NA - NA Alcohol Screen Question Answer Notes Did you have a drink containing alcohol in the p ast year? No Points 0 Interpretation Negative Tobacco Control (Standard) Question Answer Notes Tobacco use: Current smoker How often do you smoke cigarettes? Every day How many cigarettes a day do you smoke? 5 or les s How soon after you wake up do you smoke your fir st cigarette? After 60 minutes Section Notes: Nonsmoker; no sig alcohol Smoker approx 6 cigs QD; no sig alcohol Smoker approx 6 cigs QD; no sig alcohol Problems Problem Type SNOMED Code ICD Code Onset Dates Problem Status W/U Status Risk Notes Problem Epigastric pain (85846599) Epigastric abdominal pain (R10.13) Active confirmed Problem [id number] Encounter for screening for malignant neoplasm of colon (Z12.11) Active confirmed Problem Dysphagia (51651642) Dysphagia (R13.10) Active confirmed Problem Gastroesophageal reflux disease (315981892) Gastroesophageal reflux disease, esophagitis presence not specified (K21.9) Active confirmed 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 Problem [id number] Pre-procedural examination (Z01.818) Active confirmed Problem Family history of malignant neoplasm of gastrointestinal tract (682579101) Family history of colon cancer in father (Z80.0) Active confirmed Vital Signs Blood pressure diastolic 77 mm Hg 10/02/2024 Height 62.5 in 10/02/2024 Blood pressure systolic 111 mm Hg 10/02/2024 Weight 209 lbs 10/02/2024 BMI 37.61 kg/m2 10/02/2024 Procedures Procedure Date Ordered Date Performed Result Body Sit e UPPER GI ENDOSCOPY 10/02/2024 N/A COLONOSCOPY 10/02/2024 N/A Encounters Encounter Location Date Provider Diagnosis [facility] [address] [place] [address] [place] [id number] 12/25/2024 Schuyler Coker [facility] [address] [place] [phone] 10/02/2024 Schuyler Coker Encounter for screen ing for malignant neoplasm of colon Z12.11 ; Gastroesophageal reflux disease, esophagitis presence not specified K21.9 ; Pre-procedural examination Z01.818 ; Family history of colon cancer in father Z80.0 and Dysphagia R13.10 [facility] [address] [place] [phone] 02/07/2024 Schuyler Coker [facility] [address] [place] [phone] 06/06/2024 Schuyler Coker [facility] [address] [place] [phone] 12/06/2024 Schuyler Coker [facility] [address] [place] [phone] 12/23/2024 Schuyler Coker [facility] [address] [place] [phone] 12/23/2024 Schuyler Coker Assessments Encounter Date Diagnosis (ICD Code) Assessment Notes Treatment Notes Treatment Clinical Notes Section Notes 10/02/2024 Encounter for screening for malignant neoplasm of colon (ICD-10 - Z12.11) Overall, Kelli appears well from a clinical standpoint. She is not having any particularly new or worrisome GI complaints at this time. Her reflux seems stable on her present regimen of the daily pantoprazole. I did advise her to continue this. Overall, I do not think she is having any worrisome upper GI complaints. However, I did recommend an upper endoscopy for evaluation given some symptoms of dysphagia to liquids at the present time. My overall suspicion for finding any significant pathology is low at this time given no significant problems while eating regular food. I did advise her to be careful while drinking fluids and to let us know if this worsens, in which case we might want to have her undergo a modified barium swallow with the speech and swallowing team at the hospital to see if there is any significant problem causing her symptoms. However at this point I would hold off on that unless symptoms were to worsen given no problems with solid food and her otherwise negative clinical history. I would be inclined to continue to follow things along on her daily pantoprazole. Given her significant family history of colon cancer in her father and a somewhat limited colonoscopy in June 2020 due to the prep, I did recommend a follow-up colonoscopy. We did review the rationale for this in regard to colon cancer prevention. Full consent has been obtained from her for this, including risks of bleeding and perforation. The procedure will be done with monitored anesthesia care. I did advise her to take 2 extra Dulcolax 2 days before the colonoscopy to hopefully allow for a better prep. Kelli was comfortable with this plan. Thank you again for allowing me to participate in Kelli's care. I shall continue to keep you advised of her progress. 10/02/2024 Gastroesophageal reflux disease, esophagitis presence not specified (ICD-10 - K21.9) Continue the daily Pantoprazole for the acid reflux Overall, Kelli appears well from a clinical standpoint. She is not having any particularly new or worrisome GI complaints at this time. Her reflux seems stable on her present regimen of the daily pantoprazole. I did advise her to continue this. Overall, I do not think she is having any worrisome upper GI complaints. However, I did recommend an upper endoscopy for evaluation given some symptoms of dysphagia to liquids at the present time. My overall suspicion for finding any significant pathology is low at this time given no significant problems while eating regular food. I did advise her to be careful while drinking fluids and to let us know if this worsens, in which case we might want to have her undergo a modified barium swallow with the speech and swallowing team at the hospital to see if there is any significant problem causing her symptoms. However at this point I would hold off on that unless symptoms were to worsen given no problems with solid food and her otherwise negative clinical history. I would be inclined to continue to follow things along on her daily pantoprazole. Given her significant family history of colon cancer in her father and a somewhat limited colonoscopy in June 2020 due to the prep, I did recommend a follow-up colonoscopy. We did review the rationale for this in regard to colon cancer prevention. Full consent has been obtained from her for this, including risks of bleeding and perforation. The procedure will be done with monitored anesthesia care. I did advise her to take 2 extra Dulcolax 2 days before the colonoscopy to hopefully allow for a better prep. Kelli was comfortable with this plan. Thank you again for allowing me to participate in Kelli's care. I shall continue to keep you advised of her progress. 10/02/2024 Pre-procedural examination (ICD-10 - Z01.818) Overall, Kelli appears well from a clinical standpoint. She is not having any particularly new or worrisome GI complaints at this time. Her reflux seems stable on her present regimen of the daily pantoprazole. I did advise her to continue this. Overall, I do not think she is having any worrisome upper GI complaints. However, I did recommend an upper endoscopy for evaluation given some symptoms of dysphagia to liquids at the present time. My overall suspicion for finding any significant pathology is low at this time given no significant problems while eating regular food. I did advise her to be careful while drinking fluids and to let us know if this worsens, in which case we might want to have her undergo a modified barium swallow with the speech and swallowing team at the hospital to see if there is any significant problem causing her symptoms. However at this point I would hold off on that unless symptoms were to worsen given no problems with solid food and her otherwise negative clinical history. I would be inclined to continue to follow things along on her daily pantoprazole. Given her significant family history of colon cancer in her father and a somewhat limited colonoscopy in June 2020 due to the prep, I did recommend a follow-up colonoscopy. We did review the rationale for this in regard to colon cancer prevention. Full consent has been obtained from her for this, including risks of bleeding and perforation. The procedure will be done with monitored anesthesia care. I did advise her to take 2 extra Dulcolax 2 days before the colonoscopy to hopefully allow for a better prep. Kelli was comfortable with this plan. Thank you again for allowing me to participate in Kelli's care. I shall continue to keep you advised of her progress. 10/02/2024 Family history of colon cancer in father (ICD-10 - Z80.0) Overall, Kelli appears well from a clinical standpoint. She is not having any particularly new or worrisome GI complaints at this time. Her reflux seems stable on her present regimen of the daily pantoprazole. I did advise her to continue this. Overall, I do not think she is having any worrisome upper GI complaints. However, I did recommend an upper endoscopy for evaluation given some symptoms of dysphagia to liquids at the present time. My overall suspicion for finding any significant pathology is low at this time given no significant problems while eating regular food. I did advise her to be careful while drinking fluids and to let us know if this worsens, in which case we might want to have her undergo a modified barium swallow with the speech and swallowing team at the hospital to see if there is any significant problem causing her symptoms. However at this point I would hold off on that unless symptoms were to worsen given no problems with solid food and her otherwise negative clinical history. I would be inclined to continue to follow things along on her daily pantoprazole. Given her significant family history of colon cancer in her father and a somewhat limited colonoscopy in June 2020 due to the prep, I did recommend a follow-up colonoscopy. We did review the rationale for this in regard to colon cancer prevention. Full consent has been obtained from her for this, including risks of bleeding and perforation. The procedure will be done with monitored anesthesia care. I did advise her to take 2 extra Dulcolax 2 days before the colonoscopy to hopefully allow for a better prep. Kelli was comfortable with this plan. Thank you again for allowing me to participate in Kelli's care. I shall continue to keep you advised of her progress. 10/02/2024 Dysphagia (ICD-10 - R13.10) Overall, Kelli appears well from a clinical standpoint. She is not having any particularly new or worrisome GI complaints at this time. Her reflux seems stable on her present regimen of the daily pantoprazole. I did advise her to continue this. Overall, I do not think she is having any worrisome upper GI complaints. However, I did recommend an upper endoscopy for evaluation given some symptoms of dysphagia to liquids at the present time. My overall suspicion for finding any significant pathology is low at this time given no significant problems while eating regular food. I did advise her to be careful while drinking fluids and to let us know if this worsens, in which case we might want to have her undergo a modified barium swallow with the speech and swallowing team at the hospital to see if there is any significant problem causing her symptoms. However at this point I would hold off on that unless symptoms were to worsen given no problems with solid food and her otherwise negative clinical history. I would be inclined to continue to follow things along on her daily pantoprazole. Given her significant family history of colon cancer in her father and a somewhat limited colonoscopy in June 2020 due to the prep, I did recommend a follow-up colonoscopy. We did review the rationale for this in regard to colon cancer prevention. Full consent has been obtained from her for this, including risks of bleeding and perforation. The procedure will be done with monitored anesthesia care. I did advise her to take 2 extra Dulcolax 2 days before the colonoscopy to hopefully allow for a better prep. Kelli was comfortable with this plan. Thank you again for allowing me to participate in Kelli's care. I shall continue to keep you advised of her progress. Plan Of Treatment Pending Test Test Name Order Date UPPER GI ENDOSCOPY 10/02/2024 COLONOSCOPY 10/02/2024 Pathology 12/25/2024 Future Test Test Name Order Date UPPER GI ENDOSCOPY 07/25/2018 UPPER GI ENDOSCOPY 06/26/2020 COLONOSCOPY 06/26/2020 Insurance Providers Payer Name Payer Address Payer Phone Subscriber Number Group Number Insured Name Patient Relationship to Insured Coverage Start Date Coverage End Date A[employer] MEDI COMP (REFERRAL REQUIRED) [address] [address] [place] [address] [id number] KELLI BANERJEE Self - patient is the insured MEDICAID OF [employer] [facility] [address] [place] [address] [id number] KELLI BANERJEE Self - patient is the insured Medical (General) History Medical History History ICD Code Denies OH,DM,CVA,Lung disease,renal dise ase Legally blind Depression HTN Diverticulitis x 3 episodes. Describes a colonoscopy in [place] in approx. 2014 that showed diverticulosis, but was otherwise neg. 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
[2025-01-08 10:38] LABS: Hematocrit 45.6 % (37.0-47.0); Hemoglobin 15.4 g/dl (12.0-16.0); Imm Gran Abs Auto 0.02 X10*3/uL (0.00-0.03); Imm Gran Pct Auto 0.3 % (0.0-0.4); Lymphocytes Absolute Auto 1.4 X10*3/uL (1.2-4.9); Mean Corpuscular HGB Conc 33.8 g/dl (31.0-35.0); Mean Corpuscular Hemoglobin 29.8 pg (27.0-33.0); Mean Corpuscular Volume 88.4 fL (80.0-98.0); NRBC Abs Auto 0.000 X10*3/uL (0.0-0.012); NRBC Pct Auto 0.0 /100WBC (0.0-0.2); Platelet Count 255 X10*3/uL (160-400); Red Blood Count 5.16 X10*6/uL (4.20-5.50); White Blood Count 6.3 X10*3/uL (4.8-10.8)
[2025-01-08 11:26] LABS: Alanine Aminotransferase 26 U/L (0-31); Albumin Level 4.3 g/dL (3.5-5.0); Alkaline Phosphatase 125 U/L (39-117); Anion Gap 11 (12-20); Aspartate Amino Transferase 22 U/L (5-31); Blood Urea Nitrogen 9 mg/dL (9-16); Calcium 9.2 mg/dL (8.4-10.2); Carbon Dioxide 33 mmol/L (22-29); Chloride 105 mmol/L (96-108); Cholesterol 181 mg/dL (<200); Estimated Glomerular Filt Rate > 60; HDL Cholesterol 51 mg/dL (>40); Potassium 4.2 mmol/L (3.3-5.1); Sodium 145 mmol/L (135-145); Total Protein 7.4 g/dL (6.5-8.0); Triglycerides 71 mg/dL (<150)
[2025-01-08 12:02] LABS: Appearance Urine Clear; Glucose Urine UA Negative (Negative); PH 5.5 (5.0-9.0); Specific Gravity - Urine 1.020 (1.005-1.025)
[2025-01-08 12:59] LABS: Free T4 (Free Thyroxine) 0.99 ng/dL (0.71-1.85)
== END 2025-01-08 08:48 | disposition home or self-care (01) ==
LOC: HO.LAB 08:47
PROVIDERS: PCP Internal Medicine
DX: G47.34 Idiopathic sleep related nonobstructive alveolar hypoventilation (principal); F17.210 Nicotine dependence, cigarettes, uncomplicated; R06.09 Other forms of dyspnea; G47.33 Obstructive sleep apnea (adult) (pediatric); E66.01 Morbid (severe) obesity due to excess calories; Z68.41 Body mass index [BMI] 40.0-44.9, adult; E78.5 Hyperlipidemia, unspecified; G43.909 Migraine, unspecified, not intractable, without status migrainosus; F31.60 Bipolar disorder, current episode mixed, unspecified; F41.1 Generalized anxiety disorder; K21.9 Gastro-esophageal reflux disease without esophagitis
CPT/HCPCS: 36415; 80053; 80061; 81003; 82306; 84439; 84443; 85025

== ENCOUNTER 2025-01-15 12:27 | Outpatient (AMB) | payer MEDICARE, MEDICAID, SELFPAY ==
--- OUTSIDE RECORDS SUMMARY | 2024-06-06 07:00 | XMS_ITS ---
Author Organization [facility] Address [address] [place] [phone] Care Team Providers Care Banquet Manager Name Role Phone Ronal Orozco MD Primary Care Provider Schuyler Molina [phone] REASON FOR VISIT Patient presents today for abdominal pain Encounters Encounter Location Date Provider Diagnosis [facility] [address] [place] [phone] 06/06/2024 Schuyler Coker Plan Of Treatment No Information Progress Notes * KELLI BANERJEE LADOB:1955 (69 yo F)Acc No.[id number]:06/06/2024 Progress Notes Patient: KELLI OJEDA Provider: Filiberto Coker MD :1955 A ge:68 Y S ex:Female Date:06/06/2024 Address:[address] [place], [place] [id number] Pcp:Ronal Orozco MD Subjective: * Chief Complaints: [...] 06/06/2024 Generated for Tessa arreguin/Inocencio/Heleneitting on: 0 01/15/2025 03:56 PM EDT
--- OUTSIDE RECORDS SUMMARY | 2024-12-09 09:40 | XMS_ITS ---
Author Organization [facility] Address [address] [place] [address] Care Team Providers Care Patient'S Librarian Name Role Phone Ronal Orozco MD Primary Care Provider Schuyler Molina [phone] REASON FOR VISIT reflux barretts esophagus/fm hx of colon cancer Encounters Encounter Location Date Provider Diagnosis [facility] [place] [address] [place] [id number] 12/09/2024 Schuyler Coker Plan Of Treatment No Information Progress Notes * KELLI BANERJEE LADOB:1955 (69 yo F)Acc No.[id number]:12/09/2024 EGD and COL/MAC Patient: KELLI OJEDA Provider: Filiberto Coker MD :1955 A ge:69 Y S ex:Female Date:12/09/2024 Address:[address] [place] [address] Pcp:Ronal Orozco MD Subjective: * Chief Complaints: [...] * Provider: Filiberto Coker MD Date: 0 12/09/2024 Generated for Tessa arreguin/Inocencio/Heleneitting on: 0 01/15/2025 03:56 PM EDT
--- OUTSIDE RECORDS SUMMARY | 2024-12-25 06:30 | XMS_ITS ---
Author Organization [facility] Address [address] [place] [address] Care Team Providers Care Carpet Or Rug Layer Helper Name Role Phone Ronal Orozco MD Primary Care Provider Schuyler Molina [phone] REASON FOR VISIT gerd,dysphagia,screening,fam hx colon cancer Encounters Encounter Location Date Provider Diagnosis [facility] [place] [address] [place] [phone] 12/25/2024 Schuyler Coker Plan Of Treatment No Information Progress Notes * KELLI BANERJEE LADOB:1955 (69 yo F)Acc No.[id number]:12/25/2024 EGD and COL/MAC Patient: KELLI OJEDA Provider: Filiberto Coker MD :1955 A ge:69 Y S ex:Female Date:12/25/2024 Address:[address] [place] [address] Pcp:Ronal Orozco MD Subjective: * Chief Complaints: * 1 . Gerd,dysphagia,screening,fam hx colon cancer. * Medical History: Objective: * Vitals: Assessment: Plan: * Treatment: * * The named appointment provid er may or may not be the originator of this progress note, and it is not deemed complete until electronically signed by the appointment provider. Sign off status: Pending * Provider: Filiberto Coker MD Date: 0 12/25/2024 Generated for Tessa arreguin/Inocencio/Heleneitting on: 0 01/15/2025 03:56 PM EDT
[2025-01-15 12:42] VITALS: BP 128/84; PULSE 95; O2SAT 94; BMI 36.7
--- NOTE | 2025-01-15 12:42 | MHC.PC.OV ---
Vital Signs 01/15/25 12:42 Height 5 ft 2.5 in Weight 204 lb BMI 36.7 BP 128/84 Blood Pressure Location Lt brachial Position Sitting Pulse 95 Pulse Source Pulse Oximeter Pulse Oximetry (%) 94 Oxygen Delivery Method Room Air Intake Visit Reasons: PE Microelectronics Technician Required: No Accompanied by: Self / Same As Patient Allergies No Known Allergies (No Known Allergies*) Allergy (Verified 01/15/25 13:21) Medication List - Last Reconciled 01/15/25 by Ronal Orozco MD albuterol sulfate 90 mcg/actuation 2 puffs inhalation Q4-6H PRN amlodipine 10 mg PO DAILY blood pressure test kit-large As directed clonazepam 1 mg PO BID PRN duloxetine 60 mg PO DAILY fluticasone furoate-vilanterol 100-25 mcg/dose (Breo Ellipta) 1 inh inhalation DAILY fluticasone propionate 50 mcg/actuation 2 sprays intranasal DAILY PRN 30 days gabapentin 800 mg PO TID loratadine 10 mg PO DAILY 90 days losartan 100 mg PO DAILY magnesium glycinate 400 mg (4 x 100 mg magnesium) PO BEDTIME 90 days pantoprazole 40 mg PO DAILY trazodone 200 mg PO BEDTIME PRN walker Adult folding 4-wheeled rolling seated walker- use when walking Tobacco use date assessed: 01/15/25 Fall risk assessment: 2 + Falls in past year Last assessed Fall Risk: 01/15/25 Dental Screening Dental Screen Date: 01/15/25 Did you have a dental visit in the last 12 months?: No Did you have a dental problem in the last 6 months where you did not have access to dental care?: No Was dental information given to patient?: No HPI PE HPI Details Patient comes in today for her annual physical examination - she was last seen by me back in November 2023 States that she feels okay She denies any headaches or dizziness Denies any chest pains, no SOB No nausea/vomiting, no abdominal pain No change in bowel habits noted Denies any acute urinary symptoms She had her follow up labs done last week - to discuss her results She just had her colonoscopy done last month on 12/25/[address] Coker - is recommended to undergo repeat colonoscopy in 3 years (2027) due to tubular adenoma, family Hx and limited prep She is overdue for her annual mammogram - last had this done years ago and she has been trying to avoid it as she finds the procedure too painful She last had her yearly gynecology exam done in September 2023 and is [facility] Medical History (Updated 01/19/25 @ 19:55 by Ronal Orozco MD) Legally blind Nocturnal hypoxemia Hyperlipidemia Allergic rhinitis Insomnia Smoker Bipolar affective disorder Generalized anxiety disorder Right lumbar radiculopathy GERD without esophagitis Benign essential hypertension Nasal congestion Obesity (BMI 30-39.9) Impaired glucose tolerance History of diverticulitis Back pain Lumbar degenerative disc disease Hypertension Vitamin D deficiency Surgical History (Updated 01/15/25 @ 13:25 by Ronal Orozco MD) History of eye removal Hx of cataract surgery H/O colonoscopy History of esophagogastroduodenoscopy (EGD) History of tubal ligation History of cholecystectomy Family History Father Colon cancer Mother Primary cancer of bone marrow Sister Leukemia Social History Housing: Apartment Are you a primary personal care service provider to a significant other at home: No Do you presently have visiting nurse or other home services: No Alcohol intake: never Patient Tobacco Use Status: Current everyday Tobacco user Tobacco use type: Cigarette Cigarettes Per Day: 7 e-Cigarette/Vaping Use: Never Used Second Hand Smoke Exposure: No service: No Current occupational status: unemployed Cognitive needs: No Hearing needs: No Vision needs: No Questionnaire PHQ-9 Over the last 2 weeks, how often have you been bothered by any of the following problems? 1. Little interest or pleasure in doing things: not at all 2. Feeling down, depressed, or hopeless: several days 3. Trouble falling or staying asleep, or sleeping too much: nearly every day 4. Feeling tired or having little energy: nearly every day 5. Poor appetite or overeating: several days 6. Feeling bad about yourself - or that you are a failure or have let yourself or your family down: not at all 7. Trouble concentrating on things, such as reading the newspaper or watching television: several days 8. Moving or speaking so slowly that other people could have noticed. Or the opposite - being so fidgety or restless that you have been moving around a lot more than usual: not at all 9. Thoughts that you would be better off or of hurting yourself in some way: not at all Total score: 9 Depression Screening Interpretation: Positive Depression Screening Follow-up: Existing condition and In treatment Depression Screening Done: Yes 52820 - PHQ-9 Billing: Yes Source: Developed by Drs. Schuyler Abbott, Elena Villeda, Eric Espinal and colleagues, with an educational lm from [employer]. Thrive Questionnaire Date Thrive assessed: 01/15/25 I am a: Patient What is your living situation today?: I have a steady place to live Within the past 12 months, did the food you bought not last and you didn't have the money to get more?: Never true Within the past 12 months, did you worry whether your food would run out before you got money to buy more?: Never true Do you have trouble paying for medicines?: No Do you have trouble getting transportation to medical appointments?: No Do you have trouble paying your heating and electricity bill?: No Do you have trouble taking care of your child, family member or friend?: No Do you have trouble with day-to-day activities such as bathing, preparing meals, shopping, managing finances, etc.?: No Are you currently unemployed and looking for a job?: No Are you interested in more education?: No Please select the resources that you would like help with: None Currently or been in a relationship where the following occur: No concerns reported THRIVE Score: 0 AUDIT C Alcohol Use Questionnaire (AUDIT-C) 1. How often do you have a drink containing alcohol?: Never 3. How often do you have six or more drinks on one occasion?: Never Total Score: 0 Score Reviewed/Action Taken: Yes Review of Systems Const Denies chills, Denies fatigue, Denies fever(s), Denies headache(s) and Denies malaise Eyes Denies blurry vision, Denies change in vision, Denies irritation and Denies itchy eyes ENT Denies dysphagia, Denies dizziness, Denies otalgia, Denies headache(s), Denies nasal congestion, Denies neck pain, Denies odynophagia, Denies sinus pain and Denies sore throat Card Denies chest pain, Denies rapid heart rate, Denies irregular heart rhythm, Denies palpitations and Denies dyspnea Resp Denies chest congestion, Denies cough, Denies dyspnea and Denies wheezing GI Denies abdominal pain, Denies bloating, Denies constipation, Denies dysphagia, Denies heartburn, Denies diarrhea, Denies nausea, Denies odynophagia and Denies vomiting Denies hematuria, Denies urinary frequency, Denies dysuria, Denies urinary incontinence and Denies urinary urgency Musc Denies back pain, Denies arthralgias, Denies joint swelling, Denies muscle weakness and Denies neck pain Skin/Breast Denies breast pain, Denies breast mass, Denies change in pigmentation, Denies lesions, Denies rash and Denies unusual bruising Neuro Denies dizziness, Denies headache(s) and Denies paresthesias Psych Denies anxiety and Denies depression Endo Denies fatigue and Denies palpitations Pietro/Lymph Denies easy bruising Aller/Immun Denies itchy eyes and Denies wheezing Physical exam (Primary Care) Vital Signs: Last Vital Signs Pulse 95 01/15/25 12:42 BP 128/84 01/15/25 12:42 Pulse Ox 94 01/15/25 12:42 Oxygen Delivery Method Room Air 01/15/25 12:42 BMI result Body Mass Index 36.7 Tobacco/Smoking Status: Tobacco use Status Tobacco use date assessed 01/15/25 01/15/25 12:47 Patient Tobacco Use Status Current everyday Tobacco 01/15/25 12:47 Tobacco use type Cigarette 01/15/25 12:47 e-Cigarette/Vaping Use Never Used 01/15/25 12:47 PHQ-9: PHQ-9 Score PHQ-9: Total score 9 01/15/25 13:29 Depression Screening Interpretation: Positive Depression Screening Follow-up: Existing condition and In treatment Thrive Assessment: Date of Thrive Assessment Date Thrive assessed 01/15/25 01/15/25 13:29 Currently or been in a relationship where the following occur: No concerns reported Const General: no acute distress, alert and awake Orientation/consciousness: patient oriented x3 HENMT Head: Yes normocephalic and Yes atraumatic Ears: external ears normal, TM's normal bilaterally and EAC's normal General nose exam: No nasal discharge present Face and sinus: Yes normal facial exam and Yes sinuses nontender Teeth and gingiva: dentition normal Throat: Yes posterior oropharynx normal and Yes tonsils normal (no TP congestion) Eyes Eyelids: Yes eyelids normal Conjunctivae: conjunctivae normal Pupils: Equal, round and reactive pupils present EOM: EOMs intact bilaterally Neck Neck: Yes no lymphadenopathy and Yes supple Thyroid: Thyroid normal Resp Auscultation: clear to auscultation bilaterally, no rales and no wheezes Cardio Rate: regular rate Rhythm: regular rhythm Heart sounds: no murmurs GI Palpation (GI): Soft to palpation, nontender and No hepatosplenomegaly present Auscultation: normal bowel sounds General: Yes no CVA tenderness Back/Spine/Pelvis Back: no CVA tenderness Thoracic/Lumbar Spine: thoracic and lumbar spine normal to inspection Skin Lesions: no lesions Rashes: no rashes Neuro General: patient oriented x3, moves all extremities, no focal motor deficits and CN's II-XI intact bilaterally Cranial nerves: Yes Equal, round and reactive pupils present Cognition (Neuro): normal cognition Gait exam (Neuro): Normal gait present Extrem General: Yes no clubbing, cyanosis or edema Results Reviewed Results Reviewed: Laboratory Tests 01/08/25 01/08/25 09:06 09:16 WBC 6.3 Hgb 15.4 Hct 45.6 Plt Count 255 Sodium 145 Potassium 4.2 Creatinine 0.69 Estimated GFR > 60 Fasting Glucose 94 Calcium 9.2 AST 22 ALT 26 Triglycerides 71 Cholesterol 181 LDL Cholesterol, Calc 116 H HDL Cholesterol 51 25-OH Vitamin D Total 27.4 L TSH 4.57 H Free T4 0.99 Ur Specific [place] 1.020 Urine Protein Negative Urine Glucose (UA) Negative Urine Blood Negative Urine Nitrite Negative Ur Leukocyte Esterase Negative Coding Level of Care Code Est Pt Prev Care >65y(63587) Diagnoses Annual physical exam Z00.00 Benign essential hypertension I10 Migraine without status migrainosus, not intractable, unspecified migraine type G43.909 Migraine type: unspecified Status migrainosus presence: without status migrainosus Intractability: not intractable Hyperlipidemia, unspecified hyperlipidemia type E78.5 Hyperlipidemia type: unspecified Impaired glucose tolerance R73.02 Degeneration of intervertebral disc of lumbar region with discogenic back pain and lower extremity pain M51.362 Disc-related pain type: discogenic back pain and lower extremity pain Primary osteoarthritis of right ankle M19.071 Osteoarthritis type: primary Allergic rhinitis, unspecified seasonality, unspecified trigger J30.9 Allergic rhinitis trigger: unspecified Allergic rhinitis seasonality: unspecified Gastroesophageal reflux disease without esophagitis K21.9 Esophagitis presence: without esophagitis Moderate persistent asthma without complication J45.40 Asthma severity: moderate Asthma persistence: persistent Asthma complication type: uncomplicated Vitamin D deficiency E55.9 Nocturnal hypoxemia G47.34 Insomnia, unspecified type G47.00 Insomnia type: unspecified Generalized anxiety disorder F41.1 Bipolar affective disorder, remission status unspecified F31.9 Active/Remission status: remission status unspecified Smoker F17.200 Obesity (BMI 30-39.9) E66.9 Breast cancer screening by mammogram Z12.31 Osteoporosis screening Z13.820 Additional Codes PHQ-9 - 01854 - PHQ-9 Billing: Yes ([id number]) Assessment & Plan Assessment & Plan (1) Annual physical exam: Code(s): Z00.00 - Encounter for general adult medical examination without abnormal findings Category: Medical Plan: Results of her labs done last week reviewed and discussed with patient She just had her colonoscopy done last month on 12/25/[address] Coker - is recommended to undergo repeat colonoscopy in 3 years (2027) due to tubular adenoma, family Hx and limited prep She is overdue for her annual mammogram - last had this done years ago and she has been trying to avoid it as she finds the procedure too painful She last had her yearly gynecology exam done in September 2023 and [facility] She has also never had BMD done in the past for osteoporosis screening (2) Benign essential hypertension: Code(s): I10 - Essential (primary) hypertension Category: Medical Plan: Reinforced low sodium diet - goal is systolic BP of at least 120 to 130 mm or less Continue Losartan 100 mg QD and Amlodipine 10 mg QD (3) Migraine: Code(s): G43.909 - Migraine, unspecified, not intractable, without status migrainosus Category: Medical Qualifiers: Migraine type: unspecified Status migrainosus presence: without status migrainosus Intractability: not intractable Qualified Code(s): G43.909 - Migraine, unspecified, not intractable, without status migrainosus Plan: Continue Sumatriptan 50 mg 1 to 2 tablets PRN and Nurtec ODT 75 mg QOD for headache prevention She had a brain MRI done on 01/27/2023, which came out mostly unremarkable - (+) several scattered foci of supratentorial white matter T2/FLAIR signal abnormality are nonspecific but can be seen in the setting of migraine and/or chronic microvascular ischemia. Otherwise, this is an unremarkable noncontrast MRI of the brain. Follow up with neurology as scheduled (4) Hyperlipidemia: Code(s): E78.5 - Hyperlipidemia, unspecified Category: Medical Qualifiers: Hyperlipidemia type: unspecified Qualified Code(s): E78.5 - Hyperlipidemia, unspecified Plan: Her LDL cholesterol was acceptable at 116 mg/dl on her labs done last week Reinforced low cholesterol diet Will recheck her labs and fasting lipids in 4 months for follow-up (5) Impaired glucose tolerance: Code(s): R73.02 - Impaired glucose tolerance (oral) Category: Medical Plan: Her FBS was at 94 mg/dL on her labs done last week; in-office HgbA1c was normal at 5.7% when previously checked Reinforced low calorie/low carb diet; exercise as tolerated (6) Lumbar degenerative disc disease: Code(s): M51.36 - Other intervertebral disc degeneration, lumbar region Category: Medical Qualifiers: Disc-related pain type: discogenic back pain and lower extremity pain Qualified Code(s): M51.362 - Other intervertebral disc degeneration, lumbar region with discogenic back pain and lower extremity pain Plan: Reinforced activity and weight lifting restrictions Continue Tramadol 50 mg TID PRN and Tizanidine 4 mg TID PRN Continue Gabapentin 800 mg TID (7) Osteoarthritis of right ankle: Code(s): M19.071 - Primary osteoarthritis, right ankle and foot Category: Medical Qualifiers: Osteoarthritis type: primary Qualified Code(s): M19.071 - Primary osteoarthritis, right ankle and foot Plan: X-rays of the right ankle done back in 09/2021 revealed (+) moderate multifocal degenerative osteoarthritis Have suggested that she see podiatry if her ankle continues to bother her - patient will call for referral when needed (8) Allergic rhinitis: Code(s): J30.9 - Allergic rhinitis, unspecified Category: Medical Qualifiers: Allergic rhinitis trigger: unspecified Allergic rhinitis seasonality: unspecified Qualified Code(s): J30.9 - Allergic rhinitis, unspecified Plan: Continue Loratadine 10 mg QD PRN and Fluticasone 50 mcg nasal spray 2 sprays into each nostril QD PRN (9) GERD (gastroesophageal reflux disease): Code(s): K21.9 - Gastro-esophageal reflux disease without esophagitis Category: Medical Qualifiers: Esophagitis presence: without esophagitis Qualified Code(s): K21.9 - Gastro-esophageal reflux disease without esophagitis Plan: Dietary restrictions reinforced UGI series done in July 2018 revealed (+) mild esophageal dysmotility with mild reflux disease EGD in August 2018 revealed mild reflux disease with gastritis - recommend continue PPI Rx REPEAT EGD on 07/17/2020 revealed similar results - (+) small hiatal hernia with GERD and findings of gastritis Continue Pantoprazole 40 mg QD Follow up with GI as scheduled (10) Asthma: Code(s): J45.909 - Unspecified asthma, uncomplicated Category: Medical Qualifiers: Asthma severity: moderate Asthma persistence: persistent Asthma complication type: uncomplicated Qualified Code(s): J45.40 - Moderate persistent asthma, uncomplicated Plan: Continue Breo Ellipta 100-25 mcg 1 inhalation QD and Albuterol HFA 1 to 2 inhalations QID PRN Follow-up with pulmonary as scheduled (11) Vitamin D deficiency: Code(s): E55.9 - Vitamin D deficiency, unspecified Category: Medical Plan: She is advised that her vitamin-D level was low on her recent labs We will start her on vitamin D3 1000 units QD (12) Nocturnal hypoxemia: Code(s): G47.34 - Idiopathic sleep related nonobstructive alveolar hypoventilation Category: Medical Plan: She was sent for a sleep study in the past, which came out negative although the test that show (+) nocturnal hypoxemia Patient was prescribed oxygen inhalation at bedtime by Sleep Medicine but she declined to keep using it she finds it difficult to keep on when she is sleeping at night (13) Insomnia: Code(s): G47.00 - Insomnia, unspecified Category: Medical Qualifiers: Insomnia type: unspecified Qualified Code(s): G47.00 - Insomnia, unspecified Plan: Sleep hygiene reinforced Continue Trazodone 200 mg Q HS PRN (14) Generalized anxiety disorder: Code(s): F41.1 - Generalized anxiety disorder Category: Medical Plan: Continue Clonazepam 1 mg BID PRN (15) Bipolar disorder: Code(s): F31.9 - Bipolar disorder, unspecified Category: Medical Qualifiers: Active/Remission status: remission status unspecified Qualified Code(s): F31.9 - Bipolar disorder, unspecified Plan: She was on Perphenazine-Amitriptyline 4-25 mg QD in the past but Rx has been discontinued Continue Duloxetine 60 mg QD Follow up with psychiatry as scheduled (16) Smoker: Code(s): F17.200 - Nicotine dependence, unspecified, uncomplicated Category: Social Hx Plan: Patient is counseled again on complete smoking cessation (17) Obesity (BMI 30-39.9): Code(s): E66.9 - Obesity, unspecified Category: Medical Plan: Reinforced diet/exercise as tolerated/lose weight Follow-up with weight management as scheduled (18) Breast cancer screening by mammogram: Code(s): Z12.31 - Encounter for screening mammogram for malignant neoplasm of breast Category: Medical Plan: Patient has not had her annual mammogram done in a few years now as she finds the procedure too painful but she agrees to start doing this again Will refer her for annual mammography KRISTA (19) Osteoporosis screening: Code(s): Z13.820 - Encounter for screening for osteoporosis Category: Medical Plan: Patient states that she has never had BMD done in the past for osteoporosis screening Will send her for BMD KRISTA Plan Follow up in 4 months Orders: Orders XR DEXA axial skeleton 01/15/25 Z78.0 - Asymptomatic menopausal state Comprehensive [place]. Panel Fast 4 Months E78.00 - Pure hypercholesterolemia, unspecified Lipid Panel 4 Months E78.00 - Pure hypercholesterolemia, unspecified TSH reflex Free T4 4 Months E78.00 - Pure hypercholesterolemia, unspecified UA CC w/rflx Micro + Cult 4 Months R30.0 - Dysuria Vitamin D 25-OH Total 4 Months E55.9 - Vitamin D deficiency, unspecified MM tomosynthesis screening BI 01/15/25 Z12.31 - Encounter for screening mammogram for malignant neoplasm of breast Complete Blood Count Auto Diff 4 Months D64.9 - Anemia, unspecified Medications: New cholecalciferol (vitamin D3) 25 mcg PO DAILY 90 caps 3RF 90 days E55.9 - Vitamin D deficiency, unspecified
--- OUTSIDE RECORDS SUMMARY | 2025-01-15 15:56 | XMS_ITS | Clinical Summary ---
Author Organization [facility] Address [address] [address] Phone Care Team Providers Care Tooling Manager Name Role Phone Ronal Orozco MD Primary Care Provider [phone] Allergies No known active allergies Medications traMADol [...] this topic Medical Devices Implanted Type Area Organic Preparation Analyst Device Identifier Shelf Expiration Date Model / Serial / Lot Conformer Kristie Medium - [id number] Implanted:Qty: 1 on 01/11/2022 by Frederic Franco MD at [facility] Right: Eye [employer] 02/28/2025 [id number] / / [id number] Implant Globe Kristie 22mm - [id number] Implanted:Qty: 1 on 01/11/2022 by Frederic Franco MD at [facility] Right: Eye [employer] [id number] / / Procedures Procedure Name Priority Date/Time Associated Diagnosis Comments BASIC METABOLIC PANEL STAT 11/27/2022 1:06 PM EDT from Last 3 Months or Most Recently Relevant to Health Maintenance Results * (ABNORMAL) Basic metabolic panel (11/27/2022 1:06 PM EDT) SODIUM 140 133 - 146 mmol/L [facility] CHLORIDE 104 96 - 108 mmol/L [facility] POTASSIUM 4.6 3.3 - 5.1 mmol/L [facility] CO2 28 21 - 35 mmol/L [facility] BUN 11 6 - 19 mg/dL [facility] CREATININE 0.60 0.5 - 1.5 mg/dL [facility] GLUCOSE 104(H) 70 - 99 mg/dL [facility] CALCIUM 8.5 8.4 - 10.3 mg/dL [facility] EGFR 99 >59 mL/min/1.7 3m2 [facility] Comment:Estimated glomerular filtration rate calculated using the CKD-EPI refit equation. ANION GAP 13 10 - 20 mmol/L [facility] Blood 11/27/2022 1:06 PM EDT 11/27/2022 1:12 PM EDT us Farhad Norris DO LAB BLOOD ORDERABLES Final Re sult [facility] [address], [place] [id number] from Last 3 Months or Most Recently Relevant to Health Maintenance Insurance [address] [place] [address] MEDICARE PART A & B Member Subscriber Plan / Payer (Ef fective 2021-Present) Name:Paty Barraza Member ID:[id number] Relation to Subscriber:Self Name:Paty Barraza Subscriber ID:[id number] Payer ID:[id number] Group ID:Not on file Type:Medicare Address: [facility] Jule Game [facility], [facility]. [address] [place] [address] [facility] MEDICARE REPLACEMENT [address] SAFETY NET [address] [place] [address] MEDICARE PART A & B [facility] MEDICARE REPLACEMENT [place] [id number] HEALTH SAFETY NET [address] [place] [address] MEDICARE PART A & B [facility] MEDICARE REPLACEMENT [facility] SAFETY NET FULL HEALTH SAFETY NET FULL [facility] FULL MEDICARE PART A [place] [id number] [facility] MEDICARE REPLACEMENT HEALTH SAFETY NET FULL [address] [place] [address] [facility] SAFETY NET FULL MEDICARE PART A & B [facility] MEDICARE REPLACEMENT [facility] FULL [address] [place] [address] MEDICARE PART A & B [facility] MEDICARE REPLACEMENT HEALTH SAFETY NET FULL [address] [place] [address] MEDICARE PART A & B [facility] MEDICARE REPLACEMENT [place] [id number] [facility]ETY NET FULL [facility] Care Teams Tooling Manager Relationship Specialty Start Date End Date Ronal Orozco MD [address] [place] [address] Dr [place], [place] [id number] PCP - General Internal Medicine 12/15/21 Additional Source Comments The information contained in this document represents components of the legal health record. It is not the complete legal health record.[facility]
--- OUTSIDE RECORDS SUMMARY | 2025-01-15 15:56 | XMS_ITS | Patient Health Record ---
Author Organization [facility] Address [address] [place] [address] Care Team Providers Care Licensed Tax Consultant Name Role Phone Ernesto BAILEY, Ronal Primary Care Provider Schuyler Molina [phone] Allergies No Known Allergies Results Component Value Reference Range Notes Pathology (Not yet reviewed by provider) Interpretation: Performing Lab:[facility], [address] [place] [id number] Notes/Report: Reason For Referral No Information Medications [...] W/U Status Risk Notes Problem Epigastric pain (38815269) Epigastric abdominal pain (R10.13) Active confirmed Problem 817812537 Encounter for screening for malignant neoplasm of colon (Z12.11) Active confirmed Problem Dysphagia (58271778) Dysphagia (R13.10) Active confirmed Problem Gastroesophageal reflux disease (563524543) Gastroesophageal reflux disease, esophagitis presence not specified (K21.9) Active confirmed Problem 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 Problem [id number] Pre-procedural examination (Z01.818) Active confirmed Problem Family history of malignant neoplasm of gastrointestinal tract (087619987) Family history of colon cancer in father (Z80.0) Active confirmed Vital Signs Blood pressure diastolic 77 mm Hg 10/02/2024 Height 62.5 in 10/02/2024 Blood pressure systolic 111 mm Hg 10/02/2024 Weight 209 lbs 10/02/2024 BMI 37.61 kg/m2 10/02/2024 Procedures Procedure Date Ordered Date Performed Result Body Sit e UPPER GI ENDOSCOPY 10/02/2024 N/A COLONOSCOPY 10/02/2024 N/A Encounters Encounter Location Date Provider Diagnosis [facility] Outpatient [address] [place] [address] [place] [phone] 12/25/2024 Schuyler Coker [facility] [address] [place] [phone] 10/02/2024 Schuyler Coker Encounter for screen ing for malignant neoplasm of colon Z12.11 ; Gastroesophageal reflux disease, esophagitis presence not specified K21.9 ; Pre-procedural examination Z01.818 ; Family history of colon cancer in father Z80.0 and Dysphagia R13.10 [facility] [address] [place] [phone] 02/07/2024 Schuyler Coker [facility] [address] [place] [phone] 06/06/2024 Schuyler Coker [facility] [address] [place] [phone] 12/06/2024 Schuyler Coker [facility] [address] [place] [phone] 12/23/2024 Schuyler Coker [facility] [address] [place] [phone] 12/23/2024 Schuyler Coker Assessments Encounter Date Diagnosis [...] AARP MEDI COMP (REFERRAL REQUIRED) [address] [address] [place] [address] [id number] KELLI BANERJEE Self - patient is the insured MEDICAID [facility] [address] [place] [address] [id number] KELLI BANERJEE Self - patient is the insured Medical (General) History Medical History History ICD Code Denies NM,DM,CVA,Lung disease,renal dise ase Legally blind Depression HTN [...]
--- OUTSIDE RECORDS SUMMARY | 2025-01-15 15:56 | XMS_ITS | Encounter Summary ---
Author Organization [facility] Address [address] [place] [address] Phone Care Team Providers Care Item Processing Clerk Name Role Phone Ronal Orozco MD Primary Care Provider [phone] Reason for Visit * Reason Onset Date Comments returning call 12/27/2022 Encounter Details Date Type Department Care Team ([facility] st Contact Info) Description 12/27/[address] [place] [address] Frederic Franco MD [address] [place] [address] - [place] [address] [email or web address] returning call Social History Tobacco Use Types [...] on filedocumented in this encounter Care Teams Item Processing Clerk Relationship Specialty Start Date End Date Ronal Orozco MD [address] [place] [address] [place] [address] PCP - General Internal Medicine 12/15/21 documented as of this encounter Additional Source Comments The information contained in this document represents components of the legal health record. It is not the complete legal health record.[facility]
--- OUTSIDE RECORDS SUMMARY | 2025-01-15 15:56 | XMS_ITS | Encounter Summary ---
Author Organization [facility] Address [address] [facility] [address] [place] [address] Phone Care Team Providers Care Audit Director Name Role Phone Ronal Orozco MD Primary Care Provider [phone] [phone] Encounter Details Date Type Department Care Team (Late st Contact Info) Description 12/26/2023 Procedure Pass [facility] [address] [place] [address] Social History Tobacco Use Types Packs/Day Years [...] on filedocumented in this encounter Care Teams Audit Director Relationship Specialty Start Date End Date Ronal Orozco MD [address] [place] [address] [place] [address] PCP - General Internal Medicine 12/15/21 documented as of this encounter Additional Source Comments The information contained in this document represents components of the legal health record. It is not the complete legal health record.[facility]
--- OUTSIDE RECORDS SUMMARY | 2025-01-15 15:57 | XMS_ITS | Encounter Summary ---
Author Organization [facility] Address [address] [facility] [address] [place] [address] Phone Care Team Providers Care Data Services Developer Name Role Phone Ronal Orozco MD Primary Care Provider [phone] [phone] Encounter Details Date Type Department Care Team (Late st Contact Info) Description 11/27/2022 Procedure Pass [facility], Ct Scan - [facility] [address] [place] [address] Social History Tobacco Use Types Packs/Day Years [...] on filedocumented in this encounter Care Teams Data Services Developer Relationship Specialty Start Date End Date Ronal Orozco MD [address] [place] [address] [place] [address] PCP - General Internal Medicine 12/15/21 documented as of this encounter Additional Source Comments The information contained in this document represents components of the legal health record. It is not the complete legal health record.[facility]
--- OUTSIDE RECORDS SUMMARY | 2025-01-15 15:57 | XMS_ITS | Encounter Summary ---
Author Organization [facility] Address [address] [place] [address] Phone Care Team Providers Care Electronic Gaming Device Supervisor Name Role Phone Ronal Orozco MD Primary Care Provider [phone] Encounter Details Date Type Department Care Team (Late st Contact Info) Description 01/11/2022 Procedure Pass [facility] [address] [place] [address] Social History Tobacco Use Types Packs/Day Years [...] on filedocumented in this encounter Care Teams Electronic Gaming Device Supervisor Relationship Specialty Start Date End Date Ronal Orozco MD [address] [place] [address] [place] [address] PCP - General Internal Medicine 12/15/21 documented as of this encounter Additional Source Comments The information contained in this document represents components of the legal health record. It is not the complete legal health record.[facility]
--- OUTSIDE RECORDS SUMMARY | 2025-01-15 15:57 | XMS_ITS | Encounter Summary ---
Author Organization [facility] Address [address] [facility] [address] [place] [address] Phone Care Team Providers Care Wildlife Conservation Officer Name Role Phone Ronal Orozco MD Primary Care Provider [phone] [phone] Encounter Details Date Type Department Care Team (Late st Contact Info) Description 11/27/2022 Procedure Pass [facility], Ct Scan - [facility] [address] [place] [address] Social History Tobacco Use Types Packs/Day Years [...] on filedocumented in this encounter Care Teams Wildlife Conservation Officer Relationship Specialty Start Date End Date Ronal Orozco MD [address] [place] [address] [place] [address] PCP - General Internal Medicine 12/15/21 documented as of this encounter Additional Source Comments The information contained in this document represents components of the legal health record. It is not the complete legal health record.[facility]
== END 2025-01-15 13:42 | disposition home or self-care (01) ==
LOC: HO.HMCH 12:28
PROVIDERS: PCP Internal Medicine; Visit Provider Internal Medicine
DX: Z00.00 Encounter for general adult medical examination without abnormal findings (principal); I10 Essential (primary) hypertension; F31.9 Bipolar disorder, unspecified; G43.909 Migraine, unspecified, not intractable, without status migrainosus; E78.5 Hyperlipidemia, unspecified; R73.02 Impaired glucose tolerance (oral); M51.362 Other intervertebral disc degeneration, lumbar region with discogenic back pain and lower extremity pain; M19.071 Primary osteoarthritis, right ankle and foot; J30.9 Allergic rhinitis, unspecified; K21.9 Gastro-esophageal reflux disease without esophagitis; J45.40 Moderate persistent asthma, uncomplicated; E55.9 Vitamin D deficiency, unspecified

== ENCOUNTER → 2025-01-15 12:27 | Outpatient (BNVA) | payer MEDICARE, MEDICAID, SELFPAY | PROVIDERS: PCP Internal Medicine; Visit Provider Internal Medicine | DX: Z00.00 Encounter for general adult medical examination without abnormal findings (principal); I10 Essential (primary) hypertension; G43.909 Migraine, unspecified, not intractable, without status migrainosus; E78.5 Hyperlipidemia, unspecified; R73.02 Impaired glucose tolerance (oral); M51.362 Other intervertebral disc degeneration, lumbar region with discogenic back pain and lower extremity pain; M19.071 Primary osteoarthritis, right ankle and foot; J30.9 Allergic rhinitis, unspecified; K21.9 Gastro-esophageal reflux disease without esophagitis; J45.40 Moderate persistent asthma, uncomplicated; E55.9 Vitamin D deficiency, unspecified; G47.34 Idiopathic sleep related nonobstructive alveolar hypoventilation; G47.00 Insomnia, unspecified; F41.1 Generalized anxiety disorder; F31.9 Bipolar disorder, unspecified; F17.210 Nicotine dependence, cigarettes, uncomplicated; E66.9 Obesity, unspecified; E78.00 Pure hypercholesterolemia, unspecified; R30.0 Dysuria; D64.9 Anemia, unspecified; Z78.0 Asymptomatic menopausal state; Z68.36 Body mass index [BMI] 36.0-36.9, adult | CPT/HCPCS: 96127; 99397 ==

== ENCOUNTER 2025-02-19 15:01 | Outpatient (AMB) | payer MEDICARE, MEDICAID, SELFPAY ==
--- OUTSIDE RECORDS SUMMARY | 2023-10-11 10:40 | XMS_ITS ---
Author Organization [facility] Address [address] [place] [id number] Care Team Providers Care Voltmeter Operator Name Role Phone Ronal Orozco MD Primary Care Provider Schuyler Molina [phone] REASON FOR VISIT Patient presents today for a ABD DISCOMFORT Encounters Encounter Location Date Provider Diagnosis [facility] [address] [place] [phone] 10/11/2023 Schuyler Coker Plan Of Treatment No Information Progress Notes * KELLI BANERJEE LADOB:1955 (69 yo F)Acc No.[id number]:10/11/2023 Progress Notes Patient: KELLI OJEDA Provider: Filiberto Coker MD :1955 A ge:68 Y S ex:Female Date:10/11/2023 Address:[address] [place], [place] [id number] Pcp:Ronal Orozco MD Subjective: * Chief Complaints: * 1 . Patient presents today for a ABD DISCOMFORT. * Medical History: Objective: * Vitals: Assessment: Plan: * Treatment: * * The named appointment provid er may or may not be the originator of this progress note, and it is not deemed complete until electronically signed by the appointment provider. Sign off status: Pending * Provider: Filiberto Coker MD Date: 0 10/11/2023 Generated for Tessa arreguin/Inocencio/Te on: 1 09:17 PM EDT
--- OUTSIDE RECORDS SUMMARY | 2024-02-07 10:40 | XMS_ITS ---
Author Organization [facility] Address [address] [place] [phone] Care Team Providers Care Enthone Solder Stripper Name Role Phone Ronal Orozco MD Primary Care Provider Schuyler Molina [phone] REASON FOR VISIT Patient presents today for abdominal discomfort Encounters Encounter Location Date Provider Diagnosis [facility] [address] [place] [phone] 02/07/2024 Schuyler Coker Plan Of Treatment No Information Progress Notes * KELLI BANERJEE LADOB:1955 (69 yo F)Acc No.[id number]:02/07/2024 Progress Notes Patient: KELLI OJEDA Provider: Filiberto Coker MD :1955 A ge:68 Y S ex:Female Date:02/07/2024 Address:[address] [place], [place] [phone] Pcp:Ronal Orozco MD Subjective: * Chief Complaints: [...] Date: 1 Generated for Tessa arreguin/Inocencio/Te on: 1 09:18 PM EDT
--- OUTSIDE RECORDS SUMMARY | 2024-06-06 07:00 | XMS_ITS ---
Author Organization [facility] Address [address] [place] [phone] Care Team Providers Care Motor Room Controller Name Role Phone Ronal Orozco MD Primary Care Provider Schuyler Molina [phone] REASON FOR VISIT Patient presents today for abdominal pain Encounters Encounter Location Date Provider Diagnosis [facility] [address] [place] [phone] 06/06/2024 Schuyler Coker Plan Of Treatment No Information Progress Notes * KELLI BANERJEE LADOB:1955 (69 yo F)Acc No.[id number]:06/06/2024 Progress Notes Patient: KELLI OJEDA Provider: Filiberto Coker MD :1955 A ge:68 Y S ex:Female Date:06/06/2024 Address:[address] [place], [place] [id number] Pcp:Ronal Orozco MD Subjective: * Chief Complaints: [...] MD Date: 0 06/06/2024 Generated for Tessa arreguin/Inocencio/Te on: 1 09:18 PM EDT
--- OUTSIDE RECORDS SUMMARY | 2024-12-09 09:40 | XMS_ITS ---
Author Organization [facility] Address [address] [place] [address] Care Team Providers Care Director Of Infection Prevention Name Role Phone Ronal Orozco MD Primary Care Provider Schuyler Molina [phone] REASON FOR VISIT reflux barretts esophagus/fm hx of colon cancer Encounters Encounter Location Date Provider Diagnosis [facility] [place] [place] [address] [place] [place] [id number] 12/09/2024 Schuyler Coker Plan Of Treatment No Information Progress Notes * KELLI BANERJEE LADOB:1955 (69 yo F)Acc No.[id number]:12/09/2024 EGD and COL/MAC Patient: KELLI OJEDA Provider: Filiberto Coker MD :1955 A ge:69 Y S ex:Female Date:12/09/2024 Address:[address] [place] [address] Pcp:Ronal Orozco MD Subjective: * Chief Complaints: [...] MD Date: 0 12/09/2024 Generated for Tessa arreguin/Inocencio/Te on: 1 09:15 PM EDT
--- OUTSIDE RECORDS SUMMARY | 2024-12-25 06:30 | XMS_ITS ---
Author Organization [facility] Address [address] [place] [address] Care Team Providers Care Investment Consultant Name Role Phone Ronal Orozco MD Primary Care Provider Schuyler Molina [phone] REASON FOR VISIT gerd,dysphagia,screening,fam hx colon cancer Encounters Encounter Location Date Provider Diagnosis [facility] [place] [address] [place] [id number] 12/25/2024 Schuyler Coker Plan Of Treatment No Information Progress Notes * KELLI BANERJEE LADOB:1955 (69 yo F)Acc No.[id number]:12/25/2024 EGD and COL/MAC Patient: KELLI OJEDA Provider: Filiberto Coker MD :1955 A ge:69 Y S ex:Female Date:12/25/2024 Address:[address] [place] [address] Pcp:Ronal Orozco MD Subjective: * Chief Complaints: [...] MD Date: 0 12/25/2024 Generated for Tessa arreguin/Inocencio/Te on: 1 09:19 PM EDT
[2025-02-19 15:18] VITALS: BP 126/78; PULSE 101; TEMP 36.7; O2SAT 95; BMI 36.7
--- NOTE | 2025-02-19 15:18 | A.OFFVIS_ITS ---
Vital Signs 02/19/25 15:18 Height 5 ft 2.5 in Weight 204 lb BMI 36.7 BP 126/78 Blood Pressure Location Lt brachial Position Sitting Pulse 101 H Pulse Source Pulse Oximeter Temp 98.1 F Temp Source Oral Pulse Oximetry (%) 95 Oxygen Delivery Method Room Air Intake Visit Reasons: Dyspnea on exertion Allergies No Known Allergies (No Known Allergies*) Allergy (Verified 02/19/25 15:22) HPI HPI Dyspnea on exertion: Details: Paty is a pleasant 69 year old female, current smoker with 25 pack year history with underlying asthma, GERD, HTN, Bipolar, and HLD. Prior in-lab PSG revealed nocturnal hypoxemia and discussed recommendations for 1 L of supplemental oxygen NOC however patient trialed and could not tolerate. She is not interested in resuming supplemental oxygen despite risks of hypoxemia. She was started on Breo however reports suboptimal control, continuing with dyspnea. She also reports productive cough with yellow sputum over the last week with associated chest and nasal congestion. Unfortunately patient continues to smoke however has cut down to a quarter of a pack per day and is working towards cessation. [facility] Medical History (Updated 01/19/25 @ 19:55 by Ronal Orozco MD) Legally blind Nocturnal hypoxemia Hyperlipidemia Allergic rhinitis Insomnia Smoker Bipolar affective disorder Generalized anxiety disorder Right lumbar radiculopathy GERD without esophagitis Benign essential hypertension Nasal congestion Obesity (BMI 30-39.9) Impaired glucose tolerance History of diverticulitis Back pain Lumbar degenerative disc disease Hypertension Vitamin D deficiency Surgical History (Updated 01/15/25 @ 13:25 by Ronal Orozco MD) History of eye removal Hx of cataract surgery H/O colonoscopy History of esophagogastroduodenoscopy (EGD) History of tubal ligation History of cholecystectomy Family History Father Colon cancer Mother Primary cancer of bone marrow Sister Leukemia Social History (Updated 02/19/25 @ 15:22 by Corazon Lan CMA) Housing: Apartment Are you a primary home health care provider to a significant other at home: No Do you presently have visiting nurse or other home services: No Alcohol intake: never Patient Tobacco Use Status: Current everyday Tobacco user Tobacco use type: Cigarette Cigarettes Per Day: 5 e-Cigarette/Vaping Use: Never Used Second Hand Smoke Exposure: No service: No Current occupational status: unemployed Cognitive needs: No Hearing needs: No Vision needs: No Review of Systems Const Denies chills, Denies excessive sweating, Denies fever(s), Denies headache(s) and Denies night sweats Eyes Denies dry eyes, Denies irritation and Denies itchy eyes ENT Reports Normal hearing present, Denies headache(s), Denies nasal congestion, Denies nasal discharge, Denies post nasal drip and Denies sore throat Card Denies chest pain, Denies chest pain at rest, Denies chest pain with activity, Denies claudication, Denies leg edema, Reports dyspnea on exertion, Denies orthopnea and Denies paroxysmal nocturnal dyspnea Resp Reports change in phlegm color, Reports chest congestion, Reports cough, Denies hemoptysis, Denies pain on inspiration, Denies pain with cough, Reports dyspnea on exertion, Denies stridor and Denies wheezing Musc Denies myalgias Neuro Reports Normal hearing present and Denies headache(s) Endo Denies excessive sweating Pietro/Lymph Denies lymphadenopathy Aller/Immun Denies itchy eyes, Denies seasonal rhinorrhea and Denies wheezing Physical Exam Vital Signs: Last Vital Signs Temp 98.1 F 02/19/25 15:18 Pulse 101 H 02/19/25 15:18 BP 126/78 02/19/25 15:18 Pulse Ox 95 02/19/25 15:18 Oxygen Delivery Method Room Air 02/19/25 15:18 BMI result Body Mass Index 36.7 Const General: cooperative, healthy appearing, comfortable, no acute distress, well developed and alert Nutritional Appearance: obese Orientation/consciousness: patient oriented x3 Limitations: ambulation with walker HEENT Head: Yes normal to inspection, Yes normocephalic and Yes atraumatic Ears: hearing grossly normal bilaterally and external ears normal Eyes Eyelids: Yes eyelids normal Sclerae: sclerae normal EOM: Nystagmus present (left eye) Neck Neck: Yes normal visual inspection and Yes no lymphadenopathy Lymphatic: no lymphadenopathy noted Chest Chest palpation & inspection: normal inspection of the chest Resp Effort & Inspection: normal respiratory effort, able to speak in complete sentences, no audible wheezes, no cough, no stridor, not tachypneic, no tripod positioning and no use of accessory muscles Auscultation: diminished lung sounds Cardio Jugular venous distension: no JVD Rate: regular rate Rhythm: regular rhythm Skin Other: warm, dry General skin exam: no rashes or lesions noted Neuro General: patient oriented x3 Cranial nerves: Yes Normal hearing present and Yes Nystagmus present (left eye) Cognition (Neuro): normal cognition Extrem General: Yes normal to inspection, Yes capillary refill normal, Yes no clubbing, cyanosis or edema and Yes no pedal edema Psych Appearance: grossly normal and well kempt Speech and movement: Normal speech and movement present and Clear speech present Affect: normal affect Attitude: cooperative Thought process: Normal thought process present Thought content: Normal thought content present Insight: Good insight present (Psych) Judgement: Good judgement present (Psych) Assessment & Plan Assessment & Plan (1) Asthma: Code(s): J45.909 - Unspecified asthma, uncomplicated Category: Medical Qualifiers: Asthma complication type: uncomplicated Asthma persistence: persistent Asthma severity: moderate Qualified Code(s): J45.40 - Moderate persistent asthma, uncomplicated (2) Nocturnal hypoxemia: Code(s): G47.34 - Idiopathic sleep related nonobstructive alveolar hypoventilation Category: Medical (3) Nicotine dependence, cigarettes, uncomplicated: Code(s): F17.210 - Nicotine dependence, cigarettes, uncomplicated Category: Medical (4) Pulmonary nodule: Code(s): R91.1 - Solitary pulmonary nodule Category: Medical Plan Will treat bronchitic symptoms with azithromycin and send for CXR. She is aware to call if symptoms do not improve. Will also increased dose of Breo. Again discuss necessity of 1 L supplemental oxygen NOC however she continues to decline.Prior chest CT 07/2024 revealed 4mm pulmonary nodule of RUL, order placed to repeat in one year to assess stability. Smoking cessation reviewed, patient working towards quitting. All questions were answered and patient is in agreement of plan. Will follow up in 8-10 weeks or sooner if needed. Orders: Orders XR chest 2V Today R05.9 - Cough, unspecified Medications: New azithromycin For 250 mg dose pack: take 500 mg today (day 1), then 250 mg for 4 days (days 2-5) PO 6 tabs 0RF fluticasone furoate-vilanterol 200-25 mcg/dose (Breo Ellipta) 1 inh inhalation DAILY 60 ea 3RF Coding Level of Care Code Est Pt Level 4 (69380) Diagnoses Moderate persistent asthma without complication J45.40 Asthma complication type: uncomplicated Asthma persistence: persistent Asthma severity: moderate Nocturnal hypoxemia G47.34 Nicotine dependence, cigarettes, uncomplicated F17.210 Pulmonary nodule R91.1
--- OUTSIDE RECORDS SUMMARY | 2025-02-19 21:18 | XMS_ITS | Patient Health Record ---
Author Organization [facility] Address [address] [place] [address] Care Team Providers Care Blending Machine Feeder Name Role Phone Ernesto BAILEY, Ronal Primary Care Provider Schuyler Molina [phone] Allergies No Known Allergies Results Component Value Reference Range Notes Pathology (Not yet reviewed by provider) Interpretation: Performing Lab:[facility], [address] [place] [phone] Notes/Report: Reason For Referral No Information Medications Medication SIG (Take, Route, Frequency, Duration) Notes Start Date End Date Status Losartan Potassium 100 MG TOME JALYN TABLE TA TODOS LOS D? Oral; Duration: 30 Active amLODIPine Besylate 5 MG TOME JALYN TABLET A TODOS LOS D? Oral; Duration: 90 Active Dulcolax (colon prep) 5 MG take 2 at 3:0 0 p.m and 7:00p.m. Orally two tablets twice a day for one day; Duration: 1 days 12/23/2024 Active traZODone HCl 50 MG TAKE 1-2 TABLET BY M OUTH AT BEDTIME NEEDED FOR SLEEP Oral; Duration: 15 Active Dulcolax 5 MG 2 tablets 2 days bef ore the colonoscopy Orally Once 2 days before the colonoscopy; Duration: 1 days 12/24/2024 Active clonazePAM 2 MG (Schedule IV Drug) T OME JALYN TABLETA TODOS LOS D? AL ACOSTARSE Oral; Duration: 30 Active Breo Ellipta Active Gabapentin 800 MG TOME JALYN TABLETA LORE S VECES AL D?A Oral; Duration: 90 Active MiraLax (colon prep) 17 GM/SCOOP 1 238Gm bottle mixed with 64 ounces of Gatorade or Crystal Light orally begin at 5:00 p.m. 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 Problem Pre-procedure evaluation check (848677115) Pre-procedural examination (Z01.818) Active confirmed Problem Family history of malignant neoplasm of gastrointestinal tract (389106967) Family history of colon cancer in father (Z80.0) Active confirmed Vital Signs Blood pressure diastolic 77 mm Hg 10/02/2024 Height 62.5 in 10/02/2024 Blood pressure systolic 111 mm Hg 10/02/2024 Weight 209 lbs 10/02/2024 BMI 37.61 kg/m2 10/02/2024 Procedures Procedure Date Ordered Date Performed Result Body Sit e UPPER GI ENDOSCOPY 10/02/2024 N/A COLONOSCOPY 10/02/2024 N/A Encounters Encounter Location Date Provider Diagnosis [facility] [address] [facility] [place] [id number] 12/25/2024 Schuyler Coker [facility] [address] [place] [phone] 10/02/2024 Schuyler Coker Encounter for screen ing for malignant neoplasm of colon Z12.11 ; Gastroesophageal reflux disease, esophagitis presence not specified K21.9 ; Pre-procedural examination Z01.818 ; Family history of colon cancer in father Z80.0 and Dysphagia R13.10 [facility] [address] [place] [phone] 06/06/2024 Schuyler Coker [facility] [address] [place] [phone] 12/06/2024 Schuyler Coker [facility] [address] [place] [phone] 12/23/2024 Schuyler Coker [facility] [address] [place] [phone] 12/23/2024 Schuyler Coker Assessments Encounter Date Diagnosis (ICD Code) Assessment Notes Treatment Notes Treatment Clinical Notes Section Notes 10/02/2024 Encounter for screening for malignant neoplasm of colon (ICD-10 - Z12.11) Overall, Paty appears well from a clinical standpoint. She [...] to hopefully allow for a better prep. Paty was comfortable with this plan. Thank you again for allowing me to participate in Paty's care. I shall continue to keep you advised of her progress. 10/02/2024 Gastroesophageal reflux disease, esophagitis presence not specified (ICD-10 - K21.9) Continue the daily Pantoprazole for the acid reflux Overall, Paty appears well from a clinical standpoint. She [...] to hopefully allow for a better prep. Paty was comfortable with this plan. Thank you again for allowing me to participate in Paty's care. I shall continue to keep you advised of her progress. 10/02/2024 Pre-procedural examination (ICD-10 - Z01.818) Overall, Paty appears well from a clinical standpoint. She [...] to hopefully allow for a better prep. Paty was comfortable with this plan. Thank you again for allowing me to participate in Paty's care. I shall continue to keep you advised of her progress. 10/02/2024 Family history of colon cancer in father (ICD-10 - Z80.0) Overall, Paty appears well from a clinical standpoint. She [...] to hopefully allow for a better prep. Paty was comfortable with this plan. Thank you again for allowing me to participate in Paty's care. I shall continue to keep you advised of her progress. 10/02/2024 Dysphagia (ICD-10 - R13.10) Overall, Paty appears well from a clinical standpoint. She [...] to hopefully allow for a better prep. Paty was comfortable with this plan. Thank you again for allowing me to participate in Paty's care. I shall continue to keep you [...] AARP MEDI COMP (REFERRAL REQUIRED) [address] [address] [place] [address] [id number] PATY BANERJEE Self - patient is the insured MEDICAID OF [employer] [address] [place] [address] [id number] PATY BANERJEE Self - patient is the insured Medical (General) History Medical History History ICD Code Denies OR,DM,CVA,Lung disease,renal dise ase Legally blind Depression HTN Diverticulitis x 3 episodes. Describes a colonoscopy in [place] in approx. 2014 that showed diverticulosis, but [...]
--- OUTSIDE RECORDS SUMMARY | 2025-02-19 21:19 | XMS_ITS | Encounter Summary ---
Author Organization [facility] Address [address] [facility] [address] [place] [address] Phone Care Team Providers Care Cyber Systems Operations Specialist Name Role Phone Ronal Orozco MD Primary Care Provider [phone] [phone] Encounter Details Date Type Department Care Team (Late st Contact Info) Description 11/27/2022 Procedure Pass [facility], Ct Scan - [facility] [address] [place] [address] Social History Tobacco Use Types Packs/Day Years [...] on filedocumented in this encounter Care Teams Cyber Systems Operations Specialist Relationship Specialty Start Date End Date Ronal Orozco MD [address] [place] [address] [facility] [place] [address] PCP - General Internal Medicine 12/15/21 documented as of this encounter Additional Source Comments The information contained in this document represents components of the legal health record. It is not the complete legal health record.[facility]
--- OUTSIDE RECORDS SUMMARY | 2025-02-19 21:19 | XMS_ITS | Encounter Summary ---
Author Organization [facility] Address [address] [place] [address] Phone Care Team Providers Care [employer] Team Member Name Role Phone Ronal Orozco MD Primary Care Provider [phone] Reason for Visit * Reason Onset Date Comments returning call 12/27/2022 Encounter Details Date Type Department Care Team ([facility] st Contact Info) Description 12/27/[address] [place] [address] Frederic Franco MD [address] [place] [phone] [email or web address] returning call Social History Tobacco Use Types [...] on filedocumented in this encounter Care Teams [employer] Team Member Relationship Specialty Start Date End Date Ronal Orozco MD [address] [place] [address] [place] [address] PCP - General Internal Medicine 12/15/21 documented as of this encounter Additional Source Comments The information contained in this document represents components of the legal health record. It is not the complete legal health record.[facility]
--- OUTSIDE RECORDS SUMMARY | 2025-02-19 21:19 | XMS_ITS | Encounter Summary ---
Author Organization [facility] Address [address] [place] [address] Phone Care Team Providers Care Electric Organ Checker Name Role Phone Ronal Orozco MD Primary Care Provider [phone] [phone] Encounter Details Date Type Department Care Team (Late st Contact Info) Description 12/26/2023 Procedure Pass [facility] PERIOP DEPT [address] [place] [address] Social History Tobacco Use Types Packs/Day Years Used Date Smoking Tobacco: Every Day Cigarettes 0.5 41.2 Started: 12/20/1983 Smokeless Tobacco: Never Alcohol Use [...] on filedocumented in this encounter Care Teams Electric Organ Checker Relationship Specialty Start Date End Date Ronal Orozco MD [address] [place] [address] [place] [address] PCP - General Internal Medicine 12/15/21 documented as of this encounter Additional Source Comments The information contained in this document represents components of the legal health record. It is not the complete legal health record.[facility]
--- OUTSIDE RECORDS SUMMARY | 2025-02-19 21:19 | XMS_ITS | Encounter Summary ---
Author Organization [facility] Address [address] [place] [address] Phone Care Team Providers Care Financial Reporting Manager Name Role Phone Ronal Orozco MD Primary Care Provider [phone] [phone] Encounter Details Date Type Department Care Team (Late st Contact Info) Description 01/11/2022 Procedure Pass [facility] PERIOP DEPT [address] [place] [address] Social History Tobacco Use Types Packs/Day Years [...] on filedocumented in this encounter Care Teams Financial Reporting Manager Relationship Specialty Start Date End Date Ronal Orozco MD [address] [place] [address] [place] [address] PCP - General Internal Medicine 12/15/21 documented as of this encounter Additional Source Comments The information contained in this document represents components of the legal health record. It is not the complete legal health record.[facility]
--- OUTSIDE RECORDS SUMMARY | 2025-02-19 21:19 | XMS_ITS | Encounter Summary ---
Author Organization [facility] Address [address] [facility] [address] [facility] [address] [facility] [place] [address] Phone Care Team Providers Care Reed Worker Name Role Phone Ronal Orozco MD Primary Care Provider [phone] [phone] Encounter Details Date Type Department Care Team (Late st Contact Info) Description 11/27/2022 Procedure Pass [facility], Ct Scan - [facility] [address] [place] [address] Social History Tobacco Use Types Packs/Day Years [...] on filedocumented in this encounter Care Teams Reed Worker Relationship Specialty Start Date End Date Ronal Orozco MD [address] [place] [address] [place] [address] PCP - General Internal Medicine 12/15/21 documented as of this encounter Additional Source Comments The information contained in this document represents components of the legal health record. It is not the complete legal health record.[facility]
== END 2025-02-19 16:07 | disposition home or self-care (01) ==
LOC: HO.HPSW 15:02
PROVIDERS: PCP Internal Medicine; Visit Provider Nurse Practitioner Family
DX: J45.40 Moderate persistent asthma, uncomplicated (principal); G47.34 Idiopathic sleep related nonobstructive alveolar hypoventilation; F17.210 Nicotine dependence, cigarettes, uncomplicated; R91.1 Solitary pulmonary nodule
CPT/HCPCS: 99214

== ENCOUNTER → 2025-02-19 15:01 | Outpatient (BNVA) | payer MEDICARE, MEDICAID, SELFPAY | PROVIDERS: PCP Internal Medicine; Visit Provider Nurse Practitioner Family | DX: J45.40 Moderate persistent asthma, uncomplicated (principal); G47.34 Idiopathic sleep related nonobstructive alveolar hypoventilation; R91.1 Solitary pulmonary nodule; F17.210 Nicotine dependence, cigarettes, uncomplicated | CPT/HCPCS: 99212 ==

== ENCOUNTER 2025-03-21 14:54 | Outpatient (AMB) | payer MEDICARE, MEDICAID, SELFPAY ==
--- OUTSIDE RECORDS SUMMARY | 2023-10-11 09:40 | XMS_ITS ---
Author Organization [facility] Address [address] [place] [id number] Care Team Providers Care Ballaster Name Role Phone Ronal Orozco MD Primary Care Provider Schuyler Molina [phone] REASON FOR VISIT Patient presents today for a ABD DISCOMFORT Encounters Encounter Location Date Provider Diagnosis [facility] [address] [place] [phone] 10/11/2023 Schuyler Coker Plan Of Treatment No Information Progress Notes * KELLI BANERJEE LADOB:1955 (69 yo F)Acc No.[id number]:10/11/2023 Progress Notes Patient: KELLI OJEDA Provider: Filiberto Coker MD :1955 A ge:68 Y S ex:Female Date:10/11/2023 Address:[address] [place], [place] [id number] Pcp:Ronal Orozco MD Subjective: * Chief Complaints: * P atient presents today for a ABD DISCOMFORT * The named appointment provid er may or may not be the originator of this progress note, and it is not deemed complete until electronically signed by the appointment provider. Sign off status: Pending * Provider: Filiberto Coker MD Date: 0 10/11/2023 Generated for Tessa arreguin/Inocencio/eTransmitting on: 1 05/21/2024 03:06 PM EST
--- OUTSIDE RECORDS SUMMARY | 2024-02-07 09:40 | XMS_ITS ---
Author Organization [facility] Address [address] [place] [phone] Care Team Providers Care Corporate Compliance Officer Name Role Phone Ronal Orozco MD Primary Care Provider Schuyler Molina [phone] REASON FOR VISIT Patient presents today for abdominal discomfort Encounters Encounter Location Date Provider Diagnosis [facility] [address] [place] [phone] 02/07/2024 Schuyler Coker Plan Of Treatment No Information Progress Notes * KELLI BANERJEE LADOB:1955 (69 yo F)Acc No.[id number]:02/07/2024 Progress Notes Patient: KELLI OJEDA Provider: Filiberto Coker MD :1955 A ge:68 Y S ex:Female Date:02/07/2024 Address:[address] [place], [place] [id number] Pcp:Ronal Orozco MD Subjective: * Chief Complaints: * P atient presents today for abdominal discomfort * The named appointment provid er may or may not be the originator of this progress note, and it is not deemed complete until electronically signed by the appointment provider. Sign off status: Pending * Provider: Filiberto Ckoer MD Date: Generated for Tessa arreguin/Inocencio/eTransmitting on: 05/21/2024 03:06 PM EST
--- OUTSIDE RECORDS SUMMARY | 2024-12-25 05:30 | XMS_ITS ---
Author Organization [facility] Address [address] [place] [address] Care Team Providers Care Rn Transplant Name Role Phone Ronal Orozco MD Primary Care Provider Schuyler Molina [phone] REASON FOR VISIT gerd,dysphagia,screening,fam hx colon cancer Encounters Encounter Location Date Provider Diagnosis [facility] [place] [address] [place] [phone] 12/25/2024 Schuyler Coker Plan Of Treatment No Information Progress Notes * KELLI BANERJEE LADOB:1955 (69 yo F)Acc No.[id number]:12/25/2024 EGD and COL/MAC Patient: KELLI OJEDA Provider: Filiberto Coker MD :1955 A ge:69 Y S ex:Female Date:12/25/2024 Address:[address] [place] [address] Pcp:Ronal Orozco MD Subjective: * Chief Complaints: * G erd,dysphagia,screening,fam hx colon cancer Billing Information: * Procedure Codes: * The named appointment provid er may or may not be the originator of this progress note, and it is not deemed complete until electronically signed by the appointment provider. Sign off status: Pending * Provider: Filiberto Coker MD Date: 0 12/25/2024 Generated for Tessa Berriosg/Te on: 1 05/21/2024 03:07 PM EST
--- OUTSIDE RECORDS SUMMARY | 2025-03-03 13:30 | XMS_ITS | Encounter Summary ---
Author Organization [facility] Address [address] [place] [address] Phone Care Team Providers Care Cytotechnologist Supervisor Name Role Phone Ronal Orozco MD Primary Care Provider [phone] Reason for Visit * Auth/Cert (Routine) Specialty Diagnoses / Procedures Referred By Hossein t Referred To Contact Referral ID Status Reason Start Date Expiration Date Visits Re quested Visits Authorized [id number] 1 1 Encounter Details Date Type Department Care Team (Late st Contact Info) Description 03/03/2025 1:30 PM EST Home Care Visit [facility] [address] [place], [place] [phone] Sophie Green RN [address] [place] [address] [email or web address] SN OASIS START OF CARE (SOC) Social History Tobacco Use Types Packs/Day Years Used Date Smoking Tobacco: Every Day Cigarettes 0.5 41.3 Started: 12/20/1983 Smokeless Tobacco: Never Alcohol Use Standard Drinks/Week Comments No 0 (1 standard drink = 0.6 oz pur e alcohol) Home Health Assessment: Transportation Answer Date Recorded Lack of Transportation (Medical) No 03/20/2025 Lack of Transportation (Non-Medical) No 03/20/2025 Patient Unable or Declines to Respond No 03/20/2025 Education Answer Date Recorded Are you interested in more education? Not on josé e 08/26/2022 Are you concerned about learning? Not on file 08/26/2022 No 08/26/2022 No 08/26/2022 Food Answer Date Recorded Within the past 6 months we worried whether our food would run out before we got money to buy more. I choose not to answer 02/21/2025 Within the past 6 months the food we bought just didn't last and we didn't have enough money to get more. I choose not to answer 02/21/2025 Residential Stability Answer Date Recor ded What is your housing situation today? I choose n ot to answer 02/21/2025 How many times have you move d in the past 12 months? I choose not to answer 02/21/2025 Paying for Meds Answer Date Recorded Do you have trouble paying for medicines? I wong se not to answer 02/21/2025 Paying Utility Bills Answer Date Record ed Do you have trouble paying y our heating or electricity bill? I choose not to answer 02/21/2025 Transportation Answer Date Recorded Has the lack of transportati on kept you from medical appointments or from getting medications? I choose not to answer 02/21/2025 Digital Access Answer Date Recorded No 02/21/2025 No 02/21/2025 Do you have reliable internet access at home? I choose not to answer 02/21/2025 Do you have a device (e.g., phone, tablet, computer) with a working camera? I choose not to answer 02/21/2025 Intimate Partner Violence Answer Date R ecorded Are you denied basic needs s uch as food, clothing, or medical care? No 02/21/2025 In the past 12 months have y ou been in a relationship with a person who hurts, threatens, or tries to control you? No 02/21/2025 Are you denied basic needs s uch as food, clothing, or medical care? No 02/21/2025 In the past 12 months have y ou been in a relationship with a person who hurts, threatens, or tries to control you? No 02/21/2025 Comments No Sex and Gender Information Value Date Recorded Sex Assigned at Female 01/02/2018 1:16 AM EDT Legal Sex Female 12:57 AM EDT Gender Identity Female 01/02/2018 1:16 AM EDT Sexual Orientation Straight 01/02/2018 1: 16 AM EDT documented as of this encounter Last Filed Vital Signs Vital Sign Reading Time Taken Comments Blood Pressure 130/75 03/03/2025 2:06 PM EST Pulse 98 03/03/2025 2:06 PM EST Temperature 36.4 C (97.6 F) 03/03/2025 2:06 PM EST Respiratory Rate - - Oxygen Saturation 96% 03/03/2025 2:06 PM EST Inhaled Oxygen Concentration - - Weight - - Height - - Body Mass Index - - documented in this encounter Plan of Treatment Not on file documented as of this encounter Visit Diagnoses Not on filedocumented in this encounter Additional Health Concerns Infection Onset Date Last Indicated Resolved Time Rhino/Entero 02/26/2025 02/26/2025 03/05/2025 7:06 PM EST documented as of this encounter Home Health Visit - Care Plan Visit Details Visit Type -SN OASIS START O F CARE (SOC) Discipline -Correction Problems Problem Description Start Date Status Goals Interve ntions HH - Medication Management Disciplines: All Active Home Health Disciplines 03/03/2025 Active 1 goal linked to scheduled/document ed intervention 2 goal interventions scheduled/document ed in this visit HH - Focus of Care and Teaching Disciplines: All Active Home Health Disciplines w/RD 03/03/2025 Active 1 goal linked to scheduled/document ed intervention 1 goal intervention scheduled/document ed in this visit HH - Emergency Planning - Knowledge of Disciplines: All Active Home Health Disciplines 03/03/2025 Active 1 goal linked to scheduled/document ed intervention 2 goal interventions scheduled/document ed in this visit HH - Standard of Care Disciplines: All Active Home Health Disciplines 03/03/2025 Active 1 goal linked to scheduled/document ed intervention 2 goal interventions scheduled/document ed in this visit Goals Goal Associated Problem Outcome Goal Met? Visit Notes HH - Safe medication management, avoid unnecessary harm related to medication errors and/or interactions HH - Medication Management No HH - Communication and collaboration to achieve patient goals HH - Focus of Care and Teaching No HH - Knowledge of options for managing care in the event of an emergency related situation. HH - Emergency Planning - Knowledge of No HH - Achieve care management for a safe to home/community discharge from homecare HH - Standard of Care No Interventions Intervention Associated Problem/Goal Status Variance Visit Notes HH - I/E medication management: administration, purpose, dosages, preparation, setup, scheduling, side effects, food/drug interactions, and potential complications as indicated Description: Update patient's copy of medication list as needed. Problem:HH - Medication Management Goal:HH - Safe medication management, avoid unnecessary harm related to medication errors and/or interactions Performed HH - Complete medication review every visit and medication reconciliation as indicated. Pharmacy information: Problem:HH - Medication Management Goal:HH - Safe medication management, avoid unnecessary harm related to medication errors and/or interactions Performed HH - Focus of care, teaching completed and plan for next visit Problem:HH - Focus of Care and Teaching Goal:HH - Communication and collaboration to achieve patient goals Performed Primary Clinical Focus this Visit & Instruction Provided: 69 YO WOMAN. ANXIETY, DEPRESSION, GERD, HTN, NEUROPATHY, ASTHMA, LEGALLY BLIND. PRESENTED TO ED WITH COUGH, SOB, WHEEZING AND IS BEING ADMITTED TO ASTHMA EXACERBATION. WORSENING COUGH AND SOB SINC E 02/20. INFLUENZA AND COVID SWABS NEGATIVE. TREATED WITH IV SOLU-MEDROL, DUONEBS, ROBTUSSIN. PT SMOKES AND LIKELY HAS UNDERLYING COPD. TREATED FOR COPD EXACERBATION AND RECOVERED OVER COURSE OF [address] MAX OFFICE WILL REACH OUT FOR AN APPT. CO MMITED TO NOT SMOKING BUT DECLINED NICOTINE REPLACEMENT CONTINUE ON PREDNISONE TAPER, DOXY X 3DAYS, SCHEDULED NEBS AND BREO ELLIPTA, TESSALON PRN, MUCINEX. INCENTIVE SPRIOMETER. BLOOD PRESSURE WELL CONTROLLED. FOLLOWS WITH HER PSYCHIATRIST FOR HELP WITH ANXIETY. PT A/OX3, IS ABLE TO SPEAK LIMITED [place] CITIZ[place] , PREFERS [employer] [place]. REPORTS SHE IS STAYING WITH HER DAUGHTER IN [place] TEMPORARILY WHILE HER APARTMENT IN [place] IS BEING DEEP CLEANED. ADMITS SHE USED TO SMOKE IN HER APARTMENT. DENIES SMOKING SINCE COMING HOME, DOES NOT FEEL SHE NEEDS ANY ASSISTANCE TO HELP WITH HELP HER. PT STILL GETS SOB WITH LITTLE ACTIVITY, NO O2 SAT DROP NOTED. COUGH INTERMITTENT CONGESTED. PT PERFORMS HER DUONEBS TID, COMPLETED TESSALON PEARLS. IS ABLLE TO VERBALIZE C ORRECT DOSAGE FOR PREDNISON TAPER. REVIEWED PROPR USE OF INCENTIVE SPIROMETER. PT DID NOT OBTAIN MUCINEX AND WAS ENOURAGED TO GET IT OTC TO HELP HER WITH HER COUGH. ALL MEDICATIONS REVIEWED. NO RECENT FALLS. REPORTS SOME STERNAL PAIN WITH COUGHING AN D CHRONIC LOW BACK PAIN. OCCASIONAL DIZZINESS WHEN PERFORMING HER DUONEB. SAFETY/PRECAUTIONS REVIEWED. DENIES GI/ ISSUES. USES A WALKER TO AMBULATE. VS WNL, LS DIM WITH EXPIRATORY WHEEZING. SNV FOR COPD MANAGEMENT, MEDICATIONS MANAGMENT, ENERGY CONSE RVATION, Instruction Provided to: patient Response to Instruction/Teaching : Is partially able to teach back topics as evidenced by NEEDS RIENFORCEMENT. Plan for Next Visit Specific Focus & Education Needed: COPD, MED MANAGEMENT New Orders: Updat ed Discharge Plan: D/C IN 4-5 WEEK OR WHEN STABLE HH - I/E management of care in an urgent or emergency (ER) situation: When to call your Home Care Team/[facility], ER plans, supplies, evacuation, when to contact local ER officials and how to stay informed Problem:HH - Emergency Planning - Knowledge of Goal:HH - Knowledge of options for managing care in the event of an emergency related situation. Performed HH - Emergency planning assessment: the emergency plan, supplies needed, emergency contact numbers and an evacuation plan were reviewed Description: Patient is/are knowledgeable of emergency plans. Problem:HH - Emergency Planning - Knowledge of Goal:HH - Knowledge of options for managing care in the event of an emergency related situation. Performed HH - Assess vital signs, pulse oximetry, pain, and as indicated, orthostatic vital signs Description: use agency-specific parameters Problem:HH - Standard of Care Goal:HH - Achieve care management for a safe to home/community discharge from homecare Performed HH - Assess skin integrity Problem:HH - Standard of Care Goal:HH - Achieve care management for a safe to home/community discharge from homecare Performed documented in this encounter Care Teams Cytotechnologist Supervisor Relationship Specialty Start Date End Date Ronal Orozco MD [address] [place] [address] [place] [address] PCP - General Internal Medicine 12/15/21 documented as of this encounter Additional Source Comments The information contained in this document represents components of the legal health record. It is not the complete legal health record.[facility]
--- OUTSIDE RECORDS SUMMARY | 2025-03-20 13:00 | XMS_ITS | Encounter Summary ---
Author Organization [facility] Address [address] [facility] [address] [place] [address] Phone Care Team Providers Care Circulation Tender Name Role Phone Ronal Orozco MD Primary Care Provider [phone] Reason for Visit * Auth/Cert (Routine) Specialty Diagnoses / Procedures Referred By Hossein rankin Referred To Contact Referral ID Status Reason Start Date Expiration Date Visits Re quested Visits Authorized [id number] 1 1 Encounter Details Date Type Department Care Team (Late st Contact Info) Description 03/20/2025 1:00 PM EST Home Care Visit [facility] [address] [place], [place] [phone] Sophie Green RN [address] [place] [address] [email or web address] SN OASIS DISCHARGE VISIT Social History Tobacco Use Types Packs/Day Years [...] Sign Reading Time Taken Comments Blood Pressure 124/80 03/20/2025 1:28 PM EST Pulse 81 03/20/2025 1:28 PM EST Temperature 36.4 C (97.6 F) 03/20/2025 1:28 PM EST Respiratory Rate 18 03/20/2025 1:28 PM EST Oxygen Saturation 97% 03/20/2025 1:28 PM EST Inhaled Oxygen Concentration - - Weight - - Height - - Body Mass Index - - documented in this encounter Plan of Treatment Not on file documented as of this encounter Visit Diagnoses Not on filedocumented in this encounter Home Health Visit - Care Plan Visit Details Visit Type -SN OASIS DISCHAR GE VISIT Discipline -Senior Care Problems Problem Description Start Date Status Goals Interve ntions HH - Respiratory Status - Impaired Disciplines: All Active Home Health Disciplines 03/03/2025 Active 1 goal linked to scheduled/document ed intervention 1 goal intervention scheduled/document ed in this visit HH - Medication Management Disciplines: All Active [...] 1 goal linked to scheduled/document ed intervention 3 goal interventions scheduled/document ed in this visit Goals Goal Associated Problem Outcome Goal Met? Visit Notes HH - Demonstrate/verbalize causes, impacts, and management of respiratory condition resulting in adequate oxygenation and ventilation HH - Respiratory Status - Impaired No HH - Safe medication management, avoid unnecessary [...] Status Variance Visit Notes HH - I/E respiratory disease management Description: breathing techniques, energy conservation and self-monitoring Problem: - Respiratory Status - Impaired Goal:HH - Demonstrate/verbalize causes, impacts, and management of respiratory condition resulting in adequate oxygenation and ventilation Performed HH - I/E medication management: administration, purpose, dosages, preparation, setup, scheduling, side effects, food/drug interactions, and potential complications as indicated Description: Update patient's copy of medication list as needed. Problem: - Medication Management Goal: - Safe medication management, avoid unnecessary harm related to medication errors and/or interactions Performed - Complete medication review every visit and medication reconciliation as indicated. Pharmacy information: Problem: - Medication Management Goal: - Safe medication management, avoid unnecessary harm related to medication errors and/or interactions Performed - Focus of care, teaching completed and plan for next visit Problem: - Focus of Care and Teaching Goal: - Communication and collaboration to achieve patient goals Performed HH - I/E management of care in an urgent or emergency (ER) situation: When to call your Home Care Team/[facility], ER plans, supplies, evacuation, when to contact local ER officials and how to stay informed Problem: - Emergency Planning - Knowledge of Goal: - Knowledge of options for managing care in the event of an emergency related situation. Performed - Emergency planning assessment: the emergency plan, supplies needed, emergency contact numbers and an evacuation plan were reviewed Description: Patient is/are knowledgeable of emergency plans. Problem: - Emergency Planning - Knowledge of Goal:HH - Knowledge of options for managing care in the event of an emergency related situation. Performed HH - Assess vital signs, pulse oximetry, pain, and as indicated, orthostatic vital signs Description: use agency-specific parameters Problem: - Standard of Care Goal: - Achieve care management for a safe to home/community discharge from homecare Performed HH - Assess skin integrity Problem: - Standard of Care Goal:HH - Achieve care management for a safe to home/community discharge from homecare Performed - I/E safety measures, non-fall related Description: adequate lighting, electrical safety, environmental safety, fire safety, safe ADLs/IADLs and use and maintenance of smoke detectors Problem: - Standard of Care Goal: - Achieve care management for a safe to home/community discharge from homecare Performed documented in this encounter Care Teams Circulation Tender Relationship Specialty Start Date End Date Ronal Orozco MD [address] [place] [address] Dr Brunner [address] [place] [address], [place] [address] PCP - General Internal Medicine 12/15/21 documented as of this encounter Additional Source Comments The information contained in this document represents components of the legal health record. It is not the complete legal health record.[facility]
--- NOTE | 2025-03-21 14:58 | MHC.PC.OV ---
Vital Signs 03/21/25 15:01 Height 5 ft 2.5 in Weight 205 lb 2 oz BMI 36.9 BP 132/68 Blood Pressure Location Lt brachial Position Sitting Temp 96.9 F Temp Source Temporal Artery Scan Intake Visit Reasons: [facility] 02/27 COPD Intake Note: Patient is here to follow-up after a visit the emergency department at [facility] on 02/27/25 Automatic Oven Operator Required: Yes Automatic Oven Operator Language: Turkish Information Interpreted: non-clinical & clinical Tab Machine Operator: Not Required per policy Accompanied by: Self / Same As Patient Allergies No Known Allergies (No Known Allergies*) Allergy (Verified 03/21/25 15:01) Tobacco use date assessed: 03/21/25 Fall risk assessment: No Falls in past year Last assessed Fall Risk: 03/21/25 Dental Screening Dental Screen Date: 01/15/25 HPI HPI Comments History of Present Illness Details 69-year-old female presents today for HDF. Past medical history includes Obesity, Bipolar disorder, anxiety/depression, GERD, HTN, legal blindness, and insomnia. She was admitted at [facility] [place] from 02/21?02/27 for evaluation and treatment of acute asthma and COPD exacerbation; completed a course of prednisone and cough medications. Today she denies shortness of breath, chest pain, wheezing, headache, or cough. No other acute concerns reported. [facility] Medical History (Updated 03/21/25 @ 15:57 by Drea Gardnier NP) COPD with acute exacerbation Asthma with acute exacerbation Legally blind Nocturnal hypoxemia Hyperlipidemia Allergic rhinitis Insomnia Smoker Bipolar affective disorder Generalized anxiety disorder Right lumbar radiculopathy GERD without esophagitis Benign essential hypertension Nasal congestion Obesity (BMI 30-39.9) Impaired glucose tolerance History of diverticulitis Back pain Lumbar degenerative disc disease Hypertension Vitamin D deficiency Surgical History History of eye removal Hx of cataract surgery H/O colonoscopy History of esophagogastroduodenoscopy (EGD) History of tubal ligation History of cholecystectomy Family History Father Colon cancer Mother Primary cancer of bone marrow Sister Leukemia Social History (Updated 03/21/25 @ 15:07 by FANTA Sherman) Housing: Apartment Are you a primary healthcare economics consultant to a significant other at home: No Do you presently have visiting nurse or other home services: No Alcohol intake: never Patient Tobacco Use Status: Former Tobacco user Tobacco use type: Cigarette Cigarettes Per Day: 5 e-Cigarette/Vaping Use: Never Used Second Hand Smoke Exposure: Yes service: No Current occupational status: unemployed Cognitive needs: Yes (walker) Hearing needs: No Vision needs: No Questionnaire Thrive Questionnaire Date Thrive assessed: 01/15/25 Review of Systems Const All systems reviewed & are unremarkable except as noted in HPI and below Physical exam (Primary Care) Vital Signs: Last Vital Signs Temp 96.9 F 03/21/25 15:01 BP 132/68 03/21/25 15:01 BMI result Body Mass Index 36.9 Tobacco/Smoking Status: Tobacco use Status Tobacco use date assessed 03/21/25 03/21/25 15:09 Patient Tobacco Use Status Former Tobacco user 03/21/25 15:09 Tobacco use type Cigarette 03/21/25 15:09 e-Cigarette/Vaping Use Never Used 03/21/25 15:09 Thrive Assessment: Date of Thrive Assessment Date Thrive assessed 01/15/25 03/21/25 15:09 Const General: no acute distress Nutritional Appearance: obese Orientation/consciousness: patient oriented x3 Limitations: language barrier and ambulation with walker Resp Effort & Inspection: normal respiratory effort Auscultation: clear to auscultation bilaterally, no crackles, no rales, no rhonchi and no wheezes Cardio Heart sounds: S1 normal heart sound present and S2 normal heart sound present Neuro General: patient oriented x3, gait normal and moves all extremities Psych Speech and movement: Normal speech and movement present Coding Level of Care Code Est Pt Level 4 (76235) Diagnoses Asthma with acute exacerbation J45.901 COPD with acute exacerbation J44.1 Time Spent (min) 20 Assessment & Plan Assessment & Plan (1) Asthma with acute exacerbation: Code(s): J45.901 - Unspecified asthma with (acute) exacerbation Category: Medical Plan: History of acute asthma/COPD exacerbation ? resolved. Patient asymptomatic today. Continue home inhalers as prescribed. Reinforce avoidance of respiratory irritants (smoking) and importance of adherence to maintenance therapy. Monitor for return of SOB, wheezing, or productive cough; seek care if symptoms recur. (2) COPD with acute exacerbation: Code(s): J44.1 - Chronic obstructive pulmonary disease with (acute) exacerbation Category: Medical Plan: History of acute asthma/COPD exacerbation ? resolved. Patient asymptomatic today. Continue home inhalers as prescribed. Reinforce avoidance of respiratory irritants (smoking) and importance of adherence to maintenance therapy. Monitor for return of SOB, wheezing, or productive cough; seek care if symptoms recur.
[2025-03-21 15:01] VITALS: BP 132/68; TEMP 36.1; BMI 36.9
--- OUTSIDE RECORDS SUMMARY | 2025-03-21 15:07 | XMS_ITS | Clinical Summary ---
Author Organization [facility] Address [address] [place] [phone] Phone Care Team Providers Care Finance Lecturer Name Role Phone Ronal Orozco MD Primary Care Provider [phone] Allergies No known active allergies Medications traZODone (DESYREL) 100 MG tablet TOME JALYN O DOS TABLETAS POR V A ORAL AL ACOSTARSE NEEEDED 12/26/19 22 Active losartan (COZAAR) 100 MG tablet TOME JALYN TABLETA TODOS LOS D? Active gabapentin (NEURONTIN) 800 MG tablet Take 800 mg by mouth 3 (three) times a day. 11/24/19 22 Active DULoxetine (CYMBALTA) 60 MG capsule one capsule daily 11/24/19 22 Active SUMAtriptan (IMITREX) 100 MG tablet Take by mouth. PRN 01/01/20 23 Active pantoprazole (PROTONIX) 40 MG tablet TAKE 1 TABLET BY MOUTH DAILY. STOP OMEPRAZOLE 12/01/19 24 Active albuterol 90 mcg/actuation inhaler Inhale 2 puffs into the lungs every 4 (four) hours as needed for wheezing or shortness of breath/dyspnea. 02/06/20 25 Active clonazePAM (KLONOPIN) 1 MG tablet Take 1 tablet by mouth 2 (two) times a day. 02/06/20 25 Active amLODIPine (NORVASC) 10 MG tablet Take 1 tablet by mouth every morning. 01/29/20 25 Active BREO ELLIPTA 100-25 mcg/dose inhaler Inhale 1 puff into the lungs daily. 12/06/19 25 Active ipratropium-a lbuteroL (DUONEB) 0.5-3 mg (2.5 mg base)/3 mL nebulizer solution Take 3 mL by nebulization 4 (four) times a day. 360 mL 1 02/28/20 25 Active guaiFENesin (MUCINEX) 600 mg ER biphasic tablet [The details of the medication are not available because there are pending changes by a home health clinician.] 120 tablet 11 02/28/20 Active Additional Information Patient not taking.Reported on 03/03/2025 benzonatate (TESSALON) 100 MG capsule Take 2 capsules (200 mg total) by mouth 3 (three) times a day as needed for cough. 20 capsule 02/28/20 Active traMADol (ULTRAM) 50 mg tablet Take 1 tablet (50 mg total) by mouth every 6 (six) hours as needed for pain (specific location in comments). 15 tablet 01/03/20 18 Discontinued(N o longer taking) montelukast (SINGULAIR) 10 mg tablet Discontinued(N o longer taking) escitalopram oxalate (LEXAPRO) 10 MG tablet TOME JALYN TABLETA TODOS LOS D? EN LA MA?KEITH Discontinued(N o longer taking) clonazePAM (KLONOPIN) 2 MG tablet (Schedule IV Drug) TOME JALYN TABLETA TODOS LOS D? AL ACOSTARSE Discontinued(N o longer taking) butalbital-ac etaminophen-c affeine (FIORICET, ESGIC) 50-325-40 mg per tablet TAKE 1 TABLET 2 TO 3 TIMES A DAY ONLY NEEDED FOR INCREASED HEADACHES Discontinued(N o longer taking) amLODIPine (NORVASC) 5 MG tablet TOME JALYN TABLETA TODOS LOS D? 025 Discontinued(N o longer taking) loratadine (CLARITIN) 10 mg tablet TOME JALYN TABLETA POR V A ORAL TODOS LOS D 11/23/19 22 025 Discontinued(N o longer taking) oxyCODONE 5 MG immediate release tablet Take 1 tablet (5 mg total) by mouth every 4 (four) hours as needed for moderate pain or 4-6 (on a general 0-10 scale) (FOR POST-OP PAIN). Partial fill ok 18 tablet 01/12/20 025 Discontinued(N o longer taking) neomycin-poly myxin B-dexamethaso ne (MAXITROL) 3.5 mg/g-10,000 unit/g-0.1 % Oint Place 0.5 inches into the right eye 4 (four) times a day. 3.5 g 1 01/21/20 025 Discontinued(N o longer taking) NURTEC ODT 75 mg tablet DISSOLVE 1 TABLET ON THE TONGUE EVERY OTHER DAY NEEDED FOR MIGRAINE HEADACHE 01/04/20 025 Discontinued(N o longer taking) zolpidem (AMBIEN) 10 mg tablet (Schedule IV Drug) TOME JALYN TABLETA POR V?A ORAL AL ACOSTARSE CUANDO SEA NECESARIO Oral for 30 025 Discontinued(N o longer taking) ammonium lactate (AMLACTIN) 12 % cream APPLY TOPICALLY TO THE AFFECTED AREA TWICE DAILY NEEDED FOR DRY SKIN 12/06/19 025 Discontinued(N o longer taking) erythromycin (ROMYCIN) ophthalmic ointment Place 0.5 inches into the right eye 3 (three) times a day. 7 g 1 12/26/19 025 Discontinued(N o longer taking) benzonatate (TESSALON) 100 MG capsule Take 2 capsules (200 mg total) by mouth 3 (three) times a day as needed for cough. 20 capsule 02/28/20 025 Discontinued guaiFENesin (MUCINEX) 600 mg ER biphasic tablet Take 2 tablets (1,200 mg total) by mouth 2 (two) times a day. 120 tablet 11 02/28/20 025 Discontinued ipratropium-a lbuteroL (DUONEB) 0.5-3 mg (2.5 mg base)/3 mL nebulizer solution Take 3 mL by nebulization 4 (four) times a day. 360 mL 1 10/30/ 025 Discontinued predniSONE (DELTASONE) 5 MG tablet Take 8 tablets (40 mg total) by mouth daily for 3 days, THEN 6 tablets (30 mg total) daily for 3 days, THEN 4 tablets (20 mg total) daily for 3 days, THEN 2 tablets (10 mg total) daily for 3 days, THEN 1 tablet (5 mg total) daily for 4 days. 64 tablet 02/29/20 Discontinued predniSONE (DELTASONE) 5 MG tablet Take 8 tablets (40 mg total) by mouth daily for 3 days, THEN 6 tablets (30 mg total) daily for 3 days, THEN 4 tablets (20 mg total) daily for 3 days, THEN 2 tablets (10 mg total) daily for 3 days, THEN 1 tablet (5 mg total) daily for 4 days. 64 tablet 02/29/20 025 Active Problems Problem Noted Date Diagnosed Date COPD exacerbation 02/21/2025 Assessment & Plan (02/26/2025 1:02 PM EDT): See below Acute asthma exacerbation 02/21/2025 Assessment & Plan (02/27/2025 4:06 PM EDT): Highly suspect that patient has asthma-COPD overlap syndrome in the context of longstanding tobacco use. Additionally, it is possible that patient might have some degree of chronic respiratory failure with hypoxia in this context, though, she fortunately does not have an exertional oxygen requirement at the time of discharge. Is quite possible that she has emphysematous changes which are not visible on chest x-ray. She might require oxygen therapy at the time of discharge. It is paramount that patient stop smoking once she has discharged, as this is likely driving her acute on chronic respiratory disease. We discussed this in detail today. Suspect patient may have a protracted recovery period and she would benefit from a gradual steroid taper. No additional inpatient management recommended at the current time (agree with ongoing standing nebulized bronchodilators, airway clearance and mucolytic therapy, pulmonary toilet/chest physiotherapy). Follow-up respiratory pathogen PCR panel sent on 02/26. At the time of discharge, agree that patient would benefit from having a nebulizer machine to use DuoNeb as needed. Additionally, she may benefit from escalation to ICS/LABA/LAMA therapy in the outpatient setting. Depending on her insurance formulary, could escalate to Trelegy 200 or add a LAMA inhaler to current Breo 200 (ICS/LABA). Would defer this to her outpatient live games dealer at [facility] in [place]. This possibility was discussed with the patient, who preferred not to add additional medications. In this context, we again discussed the importance of smoking cessation which would prevent further lung function decline and reduce recurrent respiratory exacerbations. She was encouraged to schedule a follow-up appointment with her pulmonology clinic. As above, patient is certainly welcome to call our practice if she were to decide to seek care elsewhere (patient had been considering this). Assessment & Plan (02/26/2025 1:02 PM EDT): Patient reports that she has been having worsening cough, shortness of breath, wheezing since 02/20/25. She attributes this to a cleaning person using a new detergent in her bathroom, she is also an active smoker which is more likely the cause of her symptoms. She has cut down to about 5 cigarettes a day and denies that cigarettes are contributing. Her daughter mentions that her house is filled with smoke, smells like smoke and when she goes over there develops asthma symptoms. She has been on scheduled bronchodilators and steroids. Her symptoms have not significantly improved over her 6-day hospital stay but she is not no longer hypoxic at rest. Influenza and COVID swabs negative. She received a 3-day course of doxycycline. Follow-up with the nurse walking today, she desaturated to 86% and became short of breath. He had previously been seen by respiratory therapy and was found not to qualify for home oxygen. -cont nicotine gum for prn. She was counseled on smoking cessation -cont prednisone, today is Day #3 of oral steroids - cont scheduled nebs, she is aware to hold Breo Ellipta while doing scheduled Duonebs. Will send Rx for nebulizer since she does not have one at home - cont Tessalon as needed and scheduled cough syrup -Add Hydromet for cough -Consult pulmonary for any additional ideas -Mucinex 1200 twice daily -Start Mucomyst neb twice daily - Incentive spirometer/ Acapella Assessment & Plan (02/25/2025 9:09 AM EDT): Patient reports that she has been having worsening cough, shortness of breath, wheezing since 02/20/25. She attributes this to a cleaning person using a new detergent in her bathroom. She denies that cigarettes are contributing. Influenza and COVID swabs negative. Started on IV Solu-Medrol, DuoNebs 02/22, Robitussin. Patient continues to smoke, may have underlying COPD, she was ordered for 5-day course of azithromycin, which was changed to Doxy in view of QTc (500). 02/25 patient found hypoxic while sleeping on room air at 88%. Placed on NC by nursing. -cont nicotine gum for prn. She was counseled on smoking cessation -cont prednisone, today is Day #2 of oral steroids -Completed course of doxy x 3 days. - cont scheduled nebs, she is aware to hold Breo Ellipta while doing scheduled Duonebs. Will send Rx for nebulizer since she does not have one at home - cont Tessalon as needed and scheduled cough syrup - follow up RT consult for Home O2 eval. She was educated on consequences of home oxygen and smoking. She verbalized understanding - Incentive spirometer/ Acapella - she states that she has appointment with her Manager Agricultural in 3 months, she is aware to call for a sooner appointment Assessment & Plan (02/24/2025 10:33 AM EDT): Patient reports that she has been having worsening cough, shortness of breath, wheezing since 02/20/25. She attributes this to a cleaning person using a new detergent in her bathroom. She denies that cigarettes are contributing. Influenza and COVID swabs negative. Started on IV Solu-Medrol, DuoNebs 02/22, Robitussin. Patient continues to smoke, may have underlying COPD, she was ordered for 5-day course of azithromycin, which was changed to Doxy in view of QTc (500). -cont nicotine gum for prn -cont prednisone, today is Day #1 of oral steroids -cont doxy x 3 days. To finish today -nebs - will order Tessalon as needed and schedule cough syrup Assessment & Plan (02/23/2025 3:09 PM EDT): Patient reports that she has been having worsening cough, shortness of breath, wheezing since 02/20/25. She attributes this to a cleaning person using a new detergent in her bathroom. She denies that cigarettes are contributing. Influenza and COVID swabs negative. Started on IV Solu-Medrol, DuoNebs 02/22, Robitussin. Patient continues to smoke, may have underlying COPD, she was ordered for 5-day course of azithromycin, which was changed to Doxy in view of QTc (500). -cont nicotine gum for prn -cont solumedrol today and change to prednisone in am -cont doxy x 3 days -nebs Assessment & Plan (02/22/2025 11:53 AM EDT): - Patient reports that she has been having worsening cough, shortness of breath, wheezing since 02/20 She attributes this to a cleaning person using a new detergent in her bathroom - Influenza and COVID swabs negative, will repeat so we can remove precautions - Started on IV Solu-Medrol, will ad scheduled DuoNebs 02/22 , prn Robitussin - Patient continues to smoke, may have underlying COPD, she was ordered for 5- day course of azithromycin, will change to Doxy in view of QTc. Ordered nicotine gum for prn - hold Breo, patient brought her own inhaler from home Assessment & Plan (02/21/2025 7:31 PM EDT): - Patient reports that she has been having worsening cough, shortness of breath, wheezing since yesterday night. She attributes this to a cleaning person using a new detergent in her bathroom - Chest x-ray clear - Influenza and COVID swabs negative - Started on IV Solu-Medrol, DuoNebs, prn Robitussin - Patient continues to smoke, may have underlying COPD, she was ordered for 5- day course of azithromycin, will change to Doxy in view of QTc - Continue Breo, patient brought her own inhaler from home HTN (hypertension) 02/21/2025 Assessment & Plan (02/26/2025 1:02 PM EDT): - Blood pressure is currently well-controlled, continue amlodipine and Cozaar Assessment & Plan (02/25/2025 9:06 AM EDT): - Blood pressure is currently well-controlled, continue amlodipine and Cozaar Assessment & Plan (02/24/2025 10:33 AM EDT): - Blood pressure is currently well-controlled, continue amlodipine and Cozaar Assessment & Plan (02/23/2025 3:09 PM EDT): - Blood pressure is currently well-controlled, continue amlodipine and Cozaar Assessment & Plan (02/22/2025 11:53 AM EDT): - Blood pressure is currently well-controlled, continue amlodipine and Cozaar Assessment & Plan (02/21/2025 7:31 PM EDT): - Blood pressure is currently well-controlled, continue amlodipine and Cozaar Anxiety and depression 02/21/2025 Assessment & Plan (02/26/2025 1:02 PM EDT): - Continue Klonopin, Cymbalta, trazodone Assessment & Plan (02/25/2025 9:06 AM EDT): - Continue Klonopin, Cymbalta, trazodone Assessment & Plan (02/24/2025 10:33 AM EDT): - Continue Klonopin, Cymbalta, trazodone Assessment & Plan (02/23/2025 3:09 PM EDT): - Continue Klonopin, Cymbalta, trazodone Assessment & Plan (02/22/2025 11:53 AM EDT): - Continue Klonopin, Cymbalta, trazodone Assessment & Plan (02/21/2025 7:31 PM EDT): - Continue Klonopin, Cymbalta, trazodone Prolonged QT interval 02/21/2025 Assessment & Plan (02/27/2025 4:06 PM EDT): Precluded the use of azithromycin during hospitalization. Assessment & Plan (02/26/2025 1:02 PM EDT): - Monitor EKG -Avoid QT prolonging meds Assessment & Plan (02/25/2025 9:06 AM EDT): - Monitor EKG -Avoid QT prolonging meds Assessment & Plan (02/24/2025 10:33 AM EDT): - Monitor EKG -Avoid QT prolonging meds Assessment & Plan (02/23/2025 3:09 PM EDT): - Monitor EKG -Avoid QT prolonging meds Assessment & Plan (02/22/2025 11:53 AM EDT): - Monitor EKG -Avoid QT prolonging meds Assessment & Plan (02/21/2025 7:31 PM EDT): - Monitor EKG -Avoid QT prolonging meds Neuropathy 02/21/2025 Assessment & Plan (02/27/2025 4:06 PM EDT): As above, takes multiple sedating medications which could have contributed to the patient's mild respiratory acidosis and hypercarbia on VBG at initial presentation. Defer to patient's outpatient providers regarding the possibility of a superimposed component of sleep disordered breathing (inclusive of sleep apnea) +/- an element of chronic CO2 retention, whether sleep study or nocturnal oximetry should be performed. Recommend minimizing sedating medications as tolerated. Assessment & Plan (02/26/2025 1:02 PM EDT): - Continue gabapentin, patient is on a high dose 800 mg 3 times daily (her max recommended daily dose for her renal function is 1800 mg, however she has been on this dose for some time with no change in her renal function). Patient should follow-up with her PCP for close monitoring and titration of dose if needed Assessment & Plan (02/25/2025 9:06 AM EDT): - Continue gabapentin, patient is on a high dose 800 mg 3 times daily (her max recommended daily dose for her renal function is 1800 mg, however she has been on this dose for some time with no change in her renal function). Patient should follow-up with her PCP for close monitoring and titration of dose if needed Assessment & Plan (02/24/2025 10:33 AM EDT): - Continue gabapentin, patient is on a high dose 800 mg 3 times daily (her max recommended daily dose for her renal function is 1800 mg, however she has been on this dose for some time with no change in her renal function). Patient should follow-up with her PCP for close monitoring and titration of dose if needed Assessment & Plan (02/23/2025 3:09 PM EDT): - Continue gabapentin, patient is on a high dose 800 mg 3 times daily (her max recommended daily dose for her renal function is 1800 mg, however she has been on this dose for some time with no change in her renal function). Patient should follow-up with her PCP for close monitoring and titration of dose if needed Assessment & Plan (02/22/2025 11:53 AM EDT): - Continue gabapentin, patient is on a high dose 800 mg 3 times daily (her max recommended daily dose for her renal function is 1800 mg, however she has been on this dose for some time with no change in her renal function). Patient should follow-up with her PCP for close monitoring and titration of dose if needed Assessment & Plan (02/21/2025 7:31 PM EDT): - Continue gabapentin, patient is on a high dose 800 mg 3 times daily (her max recommended daily dose for her renal function is 1800 mg, however she has been on this dose for some time with no change in her renal function). Patient should follow-up with her PCP for close monitoring and titration of dose if needed Encounters Date Type Department Care Team Description 03/20/2025 1:00 PM EST Home Care Visit [facility] [address] [place] [phone] Sophie Green, RUBEN SN OASIS DISCHARGE VISIT 03/12/2025 11:30 AM EST Home Care Visit [facility] [address] [place] [phone] Sophie Green, RUBEN SN HOME VISIT 03/05/2025 Plan of Care Documentation [facility] [address] [place] [phone] 03/03/2025 1:30 PM EST Home Care Visit [facility] [address] [place] [phone] Sophie Green RN SN OASIS START OF CARE (SOC) 03/01/2025 Home Care Visit [facility] [address] [place] [phone] Natty Diaz, PT CASE COMMUNICATION 02/26/2025 Orders Only [facility] [address] [place] [phone] Homehealth, Interface MD Sharee 02/21/2025 12:31 PM EDT - 02/27/2025 4:42 PM EDT Hospital Encounter [facility] [address] [place] [phone] Ana Prado MD Israeli, Diana A, DO Miskovsky, Glenn E, MD Yau, Cyrus H, MD McCracken, Helena C, DO Ewall, Katharine E, MD Discharge Disposition: Home-Health Care Svc from Last 3 Months Family History Medical History Relation Comments Colon cancer Father Relation Status Comments Father Social History Tobacco Use Types Packs/Day Years Used Date Smoking Tobacco: Every Day Cigarettes 0.5 41.3 Started: 12/20/1983 Smokeless Tobacco: Never Tobacco Cessation:Ready [...] EST Inhaled Oxygen Concentration - - Weight 93.2 kg (205 lb 8 oz) 02/27/2025 5:17 AM EDT Height 157.5 cm (5' 2 ) 02/26/2025 9:12 AM EDT Body Mass Index 37.59 02/26/2025 9:12 AM EDT Plan of Treatment Health Maintenance Due Date Last Done Comments Adult Td,Tdap Booster 1956 LIPID PANEL 1956 DEPRESSION SCREENING 1968 HEPATITIS C SCREENING 1974 PNEUMOCOCCAL VACCINES (50+ years) (1 of 2 - PCV) 09/06/1975 MAMMOGRAM 1996 COLOGUARD 2001 COLONOSCOPY 2001 COLORECTAL CANCER SCREENING 2001 FIT TEST 2001 FOBT 2001 SIGMOIDOSCOPY 2001 VIRTUAL COLONOSCOPY 2001 LUNG CANCER SCREENING (LDCT Only) 2006 RSV VACCINE (1 - Risk 50-74 years 1-dose series) 2006 ZOSTER VACCINES (1 of 2) 2006 OSTEOPOROSIS SCREENING INITIAL (ONE-TIME) 2021 INFLUENZA VACCINE (#1) 2024 01/24/2018 COVID-19 VACCINE (3 - season) 2024 08/24/2020, 07/27/2020 BLOOD PRESSURE 09/17/2025 03/20/2025 SMOKING Hx and SMOKELESS TOBACCO SCREENING 02/21/2026 02/21/2025 CREATININE LEVEL 02/26/2026 02/26/2025, , 02/22/2025, Additional history exists POTASSIUM LEVEL 02/26/2026 02/26/2025, 01/30, 02/22/2025, Additional history exists SCREENING FOR DIABETES 02/27/2028 02/26/2025 HEPATITIS A VACCINES Aged Out No long [...] this topic Medical Devices Implanted Type Area Senior Project Architect Device Identifier Shelf Expiration Date Model / Serial / Lot Conformer [employer] Medium - [id number] Implanted:Qty: 1 on 01/11/2022 by Frederic Franco MD at [facility] Right: Eye [employer] 02/28/2025 [id number] / / [id number] Implant Globe Yoandy 22mm - [id number] Implanted:Qty: 1 on 01/11/2022 by Frederic Franco MD at [facility] Right: Eye [employer] [id number] / / Procedures Procedure Name Priority Date/Time Associated Diagnosis Comments ECG 12-LEAD Routine 02/27/2025 8:10 AM EDT RESPIRATORY PATHOGEN PCR PANEL Routine 02/26/2025 2:02 PM EDT ECG 12-LEAD Routine 02/26/2025 8:28 AM EDT BASIC METABOLIC PANEL (BMP) Routine 02/26/2025 5:30 AM EDT ECG 12-LEAD Routine 02/25/2025 6:47 AM EDT ECG 12-LEAD Routine 02/24/2025 6:35 AM EDT CBC Routine 02/24/2025 5:45 AM EDT BASIC METABOLIC PANEL (BMP) Routine 02/24/2025 5:45 AM EDT COVID PANDEMIC RESPIRATORY VIRAL ORDER (PRO) Routine 02/23/2025 8:46 AM EDT ECG 12-LEAD Routine 02/23/2025 6:47 AM EDT ECG 12-LEAD Routine 02/22/2025 6:55 AM EDT CBC AND DIFFERENTIAL Routine 02/22/2025 6:04 AM EDT PHOSPHORUS Routine 02/22/2025 6:04 AM EDT MAGNESIUM Routine 02/22/2025 6:04 AM EDT BASIC METABOLIC PANEL (BMP) Routine 02/22/2025 6:04 AM EDT COVID PANDEMIC RESPIRATORY VIRAL ORDER (PRO) STAT 02/21/2025 4:23 PM EDT ECG 12-LEAD STAT 02/21/2025 3:39 PM EDT TROPONIN STAT 02/21/2025 2:33 PM EDT XR CHEST PA AND LATERAL 2 VIEWS Routine 02/21/2025 2:21 PM EDT ECG 12-LEAD STAT 02/21/2025 1:58 PM EDT VENOUS BLOOD GAS STAT 02/21/2025 1:30 PM EDT NT-PROBNP STAT 02/21/2025 1:30 PM EDT TROPONIN STAT 02/21/2025 1:30 PM EDT MAGNESIUM STAT 02/21/2025 1:30 PM EDT CBC AND DIFFERENTIAL STAT 02/21/2025 1:30 PM EDT BASIC METABOLIC PANEL (BMP) STAT 02/21/2025 1:30 PM EDT from Last 3 Months Results * ECG 12-LEAD (02/27/2025 8:10 AM EDT) Only the most recent of8 resultswithin the time period is included. Pathologist [facility] Ventricular Rate EKG/MIN 72 BPM [facility] Atrial Rate 72 BPM [facility] MA Interval 136 ms [facility] QRS Duration 82 ms [facility] QT Interval 400 ms [facility] QTC Interval 438 ms [facility] P Dyke 60 degrees [facility] R Wave [place]ke 38 degrees [facility] T Wave [place] 61 degrees [facility] 02/27/2025 8:10 AM EDT 02/27/2025 9:08 AM EDT Narrative [facility] - 02/27/2025 9:08 AM EDT Normal sinus rhythm Nonspecific T wave abnormality Abnormal ECG When compared with ECG of 26-Feb-2025 08:28, No significant change was found Confirmed by Eder Herrera ([id number]) on 02/27/2025 9:08:45 AM us Danya A Czech DO ECG ORDERABLES Final Result [facility] * (ABNORMAL) Respiratory Pathogen PCR Panel (02/26/2025 2:02 PM EDT) Pathologist [facility] Specimen source NASOPHARYNGEAL SWAB [facility] DPT OF LAB MED AND PAT+ Adenovirus Undetected Undetected [facility] D[facility] OF LAB MED AND PAT+ Coronavirus 229E Undetected Undetected [facility] DPT OF LAB MED AND PAT+ Coronavirus HKU1 Undetected Undetected [facility] D[facility] OF LAB MED AND PAT+ Coronavirus NL63 Undetected Undetected [facility] D[facility] OF LAB MED AND PAT+ Coronavirus OC43 Undetected Undetected [facility] D[facility] OF [facility] MED AND PAT+ SARS-COV 2 (COVID-19) PCR Undetected Undetected [facility] DPT OF LAB MED AND PAT+ Comment: (NOTE) SARS-CoV-2 RNA absent. This result does not rule out COVID-19 in the patient, as the sensitivity of the test depends on the timing of the specimen collection and the quality of the specimen. Result should be correlated with patient's history and clinical presentation. Human Metapneumovirus Undetected Undetected [facility] DPT OF LAB MED AND PAT+ Human Rhinovirus/ Enterovirus Detected(A) Undetected [facility] DPT OF LAB MED AND PAT+ Influenza A Undetected Undetected [facility] MED AND PAT+ Influenza B Undetected Undetected [facility] OF [facility] MED AND PAT+ Parainfluenza Virus 1 Undetected Undetected [facility] DPT OF LAB MED AND PAT+ Parainfluenza Virus 2 Undetected Undetected [facility] D[facility] OF [facility] MED AND PAT+ Parainfluenza Virus 3 Undetected Undetected [facility] D[facility] OF [facility] MED AND PAT+ Parainfluenza Virus 4 Undetected Undetected [facility] DPT OF LAB MED AND PAT+ Respiratory Syncytial Virus Undetected Undetected [facility] D[facility] OF LAB MED AND PAT+ Bordetella parapertussis Undetected Undetected [facility] DPT OF LAB MED AND PAT+ Bordetella pertussis Undetected Undetected [facility] DPT OF LAB MED AND PAT+ Chlamydia pneumoniae Undetected Undetected [facility] DPT OF LAB MED AND PAT+ Mycoplasma pneumoniae Undetected Undetected [facility] DPT OF LAB MED AND PAT+ Interpretation SEE NOTE [facility] DPT OF LAB MED AND PAT+ Comment: (NOTE) This assay is not predicted to detect SARS-coronavirus (CoV), or MERS-CoV. ADDITIONAL INFORMATION This assay is performed using the FDA-Cleared FilmArray Respiratory Panel 2.1 (BlaBlaCar). Other (Nasopharyngeal swab) 02/26/2025 2:02 PM EDT 02/26/2025 2:08 PM EDT us Puja Pryor DO LAB GENERAL ORDERABLES Fin al Result [facility] DPT OF LAB MED AND PAT+ [address] [place] [address] * (ABNORMAL) Basic metabolic panel (02/26/2025 5:30 AM EDT) Only the most recent of4 resultswithin the time period is included. SODIUM 145 133 - 146 mmol/L [facility] CHLORIDE 104 96 - 108 mmol/L [facility] POTASSIUM 4.2 3.3 - 5.1 mmol/L [facility] CO2 31 21 - 35 mmol/L [facility] BUN 16 6 - 19 mg/dL [facility] CREATININE 0.50 0.5 - 1.5 mg/dL [facility] GLUCOSE 108(H) 70 - 99 mg/dL [facility] CALCIUM 8.8 8.4 - 10.3 mg/dL [facility] EGFR 102 >59 mL/min/1.7 3m2 [facility] Comment:Estimated glomerular filtration rate calculated using the CKD-EPI refit equation. ANION GAP 14 10 - 20 mmol/L [facility] Blood 02/26/2025 5:30 AM EDT 02/26/2025 6:21 AM EDT Julieta Wyman GUIDANCE ADVISER LAB BLOOD BKR ORDERABLES Final Result [address] [id number] * (ABNORMAL) CBC (02/24/2025 5:45 AM EDT) WBC 12.31(H) 4.00 - 11.00 K/uL [facility] RBC 4.55 4.00 - 5.20 M/uL [facility] HGB 13.5 12.0 - 16.0 g/dL [facility] HCT 41.5 36.0 - 46.0 % [facility] PLT 265 150 - 450 K/uL [facility] MCV 91.2 80.0 - 100.0 fL [facility] MCH 29.7 27.0 - 31.0 pg [facility] MCHC 32.5 32.0 - 36.0 g/dL [facility] RDW 14.2 11.5 - 14.5 % [facility] MPV 10.3 8.4 - 12.0 fL [facility] NRBC 0.00 0.00 /100 WBCs [facility] ABSOLUTE NRBC 0.00 0.00 K/uL [facility] Blood 02/24/2025 5:45 AM EDT 02/24/2025 6:08 AM EDT [facility]LOOD BKR ORDERABLES F inal Result Performing Organization Address [facility] de Phone Number [address] [address] * COVID Pandemic Respiratory Viral Order (PRO) (02/23/2025 8:46 AM EDT) Only the most recent of2 resultswithin the time period is included. Test Ordered COVID has been ordered [facility] SPECIMEN SOURCE/DESCRIPTION STERNAL WOUND [facility] SARS-CoV 2 (COVID-19) PCR Negative Negative [facility] Comment: SARS-CoV-2 not detected Negative results do not preclude SARS-CoV-2 infection and should not be used as the sole basis for patient management decisions. Negative results must be combined with clinical observations, patient history, and epidemiological information. This test has been authorized by the FDA under an Emergency Use Authorization (EUA) for use by authorized laboratories. Other (Nasal swab) 02/23/2025 8:46 AM EDT 02/23/2025 8:50 AM EDT [facility] Konstantin DO LAB GENERAL ORDERABLES Fin al Result Performing Organization Address [facility] Co de Phone Number [address] [address] * (ABNORMAL) CBC and differential (02/22/2025 6:04 AM EDT) Only the most recent of2 resultswithin the time period is included. WBC 5.98 4.00 - 11.00 K/uL [facility] RBC 4.47 4.00 - 5.20 M/uL [facility] HGB 13.1 12.0 - 16.0 g/dL [facility] HCT 41.2 36.0 - 46.0 % [facility] PLT 229 150 - 450 K/uL [facility] MCV 92.2 80.0 - 100.0 fL [facility] MCH 29.3 27.0 - 31.0 pg [facility] MCHC 31.8(L) 32.0 - 36.0 g/dL [facility] RDW 14.1 11.5 - 14.5 % [facility] MPV 10.5 8.4 - 12.0 fL [facility] NRBC 0.00 0.00 /100 WBCs [facility] ABSOLUTE NRBC 0.00 0.00 K/uL [facility] DIFF METHOD Auto [facility] NEUTS 81.4(H) 48.0 - 76.0 % [facility] LYMPHS 10.4(L) 18.0 - 41.0 % [facility] MONOS 7.7 4.0 - 11.0 % [facility] EOS 0.0 0.0 - 5.0 % [facility] BASOS 0.2 0.0 - 1.5 % [facility] Granulocytes, immature (%) 0.3 0.0 - 0.9 % [facility] ABSOLUTE NEUTS 4.87 1.92 - 7.60 K/uL [facility] ABSOLUTE LYMPHS 0.62(L) 0.72 - 4.10 K/uL [facility] ABSOLUTE MONOS 0.46 0.16 - 1.10 K/uL [facility] ABSOLUTE EOS 0.00 0.00 - 0.50 K/uL [facility] ABSOLUTE BASOS 0.01 0.00 - 0.15 K/uL [facility] Granulocytes, immature 0.02 0.00 - 0.09 K/uL [facility] Blood 02/22/2025 6:04 AM EDT 02/22/2025 6:25 AM EDT us Danya Stewart Czech DO LAB BLOOD BKR ORDERABLES Stephany l Result [facility] [address] [place] [address] * Phosphorus (02/22/2025 6:04 AM EDT) PHOSPHORUS 3.3 2.7 - 4.5 mg/dL [facility] Blood 02/22/2025 6:04 AM EDT 02/22/2025 6:25 AM EDT Danya A Czech DO LAB BLOOD BKR ORDERABLES Stephany l Result Performing Organization Address City/[facility]/ZIP Co de Phone Number [address] [address] * Magnesium (02/22/2025 6:04 AM EDT) Only the most recent of2 resultswithin the time period is included. MAGNESIUM 2.2 1.6 - 2.6 mg/dL [facility] Blood 02/22/2025 6:04 AM EDT 02/22/2025 6:25 AM EDT Danya A Czech DO LAB BLOOD BKR ORDERABLES Stephany l Result Performing Organization Address [facility] de Phone Number [address] [address] * Troponin (02/21/2025 2:33 PM EDT) Only the most recent of2 resultswithin the time period is included. Troponin-T, HS Gen5 <6 0 - 9 ng/L [facility] Blood 02/21/2025 2:33 PM EDT 02/21/2025 2:36 PM EDT Ana Prado MD LAB BLOOD BKR ORDERABLES Fin al Result Performing Organization Address [facility] Co de Phone Number [address] [address] * XR CHEST PA AND LATERAL 2 VIEWS (02/21/2025 2:21 PM EDT) Anatomical Region Laterality Modality Chest Computed Radiogr aphy 02/21/2025 3:09 PM EDT Impressions 02/21/2025 3:13 PM EDT No pneumonia or acute cardiopulmonary process. Narrative 02/21/2025 3:13 PM EDT XR CHEST PA AND LATERAL 2 VIEWS Referring clinician's provided indication for this examination in [facility]: Dyspnea on exertion; Dyspnea (Shortness of Breath) COMPARISON: None. FINDINGS: Devices/Tubes/Lines: None. Lungs: No focal consolidation or pulmonary edema. Pleura: No pleural effusion or pneumothorax. Heart/Mediastinum: Normal cardiac silhouette. Normal mediastinal contours. Bones/Soft Tissues: No acute osseous abnormality. S-shaped scoliosis of the thoracolumbar spine with mild multilevel degenerative changes. Surgical clips in the right upper quadrant of the abdomen. Procedure Note Shayne Ku MD - 02/21/2025 XR CHEST PA AND LATERAL 2 VIEWS Referring clinician's provided indication for this examination in [facility]:Dyspnea on exertion; Dyspnea (Shortness of Breath) COMPARISON: None. FINDINGS: Devices/Tubes/Lines: None. Lungs: No focal consolidation or pulmonary edema. Pleura: No pleural effusion or pneumothorax. Heart/Mediastinum: Normal cardiac silhouette. Normal mediastinalcontours. Bones/Soft Tissues: No acute osseous abnormality. S-shaped scoliosis ofthe thoracolumbar spine with mild multilevel degenerative changes.Surgical clips in the right upper quadrant of the abdomen. IMPRESSION: No pneumonia or acute cardiopulmonary process. us Ana Prado MD IMG XR CHEST Final Result * NT-proBNP (02/21/2025 1:30 PM EDT) NT-PROBNP 111 0 - 125 pg/mL [facility] Blood 02/21/2025 1:30 PM EDT 02/21/2025 1:40 PM EDT us Ana Prado MD LAB BLOOD BKR ORDERABLES Fin al Result [facility] [address] [place] [address] * (ABNORMAL) Venous blood gas (02/21/2025 1:30 PM EDT) pH, Venous 7.29(L) 7.31 - 7.41 [facility] PCO2, Venous 64.20(H) 41.00 - 51.00 mmHg [facility] PO2, Venous 34.90(L) 35.00 - 40.00 mmHg [facility] HCO3, Venous 30(H) 23 - 28 mmol/L [facility] BASE EXCESS VENOUS 1.5 0.0 - 3.0 mmol/L [facility] SO2, VENOUS 66.20 60.00 - 80.00 % [facility] FO2HB, VENOUS 64.10(L) 71.00 - 74.00 % [facility] Carboxy Hgb 2.80(H) 0 - 1.50 % [facility] MetHgb % 0.30 0 - 1.50 % [facility] Blood 02/21/2025 1:30 PM EDT 02/21/2025 1:39 PM EDT us Ana Prado MD LAB BLOOD BKR ORDERABLES Fin al Result [facility] [address] [place] [address] from Last 3 Months Insurance [address] [place] [address] MEDICARE PART A & B [facility] MEDICARE REPLACEMENT [facility] [address] [place] [address] MEDICARE PART A & B [facility] MEDICARE REPLACEMENT [facility] [id number] [place] [address] MEDICARE PART A & B [facility] RE[facility] B [facility] [place] [address] [facility] MEDICARE PART A & B [facility] MEDICARE REPLACEMENT [facility] [address] [place] [address] MEDICARE PART A & B [facility] MEDICARE REPLACEMENT [address] [place] [address] MEDICARE PART A & B [facility] MEDICARE REPLACEMENT [place] [id number] [facility] [address] Advance Directives For more information, please contact: [phone] (9AM - 5PM [facility], Monday-Monday) Documents on File Type Date Recorded Patient Analysis Tester Expl anation Healthcare Proxy 02/24/2025 * Full Code (Latest Code Status on File) Date Activated Date Inactivated Comments 02/21/2025 7:02 PM Question Answer Comments Code Status Confirmed With: Patient Healthcare Agents on File Name Relationship Healthcare Agent Relationshi p Communication Edna Chan Daughter .Primary Health Care Agent (Proxy form on file) Care Teams Finance Lecturer Relationship Specialty Start Date End Date Ronal Orozco MD [address] [place] [address] [place] [address] PCP - General Internal Medicine 12/15/21 Additional Source Comments The information contained in this document represents components of the legal health record. It is not the complete legal health record.[facility]
--- OUTSIDE RECORDS SUMMARY | 2025-03-21 15:07 | XMS_ITS | Encounter Summary ---
Author Organization [facility] Address [address] [place] [address] Phone Care Team Providers Care Career Guidance Technician Name Role Phone Ronal Orozco MD Primary Care Provider [phone] Reason for Visit * Reason Onset Date Comments returning call 12/27/2022 Encounter Details Date Type Department Care Team (Late st Contact Info) Description 12/27/2022 Telephone [facility] [address] [place], [place] [id number] Frederic Franco MD [address] [place] [phone] [email or web address] returning call Social History Tobacco Use [...] Infection Onset Date Last Indicated Resolved Time CoV-Risk Comment:Per note documentation 02/21/2025 02/21/2025 8:21 AM EDT Rhino/Entero 02/26/2025 02/26/2025 03/05/2025 7:06 PM EST documented as of this encounter Care Teams Career Guidance Technician Relationship Specialty Start Date End Date Ronal Orozco MD [address] [place] [address] [place] [address] PCP - General Internal Medicine 12/15/21 documented as of this encounter Additional Source Comments The information contained in this document represents components of the legal health record. It is not the complete legal health record.[facility]
--- OUTSIDE RECORDS SUMMARY | 2025-03-21 15:07 | XMS_ITS | Patient Health Record ---
Author Organization [facility] Address [address] [place] [address] Care Team Providers Care Buck Presser Name Role Phone Ernesto BAILEY, Ronal Primary Care Provider Schuyler Molina [phone] Allergies No Known Allergies Results Component Value Reference Range Notes Pathology (Not yet reviewed by provider) Interpretation: Performing Lab:[facility], [address] [place] [phone] Notes/Report: Reason For Referral No Information Medications Medication SIG (Take, Route, Frequency, Duration) Notes Start Date End Date Status Losartan Potassium 100 MG Tablet TOME JALYN TABLETA TODOS LOS D? Oral; Duration: 30 Active amLODIPine Besylate 5 MG Tablet TOME JALYN TABLETA TODOS LOS D? Oral; Duration: 90 Active Dulcolax (colon prep) 5 MG Tablet Delayed Release take 2 at 3:00 p.m and 7:00p.m. Orally two tablets twice a day for one day; Duration: 1 days 12/23/2024 Active traZODone HCl 50 MG Tablet TAKE 1-2 TABL ET BY MOUTH AT BEDTIME NEEDED FOR SLEEP Oral; Duration: 15 Active Dulcolax 5 MG Tablet Delayed Release 2 tablets 2 days before the colonoscopy Orally Once 2 days before the colonoscopy; Duration: 1 days 12/24/2024 Active clonazePAM 2 MG Tablet (Schedule IV Drug ) TOME JALYN TABLETA TODOS LOS D? AL ACOSTARSE Oral; Duration: 30 Active Breo Ellipta Active Gabapentin 800 MG Tablet TOME JALYN TABLET A EMETERIO VECES AL D?A Oral; Duration: 90 Active MiraLax (colon prep) 17 GM/SCOOP Powder 1 238Gm bottle mixed with 64 ounces of Gatorade or Crystal Light orally begin at 5:00 p.m. the day before the procedure; Duration: 1 days 12/23/2024 Active Pantoprazole Sodium 40 MG Tablet Delayed Release 1 tablet 1/2 to 1 hour before morning meal Orally Once a day Active Immunizations Vaccine Route Administration Date Status Comme nts Influenza Unknown 03/07/2018 Administered Influenza Unknown 06/26/2020 Refused Social History Tobacco Use: Social History Observation Description Date Details (start date - stop date) Current Smoker NA - NA Social History Drugs/Alcohol: Social Info Question Answer Notes Alcohol Screen Did you have a drink containing alcohol in the past year? No Points 0 Interpretation Negative Tobacco Use: Social Info Question Answer Notes Tobacco Control (Standard) Tobacco use: Current smoker How often do you smoke cigarettes? Every day How many cigarettes a day do you smoke? 5 or less How soon after you wake up do you smoke your first cigarette? After 60 minutes Additional Details Category Social Info Options Details Miscellaneous: Marital status: Occupation: unemployed Section Notes: Nonsmoker; no sig alcohol Smoker approx 6 cigs QD; no sig alcohol Smoker approx 6 cigs QD; no sig alcohol Problems Problem Type SNOMED Code ICD Code Onset Dates Problem Status W/U Status Risk Notes Problem Epigastric pain (28036747) Epigastric abdominal pain (R10.13) Active confirmed Problem Screening for malignant neoplasm of colon (253776055) Encounter for screening for malignant neoplasm of colon (Z12.11) Active confirmed Problem Dysphagia (51832947) Dysphagia (R13.10) Active confirmed Problem Gastroesophageal reflux disease (330192597) Gastroesophageal reflux disease, esophagitis presence not specified (K21.9) Active confirmed 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 Problem Pre-procedure evaluation check (357068026) Pre-procedural examination (Z01.818) Active confirmed Problem Family history of malignant neoplasm of gastrointestinal tract (173202859) Family history of colon cancer in father (Z80.0) Active confirmed Vital Signs Blood pressure diastolic 77 mm Hg 10/02/2024 Height 62.5 in 10/02/2024 Blood pressure systolic 111 mm Hg 10/02/2024 Weight 209 lbs 10/02/2024 BMI 37.61 kg/m2 10/02/2024 Procedures Procedure Date Ordered Date Performed Result Body Sit e UPPER GI ENDOSCOPY 10/02/2024 N/A COLONOSCOPY 10/02/2024 N/A Encounters Encounter Location Date Provider Diagnosis [facility] [address] [facility] [place] [id number] 12/25/2024 Schuyler Coker [facility] [address] [place] [phone] 10/02/2024 Schuyler Coker Encounter for screen ing for malignant neoplasm of colon Z12.11 ; Gastroesophageal reflux disease, esophagitis presence not specified K21.9 ; Pre-procedural examination Z01.818 ; Family history of colon cancer in father Z80.0 and Dysphagia R13.10 [facility] [address] [place] [phone] 06/06/2024 Schuyler Coker [facility] [address] [place] [phone] 12/06/2024 Schuyler Coker [facility] [address] [place] [phone] 12/23/2024 Schuyler Coker [facility] [address] [place] [phone] 12/23/2024 Schuyler Coker Assessments Encounter Date Diagnosis [...] AARP MEDI COMP (REFERRAL REQUIRED) [address] [address] [place] [address] [id number] DEBBIE GASTELUMKELLI Self - patient is the insured MEDICAID OF [facility] [address] [place] [address] [id number] DEBBIEBOZENA GASTELUM KELLI Self - patient is the insured Medical (General) History Medical History History ICD Code Denies [place],DM,CVA,Lung disease,renal dise ase Legally blind Depression HTN Diverticulitis x 3 episodes. Describes a colonoscopy in [place] in approx. 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
--- OUTSIDE RECORDS SUMMARY | 2025-03-21 15:07 | XMS_ITS | Encounter Summary ---
Author Organization [facility] Address [address] [place] [address] Phone Care Team Providers Care Senior Editor Name Role Phone Ronal Orozco MD Primary Care Provider [phone] Encounter Details Date Type Department Care Team (Late st Contact Info) Description 11/27/2022 Procedure Pass [facility], Ct Scan - [facility] [address] [place] [address] Social History Tobacco Use Types Packs/Day Years [...] documented as of this encounter Care Teams Senior Editor Relationship Specialty Start Date End Date Ronal Orozco MD [address] [place] [address] Dr Brunner [address] [place] [address], [place] [address] PCP - General Internal Medicine 12/15/21 documented as of this encounter Additional Source Comments The information contained in this document represents components of the legal health record. It is not the complete legal health record.[facility]
--- OUTSIDE RECORDS SUMMARY | 2025-03-21 15:07 | XMS_ITS | Encounter Summary ---
Author Organization [facility] Address [address] [place] [address] Phone Care Team Providers Care Cath Lab Name Role Phone Ronal Orozco MD Primary Care Provider [phone] [phone] Encounter Details Date Type Department Care Team (Late st Contact Info) Description 11/27/2022 Procedure Pass [facility], Ct Scan - [facility] [address] [place] [address] Social History Tobacco Use Types Packs/Day Years [...] documented as of this encounter Care Teams Cath Lab Relationship Specialty Start Date End Date Ronal Orozco MD [address] [place] [address] Dr Brunner [address] [place] [address], [place] [address] PCP - General Internal Medicine 12/15/21 documented as of this encounter Additional Source Comments The information contained in this document represents components of the legal health record. It is not the complete legal health record.[facility]
--- OUTSIDE RECORDS SUMMARY | 2025-03-21 15:07 | XMS_ITS | Encounter Summary ---
Author Organization [facility] Address [address] [place] [address] Phone Care Team Providers Care Drupal Developer Name Role Phone Ronal Orozco MD Primary Care Provider [phone] [phone] Encounter Details Date Type Department Care Team (Late st Contact Info) Description 12/26/2023 Procedure Pass [facility] DE[facility] [address] [place] [address] Social History Tobacco Use Types Packs/Day Years [...] documented as of this encounter Care Teams Drupal Developer Relationship Specialty Start Date End Date Ronal Orozco MD [address] [place] [address] [place] [address] PCP - General Internal Medicine 12/15/21 documented as of this encounter Additional Source Comments The information contained in this document represents components of the legal health record. It is not the complete legal health record.[facility]
--- OUTSIDE RECORDS SUMMARY | 2025-03-21 15:07 | XMS_ITS | Encounter Summary ---
Author Organization [facility] Address [address] [place] [address] Phone Care Team Providers Care Set Designer Name Role Phone Ronal Orozco MD Primary Care Provider [phone] [phone] Encounter Details Date Type Department Care Team (Late st Contact Info) Description 01/11/2022 Procedure Pass [facility] [address] [place] [address] Social History Tobacco Use Types Packs/Day Years [...] documented as of this encounter Care Teams Set Designer Relationship Specialty Start Date End Date Ronal Orozco MD [address] [place] [address] [place] [address] PCP - General Internal Medicine 12/15/21 documented as of this encounter Additional Source Comments The information contained in this document represents components of the legal health record. It is not the complete legal health record.[facility]
== END 2025-03-21 15:47 | disposition home or self-care (01) ==
LOC: HO.HMCH 14:54
PROVIDERS: PCP Internal Medicine; Visit Provider Nurse Practitioner Family
DX: J45.901 Unspecified asthma with (acute) exacerbation (principal); J44.1 Chronic obstructive pulmonary disease with (acute) exacerbation

== ENCOUNTER → 2025-03-21 14:54 | Outpatient (BNVA) | payer MEDICARE, MEDICAID, SELFPAY | PROVIDERS: PCP Internal Medicine; Visit Provider Nurse Practitioner Family | DX: J45.901 Unspecified asthma with (acute) exacerbation (principal); J44.1 Chronic obstructive pulmonary disease with (acute) exacerbation | CPT/HCPCS: 99212 ==